=== PATIENT | female | born 1940 | race Caucasian/White ===

== ENCOUNTER 2020-02-04 09:57 | Observation (INO) | payer OTHER, SELFPAY ==
[2020-02-04] VITALS (14 sets, daily range): BP systolic 100–171; BP diastolic 61–88; PULSE 57–72; RESP 16–28; TEMP 36.2–36.4; O2SAT 95–100; BMI 21.5
--- NOTE | ~2020-02-04 | CT_ITS ---
EXAMINATION: CT brain wo con EXAM DATE: 02/04/2020 11:15 INDICATION: Fall. Head injury. TECHNIQUE: Spiral CT of the head was performed without contrast. Axial, coronal and sagittal images were reviewed. The dose-length product (DLP) for this examination was 605.33 mGy-cm. The exposure w as tailored according to patient size, and iterative reconstruction (ASIR) was used as additional dos e reduction technique. Comparison is made to prior examination from 08/17/2019. FINDINGS: There is no acute intraparenchymal hemorrhage. No evidence of intraparenchymal brain mass lesion. No evidence of acute infarction. Please note that initial head CT has limited sensitivity f or small or acute infarctions. There is mild periventricular and subcortical hypodensity, nonspecific but probably related to small vessel ischemic disease. There is moderate prominence of the sulci a nd ventricles related to cerebral atrophy. There is intracranial carotid arteriosclerosis. There a re no extra-axial collections. There is no mass effect or midline shift. Patient has had bilateral ocular lens surgery. Soft tissue is unremarkable. The visualized sinuses and mastoid air cells are well aerated. IMPRESSION: 1. No acute intracranial findings. 2. Chronic age related findings. Reviewed, dictated and finalized at location A.
--- NOTE | ~2020-02-04 | CT_ITS ---
EXAMINATION: CT lumbar spine wo [facility] EXAM DATE: 02/04/2020 11:16 INDICATION: Fall, back pain. TECHNIQUE: Spiral CT lumbar spine was performed without contrast. Axial, coronal and sagittal images were reviewed. The dose-length product (DLP) for this examination was 402.91 mGy-cm. The exposure w as tailored according to patient size (auto mA exposure control), and iterative reconstruction (ASIR) was used as additional dose reduction technique. There is no prior study for comparison. FINDINGS: There is mild to moderate lumbar levoscoliosis with moderate to severe disc disease at L3- 4 and L5-S1, moderate at L2-3 and L4-5. There is 3 mm retrolisthesis L5 on S1. There are no acute fra ctures identified. There is no spondylolysis. Moderate abdominal aortic arterial sclerosis and scatte red sigmoid diverticulosis. Sacrum, sacroiliac joints, sacral arcuate lines are intact. A detailed level by level evaluation of spondylosis can be added as addendum if requested. IMPRESSION: 1. No acute lumbar fracture. 2. Overall moderate lumbar spondylosis. Reviewed, dictated and finalized at location A.
--- NOTE | ~2020-02-04 | CT_ITS ---
EXAMINATION: CTA chest PE protocol DATE: 02/04/2020 12:25 INDICATION: Chest pain. Shortness of breath. Positive d-dimer. TECHNIQUE: Computed tomography (CT) pulmonary angiogram of the chest was performed with 100 mL Omnipa que-350 intravenous contrast. Additional 3D reconstructions utilizing coronal maximum intensity proje ction (MIP) were performed. Automated exposure control and iterative reconstruction technique were em ployed. The dose-length product was 182.70 mGy-cm. COMPARISON: None FINDINGS: Excellent contrast opacification of the pulmonary arteries. There is mild streak artifact from dense contrast in the superior vena cava and right atrium. Mild scattered respiratory motion artifact, at t he apices which does not significantly limit evaluation. No pulmonary embolism. Elevation of the righ t hemidiaphragm with mild right basilar compressive atelectasis. Additional mild discoid atelectasis at the lingula and right middle lobe. No pneumonia, pulmonary edema or pleural effusion. Heart size i s normal. Trace pericardial effusion. Three lead pacemaker/AICD seen with tips at the right atrial ap pendage, apex of the right ventricle and overlying the left ventricle having traversed the coronary s inus. Thoracic aorta is normal in caliber with no dissection. No pathologically enlarged thoracic lym phadenopathy. Small sliding-type hiatal hernia. Mild thoracic spondylosis. IMPRESSION: 1. No pulmonary embolism. 2. Chronic elevation of the right hemidiaphragm with mild atelectasis in the lingula and right middle and lower lobes. No other acute cardiopulmonary disease. Reviewed, dictated and finalized at location A. IMPRESSION: 1. No pulmonary embolism. 2. Chronic elevation of the right hemidiaphragm with mild atelectasis in the li ngula and right middle and lower lobes. No other acute cardiopulmonary disease.
--- NOTE | ~2020-02-04 | XR_ITS ---
XR hip RT 2V w AP pelvis DATE: 02/04/2020 10:51 INDICATION: Fall. Right hip pain. TECHNIQUE: AP pelvis. AP and lateral views of right hip COMPARISON: None FINDINGS: There is levoscoliosis and multilevel degenerative disc disease of the lumbar spine. The pubic symphysis and sacroiliac joints are intact. No pelvic fracture or bone destruction is detec baudilio. Hip joint spaces are symmetric and relatively preserved. No fracture, dislocation, avascular necrosis or bone destruction of the right hip is detected. IMPRESSION: No significant abnormality of the pelvis or right hip Levoscoliosis and multilevel degenerative disc disease of the lumbar spine Reviewed, dictated and finalized at location D.
--- NOTE | ~2020-02-04 | CT_ITS ---
EXAMINATION: CT cervical spine wo [facility] EXAM DATE: 02/04/2020 11:16 INDICATION: Fall, head injury. TECHNIQUE: Spiral CT of the cervical spine was performed without contrast. Axial images were reviewe d. Coronal and sagittal reformatted images were also reviewed. The dose-length product (DLP) for thi s examination was 260.20 mGy-cm. The exposure was tailored according to patient size (auto mA exposu re control), and iterative reconstruction (ASIR) was used as additional dose reduction technique. ere is no prior study for comparison. FINDINGS: There is no evidence of acute cervical fracture. The odontoid process is intact. Pre-dens space is normal. Prevertebral soft tissue is normal. There are no soft tissue abnormalities identi fied. There is no disc space widening or traumatic vertebral body subluxation suspected. Moderate l ower cervical disc disease and arthropathy. A detailed level by level evaluation of spondylosis can be added as addendum if requested. Pacemaker. IMPRESSION: 1. No acute cervical fracture. 2. Moderate cervical spondylosis. Reviewed, dictated and finalized at location A.
--- NOTE | ~2020-02-04 | XR_ITS ---
EXAMINATION: XR chest 1V portable EXAM DATE: 02/04/2020 10:23 INDICATION: Shortness of breath. TECHNIQUE: Portable AP frontal chest x-ray was obtained. Comparison is made to prior examination from 06/16/2018. FINDINGS: There is triple lead pacemaker/AICD device. The lungs are clear. There are no pleural effu sions. The cardiomediastinal silhouette is within normal limits. There is no pneumothorax suspected . The bones and soft tissues are unremarkable. There is no significant interval change. IMPRESSION: No acute cardiopulmonary findings. Reviewed, dictated and finalized at location A.
--- NOTE | 2020-02-04 10:05 | ECG_ITS ---
Measurements Intervals [place] Rate: 63 P: -22 RI: 152 QRS: 15 QRSD: 119 T: 140 QT: 467 QTc: 481 Interpretive Statements SINUS RHYTHM LEFT BUNDLE BRANCH BLOCK BASELINE ARTIFACT- I, II, III, AVR, AVL, AVF, V6 ABNORMAL ECG Electronically Signed On 02-04-2020 10:18:16 CDT by Glenn Parker D.O.
[2020-02-04 10:23] LABS: Basophils Absolute Auto 0.1 K/mm3 (0.0-0.1); Basophils Percent Auto 0.6 % (0.2-1.2); Eosinophils Absolute Auto 0.1 K/mm3 (0-0.3); Eosinophils Percent Auto 0.8 % (0-4.4); Hematocrit 40.7 % (37.0-47.0); Immature Granulocyte Absolute 0.03 K/mm3 (0.00-0.031); Immature Granulocyte Percent A 0.4 % (0-0.5); Lymphocytes Absolute Auto 3.32 K/mm3 (0.9-3.2); Lymphocytes Percent Auto 42.1 % (18.3-44.2); Mean Corpuscular HGB Conc 34.4 g/dl (32-36); Mean Corpuscular Volume 81.4 fl (80-100); Mean Platelet Volume 11.1 fl (7.4-10.4); Monocytes Absolute Auto 0.7 K/mm3 (0.1-0.6); Monocytes Percent Auto 8.7 % (2.6-8.5); Neutrophils Absolute Auto 3.7 K/mm3 (1.3-6.7); Neutrophils Percent Auto 47.4 % (45.5-73.1); Platelet Count Result 263 k/mm3 (150-375); Red Cell Distribution Width 13.7 % (11.5-14.5); White Blood Count 7.9 K/mm3 (4.5-10.0)
[2020-02-04 10:34] LABS: Alanine Aminotransferase 34 U/L (4-35); Albumin Level 4.6 g/dL (3.5-5.1); Alkaline Phosphatase 124 U/L (38-126); Aspartate Amino Transferase 49 U/L (14-36); Bilirubin,Total 0.5 mg/dL (0.2-1.3); Blood Urea Nitrogen 25 mg/dL (7-17); Calcium 9.7 mg/dL (8.4-10.2); Carbon Dioxide 20 mmol/L (22-30); Chloride 98 mmol/L (98-107); Estimated CRCL calculation 29 ml/min; Estimated Glomerular Filt Rate 39; Glucose 212 mg/dL (65-105); INR 0.9; Lipase 231 U/L (23-300); Potassium 4.1 mmol/L (3.4-5.0); Prothrombin Time 11.9 Seconds (11.1-14.7); Sodium 132 mmol/L (137-145)
[2020-02-04 10:35] LABS: Partial Thromboplastin Time 27.5 SECONDS (22.3-36.8)
[2020-02-04 10:46] LABS: NT Pro B Type Natriuretic Pept 193 PG/ML (5-100); Troponin I < 0.012 ng/mL (0.000-0.034)
[2020-02-04 11:01] LABS: D Dimer 1.76 ug/mL (<0.48)
--- NOTE | 2020-02-04 11:01 | ED.GENADULT ---
HPI - General Adult General Chief complaint: Unspecified Stated complaint: chest pain, weakness Time Seen by Provider: 02/04/20 10:01 History of Present Illness HPI narrative: Patient is an 79-year-old female who presents from primary care office for evaluation of exertional dyspnea with pleuritic chest pain for the last 3 days noting that she gets short of breath with ambulation noting history of heart failure. Patient had a fall 3 days prior in the bathroom when her legs gave out patient notes since she has felt lightheaded dizzy with neck pain and right hip pain. Patient has been able to ambulate with her walker. Patient denies any vomiting diarrhea or URI symptoms. On arrival patient in the room in no distress resting comfortably. Patient presents per private vehicle Related Data Home Medications Medication Instructions Recorded Confirmed losartan 25 mg tablet 25 mg PO DAILY 10/18/19 02/04/20 multivitamin 1 tablet PO DAILY 10/18/19 02/04/20 insulin aspart U-100 [Novolog unit SUBCUT 02/04/20 Flexpen U-100 Insulin] insulin glargine U-300 conc SUBCUT 02/04/20 [Toujeo SoloStar U-300 Insulin] Allergies Allergy/AdvReac Type Severity Reaction Status Date / Time codeine Allergy Unknown Unknown Verified 02/04/20 10:22 NSAIDS (Non-Steroidal Allergy Unknown Unknown Verified 02/04/20 10:22 Anti-Inflamma Review of Systems Review of Systems: All systems reviewed & are unremarkable except as noted in HPI and below PMFSH Past Medical History Medical History Chest pressure Dizziness Generalized weakness Neck pain Status post fall Family History Family History (Updated 06/16/18 @ 10:42 by DOCTOR UNKNOWN) Mother Family history of tuberculosis Father Patient's father is Social History Social History Smoking status: Never smoker Alcohol intake: never Exam Narrative: Exam Narrative: GENERAL: Well-appearing, well-nourished, and in no acute distress. HEAD: Normocephalic, atraumatic. EYES: PERRLA and EOMI. ENT: Nares clear, no rhinorrhea or epistaxis. Mucous membranes moist. Oropharynx without tonsillar hypertrophy exudate or other lesions. Bilateral TMs pearly shah nonbulging NECK: Supple. No adenopathy or masses. CHEST: Clear to auscultation. No respiratory distress. No wheezes rales or rhonchi HEART: Regular rate and rhythm. No murmur heard. Normal peripheral pulses. ABDOMEN: Soft, nontender, nondistended EXTREMITIES: Normal range of motion. No edema. Midline cervical no thoracic or lumbar tenderness. Tenderness of the right hip SKIN: Warm, dry, no rash. NEURO: No focal deficits. Alert and oriented x3. Cranial nerves II through XII grossly intact. Neurovascularly intact PSYCH: Normal mood and affect. Course Course Emergency Course: Patient in the room in no distress aware of case findings treatment plan and diagnosis agreeing to follow with primary care as instructed also aware of the discussion with primary care Case work was involved to see if home health could be established for the patient Consultations Consultation #1: Discussed case with primary care who agrees he can follow the patient in clinic Date: 02/04/20 Time: 15:43 Vital Signs Vital signs: Vital Signs Temperature 97.1 F L 02/04/20 10:02 Pulse Rate 71 02/04/20 10:02 Respiratory Rate 28 H 02/04/20 10:02 Blood Pressure 132/61 02/04/20 10:02 Pulse Oximetry 95 02/04/20 10:02 Temperature 97.1 F L 02/04/20 10:02 Pulse Rate 64 02/04/20 14:00 Respiratory Rate 20 02/04/20 14:00 Blood Pressure 167/67 H 02/04/20 14:00 Pulse Oximetry 100 02/04/20 14:00 Medical Decision Making [facility] Narrative Medical decision making narrative: Patient in the room in no distress aware of case findings treatment plan and diagnosis agreeing to follow-up as directed or to return if symptom
[2020-02-04] MEDS: SODIUM CHLORIDE 0.9% IV 500 ML 999 ML IV CONT ×2 (11:30→15:04)
[2020-02-04 11:37] LABS: Add Urine Microscopic? NO; Appearance Urine Clear (Clear); Bilirubin Urine Negative (Negative); Blood Urine Negative (Negative); Color Urine Straw (Yellow); Glucose Urine UA Negative (Negative); Ketones Urine Negative (Negative); Leukocyte Esterase Ur Negative LEU/UL (Negative); Nitrate Urine Negative (Negative); Protein Urine Negative (Negative); Specific Grav Ur 1.008 (1.001-1.035); Urobilinogen Urine Negative mg/dL (<2.0)
--- NOTE | 2020-02-04 12:11 | PC.NURSE ---
Patient to CT.
[2020-02-04 13:33] LABS: Troponin I < 0.012 ng/mL (0.000-0.034)
[2020-02-04] MEDS: ONDANSETRON INJ 4 MG/2 ML VIAL IV PUSH (15:05)
--- NOTE | 2020-02-04 16:54 | PCCCNOTE ---
Spoke with family friend, Dayana Way [phone]. She will be assisting this patient and her , Jian. Contacted [facility] and faxed referral for HH. They will not be able to see patient and spouse until next week. Dayana Way stated that would be fine.
[2020-02-04] MEDS: MECLIZINE HCL 25 MG TABLET PO (17:49)
[2020-02-04 18:30] LABS: Lactic Acid Reflex 1.2 mmol/L (0.7-2.1)
[2020-02-04 18:42] LABS: Troponin I < 0.012 ng/mL (0.000-0.034)
--- NOTE | 2020-02-04 19:53 | ADMGEN ---
This patient, Nathalia Jaimes, was admitted to [facility] Surg Room 333-01 at 1905. Patient/family oriented to hospital policies and general routines including ID bracelet, bed and alarms, visiting hours, pain management, procedures, bathroom and other care routines, personal items, smoking policy, room service/diet, and visiting hours. Valuables list has been completed. Information on how to activate the Rapid Response Team has been discussed. Patient/Family are encouraged to report perceived risks to care and to ask questions if they do not understand what they are told or what they should do.
[2020-02-04] MEDS: LACTATED RINGERS 1,000 ML 75 ML IV CONT (20:59)
[2020-02-04 22:36] LABS: Glucose Point of Care 258 (65-105)
[2020-02-04] MEDS: FAMOTIDINE 20 MG/2 ML VIAL IV PUSH (22:52)
[2020-02-05] VITALS: PULSE 66
[2020-02-05] LABS: Influenza Control Positive
[2020-02-05 00:37] VITALS: BP 165/64; PULSE 73; RESP 20; TEMP 36.8; O2SAT 100
[2020-02-05 04:00] VITALS: BP 145/56; PULSE 73; PULSE 74; RESP 20; TEMP 36.6; O2SAT 100
[2020-02-05 06:38] LABS: Basophils Percent Auto 0.5 % (0.2-1.2); Eosinophils Absolute Auto 0.1 K/mm3 (0-0.3); Eosinophils Percent Auto 1.1 % (0-4.4); Hematocrit 33.9 % (37.0-47.0); Hemoglobin 11.6 g/dL (12.0-15.0); Immature Granulocyte Absolute 0.02 K/mm3 (0.00-0.031); Immature Granulocyte Percent A 0.3 % (0-0.5); Lymphocytes Absolute Auto 2.71 K/mm3 (0.9-3.2); Lymphocytes Percent Auto 40.9 % (18.3-44.2); Mean Corpuscular HGB Conc 34.2 g/dl (32-36); Mean Corpuscular Hemoglobin 28.4 pg (26-34); Mean Corpuscular Volume 83.1 fl (80-100); Mean Platelet Volume 10.8 fl (7.4-10.4); Monocytes Absolute Auto 0.6 K/mm3 (0.1-0.6); Monocytes Percent Auto 9.4 % (2.6-8.5); Neutrophils Absolute Auto 3.2 K/mm3 (1.3-6.7); Neutrophils Percent Auto 47.8 % (45.5-73.1); Platelet Count Result 204 k/mm3 (150-375); Red Blood Count 4.08 M/mm3 (4.2-5.4); Red Cell Distribution Width 13.7 % (11.5-14.5); White Blood Count 6.6 K/mm3 (4.5-10.0)
[2020-02-05 06:42] LABS: Blood Urea Nitrogen 17 mg/dL (7-17); Calcium 8.8 mg/dL (8.4-10.2); Carbon Dioxide 25 mmol/L (22-30); Chloride 106 mmol/L (98-107); Estimated CRCL calculation 35 ml/min; Estimated Glomerular Filt Rate 48; Glucose 146 mg/dL (65-105); Potassium 3.7 mmol/L (3.4-5.0); Sodium 136 mmol/L (137-145)
[2020-02-05 08:00] VITALS: PULSE 73; PULSE 74; RESP 20; O2SAT 100
[2020-02-05] MEDS: LACTATED RINGERS 1,000 ML 75 ML IV CONT (08:03)
[2020-02-05] MEDS: SERTRALINE HCL 50 MG TABLET PO (08:03)
[2020-02-05] MEDS: busPIRone HCL 5 MG TABLET PO (08:04)
[2020-02-05] MEDS: LOSARTAN POTASSIUM 25 MG TABLET PO (08:04)
[2020-02-05] MEDS: METOPROLOL TARTRATE 25 MG TABLET PO (08:04)
[2020-02-05] MEDS: MULTIVITAMINS THERAPEUTIC TAB (*BKC) 1 TABLET PO (08:04)
[2020-02-05] MEDS: GABAPENTIN 300 MG CAPSULE PO (08:04)
[2020-02-05] MEDS: INSULIN ASPART (*BKC) 100 UNITS/ML 19 UNITS SUB-Q (08:15)
--- NOTE | 2020-02-05 09:15 | PM.SD ---
Same Day Admit/Disch: HPI History of Present Illness Chief complaint: Dizziness, gait instability, generalized weakness Narrative: Nathalia Jaimes is a 79 year old female who was in the emergency department on February 07 chest pressure. Three weeks prior to admission she tripped in her bathroom and fell forward hit her head on the wall as she caught herself with her hands slid to the floor and landed on her knees. Since then she has felt off balance and her right knee has been hurting. She noted no swelling. No popping clicking or giving out. She normally walks with a walker except while she is working in the kitchen. While she was visiting her doctor on February 03 she complained of some mild pressure across her precordium. This was not related to exertion. It did seem to be worse with breathing although she is not certain now. It resolved after a few minutes. Since her fall she has had some aching in both of her legs. She did not have any aching other than her usual mild arthritis in the hands and knees prior to her fall. She denied any focal weakness or numbness, vision changes, dysphagia, or speech difficulty. She denied any incoordination while performing her kitchen tasks or activities of daily living. She denied any headaches, fevers, chills, sweats, congestion, bowel or bladder changes, abnormal bleeding, change in appetite, palpitations, chest pain, increased shortness of breath, or increased ankle swelling. She normally has a little ankle swelling at the end of the day. 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 Pituitary adenoma Status post fall SVT (supraventricular tachycardia) Temporal arteritis Type 2 diabetes mellitus with diabetic nephropathy Type 2 diabetes mellitus with hyperglycemia V-tach Surgical History Surgical History (Updated 02/05/20 @ 09:44 by Sy Lea MD) H/O breast biopsy History of appendectomy History of cholecystectomy S/P implantation of automatic cardioverter/defibrillator (AICD) Status cardiac pacemaker Family History Family History Mother Family history of tuberculosis Father Patient's father is Social History Social History (Updated 02/05/20 @ 09:22 by Sy Lea MD) Social History: . Resides with her . Son and daughter live out of state, one in [place] and one in [place]. Smoking status: Former smoker Tobacco type: cigarettes Additional smoking assessment comments: quit 1960s- smoked socially Alcohol intake: never Substance use: never Living arrangements: with family Occupation/Education: retired Gender identity (if verbalized by the patient): Female Spiritual care concerns: No Agree to blood products: Yes Same Day Admit/Disch: Med Pre-admit Medications Home Medications Medication Instructions Recorded Confirmed Type losartan 25 mg tablet 25 mg PO DAILY 10/18/19 02/04/20 History multivitamin 1 tablet PO DAILY 10/18/19 02/04/20 History gabapentin 300 mg capsule 300 mg PO TID #270 cap 12/27/19 02/04/20 Rx lovastatin 40 mg tablet 40 mg PO QPM #90 tablet 01/05/20 02/04/20 Rx buspirone 5 mg tablet 5 mg PO BID #60 tablet 01/24/20 02/04/20 Rx sertraline 50 mg tablet 50 mg PO DAILY #30 tablet 01/24/20 02/04/20 Rx Toujeo SoloStar U-300 Insulin 60 unit SUBCUT HS 02/04/20 02/04/20 History insulin aspart U-100 [Novolog 19 unit SUBCUT TIDWM 02/04/20 02/04/20 History Flexpen U-100 Insulin] metoprolol tartrate 25 mg tablet 25 mg PO BID #60 tablet 02/04/20 02/04/20 Rx acetaminophen 650 mg PO Q4H PRN #60 tablet 02/05/20 Rx Exam Narrative: Exam Narrative:
[2020-02-05 11:02] LABS: CRP 1.2 mg/dL (<1.0); Creatine Kinase 156 U/L (30-135)
[2020-02-05 11:30] LABS: Cortisol Random 9.93 ug/dL
[2020-02-05 11:33] LABS: Iron 66 ug/dL (37-170)
[2020-02-05 11:43] LABS: Percent Iron Saturation 27 % (20-50)
[2020-02-05 12:06] LABS: Folic Acid > 20.0 ng/mL (2.76->20)
[2020-02-05 14:21] VITALS: BP 159/65; PULSE 67; RESP 16; TEMP 36.3; O2SAT 100
[2020-02-05 15:32] LABS: Glucose Point of Care 225 (65-105)
[2020-02-05 15:32] LABS: Glucose Point of Care 59 (65-105)
== END 2020-02-05 14:35 | disposition home or self-care (01) ==
LOC: ANHED 17:55 → ANH3MEDSUR 02-05 03:45
PROVIDERS: Emergency Medicine Emergency Medical Services; Admitting Provider Internal Medicine; Emergency Provider Emergency Medicine; PCP Family Medicine; Visit Provider Internal Medicine
DX: R07.89 Other chest pain (principal); S06.0X0A Concussion without loss of consciousness, initial encounter; W01.198A Fall on same level from slipping, tripping and stumbling with subsequent striking against other object, initial encounter; M54.2 Cervicalgia; M25.561 Pain in right knee; F41.9 Anxiety disorder, unspecified; F32.9 Major depressive disorder, single episode, unspecified; I13.0 Hypertensive heart and chronic kidney disease with heart failure and stage 1 through stage 4 chronic kidney disease, or unspecified chronic kidney disease; I50.22 Chronic systolic (congestive) heart failure; E11.22 Type 2 diabetes mellitus with diabetic chronic kidney disease; N18.3 Chronic kidney disease, stage 3 (moderate); D63.1 Anemia in chronic kidney disease; E11.42 Type 2 diabetes mellitus with diabetic polyneuropathy; E11.65 Type 2 diabetes mellitus with hyperglycemia; E78.2 Mixed hyperlipidemia; M19.90 Unspecified osteoarthritis, unspecified site; I42.0 Dilated cardiomyopathy; D35.2 Benign neoplasm of pituitary gland; I44.7 Left bundle-branch block, unspecified; Z95.810 Presence of automatic (implantable) cardiac defibrillator; Z87.891 Personal history of nicotine dependence; Z79.4 Long term (current) use of insulin; Z79.899 Other long term (current) drug therapy
CPT/HCPCS: 36415; 51701; 70450; 71045; 71275; 72125; 72131; 73502; 73521; 80048; 80053; 81003; 82533; 82550; 82607; 82746; 83540; 83550; 83605; 83690; 83880; 84443; 84484; 85025; 85380; 85610; 85730; 86140; 87040; 87804; 93005; 96361; 96374; 96375; 97161; 97165; 97535; 99285; A9270; G0378; J0131; J1815; J2405; J7040; J7120; Q9967

== ENCOUNTER 2020-02-11 11:48 | Inpatient (IN) | payer OTHER, SELFPAY ==
[2020-02-11] VITALS (17 sets, daily range): BP systolic 127–169; BP diastolic 56–96; PULSE 90–123; RESP 15–33; TEMP 36.7–37.1; O2SAT 95–100
--- NOTE | ~2020-02-11 | XR_ITS ---
EXAMINATION: XR chest 1V portable INDICATION: Shortness of breath and cough TECHNIQUE: Portable AP chest at 1233 hours COMPARISON: 02/04/2020 FINDINGS: There is chronic elevation of the right hemidiaphragm. The lungs are free of acute opacitie s. There is no pleural effusion or pneumothorax. The heart size is normal. A triple lead cardiac pace maker of the left chest wall ends with leads in expected locations. IMPRESSION: 1. No acute cardiopulmonary abnormality. Reviewed, dictated and finalized at location B.
--- NOTE | ~2020-02-11 | CT_ITS ---
EXAMINATION: CTA chest PE protocol DATE: 02/12/2020 00:31 INDICATION: Dyspnea. Congestive heart failure. TECHNIQUE: Computed tomography (CT) pulmonary angiogram of the chest was performed with 100 mL Omnipa que-350 intravenous contrast. Additional 3D reconstructions utilizing coronal maximum intensity proje ction (MIP) were performed. Automated exposure control and iterative reconstruction technique were em ployed. The dose-length product was 327.74 mGy-cm. COMPARISON: 02/04/2020 FINDINGS: Excellent contrast opacification of the pulmonary arteries. There is mild streak artifact from dense contrast in the superior vena cava and right atrium. No significant respiratory motion artifact. No p ulmonary embolism. Elevation of the right hemidiaphragm with scattered mild discoid atelectasis in th e left lower lobe, right middle lobe and lingula. No pneumonia, pulmonary edema, pleural effusion or pneumothorax. Heart size is normal. Three lead pacemaker/AICD seen with lead tips at the right atrial appendage, apex of the right ventricle and overlying the left ventricle likely having traversed the coronary sinus. No pericardial effusion. Thoracic aorta is normal in caliber with no dissection. No p athologically enlarged thoracic lymphadenopathy. Gallbladder is not visualized and likely surgically absent. Mild upper thoracic levocurvature with mild spondylosis. IMPRESSION: 1. No pulmonary embolism or other acute cardiopulmonary disease. 2. Chronic elevation right hemidiaphragm with unchanged mild scattered atelectasis in the lower lungs . Reviewed, dictated and finalized at location A. IMPRESSION: 1. No pulmonary embolism or other acute cardiopulmonary disease. 2. Chronic elevation right hemidiaphragm with unchanged mild scattered atelecta sis in the lower lungs.
--- NOTE | 2020-02-11 11:44 | ECG_ITS ---
Measurements Intervals [place] Rate: 91 P: 39 MN: 120 QRS: -46 QRSD: 131 T: 96 QT: 417 QTc: 514 Interpretive Statements ATRIAL SENSE- ELECTRONIC VENTRICULAR PACEMAKER NO FURTHER INTERPRETATION IS POSSIBLE ATYPICAL ECG Electronically Signed On 02-11-2020 14:45:44 CDT by Glenn Parker D.O.
--- NOTE | 2020-02-11 12:16 | ED.SOB ---
HPI - SOB/Dyspnea General Chief Complaint: Shortness of Breath/Dyspnea Stated Complaint: SOB Time Seen by Provider: 02/11/20 12:13 Source: patient, family () and RN notes reviewed Mode of arrival: ambulatory Limitations: no limitations History of Present Illness HPI Narrative: A 79 y/o female w/ a h/o CHF has arrived to the ED from Dr. Maria's office with c/o progressively worsening SOB that began 3 days ago. Pt reports associated sinus drainage, a sore throat, and a cough. Pt denies swelling in legs, fever, or an increase in SOB while lying flat. Pt also denies recent travel or sick contacts. She notes that she is not currently using any breathing treatments at home, and states she is not currently taking Lasix. Pt notes that she normally does not receive oxygen, but is currently receiving oxygen in the ED bed. MD elicited complaint: shortness of breath Pertinent past history: congestive heart failure Onset (ago): day(s) (3) Timing: progressively worsening Known history of: congestive heart failure Associated symptoms: cough and other (sore throat; sinus drainage) Related Data Home Medications Medication Instructions Recorded Confirmed losartan 25 mg tablet 25 mg PO DAILY 10/18/19 02/04/20 multivitamin 1 tablet PO DAILY 10/18/19 02/04/20 Toujeo SoloStar U-300 Insulin 60 unit SUBCUT HS 02/04/20 02/04/20 insulin aspart U-100 [Novolog 19 unit SUBCUT TIDWM 02/04/20 02/04/20 Flexpen U-100 Insulin] Allergies Allergy/AdvReac Type Severity Reaction Status Date / Time codeine Allergy Unknown Unknown Verified 02/11/20 12:56 NSAIDS (Non-Steroidal Allergy Unknown Unknown Verified 02/11/20 12:56 Anti-Inflamma Review of Systems Review of Systems: All systems reviewed & are unremarkable except as noted in HPI and below Constitutional: Constitutional: Denies fever(s) ENT: Reports sore throat and Reports other (posterior sinus drainage) Cardiovascular: Cardiovascular: Denies edema (in legs), Reports dyspnea and Denies orthopnea Respiratory: Respiratory: Reports cough PMFSH Past Medical History Medical History Anemia due to stage 3 chronic kidney disease Bilateral cataracts CHF (congestive heart failure) Chronic kidney disease, stage III (moderate) H/O diverticulitis of colon Kidney stone LBBB (left bundle branch block) Mixed hyperlipidemia 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 Resides with her . Son and daughter live out of [facility], one in [place]. Smoking status: Former smoker Tobacco type: cigarettes Additional smoking assessment comments: quit 1960s- smoked socially Alcohol intake: never Substance use: never Gender identity (if verbalized by the patient): Female Spiritual care concerns: No Agree to blood products: Yes Exam Narrative: Exam Narrative: GENERAL: Uncomfortable-appearing, well-nourished, and in mild distress. HEAD: Normocephalic, atraumatic. EYES: PERRL and EOMI. ENT: Mucous membranes moist. Palatal petechiae without tonsillar hypertrophy or exudate. CHEST: Coarse rales and rhonchi throu
[2020-02-11 12:32] LABS: Basophils Percent Auto 0.3 % (0.2-1.2); Eosinophils Absolute Auto 0.1 K/mm3 (0-0.3); Eosinophils Percent Auto 1.2 % (0-4.4); Hematocrit 36.2 % (37.0-47.0); Hemoglobin 12.2 g/dL (12.0-15.0); Immature Granulocyte Absolute 0.01 K/mm3 (0.00-0.031); Immature Granulocyte Percent A 0.2 % (0-0.5); Lymphocytes Percent Auto 35.4 % (18.3-44.2); Mean Corpuscular HGB Conc 33.7 g/dl (32-36); Mean Corpuscular Hemoglobin 27.9 pg (26-34); Mean Corpuscular Volume 82.8 fl (80-100); Monocytes Absolute Auto 0.7 K/mm3 (0.1-0.6); Monocytes Percent Auto 11.1 % (2.6-8.5); Neutrophils Absolute Auto 3.1 K/mm3 (1.3-6.7); Neutrophils Percent Auto 51.8 % (45.5-73.1); Platelet Count Result 226 k/mm3 (150-375); Red Blood Count 4.37 M/mm3 (4.2-5.4); Red Cell Distribution Width 13.6 % (11.5-14.5); White Blood Count 5.9 K/mm3 (4.5-10.0)
[2020-02-11 12:40] LABS: Prothrombin Time 12.5 Seconds (11.1-14.7)
[2020-02-11 12:41] LABS: Partial Thromboplastin Time 27.6 SECONDS (22.3-36.8)
[2020-02-11 12:43] LABS: Alanine Aminotransferase 29 U/L (4-35); Albumin Level 4.2 g/dL (3.5-5.1); Alkaline Phosphatase 125 U/L (38-126); Aspartate Amino Transferase 38 U/L (14-36); Bilirubin,Total 0.5 mg/dL (0.2-1.3); Blood Urea Nitrogen 10 mg/dL (7-17); Calcium 8.8 mg/dL (8.4-10.2); Carbon Dioxide 22 mmol/L (22-30); Chloride 102 mmol/L (98-107); Estimated CRCL calculation 35 ml/min; Estimated Glomerular Filt Rate 48; Glucose 324 mg/dL (65-105); Magnesium 1.5 mg/dL (1.6-2.3); Potassium 4.4 mmol/L (3.4-5.0); Sodium 133 mmol/L (137-145)
[2020-02-11 12:51] LABS: NT Pro B Type Natriuretic Pept 425 PG/ML (5-100)
[2020-02-11] MEDS: IPRATROPIUM BR 0.02% INH SOLN 0.5 MG/2.5 ML VIAL 1 MG INHALATION (13:48)
[2020-02-11] MEDS: ALBUTEROL SULFATE NEB 2.5 MG/0.5 ML INH 15 MG INHALATION (13:49)
[2020-02-11] MEDS: ALBUTEROL SULFATE (*SP) AEROSOL 1 PUFF 4 PUFF INHALATION (13:58)
[2020-02-11] MEDS: FUROSEMIDE INJ 40 MG/4 ML VIAL IV PUSH ×2 (15:09→21:39)
[2020-02-11] MEDS: ACETAMINOPHEN 500 MG TABLET 1000 MG PO (15:14)
[2020-02-11] MEDS: LORAZEPAM INJ 2 MG/ML VIAL 0.5 MG IV PUSH (17:04)
[2020-02-11] MEDS: ALBUTEROL SULFATE NEB 2.5 MG/0.5 ML INH 5 MG INHALATION ×2 (17:20→19:26)
[2020-02-11] MEDS: IPRATROPIUM BR 0.02% INH SOLN 0.5 MG/2.5 ML VIAL INHALATION ×2 (17:20→19:27)
--- NOTE | 2020-02-11 18:01 | PC.NURSE ---
This patient, Nathalia Jaimes, was admitted to IMU Room 203-01. Patient/family oriented to hospital policies and general routines including ID bracelet, bed and alarms, visiting hours, pain management, procedures, bathroom and other care routines, personal items, smoking policy, room service/diet, and visiting hours. Valuables list has been completed. Information on how to activate the Rapid Response Team has been discussed. Patient/Family are encouraged to report perceived risks to care and to ask questions if they do not understand what they are told or what they should do.
[2020-02-11] MEDS: MAGNESIUM SULF 1 GM/D5W 100 ML 1 GM/100 ML BAG IVPB (21:53)
[2020-02-11 22:09] LABS: Glucose Point of Care 376 (65-105)
--- NOTE | 2020-02-11 22:10 | PM.IMHP ---
H&P: HPI History of Present Illness Chief complaint: chf/bronchitis Narrative: Nathalia Jaimes is a 79 year old female who was admitted here approximately 1 week ago. The patient had some dizziness and some gait instability and some generalized weakness at that time. The patient stated that she has fallen twice in this past week that she has been discharged. The patient had a CTA pulmonary performed at that time and was negative for PE. Patient was having some chest pain at that time her troponins were also negative. Patient was discharged on the same day that she was admitted. Today the patient complained of shortness of breath and some dyspnea. She does have a history of congestive heart failure. Her last echo was June of 2018 with the EF of 65% and impaired diastolic dysfunction. The patient has been wheezing and coughing. She has a dry cough. No fever no chills. She has a son that just returned from [place] however he has been on self quarantine and has not seen his mother. She has not been around any other sick people. Nor has she traveled. The patient's chest x-ray was read as no acute cardiopulmonary abnormality. Gases were not able to be drawn. The patient was placed on a BiPAP from the emergency room due to her shortness of breath. Was given a nebulizer treatment. She was given Lasix IV push. She still has not had any urinary output since then. The patient stated that she cannot tolerate the BiPAP machine. And she is a full code. Date of service 02/11/2020 Review of Systems Review of Systems: All systems reviewed & are unremarkable except as noted in HPI and below Constitutional: Constitutional: Reports as per HPI and Reports no additional constitutional complaints Eyes: Eyes: Reports as per HPI and Reports no additional eye complaints ENT: Reports system reviewed and no additional complaints, except as documented and Reports Normal hearing present Cardiovascular: Cardiovascular: Reports no additional cardiovascular complaints Respiratory: Respiratory: Reports no additional respiratory complaints and Reports no additional respiratory complaints Gastrointestinal: Gastrointestinal: Reports as per HPI and Reports no additional gastrointestinal complaints Musculoskeletal: Musculoskeletal: Reports no additional musculoskeletal complaints Integumentary/Breasts: Skin/Breast: Reports system reviewed and no additional complaints, except as docu and Reports as per HPI Neurologic: Reports system reviewed and no additional complaints, except as documented, Reports as per HPI and Reports Normal hearing present Psychiatric: Psychiatric: Reports no additional psychiatric complaints and Reports as per HPI Endocrine: Endocrine: Reports no additional endocrine complaints Hematologic/Lymphatic: Hematologic/Lymphatic: Reports no additional hematologic/lymphatic complaints Allergic/Immunologic: Allergic/Immunologic: Reports no additional allergic/immunologic complaints [facility] Past Medical History Medical History (Updated 02/11/20 @ 22:25 by Gisele Kimball NP) Anemia due to stage 3 chronic kidney disease Bilateral cataracts CHF (congestive heart failure) Chronic kidney disease, stage III (moderate) H/O diverticulitis of colon Kidney stone LBBB (left bundle branch block) Mixed hyperlipidemia 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
[2020-02-11 22:14] LABS: Base Excess ABG -3.1 mEq/l (+/-2.0); Fractional Inspired Oxygen 21 %; Oxygen Content ABG 16.8 %vol (16.0-22.0); Oxygen Saturation ABG 96.4 % (95.0-100.0); Oxyhemoglobin 94.6 % THb (90.0-100.0); PO2 ABG 73.8 mmHg (80.0-100.0); PO2 FiO2 Ratio Arterial Blood 3.51 %; Total Hemoglobin 12.6 g/dL (12.0-18.0)
[2020-02-11 22:18] LABS: Device ROOM AIR; Modified Allen's Test Pass; PCO2 ABG 22.5 mmHg (35.0-45.0); Site Drawn LEFT RADIAL
[2020-02-11] MEDS: INSULIN GLARGINE (*BKC) 100 UNITS/ML 60 UNITS SUB-Q (22:57)
[2020-02-11] MEDS: INSULIN ASPART (*BKC) 100 UNITS/ML SUB-Q (22:58)
[2020-02-12] VITALS (30 sets, daily range): BP systolic 107–151; BP diastolic 52–88; PULSE 70–117; RESP 16–180; TEMP 36.6–37.1; O2SAT 95–100
--- NOTE | 2020-02-12 | ECHO_ITS ---
Patient Info Name: Nathalia Jaimes Age: 79 years : 1940 Gender: Female Ht: 65 in Wt: 134 lbs BSA: 1.67 m2 HR: 101 bpm BP: 134 / 65 mmHg Heart Rhythm: Tachycardia, Paced Technical Quality: Good Exam Date: 02/12/2020 9:16 AM Exam Location: [facility] Room: [facility] Patient Status: Inpatient Admit Date: 02/12/2020 Staff Ordering Physician: Gisele Kimball NP Automation Design Engineer: Rosa Isela Orozco RDCS Attending Provider: Justin Del Valle MD Referring Physician: Rehana ARREOLA; Exam Type: CA echo doppler color flow Study Info Indications - CHF - PMM Complete two-dimensional, color flow and Doppler transthoracic echocardiogram is performed. Summary 1. Left ventricular systolic function is hyperdynamic, estimated at >70%. 2. Left ventricular septal wall motion is abnormal with septal motion related to pacing. 3. Abnormal LVOT contour with intracavitary gradient of 49mmHg and peak velocity of 3.5m/sec. 4. The left ventricular diastolic function is grade I diastolic dysfunction. 5. Linear artifact in right ventricle suggestive of catheter(s), pacemaker lead(s), or ICD lead(s). 6. Left atrial chamber dimension is normal. 7. Linear artifact in the right atrium suggestive of catheter(s), pacemaker lead(s), or ICD lead(s). 8. There is no aortic valve stenosis. 9. There is mild mitral valve regurgitation. 10. There is mild tricuspid valve regurgitation. 11. No pulmonary hypertension, estimated pulmonary arterial systolic pressure is 34 mmHg. Left Ventricle Left ventricular chamber dimension is normal. Left ventricular systolic function is hyperdynamic, estimated at >70%. There is no increased left ventricular wall thickness. Left ventricular septal wall motion is abnormal with septal motion related to pacing. The left ventricular diastolic function is grade I diastolic dysfunction. Abnormal LVOT contour with intracavitary gradient of 49mmHg and peak velocity of 3.5m/sec. Right Ventricle Right ventricular chamber dimension is normal. Right ventricular systolic function is normal. Linear artifact in right ventricle suggestive of catheter(s), pacemaker lead(s), or ICD lead(s). Left Atria Left atrial chamber dimension is normal. Right Atria Right atrial chamber dimension is normal. Linear artifact in the right atrium suggestive of catheter(s), pacemaker lead(s), or ICD lead(s). Aortic Valve The aortic valve is not well visualized. There is no aortic valve stenosis. There is no aortic valve regurgitation. Pulmonic Valve The pulmonic valve is not well visualized. Mitral Valve The mitral valve has thickened leaflets. There is mild mitral valve regurgitation. The mitral valve annulus is moderately calcified. Tricuspid Valve The tricuspid valve leaflets are normal. There is mild tricuspid valve regurgitation. No pulmonary hypertension, estimated pulmonary arterial systolic pressure is 34 mmHg. Pericardium/Pleural The pericardium appears normal. There is trivial pericardial effusion. Inferior Vena Cava Normal inferior vena cava with >50% collapse upon inspiration consistent with normal right atrial pressure, 5 mmHg. Aorta The aortic root size at the sinus of Valsalva is normal. There is mild aortic atherosclerosis. Left Ventricular Outflow Tract Name Value Normal
[2020-02-12] MEDS: METOPROLOL TARTRATE 25 MG TABLET PO ×3 (01:32→17:14)
[2020-02-12] MEDS: LOVASTATIN 20 MG TABLET 40 MG PO ×2 (01:32→17:13)
[2020-02-12] MEDS: busPIRone HCL 5 MG TABLET PO ×3 (01:32→17:14)
[2020-02-12] MEDS: GABAPENTIN 300 MG CAPSULE PO ×4 (01:32→17:14)
[2020-02-12] MEDS: ALBUTEROL SULFATE NEB 2.5 MG/0.5 ML INH 5 MG INHALATION ×4 (01:43→19:24)
[2020-02-12] MEDS: IPRATROPIUM BR 0.02% INH SOLN 0.5 MG/2.5 ML VIAL INHALATION ×4 (01:43→19:24)
[2020-02-12 07:59] LABS: Glucose Point of Care 216 (65-105)
[2020-02-12] MEDS: MULTIVITAMINS THERAPEUTIC TAB (*BKC) 1 TABLET PO (08:34)
[2020-02-12] MEDS: INSULIN ASPART (*BKC) 100 UNITS/ML SUB-Q ×2 (08:34→17:14)
[2020-02-12] MEDS: LOSARTAN POTASSIUM 25 MG TABLET PO (08:35)
[2020-02-12] MEDS: FUROSEMIDE INJ 40 MG/4 ML VIAL IV PUSH (08:35)
[2020-02-12] MEDS: SERTRALINE HCL 50 MG TABLET PO (08:35)
[2020-02-12] MEDS: MAGNESIUM SULF 1 GM/D5W 100 ML 1 GM/100 ML BAG IVPB (10:22)
[2020-02-12] MEDS: methylPREDNISolone SOD SUCC 40 MG VIAL IV PUSH ×2 (10:22→20:16)
[2020-02-12] MEDS: ENOXAPARIN 40 MG/0.4 ML SYRINGE SUB-Q (10:23)
[2020-02-12 11:34] LABS: Glucose Point of Care 459 (65-105)
--- NOTE | 2020-02-12 11:38 | PM.IMPN ---
Progress Note: A&P Assessment and Plan (1) Dyspnea: Code(s): R06.00 - Dyspnea, unspecified Status: Acute Assessment and Plan: Suspect all due to bronchospasm with bronchitis.. BNP only 425. Echo has been ordered and receiving IV Lasix as the present time. Continue her ARB and beta-pat but add parental steroids also. (2) CHF (congestive heart failure): Code(s): I50.9 - Heart failure, unspecified Status: Acute Assessment and Plan: Probable does chronic systolic and/or diastolic. 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 Status: Acute Assessment and Plan: Continue Lantus and sliding scale and watch closely with addition of steroids (4) Chronic kidney disease, stage III (moderate): Code(s): N18.3 - Chronic kidney disease, stage 3 (moderate) Status: Acute Assessment and Plan: Creatinine about her baseline continue to monitor (5) Anemia due to stage 3 chronic kidney disease: Code(s): N18.3 - Chronic kidney disease, stage 3 (moderate); D63.1 - Anemia in chronic kidney disease Status: Acute Assessment and Plan: Hemoglobin 11.2 will monitor not active problem Subjective Date/time seen: 02/12/20 11:38 Interval history: Date of visit 02/11. 79-year-old white female presented to emergency room with complaints of increasing cough nonproductive with shortness of breath and wheezing. History of congestive heart failure but no edema and no chest pain. No recent travel or exposure. And as stated above no fever. Last echocardiogram of almost 2 years ago Exam Narrative: Exam Narrative: Blood pressure 1 10/60 pulse is 92 saturating 100% on 2 L nasal cannula afebrile Neck supple no adenopathy Lungs prolonged expiratory phase and expiratory wheezing no areas of consolidation or rales CV regular rate rhythm no murmurs or gallops Abdomen is soft nontender no masses Extremities without edema distal pulses are 1 to 2+ Neuro alert with no focal deficits Psych appropriate Objective Data Vital Signs Vital Signs: Vital Signs - 24 hr 02/11/20 11:49 02/11/20 12:13 02/11/20 12:14 Temperature 37.0 C Pulse Rate 93 90 Respiratory Rate 20 Blood Pressure 169/96 H Pulse Oximetry 100 100 02/11/20 13:44 02/11/20 13:52 02/11/20 17:01 Temperature Pulse Rate 103 H 100 Respiratory Rate 17 15 29 H Blood Pressure 147/61 H Pulse Oximetry 99 100 02/11/20 17:10 02/11/20 17:19 02/11/20 17:26 Temperature Pulse Rate 121 H 121 H 122 H Respiratory Rate 25 H 33 H Blood Pressure 157/71 H Pulse Oximetry 99 02/11/20 18:00 02/11/20 18:17 02/11/20 19:27 Temperature 36.8 C Pulse Rate 120 H 123 H 102 H Respiratory Rate 18 32 H 33 H Blood Pressure 127/56 L Pulse Oximetry 99 96 02/11/20 19:35 02/11/20 19:36 02/11/20 20:00 Temperature 36.7 C Pulse Rate 113 H 112 H 123 H Respiratory Rate 23 H 33 H 33 H Blood Pressure 142/61 H Pulse Oximetry 97 95 95 02/11/20 22:00 02/11/20 23:44 02/12/20 00:00 Temperature 37.1 C Pulse Rate 118 H 108 H 117 H Respiratory Rate 22 H 22 H Blood Pressure 138/65 Pulse Oximetry 100 100 02/12/20 01:32 02/12/20 01:43 02/12/20 01:55 Temperature Pulse Rate 105 H 92 93 Respiratory Rate 26 H 29 H Blood Pressure Pulse Oximetry 02/12/20 02:00 02/12/20 03:10 02/12/20 04:00 Temperature 37.1 C Pulse Rate 107 H 92 80 Respiratory Rate 28 H 16 Blood Pressure 134/65 Pulse Oximetry 95 98 02/12/20 06:00 02/12/20 08:00 02/12/20 08:18 Temperature 37.1 C Pulse Rate 94 90 95 Respiratory Rate 20 22 H Blood Pressure 107/59 L Pulse Oximetry 100 02/12/20 08:21 02/12/20 08:27 02/12/20 08:35 Tem[place]atur
[2020-02-12] MEDS: INSULIN ASPART (*BKC) 100 UNITS/ML 20 UNITS SUB-Q (12:26)
[2020-02-12 13:37] LABS: Albumin Level 3.8 g/dL (3.5-5.1); Blood Urea Nitrogen 15 mg/dL (7-17); Calcium 8.5 mg/dL (8.4-10.2); Carbon Dioxide 21 mmol/L (22-30); Chloride 92 mmol/L (98-107); Estimated CRCL calculation 30 ml/min; Estimated Glomerular Filt Rate 43; Glucose 428 mg/dL (65-105); Phosphorus 3.4 mg/dL (2.5-4.5); Potassium 3.8 mmol/L (3.4-5.0); Sodium 126 mmol/L (137-145)
[2020-02-12 13:47] LABS: Glucose Point of Care 359 (65-105)
[2020-02-12 16:45] LABS: Glucose Point of Care 319 (65-105)
[2020-02-12] MEDS: INSULIN GLARGINE (*BKC) 100 UNITS/ML 60 UNITS SUB-Q (20:16)
[2020-02-12 20:41] LABS: Glucose Point of Care 356 (65-105)
[2020-02-13] VITALS (22 sets, daily range): BP systolic 124–152; BP diastolic 46–67; PULSE 64–95; RESP 16–22; TEMP 36.1–36.7; O2SAT 92–97
[2020-02-13] MEDS: IPRATROPIUM BR 0.02% INH SOLN 0.5 MG/2.5 ML VIAL INHALATION ×4 (01:15→19:01)
[2020-02-13] MEDS: ALBUTEROL SULFATE NEB 2.5 MG/0.5 ML INH 5 MG INHALATION ×4 (01:15→19:00)
[2020-02-13 05:22] LABS: Blood Urea Nitrogen 31 mg/dL (7-17); Calcium 8.9 mg/dL (8.4-10.2); Carbon Dioxide 25 mmol/L (22-30); Chloride 92 mmol/L (98-107); Estimated CRCL calculation 26 ml/min; Estimated Glomerular Filt Rate 36; Glucose 417 mg/dL (65-105); Magnesium 2.2 mg/dL (1.6-2.3); Sodium 126 mmol/L (137-145)
[2020-02-13] MEDS: INSULIN GLARGINE (*BKC) 100 UNITS/ML 15 UNITS SUB-Q (09:08)
[2020-02-13] MEDS: INSULIN ASPART (*BKC) 100 UNITS/ML 19 UNITS SUB-Q ×3 (09:09→17:18)
[2020-02-13] MEDS: INSULIN ASPART (*BKC) 100 UNITS/ML SUB-Q ×3 (09:10→17:17)
[2020-02-13] MEDS: METOPROLOL TARTRATE 25 MG TABLET PO ×2 (09:11→17:20)
[2020-02-13] MEDS: MULTIVITAMINS THERAPEUTIC TAB (*BKC) 1 TABLET PO (09:11)
[2020-02-13] MEDS: GABAPENTIN 300 MG CAPSULE PO ×3 (09:11→17:19)
[2020-02-13] MEDS: LOSARTAN POTASSIUM 25 MG TABLET PO (09:11)
[2020-02-13] MEDS: SERTRALINE HCL 50 MG TABLET PO (09:11)
[2020-02-13] MEDS: busPIRone HCL 5 MG TABLET PO ×2 (09:11→17:20)
[2020-02-13] MEDS: ENOXAPARIN 40 MG/0.4 ML SYRINGE SUB-Q (09:12)
[2020-02-13] MEDS: methylPREDNISolone SOD SUCC 40 MG VIAL IV PUSH ×2 (09:12→20:38)
[2020-02-13 09:57] LABS: Glucose Point of Care 416 (65-105)
[2020-02-13 11:42] LABS: Glucose Point of Care 452 (65-105)
[2020-02-13 16:20] LABS: Glucose Point of Care 270 (65-105)
--- NOTE | 2020-02-13 16:22 | PM.IMPN ---
Progress Note: A&P Assessment and Plan (1) Dyspnea: Code(s): R06.00 - Dyspnea, unspecified Status: Acute Assessment and Plan: Suspect all due to bronchospasm with bronchitis.. BNP only 425. Echo EF of 70% with grade 1 diastolic. Bun and creatinine increassed so d/c lasix Continue her ARB and beta-pat added parental steroids 02/11 also. (2) CHF (congestive heart failure): Code(s): I50.9 - Heart failure, unspecified Status: Acute Assessment and Plan: chronic systolic and/or diastolic. She has been diuresis some without IV Lasix but I hear no rales and will stop IV lasix with rising Bun anc creatinine, feel is all pulmonary (3) IDDM (insulin dependent diabetes mellitus): Code(s): E11.9 - Type 2 diabetes mellitus without complications; Z79.4 - [facility] (current) use of insulin Status: Acute Assessment and Plan: Continue Lantus and sliding scale and increasing insulin requirements with addition of steroids (4) Chronic kidney disease, stage III (moderate): Code(s): N18.3 - Chronic kidney disease, stage 3 (moderate) Status: Acute Assessment and Plan: Creatinine about her baseline continue to monitor (5) Anemia due to stage 3 chronic kidney disease: Code(s): N18.3 - Chronic kidney disease, stage 3 (moderate); D63.1 - Anemia in chronic kidney disease Status: Acute Assessment and Plan: Hemoglobin 12.2 will monitor not active problem Subjective Date/time seen: 02/13/20 16:22 Interval history: Date of visit 02/12. 79-year-old white female presented to emergency room with complaints of increasing cough nonproductive with shortness of breath and wheezing. History of congestive heart failure but no edema and no chest pain. No recent travel or exposure. And as stated above no fever. Last echocardiogram of almost 2 years ago and repeat 02/11 normal EF Exam Narrative: Exam Narrative: Blood pressure 124/46 pulse is 80 saturating 100% on 2 L nasal cannula afebrile Neck supple no adenopathy Lungs prolonged expiratory phase and expiratory wheezing(decreased) no areas of consolidation or rales CV regular rate rhythm no murmurs or gallops Abdomen is soft nontender no masses Extremities without edema distal pulses are 1 to 2+ Neuro alert with no focal deficits Psych appropriate Objective Data Vital Signs Vital Signs: Vital Signs - 24 hr 02/12/20 17:14 02/12/20 18:20 02/12/20 19:23 Temperature 36.8 C Pulse Rate 92 85 85 Respiratory Rate 18 Blood Pressure 117/52 L Pulse Oximetry 96 02/12/20 19:25 02/12/20 19:37 02/12/20 20:00 Temperature Pulse Rate 80 80 85 Respiratory Rate 20 20 Blood Pressure Pulse Oximetry 02/12/20 22:00 02/12/20 23:44 02/12/20 23:47 Temperature 36.6 C 36.6 C Pulse Rate 76 83 83 Respiratory Rate 180 H 18 Blood Pressure 151/62 H 151/62 H Pulse Oximetry 96 96 02/13/20 00:00 02/13/20 01:15 02/13/20 01:28 Temperature Pulse Rate 73 82 82 Respiratory Rate 20 20 Blood Pressure Pulse Oximetry 02/13/20 01:58 02/13/20 03:44 02/13/20 04:00 Temperature 36.1 C L Pulse Rate 87 83 76 Respiratory Rate 20 Blood Pressure 135/67 Pulse Oximetry 94 02/13/20 05:57 02/13/20 08:00 02/13/20 08:16 Temperature 36.5 C Pulse Rate 79 73 66 Respiratory Rate 20 20 Blood Pressure 132/59 L Pulse Oximetry 96 92 02/13/20 08:25 02/13/20 09:11 02/13/20 10:12 Temperature Pulse Rate 66 66 83 Respiratory Rate 20 Blood Pressure Pulse Oximetry 02/13/20 12:00 02/13/20 13:51 02/13/20 14:00 Temperature Pulse Rate 64 74 86 Respiratory Rate 20 20 Blood Pressure Pulse Oximetry 02/13/20 14:15 02/13/20 16:00 Temperature 36.6 C Pulse Rate 95 81 Respiratory Rate 16 Blood Pressure 124/46 L Pulse Oximetry 97 Intake/Output Intake/Output: Intake & Output 02/10/20 02/11/20 02/12/20 02/13/20 23:59 23:59 23:59 23:59 Intake Total
[2020-02-13] MEDS: LOVASTATIN 20 MG TABLET 40 MG PO (17:20)
--- NOTE | 2020-02-13 17:57 | PC.NURSE ---
This patient, Nathalia Jaimes, was transferred to [facility] on 02/13/20 at 1757. Personal belongings sent with patient. Belongings list checked and signed with receiving RN. Report given to FIDEL Tyson. Appropriate documentation sent with patient.
--- NOTE | 2020-02-13 18:00 | PC.NURSE ---
This patient, Nathalia Jaimes, was received from [facility]/ on 02/13/20 at 1800. Personal belongings list checked and signed. Patient/family oriented to unit policies and routines
[2020-02-13] MEDS: INSULIN GLARGINE (*BKC) 100 UNITS/ML 60 UNITS SUB-Q (20:41)
[2020-02-13 22:57] LABS: Glucose Point of Care 301 (65-105)
[2020-02-14] VITALS (15 sets, daily range): BP systolic 124–134; BP diastolic 54–58; PULSE 70–85; RESP 16–20; TEMP 36.6–36.7; O2SAT 92–97
[2020-02-14] MEDS: IPRATROPIUM BR 0.02% INH SOLN 0.5 MG/2.5 ML VIAL INHALATION ×4 (01:37→20:28)
[2020-02-14] MEDS: ALBUTEROL SULFATE NEB 2.5 MG/0.5 ML INH 5 MG INHALATION ×4 (01:37→20:28)
[2020-02-14 06:05] LABS: Blood Urea Nitrogen 41 mg/dL (7-17); Calcium 8.9 mg/dL (8.4-10.2); Carbon Dioxide 22 mmol/L (22-30); Chloride 94 mmol/L (98-107); Estimated CRCL calculation 28 ml/min; Estimated Glomerular Filt Rate 39; Glucose 338 mg/dL (65-105); Potassium 4.3 mmol/L (3.4-5.0); Sodium 130 mmol/L (137-145)
[2020-02-14] MEDS: INSULIN ASPART (*BKC) 100 UNITS/ML SUB-Q ×3 (07:48→17:01)
[2020-02-14] MEDS: INSULIN ASPART (*BKC) 100 UNITS/ML 19 UNITS SUB-Q ×3 (07:48→17:02)
[2020-02-14] MEDS: INSULIN GLARGINE (*BKC) 100 UNITS/ML 20 UNITS SUB-Q (07:48)
[2020-02-14 08:44] LABS: Glucose Point of Care 309 (65-105)
[2020-02-14] MEDS: GABAPENTIN 300 MG CAPSULE PO ×3 (09:27→17:00)
[2020-02-14] MEDS: MULTIVITAMINS THERAPEUTIC TAB (*BKC) 1 TABLET PO (09:27)
[2020-02-14] MEDS: LOSARTAN POTASSIUM 25 MG TABLET PO (09:27)
[2020-02-14] MEDS: SERTRALINE HCL 50 MG TABLET PO (09:27)
[2020-02-14] MEDS: METOPROLOL TARTRATE 25 MG TABLET PO ×2 (09:27→17:01)
[2020-02-14] MEDS: ENOXAPARIN 40 MG/0.4 ML SYRINGE SUB-Q (09:27)
[2020-02-14] MEDS: busPIRone HCL 5 MG TABLET PO ×2 (09:27→17:00)
[2020-02-14] MEDS: methylPREDNISolone SOD SUCC 40 MG VIAL IV PUSH (09:28)
--- NOTE | 2020-02-14 10:29 | PM.IMPN ---
Progress Note: A&P Assessment and Plan (1) Dyspnea: Code(s): R06.00 - Dyspnea, unspecified Status: Acute Assessment and Plan: Suspect all due to bronchospasm with bronchitis.. BNP only 425. Echo EF of 70% with grade 1 diastolic. Bun and creatinine increassed so d/c lasix Continue her ARB and beta-pat added parental steroids 02/11 and now improved. CTA neg too (2) CHF (congestive heart failure): Code(s): I50.9 - Heart failure, unspecified Status: Acute Assessment and Plan: chronic systolic and/or diastolic. 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 Status: Acute Assessment and Plan: Continue Lantus and sliding scale and increasing insulin requirements with addition of steroids extra am lantus last 2 days (4) Chronic kidney disease, stage III (moderate): Code(s): N18.3 - Chronic kidney disease, stage 3 (moderate) Status: Acute Assessment and Plan: Creatinine about her baseline continue to monitor, 1.3 today and Na up to 130 off lasix with lower BS (5) Anemia due to stage 3 chronic kidney disease: Code(s): N18.3 - Chronic kidney disease, stage 3 (moderate); D63.1 - Anemia in chronic kidney disease Status: Acute Assessment and Plan: Hemoglobin 12.2 will monitor not active problem (6) DVT prophylaxis: Code(s): Z29.9 - Encounter for prophylactic measures, unspecified Status: Acute Assessment and Plan: lovenox Subjective Date/time seen: 02/14/20 10:29 Interval history: Date of visit 02/13. 79-year-old white female presented to emergency room with complaints of increasing cough nonproductive with shortness of breath and wheezing. History of congestive heart failure but no edema and no chest pain. No recent travel or exposure. And as stated above no fever. Last echocardiogram of almost 2 years ago and repeat 02/11 normal EF CTA neg and finally starting to feel better with less cough and sob Exam Narrative: Exam Narrative: Blood pressure 132/60 pulse is 74 saturating 95% on room air, afebrile Neck supple no adenopathy Lungs prolonged expiratory phase and expiratory wheezing but improved, no areas of consolidation or rales CV regular rate rhythm no murmurs or gallops Abdomen is soft nontender no masses Extremities without edema distal pulses are 1 to 2+ Neuro alert with no focal deficits Psych appropriate Objective Data Vital Signs Vital Signs: Vital Signs - 24 hr 02/13/20 12:00 02/13/20 13:51 02/13/20 14:00 Temperature Pulse Rate 64 74 86 Respiratory Rate 20 20 Blood Pressure Pulse Oximetry 02/13/20 14:15 02/13/20 16:00 02/13/20 17:20 Temperature 36.6 C Pulse Rate 95 79 79 Respiratory Rate 16 Blood Pressure 124/46 L Pulse Oximetry 97 02/13/20 19:01 02/13/20 19:04 02/13/20 19:07 Temperature Pulse Rate 71 73 Respiratory Rate 18 18 Blood Pressure Pulse Oximetry 95 02/13/20 22:00 02/14/20 01:37 02/14/20 01:39 Temperature 36.7 C Pulse Rate 81 75 Respiratory Rate 22 H 18 Blood Pressure 142/60 H Pulse Oximetry 96 93 02/14/20 01:45 02/14/20 05:51 02/14/20 08:29 Temperature 36.6 C Pulse Rate 70 85 74 Respiratory Rate 18 20 18 Blood Pressure 132/58 L Pulse Oximetry 97 95 02/14/20 08:39 02/14/20 09:27 Temperature Pulse Rate 77 77 Respiratory Rate 18 Blood Pressure Pulse Oximetry Intake/Output Intake/Output: Intake & Output 02/11/20 02/12/20 02/13/20 02/14/20 23:59 23:59 23:59 23:59 Intake Total 971 544 0341 440 Output Total 600 2400 1000 1250 Balance 50 -1520 20 -810 Meds/Results Medications: Active Medications Generic Name Dose Route Start Last Admi
[2020-02-14 11:37] LABS: Glucose Point of Care 400 (65-105)
--- NOTE | 2020-02-14 11:50 | PC.NURSE ---
Repeat call to Dr Navarro' office to have him talk to the patient about CT contrast dye. The patient will not proceed with the CT until she speaks with the doctor. Office staff said that Dr Navarro has received the message. Awaiting phone call or visit from .
[2020-02-14 16:35] LABS: Glucose Point of Care 243 (65-105)
[2020-02-14] MEDS: LOVASTATIN 20 MG TABLET 40 MG PO (17:03)
[2020-02-14] MEDS: predniSONE 20 MG TABLET PO (20:02)
[2020-02-14] MEDS: LORAZEPAM 0.5 MG TABLET PO (20:02)
[2020-02-14] MEDS: INSULIN GLARGINE (*BKC) 100 UNITS/ML 60 UNITS SUB-Q (20:13)
[2020-02-14 21:54] LABS: Glucose Point of Care 295 (65-105)
[2020-02-15] VITALS (8 sets, daily range): BP systolic 153–161; BP diastolic 72–74; PULSE 70–99; RESP 16–20; TEMP 36.4–36.6; O2SAT 94–96
[2020-02-15] MEDS: IPRATROPIUM BR 0.02% INH SOLN 0.5 MG/2.5 ML VIAL INHALATION ×2 (02:57→08:59)
[2020-02-15] MEDS: ALBUTEROL SULFATE NEB 2.5 MG/0.5 ML INH 5 MG INHALATION ×2 (02:57→08:58)
[2020-02-15 05:39] LABS: Blood Urea Nitrogen 42 mg/dL (7-17); Calcium 9.3 mg/dL (8.4-10.2); Carbon Dioxide 27 mmol/L (22-30); Chloride 100 mmol/L (98-107); Estimated CRCL calculation 33 ml/min; Estimated Glomerular Filt Rate 48; Glucose 193 mg/dL (65-105); Potassium 4.1 mmol/L (3.4-5.0); Sodium 133 mmol/L (137-145)
[2020-02-15 07:43] LABS: Glucose Point of Care 155 (65-105)
[2020-02-15] MEDS: GABAPENTIN 300 MG CAPSULE PO (08:40)
[2020-02-15] MEDS: LOSARTAN POTASSIUM 25 MG TABLET PO (08:40)
[2020-02-15] MEDS: busPIRone HCL 5 MG TABLET PO (08:40)
[2020-02-15] MEDS: predniSONE 40 MG, predniSONE 10 MG 50 MG PO (08:40)
[2020-02-15] MEDS: METOPROLOL TARTRATE 25 MG TABLET PO (08:40)
[2020-02-15] MEDS: SERTRALINE HCL 50 MG TABLET PO (08:41)
[2020-02-15] MEDS: ENOXAPARIN 40 MG/0.4 ML SYRINGE SUB-Q (08:41)
[2020-02-15] MEDS: MULTIVITAMINS THERAPEUTIC TAB (*BKC) 1 TABLET PO (08:41)
[2020-02-15 11:30] LABS: Glucose Point of Care 225 (65-105)
[2020-02-15] MEDS: INSULIN ASPART (*BKC) 100 UNITS/ML SUB-Q (11:53)
--- NOTE | 2020-02-15 11:59 | PM.DS ---
DS: Diagnosis Admitting Diagnosis Admitting Diagnosis: Dyspnea, unspecified DS: Summary Hospital Course Reason for hospitalization: sob Hospital Course: Admitted for shortness of breath. She does have a history of congestive heart failure. Her last echo was June of 2018 with the EF of 65% and impaired diastolic dysfunction. The patient has been wheezing and coughing. She has a dry cough. No fever no chills. She has a son that just returned from [place] however he has been on self quarantine and has not seen his mother. She has not been around any other sick people. Nor has she traveled. The patient's chest x-ray was read as no acute cardiopulmonary abnormality. Gases were not able to be drawn. The patient was placed on a BiPAP from the emergency room due to her shortness of breath. Was given a nebulizer treatment. She was given Lasix IV push. Dry cough. Treated symptomatically for bronchitis with bronchospasm with steroids, bronchodilators. By day of discharge was feeling weak and tired, but able to ambulate with walker. Still with intermittent dry cough. Much less [place]. Tolerated diet. Status at Discharge Functional status at discharge: uses cane/walker Overall status at discharge: patient is progressing back to baseline Time Spent with Patient Time attestation: Total time spent providing and/or coordinating discharge services: Exam Narrative: Exam Narrative: HEENT: EOMI, PERRL, pharyngeal mucosa pink and intact NECK: No JVD CHEST: Clear to auscultation. Normal effort. HEART: NL S1/S2, regular, no murmur ABDOMEN: BS+, soft, nontender, no mass, no bruits EXTREMITIES: No cyanosis, edema, or clubbing NEUROLOGIC: CN intact and symmetric to inspection. MUSCULOSKELETAL: Tone and strength symmetric. PSYCH: Alert. Oriented to person, place, and time. DS: Data Data Completed and Pending Labs on day of discharge: Labs from last 24 hours 02/15/20 02/15/20 02/15/20 11:25 07:29 04:48 Sodium 133 L Potassium 4.1 Chloride 100 Carbon Dioxide 27 BUN 42 H Creatinine 1.10 H Estim Creat Clear Calc 33 Estimated GFR 48 L Glucose 193 H POC Capillary Glucose 225 H 155 H Calcium 9.3 02/14/20 02/14/20 20:09 16:21 Sodium Potassium Chloride Carbon Dioxide BUN Creatinine Estim Creat Clear Calc Estimated GFR Glucose POC Capillary Glucose 295 H 243 H Calcium Preliminary micro results at discharge 02/11/20 12:22 Blood Culture - Preliminary Blood 02/11/20 12:22 Blood Culture - Preliminary Blood Discharge Plan Discharge Discharging Clinician: Sy Lea Patient Disposition: Home Health Service Activity: as tolerated Diet: diabetic and low sodium Discharge Instructions: Per Care Coordination: Patient to have [facility] for RN for CHF teaching and PT/OT eval and treat [phone]. They will call patient to schedule first visit. Check blood sugar prior to each meal and record results. Call MD if sugar is below 80 or above 300. Patient Instructions: Antibiotic Form, Heart Failure (GEN), Pain Management (GEN) Follow-up/Referrals: Eliot Maria MD [Primary Care Provider] - Call for Appointment Discharge Medications: Continued multivitamin Tablet 1 tablet PO DAILY RF: 0 losartan 25 mg tablet 25 mg PO DAILY RF: 0 buspirone 5 mg tablet 5 mg PO BID Qty: 60 RF: 2 sertraline 50 mg tablet 50 mg PO DAILY Qty: 30 RF: 2 metoprolol tartrate 25 mg tablet 25 mg PO BID Qty: 60 RF: 0 Toujeo SoloStar U-300 Insulin 300 unit/mL (1.5 mL) insulin pen 60 unit SUBCUT HS RF: 0 acetaminophen 325 mg tablet 650 mg PO Q4H PRN (Reason: Pain (Scale Score 1-3)) RF: 0 gabapentin 300 mg capsule 300 mg PO TID Qty: 270 RF: 2 lovastatin 40 mg tablet 40 mg PO QPM Qty: 90 RF: 2 Held insulin aspart U-100 [Novolog Flexpen U-100 Insulin] 100 unit/mL (3 mL) insulin pen 19 unit SUBCUT TIDWM RF:
--- NOTE | 2020-02-15 12:22 | PC.NURSE ---
February 14Jan edits made to correct administering nurse from Brittany Reddy RN to Renzo Weeks RN.
== END 2020-02-15 15:40 | disposition home health service (06) | DRG 202 ==
LOC: ANHED 15:40 → ANH3MEDSUR 16:11 → ANHIMU 17:09 → ANH2MED 02-14 08:12 → ANHIMU 02-16 12:00
PROVIDERS: Internal Medicine; Nurse Practitioner; Admitting Provider Family Medicine; Emergency Provider Emergency Medicine; PCP Family Medicine; Visit Provider Internal Medicine
DX: J20.9 Acute bronchitis, unspecified (principal); I42.0 Dilated cardiomyopathy; I50.32 Chronic diastolic (congestive) heart failure; N18.3 Chronic kidney disease, stage 3 (moderate); D63.1 Anemia in chronic kidney disease; F41.8 Other specified anxiety disorders; E11.22 Type 2 diabetes mellitus with diabetic chronic kidney disease; E11.42 Type 2 diabetes mellitus with diabetic polyneuropathy; E83.42 Hypomagnesemia; E78.2 Mixed hyperlipidemia; E11.36 Type 2 diabetes mellitus with diabetic cataract; Z87.442 Personal history of urinary calculi; I44.7 Left bundle-branch block, unspecified; M15.0 Primary generalized (osteo)arthritis; G20 Parkinson's disease; Z90.49 Acquired absence of other specified parts of digestive tract; Z95.810 Presence of automatic (implantable) cardiac defibrillator; Z79.4 Long term (current) use of insulin; E11.65 Type 2 diabetes mellitus with hyperglycemia
CPT/HCPCS: 36415; 36600; 71045; 71275; 80048; 80053; 80069; 82805; 83735; 83880; 85025; 85610; 85730; 87040; 87804; 93005; 93306; 94002; 94640; 96365; 96375; 96376; 97110; 97116; 97161; 97165; 97530; 97535; 99285; A9270; G0378; J1650; J1815; J1940; J2060; J2920; J3475; J7512; Q9967

== ENCOUNTER 2020-02-26 10:37 | Observation (INO) | payer OTHER, SELFPAY ==
[2020-02-26] VITALS (14 sets, daily range): BP systolic 117–160; BP diastolic 52–75; PULSE 64–142; RESP 14–28; TEMP 36.2–36.3; O2SAT 97–100; BMI 20.7
--- NOTE | ~2020-02-26 | CT_ITS ---
EXAMINATION: CTA chest PE protocol DATE: 02/26/2020 11:57 INDICATION: Chest pain. Shortness of breath. TECHNIQUE: Computed tomography angiography (CTA) of the chest was performed with 100 mL Omnipaque-350 intravenous contrast timed to evaluate the pulmonary arteries. Coronal maximum intensity projection 3D-reconstructions were created by the technologist. Automated exposure control and iterative reconst ruction technique were employed. The dose-length product was 225.73 mGy-cm. COMPARISON: Chest CT 02/12/2020 FINDINGS: There is chronic elevation of right hemidiaphragm. There is mild scarring at the lung apice s. There is mild atelectasis bilaterally. No pleural effusion. There is left ventricular hypertrophy of the heart. No pericardial effusion. There is a left chest pacer/defibrillator with leads in right atrium, right ventricle, and coronary sinus. There is no pulmonary embolus. There is severe cervical spondylosis and mild thoracic spondylosis. IMPRESSION: 1. No pulmonary embolus. 2. Chronic elevation of right hemidiaphragm. Reviewed, dictated and finalized at location A.
--- NOTE | 2020-02-26 10:40 | ECG_ITS ---
Measurements Intervals [place] Rate: 68 P: 50 OK: 194 QRS: -55 QRSD: 94 T: 64 QT: 426 QTc: 455 Interpretive Statements ATRIAL SENSE- ELECTRONIC VENTRICULAR PACEMAKER BASELINE ARTIFACT- I, II, AVR, V3-V6 NO FURTHER INTERPRETATION IS POSSIBLE ATYPICAL ECG Electronically Signed On 02-26-2020 12:42:01 CDT by Glenn Parker D.O.
[2020-02-26] MEDS: LORAZEPAM INJ 2 MG/ML VIAL 1 MG IV PUSH (10:55)
[2020-02-26 11:04] LABS: Basophils Percent Auto 0.3 % (0.2-1.2); Eosinophils Absolute Auto 0.1 K/mm3 (0-0.3); Eosinophils Percent Auto 0.6 % (0-4.4); Hematocrit 36.2 % (37.0-47.0); Hemoglobin 12.2 g/dL (12.0-15.0); Immature Granulocyte Absolute 0.08 K/mm3 (0.00-0.031); Immature Granulocyte Percent A 0.8 % (0-0.5); Lymphocytes Absolute Auto 2.51 K/mm3 (0.9-3.2); Lymphocytes Percent Auto 25.3 % (18.3-44.2); Mean Corpuscular HGB Conc 33.7 g/dl (32-36); Mean Corpuscular Volume 83.2 fl (80-100); Mean Platelet Volume 10.5 fl (7.4-10.4); Monocytes Absolute Auto 0.6 K/mm3 (0.1-0.6); Monocytes Percent Auto 6.5 % (2.6-8.5); Neutrophils Absolute Auto 6.6 K/mm3 (1.3-6.7); Neutrophils Percent Auto 66.5 % (45.5-73.1); Platelet Count Result 295 k/mm3 (150-375); Red Blood Count 4.35 M/mm3 (4.2-5.4); Red Cell Distribution Width 14.2 % (11.5-14.5); White Blood Count 9.9 K/mm3 (4.5-10.0)
[2020-02-26 11:14] LABS: Prothrombin Time 13.2 Seconds (11.1-14.7)
[2020-02-26 11:15] LABS: Partial Thromboplastin Time 28.9 SECONDS (22.3-36.8)
[2020-02-26 11:23] LABS: Alanine Aminotransferase 42 U/L (4-35); Albumin Level 4.1 g/dL (3.5-5.1); Alkaline Phosphatase 170 U/L (38-126); Aspartate Amino Transferase 47 U/L (14-36); Bilirubin,Total 0.6 mg/dL (0.2-1.3); Blood Urea Nitrogen 14 mg/dL (7-17); Carbon Dioxide 18 mmol/L (22-30); Chloride 99 mmol/L (98-107); Estimated Glomerular Filt Rate 48; Glucose 515 mg/dL (65-105); Potassium 5.1 mmol/L (3.4-5.0); Sodium 129 mmol/L (137-145)
[2020-02-26 11:33] LABS: Troponin I < 0.012 ng/mL (0.000-0.034)
[2020-02-26] MEDS: SODIUM CHLORIDE 0.9% IV 500 ML 999 ML IV CONT (11:39)
[2020-02-26] MEDS: INSULIN HUMAN REGULAR (*BKC) 100 UNITS/ML 10 UNITS IV PUSH (11:39)
--- NOTE | 2020-02-26 12:05 | ED.CHESTPAIN ---
HPI - Chest Pain General Chief Complaint: Chest Pain Stated Complaint: cardiac Time Seen by Provider: 02/26/20 10:40 History of Present Illness HPI narrative: Pain in chest, neck, and head since this morning. She first noticed her heart racing. She then developed sharp pain in her chest and SOB. The pain radiates into the posterior neck. She has a AICD in place and reports that she was concerned that it may be shocking her, although she reports feeling no large jolts. Related Data Home Medications Medication Instructions Recorded Confirmed losartan 25 mg tablet 25 mg PO DAILY 10/18/19 02/11/20 multivitamin 1 tablet PO DAILY 10/18/19 02/11/20 insulin aspart U-100 [Novolog 19 unit SUBCUT TIDWM 02/04/20 02/11/20 Flexpen U-100 Insulin] acetaminophen 650 mg PO Q4H PRN 02/11/20 02/11/20 Allergies Allergy/AdvReac Type Severity Reaction Status Date / Time codeine Allergy Unknown Unknown Verified 02/26/20 10:51 NSAIDS (Non-Steroidal Allergy Unknown Unknown Verified 02/26/20 10:51 Anti-Inflamma Review of Systems Review of Systems: All systems reviewed & are unremarkable except as noted in HPI and below Constitutional: Constitutional: Denies fever(s) Cardiovascular: Cardiovascular: Reports chest pain and Reports radiating jaw, neck or arm pain Respiratory: Respiratory: Denies cough and Reports dyspnea Gastrointestinal: Gastrointestinal: Denies abdominal pain Neurologic: Reports headache(s) Psychiatric: Psychiatric: Reports anxiety PMFSH Past Medical History Medical History Anemia due to stage 3 chronic kidney disease Bilateral cataracts CHF (congestive heart failure) Chronic kidney disease, stage III (moderate) H/O diverticulitis of colon Kidney stone LBBB (left bundle branch block) Mixed hyperlipidemia 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r is Daughter Cancer Social History Social History Social History: . Resides with her . Son and daughter live out of state, one in [place] and one in [place]. Patient desires to be a full code. The son is the power of family law attorney. 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 She smoked briefly in the 60s socially. Smoking status: Former smoker Tobacco type: cigarettes Additional smoking assessment comments: quit 1960s- smoked socially Alcohol intake: never Substance use: never Gender identity (if verbalized by the patient): Female Spiritual care concerns: No Agree to blood products: Yes Exam Const: General: alert and ill appearing chronically Orientation/consciousness: patient oriented x3 Other: Mild distress HENMT: Head: normal to inspection Eyes: Pupils: Equal, round and reactive pupils present Chest: Chest palpation & inspection: tenderness sternum Resp: Effort & Inspection: normal respiratory effort Auscultation: clear to auscultation bilaterally Cardio: Rate: regular rate Rhythm: regular rhythm Back/Spine/Pelvis: Other: cervical paraspinal tenderness Skin: General skin exam: normal color Neuro: General: patient oriented x3, moves all extremities and no focal motor deficits Speech: normal spee
[2020-02-26 12:14] LABS: Glucose Point of Care 474 (65-105)
[2020-02-26 12:51] LABS: Add Urine Microscopic? YES; Appearance Urine Clear (Clear); Bacteria Urine Trace /hpf; Bilirubin Urine Negative (Negative); Blood Urine Negative (Negative); Color Urine Colorless (Yellow); Glucose Urine UA 3+ mg/dL (Negative); Ketones Urine Negative (Negative); Leukocyte Esterase Ur Negative LEU/UL (Negative); Nitrate Urine Negative (Negative); Protein Urine Negative (Negative); RBC Urine 0-2 /hpf (0-2); Specific Grav Ur 1.018 (1.001-1.035); Squamous Epithelial Cell Urine Rare /hpf (Few); Urobilinogen Urine Negative mg/dL (<2.0); WBC Urine 0-3 /hpf
--- NOTE | 2020-02-26 12:57 | PC.NURSE ---
resting comfortably without chest pain or sob. paced rhythm per tele.
[2020-02-26] MEDS: NITROGLYCERIN SL 0.4 MG TABLET SUBLINGUAL (13:13)
--- NOTE | 2020-02-26 13:21 | PC.NURSE ---
pt states first nitro did not relieve lt chest, lt arm and anterior neck pain. will repeat nitro at this time.
[2020-02-26 14:24] LABS: Troponin I < 0.012 ng/mL (0.000-0.034)
[2020-02-26] MEDS: TRAMADOL HCL 50 MG TABLET PO (14:39)
--- NOTE | 2020-02-26 15:12 | PC.NURSE ---
pt reports no relief from tramadol. pt continues to have lt upper chest, anterior and posterior neck pain. pt also reports seeing people in room that are not there. vitals stable. md will be notified
[2020-02-26 16:53] LABS: Glucose Point of Care 167 (65-105)
--- NOTE | 2020-02-26 17:14 | PM.IMHP ---
H&P: HPI History of Present Illness Chief complaint: chest pain Narrative: Nathalia Jaimes is a 79 year old female who I admitted 1 month ago when she was treated for congestive heart failure bronchitis. She was admitted on 02/11/2020 and discharged on 02/15/2020. Prior to that she was admitted here the week prior to that last admission on 02/05/2020. The patient mom to the kitchen floor today and sat down in the chair to relax. Patient was just sitting in her chair relaxing when she developed chest pain. She said that it went up her neck and her throat and left arm. The patient is diabetic and stated her blood sugars have been high the typically run in the 300s. She also has congestive heart failure and states that she is always short of breath when she goes up and down stairs. The patient has no fever or chills or cough. The patient stated that she is pain-free now. Her 1st blood sugar was by 15 and is now 167. Potassium was 5.1 sodium is down to 129. Troponin is negative x2. Patient was given IV Ativan in the emergency room as well as IV insulin and IV fluids. She was also given tramadol for pain. She was also given a GI cocktail. Date of service 02/26/2020 patient does have a AICD in she thought that maybe it was going off. The patient is paced on the monitor at this time. She has never had her AICD golf before. She has a history of having SVT in the past Review of Systems Review of Systems: All systems reviewed & are unremarkable except as noted in HPI and below Constitutional: Constitutional: Reports as per HPI and Reports no additional constitutional complaints Eyes: Eyes: Reports as per HPI and Reports no additional eye complaints ENT: Reports system reviewed and no additional complaints, except as documented and Reports Normal hearing present Cardiovascular: Cardiovascular: Reports no additional cardiovascular complaints Respiratory: Respiratory: Reports no additional respiratory complaints and Reports no additional respiratory complaints Gastrointestinal: Gastrointestinal: Reports as per HPI and Reports no additional gastrointestinal complaints Musculoskeletal: Musculoskeletal: Reports no additional musculoskeletal complaints Integumentary/Breasts: Skin/Breast: Reports system reviewed and no additional complaints, except as docu and Reports as per HPI Neurologic: Reports system reviewed and no additional complaints, except as documented, Reports as per HPI and Reports Normal hearing present Psychiatric: Psychiatric: Reports no additional psychiatric complaints and Reports as per HPI Endocrine: Endocrine: Reports no additional endocrine complaints Hematologic/Lymphatic: Hematologic/Lymphatic: Reports no additional hematologic/lymphatic complaints Allergic/Immunologic: Allergic/Immunologic: Reports no additional allergic/immunologic complaints [facility] Past Medical History Medical History Anemia due to stage 3 chronic kidney disease Bilateral cataracts CHF (congestive heart failure) Chronic kidney disease, stage III (moderate) H/O diverticulitis of colon Kidney stone LBBB (left bundle branch block) Mixed hyperlipidemia 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
--- NOTE | 2020-02-26 18:53 | ADMGEN ---
This patient, Nathalia Jaimes, was admitted to IMU Room 204-01 at 1636 . Patient/family oriented to hospital policies and general routines including ID bracelet, bed and alarms, visiting hours, pain management, procedures, bathroom and other care routines, personal items, smoking policy, room service/diet, and visiting hours. Valuables list has been completed. Information on how to activate the Rapid Response Team has been discussed. Patient/Family are encouraged to report perceived risks to care and to ask questions if they do not understand what they are told or what they should do.
[2020-02-26 19:29] LABS: Hemoglobin A1C 11.8 % (<5.7)
[2020-02-26] MEDS: LOVASTATIN 20 MG TABLET 40 MG PO (20:20)
[2020-02-26] MEDS: METOPROLOL TARTRATE 25 MG TABLET PO (20:20)
[2020-02-26 20:37] LABS: Glucose Point of Care 271 (65-105)
[2020-02-26 20:38] LABS: Blood Urea Nitrogen 12 mg/dL (7-17); Calcium 8.4 mg/dL (8.4-10.2); Carbon Dioxide 25 mmol/L (22-30); Chloride 102 mmol/L (98-107); Estimated CRCL calculation 41 ml/min; Estimated Glomerular Filt Rate 60; Glucose 255 mg/dL (65-105); Potassium 4.1 mmol/L (3.4-5.0); Sodium 131 mmol/L (137-145)
[2020-02-26] MEDS: INSULIN GLARGINE (*BKC) 100 UNITS/ML 60 UNITS SUB-Q (21:00)
[2020-02-26] MEDS: ACETAMINOPHEN 325 MG TABLET 650 MG PO (23:46)
[2020-02-27] VITALS (14 sets, daily range): BP systolic 111–141; BP diastolic 50–67; PULSE 63–75; RESP 14–20; TEMP 36–36.4; O2SAT 97–100
[2020-02-27 04:35] LABS: Basophils Percent Auto 0.4 % (0.2-1.2); Eosinophils Absolute Auto 0.1 K/mm3 (0-0.3); Eosinophils Percent Auto 1.1 % (0-4.4); Hemoglobin 10.6 g/dL (12.0-15.0); Immature Granulocyte Absolute 0.08 K/mm3 (0.00-0.031); Immature Granulocyte Percent A 0.8 % (0-0.5); Lymphocytes Absolute Auto 3.49 K/mm3 (0.9-3.2); Lymphocytes Percent Auto 35.3 % (18.3-44.2); Mean Corpuscular HGB Conc 33.1 g/dl (32-36); Mean Corpuscular Hemoglobin 27.8 pg (26-34); Mean Platelet Volume 9.8 fl (7.4-10.4); Monocytes Absolute Auto 0.7 K/mm3 (0.1-0.6); Neutrophils Absolute Auto 5.5 K/mm3 (1.3-6.7); Neutrophils Percent Auto 55.4 % (45.5-73.1); Platelet Count Result 244 k/mm3 (150-375); Red Blood Count 3.81 M/mm3 (4.2-5.4); White Blood Count 9.9 K/mm3 (4.5-10.0)
[2020-02-27 04:50] LABS: Hemoglobin A1C 11.4 % (<5.7)
[2020-02-27 04:52] LABS: Alanine Aminotransferase 33 U/L (4-35); Albumin Level 3.5 g/dL (3.5-5.1); Alkaline Phosphatase 103 U/L (38-126); Aspartate Amino Transferase 35 U/L (14-36); Bilirubin,Total 0.3 mg/dL (0.2-1.3); Blood Urea Nitrogen 12 mg/dL (7-17); Calcium 9.1 mg/dL (8.4-10.2); Carbon Dioxide 26 mmol/L (22-30); Chloride 102 mmol/L (98-107); Estimated CRCL calculation 40 ml/min; Estimated Glomerular Filt Rate 60; Glucose 166 mg/dL (65-105); Magnesium 1.6 mg/dL (1.6-2.3); Potassium 3.9 mmol/L (3.4-5.0); Sodium 134 mmol/L (137-145)
[2020-02-27] MEDS: busPIRone HCL 5 MG TABLET PO ×2 (08:47→17:41)
[2020-02-27] MEDS: GABAPENTIN 300 MG CAPSULE PO ×3 (08:47→17:40)
[2020-02-27] MEDS: LOSARTAN POTASSIUM 25 MG TABLET PO (08:47)
[2020-02-27] MEDS: MULTIVITAMINS THERAPEUTIC TAB (*BKC) 1 TABLET PO (08:48)
[2020-02-27] MEDS: SERTRALINE HCL 50 MG TABLET PO (08:48)
[2020-02-27] MEDS: INSULIN ASPART (*BKC) 100 UNITS/ML 10 UNITS SUB-Q ×2 (08:48→12:45)
[2020-02-27] MEDS: METOPROLOL TARTRATE 25 MG TABLET PO ×2 (08:48→20:20)
[2020-02-27 09:40] LABS: Glucose Point of Care 114 (65-105)
[2020-02-27 11:55] LABS: Glucose Point of Care 159 (65-105)
--- NOTE | 2020-02-27 15:00 | PM.IMPN ---
Progress Note: A&P Assessment and Plan (1) Chest pain: Qualifiers: Chest pain type: unspecified Qualified Code(s): R07.9 - Chest pain, unspecified Code(s): R07.9 - Chest pain, unspecified Status: Acute Assessment and Plan: Probable GI related or muscle skeletal. Troponins are negative. She had an ischemic workup in the past which has been negative. Have her pacer interrogated to make sure she had had another episode of SVT or ventricular arrhythmia. (2) Type 2 diabetes mellitus with hyperglycemia: Qualifiers: Diabetes mellitus snf insulin use: with snf use Qualified Code(s): E11.65 - Type 2 diabetes mellitus with hyperglycemia; Z79.4 - care home (current) use of insulin Code(s): E11.65 - Type 2 diabetes mellitus with hyperglycemia Status: Acute Assessment and Plan: Blood sugar was almost 500 on arrival and her A1c is 11.4.. Continue her Lantus with AC novel log and monitor closely (3) Anemia due to stage 3 chronic kidney disease: Code(s): N18.3 - Chronic kidney disease, stage 3 (moderate); D63.1 - Anemia in chronic kidney disease Status: Acute Assessment and Plan: Hemoglobin since unchanged from previous values (4) Chronic systolic CHF (congestive heart failure): Code(s): I50.22 - Chronic systolic (congestive) heart failure Status: Acute Assessment and Plan: Appears compensated with no evidence of failure. Continue her ARB and beta-pat (5) Chronic kidney disease, stage III (moderate): Code(s): N18.3 - Chronic kidney disease, stage 3 (moderate) Status: Acute Assessment and Plan: Creatinine 0.9 which is actually better than has been in the past. Estimated GFR 60 in the grade 2 range now continue to monitor (6) DVT prophylaxis: Code(s): Z29.9 - Encounter for prophylactic measures, unspecified Status: Acute Assessment and Plan: Mechanical and increase activities as should be a short hospital stay Subjective Date/time seen: 02/27/20 15:00 Interval history: Date of visit 02/26. 79-year-old type 2 diabetic with nonischemic cardiomyopathy admitted with chest discomfort while sitting in the kitchen. [place] her heart race then had pain in her chest renew after neck. Arrival here she is in a paced rhythm. Hospitalized here in 2018 for an episode SVT but no documented and V-tach. She had a negative cardiac catheterization 2014 and has had stress tests since and have been negative.. She was given a GI cocktail in the ER and has had no more discomfort. Exam Narrative: Exam Narrative: Blood pressure 110/60 pulse is 66 respirations 14 per minute afebrile saturating 95% on room air Lungs clear CV regular no murmurs Abdomen is soft nontender Extremities without edema good distal pulses Neuro alert pleasant cooperative no focal deficits Objective Data Vital Signs Vital Signs: Vital Signs - 24 hr 02/26/20 16:00 02/26/20 16:26 02/26/20 18:26 Temperature 36.3 C L Pulse Rate 64 67 70 Respiratory Rate 14 18 Blood Pressure 126/60 127/60 Pulse Oximetry 100 97 02/26/20 19:54 02/26/20 20:00 02/26/20 20:20 Temperature 36.2 C L Pulse Rate 69 69 67 Respiratory Rate 18 18 Blood Pressure 125/52 L Pulse Oximetry 99 99 02/26/20 22:00 02/26/20 23:46 02/27/20 00:00 Temperature 36.2 C L Pulse Rate 70 67 65 Respiratory Rate 20 20 Blood Pressure 145/56 H Pulse Oximetry 99 99 02/27/20 02:00 02/27/20 04:00 02/27/20 05:42 Temperature 36.1 C L Pulse Rate 67 66 73 Respiratory Rate 20 Blood Pressure 141/67 H Pulse Oximetry 98 02/27/20 08:00 02/27/20 08:48 02/27/20 10:20 Temperature 36.2 C L Pulse Rate 70 75 69 Respiratory Rate 14 Blood Pressure 123/60 Pulse Oximetry 100 02/27/20 12:00 Temperature 36.2 C L Pulse Rate 66 Respiratory Rate 14 Blood Pressure 111/58 L Pulse Oximetry 98 Intake/Output Intake/Output: Intake & Outpu
[2020-02-27 16:08] LABS: Glucose Point of Care 107 (65-105)
[2020-02-27] MEDS: ACETAMINOPHEN 325 MG TABLET 650 MG PO (16:15)
[2020-02-27] MEDS: LOVASTATIN 10 MG TABLET 40 MG PO (17:40)
[2020-02-27] MEDS: INSULIN ASPART (*BKC) 100 UNITS/ML SUB-Q (17:41)
[2020-02-27 19:58] LABS: Glucose Point of Care 214 (65-105)
[2020-02-27] MEDS: INSULIN GLARGINE (*BKC) 100 UNITS/ML 60 UNITS SUB-Q (20:20)
[2020-02-28] VITALS (16 sets, daily range): BP systolic 126–154; BP diastolic 53–70; PULSE 64–81; RESP 12–18; TEMP 35.8–36.5; O2SAT 94–100; BMI 21.4
[2020-02-28] MEDS: GLUCOSE ORAL GEL 15 GM OF GLUCSE IN 37.5 GM TUBE PO (07:58)
[2020-02-28 08:38] LABS: Glucose Point of Care 145 (65-105)
[2020-02-28 08:38] LABS: Glucose Point of Care 48 (65-105)
[2020-02-28 08:38] LABS: Glucose Point of Care 43 (65-105)
[2020-02-28] MEDS: GABAPENTIN 300 MG CAPSULE PO ×3 (08:46→17:44)
[2020-02-28] MEDS: METOPROLOL TARTRATE 25 MG TABLET PO ×2 (08:46→20:02)
[2020-02-28] MEDS: SERTRALINE HCL 50 MG TABLET PO (08:47)
[2020-02-28] MEDS: LOSARTAN POTASSIUM 25 MG TABLET PO (08:47)
[2020-02-28] MEDS: MULTIVITAMINS THERAPEUTIC TAB (*BKC) 1 TABLET PO (08:47)
[2020-02-28] MEDS: busPIRone HCL 5 MG TABLET PO ×2 (08:47→17:44)
[2020-02-28 11:49] LABS: Glucose Point of Care 156 (65-105)
--- NOTE | 2020-02-28 16:22 | PM.IMPN ---
Progress Note: A&P Assessment and Plan (1) Chest pain: Qualifiers: Chest pain type: unspecified Qualified Code(s): R07.9 - Chest pain, unspecified Code(s): R07.9 - Chest pain, unspecified Status: Acute Assessment and Plan: Probable GI related or muscle skeletal. Troponins are negative. She had an ischemic workup in the past which has been negative. her pacer interrogation revealed no arrythmia , SVT or ventricular arrhythmia. (2) Type 2 diabetes mellitus with hyperglycemia: Qualifiers: Diabetes mellitus usp insulin use: with usp use Qualified Code(s): E11.65 - Type 2 diabetes mellitus with hyperglycemia; Z79.4 - USP (current) use of insulin Code(s): E11.65 - Type 2 diabetes mellitus with hyperglycemia Status: Acute Assessment and Plan: Blood sugar was almost 500 on arrival and her A1c is 11.4.. This am bs in 40s on less insulin that takes at home. will decrease novolog more 7 tid ac and decrease lantus. hopefully d/c am 02/28 (3) Anemia due to stage 3 chronic kidney disease: Code(s): N18.3 - Chronic kidney disease, stage 3 (moderate); D63.1 - Anemia in chronic kidney disease Status: Acute Assessment and Plan: Hemoglobin since unchanged from previous values (4) Chronic systolic CHF (congestive heart failure): Code(s): I50.22 - Chronic systolic (congestive) heart failure Status: Acute Assessment and Plan: Appears compensated with no evidence of failure. Continue her ARB and beta-pat (5) Chronic kidney disease, stage III (moderate): Code(s): N18.3 - Chronic kidney disease, stage 3 (moderate) Status: Acute Assessment and Plan: Creatinine 0.9 which is actually better than has been in the past. Estimated GFR 60 in the grade 2 range now continue to monitor (6) DVT prophylaxis: Code(s): Z29.9 - Encounter for prophylactic measures, unspecified Status: Acute Assessment and Plan: Mechanical and increase activities with pt Subjective Date/time seen: 02/28/20 16:22 Interval history: Date of visit 02/27. 79-year-old type 2 diabetic with nonischemic cardiomyopathy admitted with chest discomfort while sitting in the kitchen. [place] her heart race then had pain in her chest radiated to neck. Arrival here she is in a paced rhythm. Hospitalized here in 2018 for an episode SVT but no documented and V-tach. She had a negative cardiac catheterization 2014 and has had stress tests since and have been negative.. She was given a GI cocktail in the ER and has had no more discomfort other than L sided axillary chest wall tenderness. Feels weak this am and bs low Exam Narrative: Exam Narrative: Blood pressure 126/64 pulse is 66 respirations 14 per minute afebrile saturating 96% on room air Lungs clear CV regular no murmurs Abdomen is soft nontender Extremities without edema good distal pulses Neuro alert pleasant cooperative no focal deficits Objective Data Vital Signs Vital Signs: Vital Signs - 24 hr 02/27/20 18:02 02/27/20 20:00 02/27/20 20:20 Temperature 36.4 C Pulse Rate 70 72 72 Respiratory Rate 18 Blood Pressure 123/57 L Pulse Oximetry 97 02/27/20 22:00 02/28/20 00:00 02/28/20 00:29 Temperature 35.8 C L Pulse Rate 64 69 69 Respiratory Rate 18 Blood Pressure 143/70 H Pulse Oximetry 99 02/28/20 03:57 02/28/20 04:00 02/28/20 05:36 Temperature 36.5 C Pulse Rate 68 72 64 Respiratory Rate 18 18 Blood Pressure 141/67 H Pulse Oximetry 99 97 02/28/20 08:00 02/28/20 08:46 02/28/20 09:02 Temperature 36.4 C L Pulse Rate 68 73 65 Respiratory Rate 18 12 Blood Pressure 140/60 Pulse Oximetry 99 100 02/28/20 10:00 02/28/20 12:00 02/28/20 12:51 Temperature 36.3 C L Pulse Rate 81 67 66 Respiratory Rate 18 12 Blood Pressure 126/64 Pulse Oximetry 99 96 02/28/20 14:00 Temperature Pulse Rate 71 Respiratory Rate Blood Pr
[2020-02-28] MEDS: INSULIN ASPART (*BKC) 100 UNITS/ML SUB-Q (17:44)
[2020-02-28] MEDS: LOVASTATIN 20 MG TABLET 40 MG PO (17:44)
[2020-02-28] MEDS: INSULIN ASPART (*BKC) 100 UNITS/ML 7 UNITS SUB-Q (17:44)
--- NOTE | 2020-02-28 19:15 | PC.NURSE ---
pt transfer from imu to med-surg room 321 at 1900
[2020-02-28] MEDS: INSULIN GLARGINE (*BKC) 100 UNITS/ML 40 UNITS SUB-Q (20:02)
[2020-02-28 20:15] LABS: Glucose Point of Care 207 (65-105)
[2020-02-28 20:37] LABS: Glucose Point of Care 231 (65-105)
[2020-02-29 05:24] VITALS: BP 136/65; PULSE 77; RESP 18; TEMP 36.7; O2SAT 97
[2020-02-29] MEDS: GABAPENTIN 300 MG CAPSULE PO (08:21)
[2020-02-29] MEDS: SERTRALINE HCL 50 MG TABLET PO (08:21)
[2020-02-29] MEDS: LOSARTAN POTASSIUM 25 MG TABLET PO (08:21)
[2020-02-29] MEDS: MULTIVITAMINS THERAPEUTIC TAB (*BKC) 1 TABLET PO (08:21)
[2020-02-29] MEDS: busPIRone HCL 5 MG TABLET PO (08:21)
[2020-02-29 08:22] VITALS: PULSE 88
[2020-02-29] MEDS: METOPROLOL TARTRATE 25 MG TABLET PO (08:22)
[2020-02-29] MEDS: INSULIN ASPART (*BKC) 100 UNITS/ML 7 UNITS SUB-Q (08:25)
[2020-02-29 08:40] LABS: Glucose Point of Care 107 (65-105)
--- NOTE | 2020-02-29 10:32 | PM.DS ---
DS: Diagnosis Admitting Diagnosis Admitting Diagnosis: Chest pain, unspecified Discharge Diagnosis (1) Chest pain: Qualifiers: Chest pain type: unspecified Qualified Code(s): R07.9 - Chest pain, unspecified Code(s): R07.9 - Chest pain, unspecified Status: Acute Assessment and Plan: Probable GI related or muscle skeletal. EKG w/o acute changes. Troponins were negative. She had an ischemic workup in the past which was negative. Her pacer interrogation revealed no arrythmia , SVT, or ventricular arrhythmia. (2) Type 2 diabetes mellitus with hyperglycemia: Qualifiers: Diabetes mellitus [facility] insulin use: with [facility] use Qualified Code(s): E11.65 - Type 2 diabetes mellitus with hyperglycemia; Z79.4 - [facility] (current) use of insulin Code(s): E11.65 - Type 2 diabetes mellitus with hyperglycemia Status: Acute Assessment and Plan: Blood sugar was almost 500 on arrival and her A1c is 11.4. 02/27 am bs in 40s on less insulin that takes at home so decreased novolog more 7 tid ac and decrease lantus. 02/28 FBS 107 (3) Anemia due to stage 3 chronic kidney disease: Code(s): N18.3 - Chronic kidney disease, stage 3 (moderate); D63.1 - Anemia in chronic kidney disease Status: Acute Assessment and Plan: Hemoglobin stable (4) Chronic systolic CHF (congestive heart failure): Code(s): I50.22 - Chronic systolic (congestive) heart failure Status: Acute Assessment and Plan: Appears compensated with no evidence of failure. Continue her ARB and beta-pat (5) Chronic kidney disease, stage III (moderate): Code(s): N18.3 - Chronic kidney disease, stage 3 (moderate) Status: Acute Assessment and Plan: Creatinine 0.9 which is actually better than has been in the past. Estimated GFR 60 in the grade 2 range now continue to monitor (6) DVT prophylaxis: Code(s): Z29.9 - Encounter for prophylactic measures, unspecified Status: Acute Assessment and Plan: Mechanical and increase activities with pt DS: Summary Hospital Course Reason for hospitalization: Chest pain Hospital Course: Admitted with chest pain. Occurred while seated. Troponins were negative. EKG without acute ischemic changes. Did have low blood sugar of 40 in spite of reduced insulin on the day prior to discharge. Fasting blood sugar on the day of discharge 11/23. Insulin dose was reduced significantly. A1c indicated poor long-term control. Will need close retention Time Spent with Patient Time attestation: Total time spent providing and/or coordinating discharge services: 39 min Exam Narrative: Exam Narrative: PERRL, sclerae nonicteric, mucosa pink no jvd Lungs clear CV regular no murmurs Abdomen is soft nontender Extremities without edema good distal pulses MS mild titubation and tremor Neuro alert pleasant cooperative no focal deficits Psych Alert. A/o x 3. DS: Data Data Completed and Pending Labs on day of discharge: Labs from last 24 hours 02/29/20 02/28/20 02/28/20 08:19 20:07 17:02 POC Capillary Glucose 107 207 H 231 H 02/28/20 11:43 POC Capillary Glucose 156 H Discharge Plan Discharge Discharging Clinician: Sy Lea Patient Disposition: Home Health Service Activity: no driving, as tolerated and other - see discharge instructions Diet: diabetic Discharge Instructions: Activity: use walker for ambulation Per Care Coordination: [facility] will resume services at discharge. [facility] will follow for RN and PT/OT eval and treat. [facility] can be contacted at [phone]. Patient Instructions: Heart Failure (DC), Chest Pain (GEN), Dizziness (GEN) Stand Alone Forms: General Discharge Information Follow-up/Referrals: Eliot Maria MD [Primary Care Provider] - Call for Appointment Discharge Medications: Continued multivitamin Tablet
== END 2020-02-29 12:05 | disposition home health service (06) ==
LOC: ANHED 11:30 → ANHIMU 15:57 → ANH3MEDSUR 02-29 10:34 → ANHIMU 03-01 10:58
PROVIDERS: Nurse Practitioner; Admitting Provider Hospitalist; Emergency Provider Emergency Medicine; PCP Family Medicine; Visit Provider Internal Medicine
DX: R07.9 Chest pain, unspecified (principal); E11.65 Type 2 diabetes mellitus with hyperglycemia; E11.42 Type 2 diabetes mellitus with diabetic polyneuropathy; E11.22 Type 2 diabetes mellitus with diabetic chronic kidney disease; N18.3 Chronic kidney disease, stage 3 (moderate); D63.1 Anemia in chronic kidney disease; I50.22 Chronic systolic (congestive) heart failure; I42.8 Other cardiomyopathies; E78.2 Mixed hyperlipidemia; G20 Parkinson's disease; F41.9 Anxiety disorder, unspecified; F32.9 Major depressive disorder, single episode, unspecified; Z79.4 Long term (current) use of insulin; Z79.899 Other long term (current) drug therapy; Z87.891 Personal history of nicotine dependence; Z95.810 Presence of automatic (implantable) cardiac defibrillator
CPT/HCPCS: 36415; 71275; 80048; 80053; 81001; 83036; 83735; 84443; 84484; 85025; 85610; 85730; 93005; 96361; 96374; 96375; 97110; 97116; 97161; 97165; 97530; 97535; 99285; A9270; G0378; J1815; J2060; J7040; Q9967

== ENCOUNTER 2020-04-07 14:09 | Inpatient (IN) | payer OTHER, SELFPAY ==
[2020-04-07] VITALS (9 sets, daily range): BP systolic 117–146; BP diastolic 55–99; PULSE 60–74; RESP 12–20; TEMP 36.1–36.9; O2SAT 94–100; BMI 21.4
--- NOTE | ~2020-04-07 | CT_ITS ---
EXAMINATION: CT cervical spine wo con DATE: 04/07/2020 15:17 INDICATION: Patient fell and struck head on dresser. Head and neck pain. TECHNIQUE: Computed tomography (CT) of the cervical spine was performed without intravenous contrast. Automated exposure control and iterative reconstruction technique were employed. Exam dose: 223.49 mGy-cm total exam DLP. COMPARISON: 02/04/2020 CT cervical spine FINDINGS: There is reversal of cervical curvature. No fracture or dislocation or locked facet. No pre vertebral soft tissue swelling. There is minimal anterolisthesis at C3-4 and C4-5. There is moderately severe degenerative disc disease and mild retrolisthesis at C5-6 and C6-7. There is minimal anterolisthesis at C7-T1 There is fusion of the apophyseal joints on the right at C2-3 and degenerative change at the apophyse al joints throughout the cervical spine otherwise. Bilateral uncovertebral joint spurring is noted C5-6, C6-7. IMPRESSION: Reversal cervical curvature No fracture or dislocation or locked facet Extensive degenerative changes Reviewed, dictated and finalized at [facility]. Reviewed, dictated and finalized at location [facility].
--- NOTE | ~2020-04-07 | US_ITS ---
US venous doppler [facility] DATE: 04/09/2020 13:12 INDICATION: Left calf tenderness TECHNIQUE: Real-time and color flow imaging and Doppler analysis of the veins of the lower extremitie s COMPARISON: 12/22/2018 venous duplex examination of the lower extremities FINDINGS: The greater saphenous veins are patent. There is spontaneous and phasic flow and normal aug mentation and color flow signal and normal compression of the deep veins of both lower extremities. IMPRESSION: No evidence of deep venous thrombosis of the lower extremities Reviewed, dictated and finalized at [facility]. Reviewed, dictated and finalized at location [facility].
--- NOTE | ~2020-04-07 | CT_ITS ---
EXAMINATION: CTA chest PE protocol DATE: 04/07/2020 16:27 INDICATION: Shortness of breath TECHNIQUE: Computed tomography angiography (CTA) of the chest was performed with 100 mL Omnipaque-350 intravenous contrast timed to evaluate the pulmonary arteries. Coronal maximum intensity projection 3D-reconstructions were created by the technologist. The dose-length product (DLP) was 218.62 mGy-cm. Automated exposure control and iterative reconstruction technique were employed. COMPARISON: 02/26/2020 FINDINGS: The pulmonary arteries are well-opacified. No pulmonary embolism is identified. There is ch ronic elevation of the right hemidiaphragm. Dependent atelectasis is noted. No focal airspace opaciti es are identified. There is no pleural effusion or pneumothorax. There are no pathologically enlarged thoracic lymph nodes. Again noted is left ventricular hypertrophy of the heart. There is mild thorac ic spondylosis. A triple lead pacemaker/AICD of the left chest wall ends with its leads in expected p osition. IMPRESSION: 1. No pulmonary embolism or acute cardiopulmonary abnormality. Reviewed, dictated and finalized at location [facility].
--- NOTE | ~2020-04-07 | US_ITS ---
EXAMINATION: US carotid duplex BI DATE: 04/08/2020 09:43 INDICATION: Dizziness TECHNIQUE: Grayscale, color Doppler, and pulsed Doppler images of the cervical carotid arteries were obtained. The degree of vessel stenosis is placed in one of the following categories: normal, <50%, 5 0-69%, >=70% but less than near-occlusion, near-occlusion, or total occlusion. Note that percent sten osis relative to normal distal artery lumen diameter is indirectly measured from velocity measurement s as described by Jeramie, et al. Radiology 2003; 229:340-346. COMPARISON: None. FINDINGS: RIGHT: The right common carotid artery (CCA) peak systolic velocity (PSV) is 62.5 cm/s. The right internal c arotid artery (ICA) PSV is 60.7 cm/s. The right ICA end-diastolic velocity (EDV) is 14.5 cm/s. The ri t ICA/CCA PSV ratio is 1.0. Grayscale and color Doppler images yield an estimate of less than 50% d iameter reduction from plaque in the ICA. The external carotid artery (ECA) PSV is 102.7 cm/s. There is antegrade flow in the right vertebral artery. LEFT: The left CCA PSV is 50.2 cm/s. The left ICA PSV is 53.7 cm/s. The left ICA EDV is 11.9 cm/s. The left ICA/CCA PSV ratio is 1.1. Grayscale and color Doppler images yield an estimate of less than 50% diam eter reduction from plaque in the ICA. The ECA PSV is 97.8 cm/s. There is antegrade flow in the left vertebral artery. IMPRESSION: 1. Less than 50% stenosis in the right internal carotid artery. 2. Less than 50% stenosis in the left internal carotid artery. Reviewed, dictated and finalized at [facility]. Reviewed, dictated and finalized at location [facility].
--- NOTE | ~2020-04-07 | XR_ITS ---
EXAMINATION: XR chest 1V portable DATE: 04/07/2020 14:33 INDICATION: Syncope TECHNIQUE: frontal view of the chest was obtained. COMPARISON: Chest radiograph dated 02/11/[address] dated 02/26/2020 FINDINGS: Chronic elevation of the right hemidiaphragm. No airspace opacities, pulmonary edema, pleural effusio n or pneumothorax. The cardiomediastinal silhouette is normal. Three lead pacemaker/AICD seen with le ads projecting over the expected locations of the right atrial appendage, apex of the right ventricle and overlying the left ventricle likely having traversed the coronary sinus. IMPRESSION: 1. Chronic elevation of the right hemidiaphragm. No acute cardiopulmonary disease. Reviewed, dictated and finalized at location [facility]. IMPRESSION: 1. Chronic elevation of the right hemidiaphragm. No acute cardiopulmonary disea se.
--- NOTE | ~2020-04-07 | CT_ITS ---
EXAMINATION: CT brain wo con DATE: 04/07/2020 15:17 INDICATION: Fall. Head on dresser. TECHNIQUE: Computed tomography (CT) of the head was performed without intravenous contrast. The mA wa s adjusted according to patient size. Iterative reconstruction technique was employed. Exam dose: 60 5.33 mGy-cm total exam DLP. COMPARISON: 02/04/2020 CT brain FINDINGS: Bilateral carotid siphon internal carotid artery calcifications. There is nonspecific diminished attenuation of the cerebral white matter, likely due to chronic small vessel ischemic changes. No intracranial mass lesion or hemorrhage. No midline shift or mass effect. There is central and marina ical cerebral and cerebellar atrophy. No subdural or epidural hematoma is detected. Included paranasal sinuses and mastoid air cells are normally developed and aerated. No fracture or bone destruction of the cranial vault. IMPRESSION: Cerebral and cerebellar atrophy Cerebral atherosclerosis and chronic small vessel ischemic changes of the cerebral white matter No acute intracranial finding Reviewed, dictated and finalized at [facility]. Reviewed, dictated and finalized at location A. IMPRESSION: Cerebral and cerebellar atrophy Cerebral atherosclerosis and chronic small vessel ischemic changes of the cereb ral white matter No acute intracranial finding
--- NOTE | 2020-04-07 14:11 | ECG_ITS ---
Measurements Intervals [place] Rate: 62 P: -26 AR: 138 QRS: -57 QRSD: 136 T: 128 QT: 508 QTc: 519 Interpretive Statements ATRIAL SENSE- ELECTRONIC VENTRICULAR PACEMAKER BASELINE ARTIFACT- V1 NO FURTHER INTERPRETATION IS POSSIBLE ATYPICAL ECG Electronically Signed On 04-07-2020 14:36:32 CDT by Glenn Parker D.O.
[2020-04-07 14:27] LABS: Glucose Point of Care 195 (65-105)
[2020-04-07 14:36] LABS: Basophils Absolute Auto 0.1 K/mm3 (0.0-0.1); Basophils Percent Auto 0.6 % (0.2-1.2); Eosinophils Absolute Auto 0.1 K/mm3 (0-0.3); Eosinophils Percent Auto 1.4 % (0-4.4); Hematocrit 33.5 % (37.0-47.0); Hemoglobin 11.6 g/dL (12.0-15.0); Immature Granulocyte Absolute 0.05 K/mm3 (0.00-0.031); Immature Granulocyte Percent A 0.6 % (0-0.5); Lymphocytes Absolute Auto 3.02 K/mm3 (0.9-3.2); Lymphocytes Percent Auto 37.8 % (18.3-44.2); Mean Corpuscular HGB Conc 34.6 g/dl (32-36); Mean Corpuscular Volume 80.7 fl (80-100); Mean Platelet Volume 10.7 fl (7.4-10.4); Monocytes Absolute Auto 0.7 K/mm3 (0.1-0.6); Neutrophils Percent Auto 50.6 % (45.5-73.1); Platelet Count Result 238 k/mm3 (150-375); Red Blood Count 4.15 M/mm3 (4.2-5.4); Red Cell Distribution Width 13.5 % (11.5-14.5)
--- NOTE | 2020-04-07 14:43 | ED.FALL ---
HPI - Fall General Chief Complaint: Fall Stated Complaint: fall Source: RN notes reviewed History of Present Illness HPI Narrative: Patient presents emergency department from home for syncopal episode. Patient states she was standing in her bedroom which began to feel dizzy and then does not recall what happened. She states she believes she hit her head on her dresser and is complaining of head and neck pain. Patient denies any current dizziness denies any recent illness denies any fevers or chills chest pain vision changes shortness of breath abdominal pain nausea vomiting or any other symptoms Related Data Home Medications Medication Instructions Recorded Confirmed losartan 25 mg tablet 25 mg PO DAILY 10/18/19 02/26/20 multivitamin 1 tablet PO DAILY 10/18/19 02/26/20 acetaminophen 650 mg PO Q4H PRN 02/11/20 02/26/20 Allergies Allergy/AdvReac Type Severity Reaction Status Date / Time codeine Allergy Unknown Unknown Verified 04/07/20 14:13 NSAIDS (Non-Steroidal Allergy Unknown Unknown Verified 04/07/20 14:13 Anti-Inflamma Review of Systems Review of Systems: Narrative: Gen.: Denies fevers or chills Eyes: Denies eye pain or visual change ENT: Denies congestion Respiratory: Denies shortness of breath or cough CV: Reports syncope GI: Denies abdominal pain nausea, emesis or diarrhea denies burning, urgency, frequency or hematuria Musculoskeletal: Reports neck pain Neuro: Denies numbness, tingling, weakness or focal weakness Skin: Denies rash Except as documented, all other systems reviewed and negative PMFSH Past Medical History Medical History Anemia due to stage 3 chronic kidney disease Bilateral cataracts CHF (congestive heart failure) Chronic kidney disease, stage III (moderate) H/O diverticulitis of colon Kidney stone LBBB (left bundle branch block) Mixed hyperlipidemia 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athy legs and feet Pituitary adenoma Status post fall SVT (supraventricular tachycardia) Temporal arteritis Type 2 diabetes mellitus with diabetic nephropathy Type 2 diabetes mellitus with hyperglycemia V-tach Social History Social History Social History: . Resides with her . Son and daughter live out of state, one in [place] and one in [place]. Patient desires to be a full code. The son is the power of district attorney. 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 She smoked briefly in the 60s socially. Smoking status: Former smoker Tobacco type: cigarettes Additional smoking assessment comments: quit 1960s- smoked socially Alcohol intake: never Substance use: never Gender identity (if verbalized by the patient): Female Spiritual care concerns: Yes (Denominational) Agree to blood products: Yes Exam Narrative: Exam Narrative: APPEARANCE: No acute distress, nontoxic, resting in bed EYES: EOMI, Harpreet HEENT: Normocephalic, atraumatic, TMs clear bilaterally nares patent oromucosa moist Neck: C-collar in place, supple no midline tenderness palpation RESPIRATORY: No respiratory distress Clear to auscultation bilaterally with no rhonchi wheezing or rales. CARDIOVASCULAR: Regular rate and rhythm without murmurs rubs or gallops. ABDOMINAL: Soft, nontender, nondistended, no rebound or guarding MUSCULOSKELETAl: Moves all extremities. No clubbing, cyanosis or edema. NEURO: Awake and alert. Following commands, speech normal, no focal deficits SKIN:: Warm, dry. No rashes lesions or abrasions PSYCHIATRIC: Normal affect/mood, Course Course Emergency Course: During stay in ED patient with several episodes of oxygen desaturation to the 80s with good Plath placed on oxygen at this time Discussed with VERONICA Jaquez for Dr Donald presentation work-up. Agrees with admission Discussed with patient and family results of work
[2020-04-07 14:51] LABS: Alanine Aminotransferase 23 U/L (4-35); Alkaline Phosphatase 114 U/L (38-126); Aspartate Amino Transferase 38 U/L (14-36); Bilirubin,Total 0.5 mg/dL (0.2-1.3); Blood Urea Nitrogen 25 mg/dL (7-17); Carbon Dioxide 22 mmol/L (22-30); Chloride 96 mmol/L (98-107); Estimated CRCL calculation 26 ml/min; Estimated Glomerular Filt Rate 43; Glucose 203 mg/dL (65-105); Potassium 3.7 mmol/L (3.4-5.0); Sodium 127 mmol/L (137-145)
[2020-04-07 14:54] LABS: Partial Thromboplastin Time 26.8 SECONDS (22.3-36.8); Prothrombin Time 12.7 Seconds (11.1-14.7)
--- NOTE | 2020-04-07 14:59 | PC.NURSE ---
Placed on 2 Li NC after oygen noted to be in low 80%. Dr. Egan notified.
[2020-04-07 15:02] LABS: Troponin I < 0.012 ng/mL (0.000-0.034)
[2020-04-07 15:44] LABS: Alveolar/Arterial O2 Gradient 58.5 mmHg; Base Excess ABG -0.8 mEq/l (+/-2.0); Fractional Inspired Oxygen 28 %; HCO3 ABG 20.3 mEq/l (22.0-26.0); Oxygen Content ABG 17.1 %vol (16.0-22.0); Oxygen Saturation ABG 98.6 % (95.0-100.0); PCO2 ABG 24.4 mmHg (35.0-45.0); PO2 ABG 112.4 mmHg (80.0-100.0); PO2 FiO2 Ratio Arterial Blood 4.01 %; Total Hemoglobin 12.4 g/dL (12.0-18.0)
[2020-04-07 15:45] LABS: Device NASAL CANNULA; Site Drawn RIGHT BRACHIAL; pH ABG 7.539 (7.350-7.450)
--- NOTE | 2020-04-07 18:47 | ADMGEN ---
This patient, Nathalia Jaimes, was admitted to 2 Medical Room 257-. Patient/family oriented to hospital policies and general routines including ID bracelet, bed and alarms, visiting hours, pain management, procedures, bathroom and other care routines, personal items, smoking policy, room service/diet, and visiting hours. Valuables list has been completed. Information on how to activate the Rapid Response Team has been discussed. Patient/Family are encouraged to report perceived risks to care and to ask questions if they do not understand what they are told or what they should do.
[2020-04-07 19:45] LABS: Glucose Point of Care 201 (65-105)
[2020-04-07] MEDS: ACETAMINOPHEN 325 MG TABLET 650 MG PO (19:47)
[2020-04-07 20:23] LABS: Troponin I < 0.012 ng/mL (0.000-0.034)
--- NOTE | 2020-04-07 21:52 | PM.IMHP ---
H&P: HPI History of Present Illness Chief complaint: Syncope/hyponatremia/renal insufficiency/hypoxia Narrative: Nathalia Jaimes is a 79 year old female she has a past medical history of having peripheral neuropathy secondary to her diabetes. The patient has uncontrolled diabetes and her blood sugars are typically in the 300s. The patient has a pacemaker and said that she had it checked about 2 weeks ago and the physician there stated that she would not need to be checked again until next year. The patient has a history of SVT. The patient stated that she is very unsteady on her feet. The patient stated that she felt very dizzy today she was going into the the bedroom. She started to feel dizzy and said that she just blacked out. She said she went down on her knees and that she fell backwards and hit her head. Her daughter came over and the patient stated she would be fine and did want to go the hospital and that she stated she blacked out again prior to the ambulance getting there. She denied any fever chills or cough. She gets short of breath with exertion. She had no nausea vomiting or diarrhea. The patient has been here multiple times. Her last admission was in February and she was also here in January as well. She stated she is also here around [place] time as well. Her last A1c was noted to be 11.4 in February this year. She does have congestive heart failure. No pulmonary embolism or acute cardiopulmonary abnormality. Cervical spine CT reversal cervical curvature. No fracture dislocation of blocked faucet. Extensive degenerative changes. Head CT was read as no acute intracranial findings. Was read as chronic elevation of the right hemo diaphragm. No acute cardiopulmonary disease. Patient was hypoxic according to the ED provider and she was placed on 2 L of oxygen per nasal cannula. This occurred when she was resting. Possibly due to sleep apnea. The patient was given Tylenol in the emergency room. She has complaint of lower back pain. Her urine is negative. Date of service 04/07/2020 Review of Systems Review of Systems: All systems reviewed & are unremarkable except as noted in HPI and below Constitutional: Constitutional: Reports as per HPI and Reports no additional constitutional complaints Eyes: Eyes: Reports as per HPI and Reports no additional eye complaints ENT: Reports system reviewed and no additional complaints, except as documented and Reports Normal hearing present Cardiovascular: Cardiovascular: Reports no additional cardiovascular complaints Respiratory: Respiratory: Reports no additional respiratory complaints and Reports no additional respiratory complaints Gastrointestinal: Gastrointestinal: Reports as per HPI and Reports no additional gastrointestinal complaints Musculoskeletal: Musculoskeletal: Reports no additional musculoskeletal complaints Integumentary/Breasts: Skin/Breast: Reports system reviewed and no additional complaints, except as docu and Reports as per HPI Neurologic: Reports system reviewed and no additional complaints, except as documented, Reports as per HPI and Reports Normal hearing present Psychiatric: Psychiatric: Reports no additional psychiatric complaints and Reports as per HPI Endocrine: Endocrine: Reports no additional endocrine complaints Hematologic/Lymphatic: Hematologic/Lymphatic: Reports no additional hematologic/lymphatic complaints Allergic/Immunologic: Allergic/Immunologic: Reports no additional allergic/immunologic complaints [facility] Past Medical History Medical History (Updated 04/07/20 @ 22:13 by Gisele Kimball NP) Anemia due to stage 3 chronic kidney disease Bilateral cataracts CHF (congestive heart failure) Chronic kidney disease, stage III (moderate) H/O diverticulitis of colon Hypertension Kidney stone LBBB (left bundle branch block) Mixed hyperlipidemia 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
[2020-04-07] MEDS: GABAPENTIN 300 MG CAPSULE PO (22:07)
[2020-04-07] MEDS: LOVASTATIN 20 MG TABLET 40 MG PO (22:07)
[2020-04-07] MEDS: METOPROLOL TARTRATE 25 MG TABLET PO (22:08)
[2020-04-07] MEDS: INSULIN GLARGINE (*BKC) 100 UNITS/ML 60 UNITS SUB-Q (22:08)
[2020-04-07] MEDS: busPIRone HCL 5 MG TABLET PO (22:08)
[2020-04-07 22:20] LABS: Glucose Point of Care 438 (65-105)
[2020-04-07 23:30] LABS: Troponin I < 0.012 ng/mL (0.000-0.034)
[2020-04-08] VITALS (18 sets, daily range): BP systolic 73–151; BP diastolic 38–73; PULSE 59–82; RESP 18–20; TEMP 36.4–36.5; O2SAT 95–99
[2020-04-08 00:24] LABS: Glucose Point of Care 394 (65-105)
[2020-04-08 05:54] LABS: Basophils Percent Auto 0.5 % (0.2-1.2); Eosinophils Absolute Auto 0.2 K/mm3 (0-0.3); Eosinophils Percent Auto 1.9 % (0-4.4); Hematocrit 35.8 % (37.0-47.0); Hemoglobin 12.2 g/dL (12.0-15.0); Immature Granulocyte Absolute 0.02 K/mm3 (0.00-0.031); Immature Granulocyte Percent A 0.2 % (0-0.5); Lymphocytes Absolute Auto 3.03 K/mm3 (0.9-3.2); Lymphocytes Percent Auto 35.9 % (18.3-44.2); Mean Corpuscular HGB Conc 34.1 g/dl (32-36); Mean Corpuscular Hemoglobin 28.2 pg (26-34); Mean Corpuscular Volume 82.7 fl (80-100); Mean Platelet Volume 10.8 fl (7.4-10.4); Monocytes Absolute Auto 0.8 K/mm3 (0.1-0.6); Monocytes Percent Auto 8.9 % (2.6-8.5); Neutrophils Absolute Auto 4.4 K/mm3 (1.3-6.7); Neutrophils Percent Auto 52.6 % (45.5-73.1); Platelet Count Result 236 k/mm3 (150-375); Red Blood Count 4.33 M/mm3 (4.2-5.4); Red Cell Distribution Width 13.6 % (11.5-14.5); White Blood Count 8.4 K/mm3 (4.5-10.0)
[2020-04-08 05:56] LABS: Glucose Point of Care 217 (65-105)
[2020-04-08 06:07] LABS: Blood Urea Nitrogen 23 mg/dL (7-17); Calcium 8.8 mg/dL (8.4-10.2); Carbon Dioxide 24 mmol/L (22-30); Chloride 101 mmol/L (98-107); Estimated CRCL calculation 32 ml/min; Estimated Glomerular Filt Rate 43; Glucose 243 mg/dL (65-105); Potassium 3.8 mmol/L (3.4-5.0); Sodium 134 mmol/L (137-145)
[2020-04-08 08:29] LABS: Glucose Point of Care 221 (65-105)
[2020-04-08] MEDS: GABAPENTIN 300 MG CAPSULE PO ×3 (08:33→17:27)
[2020-04-08] MEDS: LOSARTAN POTASSIUM 25 MG TABLET PO (08:34)
[2020-04-08] MEDS: INSULIN ASPART (*BKC) 100 UNITS/ML SUB-Q ×3 (08:34→17:23)
[2020-04-08] MEDS: SERTRALINE HCL 50 MG TABLET PO (08:34)
[2020-04-08] MEDS: MULTIVITAMINS THERAPEUTIC TAB (*BKC) 1 TABLET PO (08:34)
[2020-04-08] MEDS: busPIRone HCL 5 MG TABLET PO ×2 (08:34→17:27)
[2020-04-08] MEDS: METOPROLOL TARTRATE 25 MG TABLET PO ×2 (08:34→17:35)
[2020-04-08] MEDS: ACETAMINOPHEN 325 MG TABLET 650 MG PO (08:38)
[2020-04-08 11:34] LABS: Glucose Point of Care 357 (65-105)
--- NOTE | 2020-04-08 13:25 | PCRCNOTE ---
home o2 eval, pt does not require home oxygen
--- NOTE | 2020-04-08 16:06 | PM.IMPN ---
Progress Note: A&P Assessment and Plan (1) Syncope: Code(s): R55 - Syncope and collapse Status: Acute Assessment and Plan: Will continue to monitor the patient on telemetry. She stated she just saw the interventionalist at [facility] about 2 weeks ago and stated that he did need to follow-up with her pacemaker for another year. She does have a history of SVT. pacemaker to be interrogated again. PT and OT for evaluation. The patient is complaining of dizziness and has peripheral neuropathy. The patient has difficulty ambulating. The patient tells me that she cannot feel anything on the bottom of her feet. And also she feels dizzy. According to the ER physician the patient was hypoxic but saturating well on room air and did not desaturate with ambulation with respiratory therapy. (2) Acute hyponatremia: Code(s): E87.1 - Hypo-osmolality and hyponatremia Status: Acute Assessment and Plan: Patient's sodium appears to be constantly low. Could be pseudo hyponatremia to her constantly high blood sugars. She is also on SSRI. The repeat sodium today 134 (3) IDDM (insulin dependent diabetes mellitus): Code(s): E11.9 - Type 2 diabetes mellitus without complications; Z79.4 - long term acute care registered nurse (current) use of insulin Status: Acute Assessment and Plan: Will do sliding scale insulin and Lantus. Her last A1c was over 11 about a month ago. (4) Depression: Qualifiers: Depression Type: unspecified Qualified Code(s): F32.9 - Major depressive disorder, single episode, unspecified Code(s): F32.9 - Major depressive disorder, single episode, unspecified Status: Acute Assessment and Plan: Continue with Zoloft. Now unless sodium drops further (5) Anxiety: Code(s): F41.9 - Anxiety disorder, unspecified Status: Acute Assessment and Plan: Patient is on Zoloft and BuSpar (6) Chest pressure: Code(s): R07.89 - Other chest pain Status: Acute Assessment and Plan: History nonischemic cardiomyopathy in the past IV normal coronaries (7) CHF (congestive heart failure): Code(s): I50.9 - Heart failure, unspecified Status: Acute Assessment and Plan: Last echo in January of this year revealed ejection fraction greater than 70% with no valvular abnormalities and no pulmonary hypertension and only grade 1 diastolic dysfunction Continue low-dose ARB and beta-pat (8) Mixed hyperlipidemia: Code(s): E78.2 - Mixed hyperlipidemia Status: Chronic Assessment and Plan: Continue with lovastatin. (9) Anemia due to stage 3 chronic kidney disease: Code(s): N18.3 - Chronic kidney disease, stage 3 (moderate); D63.1 - Anemia in chronic kidney disease Status: Acute Assessment and Plan: She is at baseline please continue to monitor. (10) Hypertension: Code(s): I10 - Essential (primary) hypertension Status: Chronic Assessment and Plan: Continue with metoprolol and losartan. (11) DVT prophylaxis: Code(s): Z29.9 - Encounter for prophylactic measures, unspecified Status: Acute Assessment and Plan: Lovenox Subjective Date/time seen: 04/08/20 16:06 Interval history: Date of visit 04/08. 79-year-old white female type 2 diabetic chronic renal failure stage 3 and pacemaker to present with hyponatremia and syncopal episode. No chest pain or palpitation. Had been well until the present illness. At present times is feels much better than she did with minimal if any dizziness Exam Narrative: Exam Narrative: Blood pressure 114/60 pulse is 74 she did have orthostatic changes earlier Pupils equal reactive to light sclera anicteric Lungs clear CV regular no murmurs Abdomen is soft nontender Extremities without edema distal pulses are 1 to 2+ Neuro alert cooperative no focal deficits Objective Data Vital Signs Vital Signs: Vital Signs - 24 hr 04/07
[2020-04-08 16:52] LABS: Glucose Point of Care 335 (65-105)
[2020-04-08] MEDS: LOVASTATIN 20 MG TABLET 40 MG PO (17:27)
[2020-04-08] MEDS: FLUCONAZOLE 100 MG TABLET PO (17:27)
[2020-04-08] MEDS: INSULIN GLARGINE (*BKC) 100 UNITS/ML 60 UNITS SUB-Q (20:56)
[2020-04-08] MEDS: ENOXAPARIN 40 MG/0.4 ML SYRINGE SUB-Q (20:57)
[2020-04-08 21:09] LABS: Glucose Point of Care 353 (65-105)
[2020-04-08] MEDS: MICONAZOLE NITRATE 2% VAGINAL CREAM 45 GM TUBE 1 APPFUL VAGINAL (22:08)
[2020-04-09] VITALS (12 sets, daily range): BP systolic 102–146; BP diastolic 42–66; PULSE 61–78; RESP 16–20; TEMP 36.5–36.8; O2SAT 98–99
[2020-04-09 08:16] LABS: Glucose Point of Care 133 (65-105)
[2020-04-09] MEDS: METOPROLOL TARTRATE 25 MG TABLET PO ×2 (10:38→16:55)
[2020-04-09] MEDS: MULTIVITAMINS THERAPEUTIC TAB (*BKC) 1 TABLET PO (10:38)
[2020-04-09] MEDS: busPIRone HCL 5 MG TABLET PO ×2 (10:38→16:55)
[2020-04-09] MEDS: GABAPENTIN 300 MG CAPSULE PO ×3 (10:38→16:55)
[2020-04-09 11:38] LABS: Glucose Point of Care 230 (65-105)
[2020-04-09] MEDS: INSULIN ASPART (*BKC) 100 UNITS/ML SUB-Q ×2 (11:58→16:53)
[2020-04-09] MEDS: SODIUM CHLORIDE 0.9% IV 1,000 ML 100 ML IV CONT ×2 (12:00→20:46)
[2020-04-09] MEDS: POTASSIUM CHLORIDE 20 MEQ TABLET PO (12:00)
--- NOTE | 2020-04-09 14:06 | PCOTNOTE ---
Patient out of room for testing this pm.
--- NOTE | 2020-04-09 14:59 | PM.IMPN ---
Progress Note: A&P Assessment and Plan (1) Syncope: Code(s): R55 - Syncope and collapse Status: Acute Assessment and Plan: Will continue to monitor the patient on telemetry. She stated she just saw the interventionalist at [facility] about 2 weeks ago and stated that he did need to follow-up with her pacemaker for another year. She does have a history of SVT. pacemaker interrogated and no evidence of arrythmia PT and OT for evaluation. The patient is complaining of dizziness and has peripheral neuropathy. And also she feels dizzy. According to the ER physician the patient was hypoxic but saturating well on room air and did not desaturate with ambulation with respiratory therapy 04/08. Appears to be all orthostatic.. Held ARB today, hydrate, and check serum cortisol in a.m. (2) Acute hyponatremia: Code(s): E87.1 - Hypo-osmolality and hyponatremia Status: Acute Assessment and Plan: Patient's sodium appears to be constantly low. Could be pseudo hyponatremia to her constantly high blood sugars. She is also on SSRI. The repeat sodium 134 again today (3) IDDM (insulin dependent diabetes mellitus): Code(s): E11.9 - Type 2 diabetes mellitus without complications; Z79.4 - snf (current) use of insulin Status: Acute Assessment and Plan: Will do sliding scale insulin and Lantus. Her last A1c was over 11 about a month ago. (4) Depression: Qualifiers: Depression Type: unspecified Qualified Code(s): F32.9 - Major depressive disorder, single episode, unspecified Code(s): F32.9 - Major depressive disorder, single episode, unspecified Status: Acute Assessment and Plan: Continue with Zoloft. Now unless sodium drops further (5) Anxiety: Code(s): F41.9 - Anxiety disorder, unspecified Status: Acute Assessment and Plan: Patient is on Zoloft and BuSpar (6) Chest pressure: Code(s): R07.89 - Other chest pain Status: Acute Assessment and Plan: History nonischemic cardiomyopathy in the past IV normal coronaries (7) CHF (congestive heart failure): Code(s): I50.9 - Heart failure, unspecified Status: Acute Assessment and Plan: Last echo in January of this year revealed ejection fraction greater than 70% with no valvular abnormalities and no pulmonary hypertension and only grade 1 diastolic dysfunction Continue low-dose ARB and beta-pat (8) Mixed hyperlipidemia: Code(s): E78.2 - Mixed hyperlipidemia Status: Chronic Assessment and Plan: Continue with lovastatin. (9) Anemia due to stage 3 chronic kidney disease: Code(s): N18.3 - Chronic kidney disease, stage 3 (moderate); D63.1 - Anemia in chronic kidney disease Status: Acute Assessment and Plan: She is at baseline please continue to monitor. (10) Hypertension: Code(s): I10 - Essential (primary) hypertension Status: Chronic Assessment and Plan: Continue with metoprolol but hold losartan with the orthostasis and normal ejection fraction last hospitalization in January (11) DVT prophylaxis: Code(s): Z29.9 - Encounter for prophylactic measures, unspecified Status: Acute Assessment and Plan: Lovenox Subjective Date/time seen: 04/09/20 14:59 Interval history: Date of visit 04/09. 79-year-old white female type 2 diabetic chronic renal failure stage 3 and pacemaker to present with hyponatremia and syncopal episode. No chest pain or palpitation. Had been well until the present illness. At present times is feels much better than she did but still dizzy when up this am and left calf tender Exam Narrative: Exam Narrative: Blood pressure 134/62 pulse is 64 she did have orthostatic changes again this am Pupils equal reactive to light sclera anicteric Lungs clear CV regular no murmurs Abdomen is soft nontender Extremities without edema distal pulses are 1 to 2+,
[2020-04-09 16:33] LABS: Glucose Point of Care 246 (65-105)
[2020-04-09] MEDS: LOVASTATIN 20 MG TABLET 40 MG PO (16:55)
[2020-04-09] MEDS: ACETAMINOPHEN 325 MG TABLET 650 MG PO (17:04)
[2020-04-09] MEDS: SERTRALINE HCL 50 MG TABLET PO (20:44)
[2020-04-09] MEDS: ENOXAPARIN 40 MG/0.4 ML SYRINGE SUB-Q (20:44)
[2020-04-09] MEDS: MICONAZOLE NITRATE 2% VAGINAL CREAM 45 GM TUBE 1 APPFUL VAGINAL (20:47)
[2020-04-09] MEDS: INSULIN GLARGINE (*BKC) 100 UNITS/ML 60 UNITS SUB-Q (20:48)
[2020-04-10] VITALS (14 sets, daily range): BP systolic 100–157; BP diastolic 50–69; PULSE 61–79; RESP 16–20; TEMP 36.2–36.8; O2SAT 96–99
[2020-04-10 00:25] LABS: Glucose Point of Care 394 (65-105)
[2020-04-10] MEDS: SODIUM CHLORIDE 0.9% IV 1,000 ML 100 ML IV CONT ×2 (05:29→15:36)
[2020-04-10 06:17] LABS: Hemoglobin A1C 11.3 % (<5.7)
[2020-04-10 06:22] LABS: Blood Urea Nitrogen 22 mg/dL (7-17); Carbon Dioxide 23 mmol/L (22-30); Chloride 104 mmol/L (98-107); Estimated CRCL calculation 43 ml/min; Estimated Glomerular Filt Rate 60; Glucose 236 mg/dL (65-105); Potassium 3.8 mmol/L (3.4-5.0); Sodium 133 mmol/L (137-145)
[2020-04-10 08:03] LABS: Glucose Point of Care 189 (65-105)
[2020-04-10] MEDS: GABAPENTIN 300 MG CAPSULE PO ×3 (08:45→18:01)
[2020-04-10] MEDS: MULTIVITAMINS THERAPEUTIC TAB (*BKC) 1 TABLET PO (08:45)
[2020-04-10] MEDS: busPIRone HCL 5 MG TABLET PO ×2 (08:45→18:01)
[2020-04-10] MEDS: LOSARTAN POTASSIUM 25 MG TABLET PO (08:45)
[2020-04-10] MEDS: METOPROLOL TARTRATE 25 MG TABLET PO ×2 (08:46→18:01)
[2020-04-10 11:54] LABS: Glucose Point of Care 279 (65-105)
[2020-04-10] MEDS: INSULIN ASPART (*BKC) 100 UNITS/ML SUB-Q ×2 (12:09→17:20)
--- NOTE | 2020-04-10 12:52 | PM.IMPN ---
Progress Note: A&P Assessment and Plan (1) Syncope: Code(s): R55 - Syncope and collapse Status: Acute Assessment and Plan: Will continue to monitor the patient on telemetry. She stated she just saw her EP spcecialist at [facility] about 2 weeks ago and stated that he did not need to follow-up with her pacemaker for another year. She does have a history of SVT. pacemaker interrogated and no evidence of arrythmia PT and OT for evaluation. The patient is complaining of dizziness and has peripheral neuropathy. And also she feels dizzy. According to the ER physician the patient was hypoxic but saturating well on room air and did not desaturate with ambulation with respiratory therapy 04/08. continues to be orthostatic.. Held ARB 04/09, hydrating, and fasting cortisol today 15. will try support stockings too. Orthostasis probably secondary to autonomic dysfunction from her diabetes and Parkinson's (2) Acute hyponatremia: Code(s): E87.1 - Hypo-osmolality and hyponatremia Status: Acute Assessment and Plan: Patient's sodium appears to be constantly low. Could be pseudo hyponatremia to her constantly high blood sugars. She is also on SSRI. 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 Her last A1c was over 11 about a month ago. No change at 11.3 today (4) Depression: Qualifiers: Depression Type: unspecified Qualified Code(s): F32.9 - Major depressive disorder, single episode, unspecified Code(s): F32.9 - Major depressive disorder, single episode, unspecified Status: Acute Assessment and Plan: Continue with Zoloft. Now unless sodium drops further (5) Anxiety: Code(s): F41.9 - Anxiety disorder, unspecified Status: Acute Assessment and Plan: Patient is on Zoloft and BuSpar, multiple systemic complaints (6) Chest pressure: Code(s): R07.89 - Other chest pain Status: Acute Assessment and Plan: History nonischemic cardiomyopathy in the past , normal coronaries (7) CHF (congestive heart failure): Code(s): I50.9 - Heart failure, unspecified Status: Acute Assessment and Plan: Last echo in January of this year revealed ejection fraction greater than 70% with no valvular abnormalities and no pulmonary hypertension and only grade 1 diastolic dysfunction Continue beta-pat, ARB on hold (8) Mixed hyperlipidemia: Code(s): E78.2 - Mixed hyperlipidemia Status: Chronic Assessment and Plan: Continue with lovastatin. (9) Anemia due to stage 3 chronic kidney disease: Code(s): N18.3 - Chronic kidney disease, stage 3 (moderate); D63.1 - Anemia in chronic kidney disease Status: Acute Assessment and Plan: She is at baseline please continue to monitor. (10) Hypertension: Code(s): I10 - Essential (primary) hypertension Status: Chronic Assessment and Plan: Continue with metoprolol but hold losartan with the orthostasis and normal ejection fraction last hospitalization in January (11) DVT prophylaxis: Code(s): Z29.9 - Encounter for prophylactic measures, unspecified Status: Acute Assessment and Plan: Lovenox Subjective Date/time seen: 04/10/20 12:52 Interval history: Date of visit 04/10. 79-year-old white female type 2 diabetic, chronic renal failure stage 3, and pacemaker who presented with hyponatremia and syncopal episode. No chest pain or palpitation. Had been well until the present illness. At present times is feels better than she did but still dizzy when up and now neck pain with continued left calf painr Exam Narrative: Exam Narrative: Blood pressure 145/68-120/50 sitting to standing, pulse is
[2020-04-10 17:27] LABS: Glucose Point of Care 319 (65-105)
[2020-04-10] MEDS: LOVASTATIN 20 MG TABLET 40 MG PO (18:00)
[2020-04-10] MEDS: SERTRALINE HCL 50 MG TABLET PO (21:34)
[2020-04-10] MEDS: ENOXAPARIN 40 MG/0.4 ML SYRINGE SUB-Q (21:35)
[2020-04-10] MEDS: MICONAZOLE NITRATE 2% VAGINAL CREAM 45 GM TUBE 1 APPFUL VAGINAL (22:08)
[2020-04-10] MEDS: INSULIN GLARGINE (*BKC) 100 UNITS/ML 60 UNITS SUB-Q (22:09)
[2020-04-10] MEDS: ACETAMINOPHEN 325 MG TABLET 650 MG PO (22:59)
[2020-04-10 23:46] LABS: Glucose Point of Care 260 (65-105)
[2020-04-11] VITALS (10 sets, daily range): BP systolic 115–159; BP diastolic 56–71; PULSE 61–74; RESP 17–24; TEMP 36.4–36.6; O2SAT 97–98
[2020-04-11] MEDS: SODIUM CHLORIDE 0.9% IV 1,000 ML 75 ML IV CONT ×2 (02:16→14:11)
[2020-04-11 05:23] LABS: Basophils Percent Auto 0.3 % (0.2-1.2); Eosinophils Absolute Auto 0.2 K/mm3 (0-0.3); Hematocrit 34.5 % (37.0-47.0); Hemoglobin 11.7 g/dL (12.0-15.0); Immature Granulocyte Absolute 0.03 K/mm3 (0.00-0.031); Immature Granulocyte Percent A 0.3 % (0-0.5); Lymphocytes Absolute Auto 3.18 K/mm3 (0.9-3.2); Lymphocytes Percent Auto 36.8 % (18.3-44.2); Mean Corpuscular HGB Conc 33.9 g/dl (32-36); Mean Corpuscular Hemoglobin 28.3 pg (26-34); Mean Corpuscular Volume 83.3 fl (80-100); Mean Platelet Volume 10.5 fl (7.4-10.4); Monocytes Absolute Auto 0.7 K/mm3 (0.1-0.6); Monocytes Percent Auto 8.4 % (2.6-8.5); Neutrophils Absolute Auto 4.5 K/mm3 (1.3-6.7); Neutrophils Percent Auto 52.2 % (45.5-73.1); Platelet Count Result 210 k/mm3 (150-375); Red Blood Count 4.14 M/mm3 (4.2-5.4); Red Cell Distribution Width 13.6 % (11.5-14.5); White Blood Count 8.6 K/mm3 (4.5-10.0)
[2020-04-11 05:35] LABS: Blood Urea Nitrogen 20 mg/dL (7-17); Calcium 8.7 mg/dL (8.4-10.2); Carbon Dioxide 24 mmol/L (22-30); Chloride 107 mmol/L (98-107); Estimated CRCL calculation 39 ml/min; Estimated Glomerular Filt Rate 53; Glucose 124 mg/dL (65-105); Potassium 3.6 mmol/L (3.4-5.0); Sodium 136 mmol/L (137-145)
[2020-04-11 07:47] LABS: Glucose Point of Care 96 (65-105)
[2020-04-11] MEDS: LOSARTAN POTASSIUM 25 MG TABLET PO (08:36)
[2020-04-11] MEDS: GABAPENTIN 300 MG CAPSULE PO ×3 (08:36→17:33)
[2020-04-11] MEDS: busPIRone HCL 5 MG TABLET PO ×2 (08:36→17:33)
[2020-04-11] MEDS: METOPROLOL TARTRATE 25 MG TABLET PO ×2 (08:36→17:33)
[2020-04-11] MEDS: MULTIVITAMINS THERAPEUTIC TAB (*BKC) 1 TABLET PO (08:36)
[2020-04-11] MEDS: ACETAMINOPHEN 325 MG TABLET 650 MG PO (10:32)
[2020-04-11 11:31] LABS: Glucose Point of Care 245 (65-105)
[2020-04-11] MEDS: INSULIN ASPART (*BKC) 100 UNITS/ML SUB-Q ×2 (11:32→17:01)
[2020-04-11 16:19] LABS: Glucose Point of Care 274 (65-105)
--- NOTE | 2020-04-11 16:35 | PM.DS ---
DS: Admitting Diagnosis Admitting Diagnosis Admitting Diagnosis: Syncope and collapse DS: Discharge Diagnosis Discharge Diagnosis (1) Syncope: Qualifiers: Syncope type: unspecified Qualified Code(s): R55 - Syncope and collapse Code(s): R55 - Syncope and collapse Status: Acute Assessment and Plan: On admission, CT brain showing no acute findings but did show atrophy. Cervical spine CT showing extensive degenerative change but nothing acute. CTA chest showed no PE or other acute cardiopulmonary abnormalities. Carotid doppler showng <50% stenosis of the bilateral ICA. Doppler negative for DVT. Patient was monitored on telemetry. She saw her EP spcecialist at [facility] about 2 weeks ago and stated that he did not need to follow-up with her pacemaker for another year. She does have a history of SVT. Pacemaker interrogated and no evidence of arrythmia According to the ER physician the patient was hypoxic but saturating well on room air and did not desaturate with ambulation with respiratory therapy. PT and OT evaluated patient. The patient complains of dizziness and has peripheral neuropathy. She was noted to be orthostatic.. Held ARB 04/09 and started on IVF. Cortisol was normal and recent TSH also normal. Support stockings added. Orthostasis probably secondary to autonomic dysfunction from her diabetes and Parkinson's. This improved overall and was able to be up with therapy. Continue home health at home for continued therapy. (2) Acute hyponatremia: Code(s): E87.1 - Hypo-osmolality and hyponatremia Status: Acute Assessment and Plan: Sodium 127 on admssion. Suspect pseudo-hyponatremia related to elevated glucose. Her sodium appears to be constantly but mildly low mostly in the low 130 range. She is also on SSRI that could be contributing. Sodium improved to 136 with conservative management. (3) IDDM (insulin dependent diabetes mellitus): Code(s): E11.9 - Type 2 diabetes mellitus without complications; Z79.4 - long term (current) use of insulin Status: Acute Assessment and Plan: A1c 11.3. We continued her on her Lantus and sliding scale insulin regiment. Glucose was labile and was 96 this morning but 245 before lunch. Patient and family given instructions to monitor glucose closely at home. (4) Anxiety: Code(s): F41.9 - Anxiety disorder, unspecified Status: Acute Assessment and Plan: Mood remained stable. Patient is alert, cooperative but mildly confused. Discussed with family who state this is her baseline. We continued her on Zoloft and BuSpar. (5) Depression: Qualifiers: Depression Type: unspecified Qualified Code(s): F32.9 - Major depressive disorder, single episode, unspecified Code(s): F32.9 - Major depressive disorder, single episode, unspecified Status: Acute Assessment and Plan: As above. (6) Chest pressure: Code(s): R07.89 - Other chest pain Status: Acute Assessment and Plan: Patient with a history of nonischemic cardiomyopathy in the past with evaluation showing normal coronaries. Troponin negative x3. EKG showing paced rhythm. Telemetry showing no alarms overnight. (7) CHF (congestive heart failure): Qualifiers: Heart failure type: diastolic Heart failure chronicity: chronic Qualified Code(s): I50.32 - Chronic diastolic (congestive) heart failure Code(s): I50.9 - Heart failure, unspecified Status: Acute Assessment and Plan: Last echo in January 2020 revealed ejection fraction greater than 70% with no valvular abnormalities and no pulmonary hypertension and only grade 1 diastolic dysfunction We continued beta-pat but ARB held at times. (8) Mixed hyperlipidemia: Code(s): E78.2 - Mixed hyperlipidemia Status: Chronic Assessment and Plan: AST slightly elevated (but has been
== END 2020-04-11 18:04 | disposition home health service (06) | DRG 312 ==
LOC: ANHED 17:13 → ANH2MED 17:54
PROVIDERS: Internal Medicine; Admitting Provider Family Medicine; Emergency Provider Emergency Medicine; PCP Family Medicine; Visit Provider Family Medicine
DX: R55 Syncope and collapse (principal); I13.0 Hypertensive heart and chronic kidney disease with heart failure and stage 1 through stage 4 chronic kidney disease, or unspecified chronic kidney disease; E87.1 Hypo-osmolality and hyponatremia; I50.32 Chronic diastolic (congestive) heart failure; D63.1 Anemia in chronic kidney disease; E11.42 Type 2 diabetes mellitus with diabetic polyneuropathy; E11.22 Type 2 diabetes mellitus with diabetic chronic kidney disease; N18.3 Chronic kidney disease, stage 3 (moderate); G20 Parkinson's disease; R07.89 Other chest pain; R09.02 Hypoxemia; E11.65 Type 2 diabetes mellitus with hyperglycemia; F32.9 Major depressive disorder, single episode, unspecified; F41.9 Anxiety disorder, unspecified; E78.2 Mixed hyperlipidemia; Z95.0 Presence of cardiac pacemaker
CPT/HCPCS: 36415; 36600; 70450; 71045; 71275; 72125; 80048; 80053; 81001; 82533; 82805; 82948; 83036; 84484; 85025; 85610; 85730; 93005; 93880; 93970; 94618; 96360; 96361; 96372; 97110; 97116; 97161; 97165; A9270; G0378; J1650; J1815; J7030; Q9967

== ENCOUNTER 2020-04-15 10:29 | Inpatient (IN) | payer OTHER, SELFPAY ==
[2020-04-15] VITALS (13 sets, daily range): BP systolic 103–181; BP diastolic 54–94; PULSE 60–73; RESP 18–20; TEMP 35.9–36.7; O2SAT 96–100; BMI 24.2; BMI 21.4
--- NOTE | ~2020-04-15 | US_ITS ---
EXAMINATION:US venous doppler LE BI INDICATION:Calf pain TECHNIQUE: Multiple grayscale, color flow and Doppler images of the lower extremity deep venous syste ms were obtained and reviewed. COMPARISON:Ultrasound dated 04/09/2020 FINDINGS: The common femoral, superficial femoral and popliteal veins demonstrate normal respiratory variation, augmentation and compressibility. Color flow is also seen within the posterior tibial, gr eater saphenous and profunda veins. There is the venous thrombosis of one of 2 left peroneal veins. IMPRESSION: 1: Deep venous thrombosis of the left peroneal vein. Dr. Hussein discussed with the patient's nurse, Mercedes, at 04/16/2020 09:53 CDT. Reviewed, dictated and finalized at location A.
--- NOTE | ~2020-04-15 | CT_ITS ---
EXAMINATION: CT abdomen pelvis w con DATE: 04/15/2020 11:01 INDICATION: Lower abdominal pain. TECHNIQUE: Computed tomography (CT) of the abdomen and pelvis was performed with 100 mL Omnipaque-350 intravenous contrast. Automated exposure control and iterative reconstruction technique were employe d. The dose-length product was 348.57 mGy-cm. COMPARISON: CT dated 05/05/2018 FINDINGS: Chronic 6 mm nodule in the right middle lobe cyst with old granulomatous disease. Mild atelectasis at the bilateral lung bases. Heart size is normal. No pericardial or pleural effusion. Three lead pacem dilan/AICD seen with leads terminating at the right atrial appendage, apex of the right ventricle and in a coronary vein overlying the left ventricle having traversed the coronary sinus. Small sliding-ty pe hiatal hernia with diffuse wall thickening throughout the mid to distal esophagus which could be r elated to reflux. Gallbladder is not visualized and likely surgically absent. Liver, spleen, pancreas and bilateral adr enal glands are normal. A couple subcentimeter bilateral low-attenuation renal cysts. Scattered mild cortical scarring at both kidneys. Small bowel is normal. The appendix is not visualized. No periceca l inflammatory change to suggest acute appendicitis. Moderate diverticulosis along the sigmoid colon. There is edematous wall thickening at the proximal sigmoid colon with mild associated surrounding in flammatory stranding. 6 cm diameter ball of stool at the rectum. Bladder is normal. The uterus is not identified and has likely been surgically resected. Tiny fat-containing umbilical hernia. No free in traperitoneal gas or fluid. No pathologically enlarged abdominal or pelvic lymphadenopathy. Severe denisha mbar spondylosis. IMPRESSION: 1. Wall thickening and inflammation presenting at the proximal sigmoid colon most likely related to e ither diverticulitis or focal colitis. Differential would include malignancy and would recommend furt her evaluation with colonoscopy when clinically improved. 2. Small sliding-type hiatal hernia with wall thickening throughout the distal esophagus which could be related to reflux. Reviewed, dictated and finalized at location A. IMPRESSION: 1. Wall thickening and inflammation presenting at the proximal sigmoid colon mo st likely related to either diverticulitis or focal colitis. Differential would include malignancy and would recommend further evaluation with colonoscopy whe n clinically improved. 2. Small sliding-type hiatal hernia with wall thickening throughout the distal esophagus which could be related to reflux.
--- NOTE | 2020-04-15 10:36 | ED.ABDPAIN ---
HPI - Abdominal Pain General Chief Complaint: Abdominal Pain Stated Complaint: abd pain History of Present Illness HPI narrative: BIBEMS from home for lower abdominal pain and syncope. She reports lopwer abdominal pain throughout the day. Tried laxatives without improvement. She reports that she gets lightheaded upon stnding and has had 2 falls in the past 24 hours due to this. She was in the hosppital 1 week ago for similar complaints. Related Data Home Medications Medication Instructions Recorded Confirmed multivitamin 1 tablet PO DAILY 10/18/19 04/15/20 acetaminophen 650 mg PO Q4H PRN 02/11/20 04/15/20 insulin aspart U-100 [Novolog 0 unit SUBCUT TIDWM 04/07/20 04/15/20 Flexpen U-100 Insulin] Allergies Allergy/AdvReac Type Severity Reaction Status Date / Time codeine Allergy Unknown Unknown Verified 04/07/20 14:13 NSAIDS (Non-Steroidal Allergy Unknown Unknown Verified 04/07/20 14:13 Anti-Inflamma Review of Systems Review of Systems: All systems reviewed & are unremarkable except as noted in HPI and below Constitutional: Constitutional: Reports fatigue and Reports weakness Cardiovascular: Cardiovascular: Denies chest pain Gastrointestinal: Gastrointestinal: Reports abdominal pain, Reports constipation and Reports nausea Genitourinary: Genitourinary: Denies dysuria Neurologic: Reports dizziness and Reports weakness PMFSH Past Medical History Medical History Anemia of chronic disease Benign essential tremor Mainly affecting the head. Chronic kidney disease, stage III (moderate) Baseline creatinine between 0.9 and 1.20. Depression Diabetic peripheral neuropathy In legs and feet. Diverticulitis Hypertension Insulin dependent type 2 diabetes mellitus With diabetic peripheral neuropathy. Hemoglobin A1c was 11.3% in March 2020. Kidney stone Left bundle branch block Mixed hyperlipidemia Nonischemic dilated cardiomyopathy Ejection fraction was as low as 20% in February 2015. EF improved to 65% on echocardiogram in June 2018. Osteoarthritis of multiple joints Pituitary adenoma Supraventricular tachycardia Surgical History Surgical History History of appendectomy History of bilateral cataract extraction History of breast biopsy With benign pathology. History of cholecystectomy History of hysterectomy History of temporal artery biopsy (~12/2014) No evidence of temporal arteritis. S/P implantation of automatic cardioverter/defibrillator (AICD) M-[employer]ort[employer] Status cardiac pacemaker Family History Family History Mother Family history of tuberculosis Father Patient's father is Daughter Cancer Social History Social History Social History: The patient is and lives with her in [place]. She has a son and daughter, both who live out of state. 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 She is originally from [facility]. She has a 15 pack year smoking history and quit in 1963. No alcohol or drug abuse. She designates her son as her surrogate decision maker and she wishes to be a full code. Additional smoking assessment comments: Spiritual care concerns: No Agree to blood products: Yes Exam Const: General: no acute distress and alert Nutritional Appearance: well nourished Orientation/consciousness: patient oriented x3 HENMT: Mouth: Yes dry mucous membranes Eyes: Pupils: Equal, round and reactive pupils present Resp: Effort & Inspection: normal respiratory effort Auscultation: clear to auscultation bilaterally Cardio: Rate: regular rate Rhythm: regular rhythm GI: Inspection: non-distended GI Palp: Yes Soft to palpation, Yes Tenderness to palpation present (GI) (suprapubic), No Guarding due to palpation present (GI)
--- NOTE | 2020-04-15 10:40 | ECG_ITS ---
Measurements Intervals [place] Rate: 59 P: 53 LA: 179 QRS: 22 QRSD: 114 T: 110 QT: 476 QTc: 473 Interpretive Statements ELECTRONIC ATRIAL PACEMAKER WITH INHIBITION ELECTRONIC VENTRICULAR PACEMAKER BASELINE ARTIFACT- I, II, III, AVR, AVF, NO FURTHER INTERPRETATION IS POSSIBLE ATYPICAL ECG Electronically Signed On 04-15-2020 15:18:58 CDT by Glenn Parker D.O.
[2020-04-15 11:27] LABS: Basophils Percent Auto 0.4 % (0.2-1.2); Eosinophils Absolute Auto 0.1 K/mm3 (0-0.3); Hematocrit 34.1 % (37.0-47.0); Hemoglobin 11.8 g/dL (12.0-15.0); Immature Granulocyte Absolute 0.03 K/mm3 (0.00-0.031); Immature Granulocyte Percent A 0.4 % (0-0.5); Lymphocytes Percent Auto 25.6 % (18.3-44.2); Mean Corpuscular HGB Conc 34.6 g/dl (32-36); Mean Corpuscular Hemoglobin 28.9 pg (26-34); Mean Corpuscular Volume 83.6 fl (80-100); Mean Platelet Volume 11.2 fl (7.4-10.4); Monocytes Absolute Auto 0.8 K/mm3 (0.1-0.6); Monocytes Percent Auto 10.2 % (2.6-8.5); Neutrophils Absolute Auto 4.9 K/mm3 (1.3-6.7); Neutrophils Percent Auto 62.4 % (45.5-73.1); Platelet Count Result 263 k/mm3 (150-375); Red Blood Count 4.08 M/mm3 (4.2-5.4); Red Cell Distribution Width 13.4 % (11.5-14.5); White Blood Count 7.8 K/mm3 (4.5-10.0)
[2020-04-15 11:35] LABS: Add Urine Microscopic? YES; Appearance Urine Cloudy (Clear); Bacteria Urine Trace /hpf; Bilirubin Urine Negative (Negative); Blood Urine 1+ (Negative); Budding Yeast Urine Present /hpf; Color Urine Yellow (Yellow); Glucose Urine UA 3+ mg/dL (Negative); Ketones Urine Negative (Negative); Leukocyte Esterase Ur 3+ LEU/UL (Negative); Mucus Urine Rare /lpf; Nitrate Urine Negative (Negative); Protein Urine 1+ mg/dL (Negative); Specific Grav Ur 1.029 (1.001-1.035); Urobilinogen Urine Negative mg/dL (<2.0); WBC Clumps Urine Present /HPF; WBC Urine >75 /hpf
[2020-04-15 12:28] LABS: Alanine Aminotransferase 22 U/L (4-35); Albumin Level 3.6 g/dL (3.5-5.1); Alkaline Phosphatase 128 U/L (38-126); Aspartate Amino Transferase 28 U/L (14-36); Bilirubin,Total 0.3 mg/dL (0.2-1.3); Blood Urea Nitrogen 25 mg/dL (7-17); Calcium 9.3 mg/dL (8.4-10.2); Carbon Dioxide 22 mmol/L (22-30); Chloride 97 mmol/L (98-107); Estimated CRCL calculation 29 ml/min; Estimated Glomerular Filt Rate 43; Glucose 280 mg/dL (65-105); Lipase 214 U/L (23-300); Potassium 3.6 mmol/L (3.4-5.0); Sodium 129 mmol/L (137-145)
[2020-04-15] MEDS: SODIUM CHLORIDE 0.9% IV 1,000 ML 999 ML IV CONT ×2 (12:43→16:12)
--- NOTE | 2020-04-15 17:00 | PM.IMHP ---
H&P: HPI History of Present Illness Chief complaint: Multiple complaints. Narrative: Nathalia Jaimes is an 79-year-old female with poorly controlled type 2 diabetes mellitus, chronic kidney disease, hypertension, nonischemic cardiomyopathy status post ICD Bi V pacer, and several other comorbidities who presented to the emergency department earlier today with multiple complaints. She is known to the hospitalist service and was admitted to just last week, on April 07, after a syncope episode attributed to orthostatic hypotention. She was discharged home with home health and tells me that she frequently has dizziness/lightheadedness with position changes. Yesterday she reports a near syncopal episode while in the bathroom, causing her to fall backwards on to the floor however she denies injury in that fall. This morning, she has felt progressively more weak and really was not even able to get herself out of bed today due to profound weakness and dizziness/lightheadedness. Additionally, she complains of mild nausea and lower abdominal discomfort which she attributes to constipation. She did have a drop in systolic blood pressures in the emergency department (154 to 121 from supine to standing) and she was unable to ambulate without feeling as though she was going to fall, while done the emergency department. At the time my evaluation, she complains that her legs are weak, crampy, and painful and she believes that is why she is not able to walk very well. Additionally, she has had urinary urgency, hesitancy, and dysuria. This morning she felt constipated and took a laxative this morning without a whole lot of benefit. No melena or hematochezia. She has not noticed any mucus in her stool. She reports chills but has not had a fever or sweats. She has slight rhinorrhea but denies sinus congestion, otalgia, and odynophagia. She occasionally has dyspnea with exertion but that is unchanged. No cough. She denies recent travel and sick contacts. She is not having chest pain, pleuritic pain, or palpitations. Review of Systems Review of Systems: Narrative: Twelve systems were reviewed with pertinent positives and negatives as per HPI. She admits that her diabetes is not well controlled with a recent hemoglobin A1c of 11.3%. She denies blurry vision, polydipsia, and polyuria. Except as documented, all other systems were reviewed and are negative. [facility] Past Medical History Medical History (Updated 04/16/20 @ 00:45 by Lucy Barnes PA-C) Anemia of chronic disease Benign essential tremor Mainly affecting the head. Chronic kidney disease, stage III (moderate) Baseline creatinine between 0.9 and 1.20. Diabetic peripheral neuropathy In legs and feet. Diverticulitis Hypertension Insulin dependent type 2 diabetes mellitus With diabetic peripheral neuropathy. Hemoglobin A1c was 11.3% in March 2020. Kidney stone Left bundle branch block Mixed hyperlipidemia Nonischemic dilated cardiomyopathy Ejection fraction was as low as 20% in February 2015. EF improved to 65% on echocardiogram in June 2018. Osteoarthritis of multiple joints Pituitary adenoma Supraventricular tachycardia Surgical History Surgical History (Updated 04/16/20 @ 00:35 by Lucy Barnes PA-C) History of appendectomy History of bilateral cataract extraction History of breast biopsy With benign pathology. History of cholecystectomy History of hysterectomy History of temporal artery biopsy (~12/2014) No evidence of temporal arteritis. S/P implantation of automatic cardioverter/defibrillator (AICD) [employer] Status cardiac pacemaker Family History Family History Mother Family history of tuberculosis Father Patient's father is Daughter Cancer Social History Social History (Updated 04/16/20 @ 00:37 by Lucy Barnes PA-C) Social History: The patient is and lives with her i
[2020-04-15] MEDS: LACTATED RINGERS 1,000 ML 125 ML IV CONT (17:44)
[2020-04-15 17:45] LABS: Glucose Point of Care 158 (65-105)
[2020-04-15 23:30] LABS: Blood Urea Nitrogen 20 mg/dL (7-17); Calcium 9.1 mg/dL (8.4-10.2); Carbon Dioxide 20 mmol/L (22-30); Chloride 102 mmol/L (98-107); Creatine Kinase 59 U/L (30-135); Estimated CRCL calculation 43 ml/min; Estimated Glomerular Filt Rate 60; Glucose 300 mg/dL (65-105); Potassium 3.6 mmol/L (3.4-5.0); Sodium 131 mmol/L (137-145)
[2020-04-16] VITALS (17 sets, daily range): BP systolic 104–158; BP diastolic 52–93; PULSE 67–80; RESP 18–20; TEMP 36–36.8; O2SAT 96–100
[2020-04-16] MEDS: ACETAMINOPHEN 325 MG TABLET 650 MG PO ×2 (00:49→22:13)
[2020-04-16 00:54] LABS: Free T4 Free Thyroxine Reflex 0.89 ng/dL (0.78-2.19)
[2020-04-16 01:39] LABS: Total Triiodothyronine (T3) 0.92 NG/ML (0.97-1.69)
[2020-04-16] MEDS: LACTATED RINGERS 1,000 ML 75 ML IV CONT (03:18)
[2020-04-16 05:19] LABS: Hematocrit 34.3 % (37.0-47.0); Hemoglobin 11.9 g/dL (12.0-15.0); Mean Corpuscular HGB Conc 34.7 g/dl (32-36); Mean Corpuscular Hemoglobin 28.4 pg (26-34); Mean Corpuscular Volume 81.9 fl (80-100); Platelet Count Result 228 k/mm3 (150-375); Red Blood Count 4.19 M/mm3 (4.2-5.4); Red Cell Distribution Width 13.3 % (11.5-14.5)
[2020-04-16 05:36] LABS: Blood Urea Nitrogen 17 mg/dL (7-17); Carbon Dioxide 22 mmol/L (22-30); Chloride 101 mmol/L (98-107); Estimated CRCL calculation 43 ml/min; Estimated Glomerular Filt Rate 60; Glucose 281 mg/dL (65-105); Magnesium 1.3 mg/dL (1.6-2.3); Potassium 3.7 mmol/L (3.4-5.0); Sodium 132 mmol/L (137-145)
[2020-04-16 07:53] LABS: Glucose Point of Care 271 (65-105)
[2020-04-16] MEDS: METOPROLOL TARTRATE 25 MG TABLET PO ×2 (08:21→20:56)
[2020-04-16] MEDS: MULTIVITAMINS THERAPEUTIC TAB (*BKC) 1 TABLET PO (08:22)
[2020-04-16] MEDS: SERTRALINE HCL 50 MG TABLET PO (08:22)
[2020-04-16] MEDS: GABAPENTIN 300 MG CAPSULE PO ×3 (08:23→16:22)
[2020-04-16] MEDS: busPIRone HCL 5 MG TABLET PO ×2 (08:23→16:22)
[2020-04-16] MEDS: INSULIN ASPART (*BKC) 100 UNITS/ML SUB-Q ×3 (08:23→16:25)
[2020-04-16 11:47] LABS: Glucose Point of Care 354 (65-105)
[2020-04-16] MEDS: ENOXAPARIN 60 MG/0.6 ML SYRINGE SUB-Q ×2 (13:55→20:56)
--- NOTE | 2020-04-16 14:50 | PM.IMPN ---
Progress Note: A&P Assessment and Plan (1) DVT (deep venous thrombosis): Code(s): I82.409 - Acute embolism and thrombosis of unspecified deep veins of unspecified lower extremity Status: Acute Assessment and Plan: Doppler fro 04/09/20 negative for DVT but today positive for left peroneal (1of2) DVT. Will start Lovenox and switch to DOAC in the morning. (2) Urinary tract infection: Code(s): N39.0 - Urinary tract infection, site not specified Status: Acute Assessment and Plan: UA noted. UCx pending. Continue Rocephin. (3) Dizziness: Code(s): R42 - Dizziness and giddiness Status: Acute Assessment and Plan: Patient has frequent lightheadedness/dizziness upon standing and has had orthostatic hypotension in the past. Blood pressures did drop from the 150s to 120 systolic going from supine to standing. Losartan held last admission. Hold off on starting Midodrine at this time. (4) Generalized weakness: Code(s): R53.1 - Weakness Status: Acute Assessment and Plan: She has become progressively more weak and deconditioning. Contineu PT/OT. 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 Clucose reviewed on 04/16/20. Glucose up into the 300's here. Will advance her Lantus. Continue Accu-Cheks covering with sliding scale. Hypoglycemic protocol available as needed. (6) Chronic kidney disease, stage III (moderate): Code(s): N18.3 - Chronic kidney disease, stage 3 (moderate) Status: Acute Assessment and Plan: Cr normal today and CrCl in the 40's. Continue to monitor. She is off IV fluids. (7) Depression: Qualifiers: Depression Type: unspecified Qualified Code(s): F32.9 - Major depressive disorder, single episode, unspecified Code(s): F32.9 - Major depressive disorder, single episode, unspecified Status: Acute Assessment and Plan: Patient states she is feeling depressed but her affect does not fit this. Will continue her Zoloft and Buspar. (8) Anemia of chronic disease: Code(s): D63.8 - Anemia in other chronic diseases classified elsewhere Status: Acute Assessment and Plan: Hgb 12 and stable. (9) Nonischemic dilated cardiomyopathy: Code(s): I42.0 - Dilated cardiomyopathy Status: Acute Assessment and Plan: Hx of NICMP with EF as low as 20% in 2015. EF was 65% in 2018. She is off IV fluids now. (10) Abnormal computed tomography of abdomen and pelvis: Code(s): R93.5 - Abnormal findings on diagnostic imaging of other abdominal regions, including retroperitoneum Status: Acute Assessment and Plan: She had lower abd pain on admission. CT of the abdomen and pelvis shows wall thickening and inflammation at the proximal sigmoid colon related to either diverticulitis or focal colitis. There is also a stool ball at the rectum so could be stecoral ulcer. Currently on Rocephin. She does not have any fever or leukocytosis. Add Miralax. Subjective Date/time seen: 04/16/20 14:50 Interval history: 79yo female here for weakness and dizziness. Still complains of dizziness mostly when up to the chair. No n/v. No CP. +DAVIDSON. She is 'worried about everything' and feels depressed. Exam Narrative: Exam Narrative: AF 104/63 Gen - NARD lying almost flat in bed CHest - CTA bilaterally, nml RR CV - RRR S1/S2; Tele showing no significnat dysrhythmias Abd - soft, NT/ND, +BS Ext - no pedal edema Neuro - AOx4, nml speech. Psych - nml mood and affect, good eye contact. Laughs easily. Objective Data Vital Signs Vital Signs: Vital Signs - 24 hr 04/15/20 14:53 04/15/20 15:55 04/15/20 16:00 Temperature Pulse Rate 70 67 60 Respirat
[2020-04-16 16:20] LABS: Glucose Point of Care 343 (65-105)
[2020-04-16] MEDS: MAGNESIUM SULF 2 GM/WATER 50ML 2 GM/50 ML BAG IVPB (16:22)
[2020-04-16] MEDS: polyethylene glycoL 3350 17 GM POWD.PACK PO (20:57)
[2020-04-16] MEDS: INSULIN GLARGINE (*BKC) 100 UNITS/ML 64 UNITS SUB-Q (21:02)
[2020-04-16 21:05] LABS: Glucose Point of Care 372 (65-105)
[2020-04-17] VITALS (13 sets, daily range): BP systolic 102–137; BP diastolic 51–65; PULSE 60–85; RESP 16–20; TEMP 36.2–36.9; O2SAT 97–99
[2020-04-17 06:22] LABS: Blood Urea Nitrogen 16 mg/dL (7-17); Calcium 9.4 mg/dL (8.4-10.2); Carbon Dioxide 26 mmol/L (22-30); Chloride 102 mmol/L (98-107); Estimated CRCL calculation 35 ml/min; Estimated Glomerular Filt Rate 48; Glucose 174 mg/dL (65-105); Magnesium 1.9 mg/dL (1.6-2.3); Potassium 3.5 mmol/L (3.4-5.0); Sodium 134 mmol/L (137-145)
--- NOTE | 2020-04-17 08:29 | PM.IMPN ---
Progress Note: A&P Assessment and Plan (1) DVT (deep venous thrombosis): Code(s): I82.409 - Acute embolism and thrombosis of unspecified deep veins of unspecified lower extremity Status: Acute Assessment and Plan: Doppler fro 04/09/20 negative for DVT but now positive for left peroneal (1of2) DVT. Started on Lovenox and switch to Eliquis this morning. Would repeat US in 1-2 weeks to see if this resolves. (2) Urinary tract infection: Code(s): N39.0 - Urinary tract infection, site not specified Status: Acute Assessment and Plan: UA noted. UCx growing Enterococcus with sensitivities pending. Will change to Ampicillin. Stop Rocephin. (3) Dizziness: Code(s): R42 - Dizziness and giddiness Status: Acute Assessment and Plan: Patient has frequent lightheadedness/dizziness upon standing and has had orthostatic hypotension in the past. Blood pressures did drop from the 150s to 120 systolic going from supine to standing. Losartan held last admission. BP 135 to 1158 supine to sitting last night. Consider cutting back Metoprolol. Will continue to monitor for now. (4) Generalized weakness: Code(s): R53.1 - Weakness Status: Acute Assessment and Plan: She has become progressively more weak and deconditioning. Contineu PT/OT. 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 Clucose reviewed on 04/17/20. We advanced her Lantus lst night and glucose 174 this mornign then 210. Continue current meds at this time. Continue Accu-Cheks covering with sliding scale. Hypoglycemic protocol available as needed. (6) Chronic kidney disease, stage III (moderate): Code(s): N18.3 - Chronic kidney disease, stage 3 (moderate) Status: Acute Assessment and Plan: Cr 1.1 today and CrCl in the 30-40's. Continue to monitor. She is off IV fluids. (7) Depression: Qualifiers: Depression Type: unspecified Qualified Code(s): F32.9 - Major depressive disorder, single episode, unspecified Code(s): F32.9 - Major depressive disorder, single episode, unspecified Status: Acute Assessment and Plan: Patient states she is feeling depressed but her affect does not fit this. Will continue her Zoloft and Buspar. (8) Anemia of chronic disease: Code(s): D63.8 - Anemia in other chronic diseases classified elsewhere Status: Acute Assessment and Plan: Hgb 12 and stable. (9) Nonischemic dilated cardiomyopathy: Code(s): I42.0 - Dilated cardiomyopathy Status: Acute Assessment and Plan: Hx of NICMP with EF as low as 20% in 2015. EF was 65% in 2018. She is off IV fluids now. (10) Abnormal computed tomography of abdomen and pelvis: Code(s): R93.5 - Abnormal findings on diagnostic imaging of other abdominal regions, including retroperitoneum Status: Acute Assessment and Plan: She still has lower abd pain on admission. CT of the abdomen and pelvis shows wall thickening and inflammation at the proximal sigmoid colon related to either diverticulitis or focal colitis. There is also a stool ball at the rectum so could be stecoral ulcer. Continue Miralax. Will add Flagyl since changing to Ampicillin. Subjective Date/time seen: 04/17/20 08:29 Interval history: 79yo female here for weakness and dizziness. Feels hungry today. No BM since admission per patinet but one documented on 04/15. No CP or SOB. Slept well last night. Exam Narrative: Exam Narrative: AF 118/60 Gen - NARD sitting up about to eat breakfast CHest - CTA bilaterally, nml RR CV - RRR S1/S2; Tele showing mostly paced rhythm, occas PVC Abd - soft, NT/ND, +BS Ext - no pedal edema Neuro - AOx4, nml speech. Psych -
[2020-04-17] MEDS: INSULIN ASPART (*BKC) 100 UNITS/ML SUB-Q ×3 (08:43→16:53)
[2020-04-17] MEDS: GABAPENTIN 300 MG CAPSULE PO ×3 (08:46→16:54)
[2020-04-17] MEDS: SERTRALINE HCL 50 MG TABLET PO (08:47)
[2020-04-17] MEDS: busPIRone HCL 5 MG TABLET PO ×2 (08:47→16:54)
[2020-04-17] MEDS: MULTIVITAMINS THERAPEUTIC TAB (*BKC) 1 TABLET PO (08:47)
[2020-04-17] MEDS: METOPROLOL TARTRATE 25 MG TABLET PO ×2 (08:47→20:54)
[2020-04-17] MEDS: polyethylene glycoL 3350 17 GM POWD.PACK PO (08:47)
[2020-04-17] MEDS: APIXABAN 5 MG TABLET 10 MG PO ×2 (08:47→20:54)
[2020-04-17 09:37] LABS: Glucose Point of Care 283 (65-105)
[2020-04-17] MEDS: metroNIDAZOLE 250 MG TABLET PO ×4 (09:41→20:54)
[2020-04-17 11:47] LABS: Glucose Point of Care 210 (65-105)
[2020-04-17] MEDS: AMPICILLIN TRIHYDRATE 500 MG CAPSULE PO ×3 (11:56→23:59)
--- NOTE | 2020-04-17 14:30 | PC.NURSE ---
1430-With orthostatic BPs patient was unable to tolerating standing. She was dizzy and weak.
[2020-04-17 16:47] LABS: Glucose Point of Care 316 (65-105)
[2020-04-17] MEDS: INSULIN GLARGINE (*BKC) 100 UNITS/ML 70 UNITS SUB-Q (21:17)
[2020-04-17] MEDS: INSULIN ASPART (*BKC) 100 UNITS/ML 10 UNITS SUB-Q (21:18)
[2020-04-17 21:20] LABS: Glucose Point of Care 493 (65-105)
[2020-04-18] VITALS (16 sets, daily range): BP systolic 105–140; BP diastolic 46–78; PULSE 62–87; RESP 16–20; TEMP 36.3–36.8; O2SAT 95–98
[2020-04-18] MEDS: INSULIN ASPART (*BKC) 100 UNITS/ML 16 UNITS SUB-Q (00:37)
[2020-04-18 00:40] LABS: Glucose Point of Care 464 (65-105)
[2020-04-18 00:48] LABS: Blood Urea Nitrogen 26 mg/dL (7-17); Calcium 8.9 mg/dL (8.4-10.2); Carbon Dioxide 23 mmol/L (22-30); Chloride 96 mmol/L (98-107); Estimated CRCL calculation 39 ml/min; Estimated Glomerular Filt Rate 53; Glucose 437 mg/dL (65-105); Potassium 3.8 mmol/L (3.4-5.0); Sodium 129 mmol/L (137-145)
[2020-04-18 02:03] LABS: Glucose Point of Care 374 (65-105)
[2020-04-18 05:45] LABS: Blood Urea Nitrogen 22 mg/dL (7-17); Carbon Dioxide 24 mmol/L (22-30); Chloride 101 mmol/L (98-107); Estimated CRCL calculation 35 ml/min; Estimated Glomerular Filt Rate 48; Glucose 178 mg/dL (65-105); Potassium 3.5 mmol/L (3.4-5.0); Sodium 133 mmol/L (137-145)
[2020-04-18] MEDS: AMPICILLIN TRIHYDRATE 500 MG CAPSULE PO ×3 (05:47→18:11)
[2020-04-18] MEDS: METOPROLOL TARTRATE 25 MG TABLET PO ×2 (09:25→21:03)
[2020-04-18] MEDS: APIXABAN 5 MG TABLET 10 MG PO ×2 (09:25→21:05)
[2020-04-18] MEDS: busPIRone HCL 5 MG TABLET PO ×2 (09:25→17:17)
[2020-04-18] MEDS: GABAPENTIN 300 MG CAPSULE PO ×3 (09:25→17:17)
[2020-04-18 09:26] LABS: Glucose Point of Care 76 (65-105)
[2020-04-18] MEDS: metroNIDAZOLE 250 MG TABLET PO ×4 (09:26→21:08)
[2020-04-18] MEDS: polyethylene glycoL 3350 17 GM POWD.PACK PO (09:26)
[2020-04-18] MEDS: SERTRALINE HCL 50 MG TABLET PO (09:26)
--- NOTE | 2020-04-18 09:29 | PC.NURSE ---
Call to pharmacy to request 0900 multivitamin be sent to floor for administration.
[2020-04-18 11:28] LABS: Glucose Point of Care 213 (65-105)
[2020-04-18] MEDS: MULTIVITAMINS THERAPEUTIC TAB (*BKC) 1 TABLET PO (12:06)
[2020-04-18] MEDS: INSULIN ASPART (*BKC) 100 UNITS/ML SUB-Q (12:06)
--- NOTE | 2020-04-18 15:51 | PM.IMPN ---
Progress Note: A&P Assessment and Plan (1) Dizziness: Code(s): R42 - Dizziness and giddiness Status: Acute Assessment and Plan: Probably multifactorial. Dizziness is improving. She has been able to work with physical therapy. Blood pressure reviewed on 04/18/2020 and presently stable. Telemetry reviewed on 04/18/2020 with paced rhythm. Will discontinue telemetry. Continue PT / OT. Plans to discharge home when ready. Possible discharge tomorrow if stable. (2) Urinary tract infection: Qualifiers: Urinary tract infection type: site unspecified Hematuria presence: without hematuria Qualified Code(s): N39.0 - Urinary tract infection, site not specified Code(s): N39.0 - Urinary tract infection, site not specified Status: Acute Assessment and Plan: Urine culture growing Enterococcus with final sensitivities pending. Now on oral ampicillin while awaiting results. Will adjust treatment if needed based on final sensitivities. (3) DVT (deep venous thrombosis): Qualifiers: DVT location: lower extremity Affected thrombotic vein of extremity: peroneal Chronicity: acute Laterality: left Qualified Code(s): I82.452 - Acute embolism and thrombosis of left peroneal vein Code(s): I82.409 - Acute embolism and thrombosis of unspecified deep veins of unspecified lower extremity Status: Acute Assessment and Plan: Venous Doppler of the lower extremities with left peroneal DVT. Currently on Eliquis. Given her issues with falling, will hopefully not need to remain on for a long period of time. Plan to repeat venous Doppler as an outpatient in a few weeks to reassess. (4) Generalized weakness: Code(s): R53.1 - Weakness Status: Acute Assessment and Plan: Improving with physical and occupational therapy. Continue PT / OT as noted above. (5) Insulin dependent type 2 diabetes mellitus: Code(s): E11.9 - Type 2 diabetes mellitus without complications; Z79.4 - shelter (current) use of insulin Status: Acute Assessment and Plan: Hemoglobin A1c 11.3. Glucose reviewed on 04/18/2020 with glucose up to 400s this evening. Glucose was normal in a.m.. Will add a.m. dose of Lantus at this point. Continue sliding scale insulin. Will continue to monitor and adjust as needed. (6) Chronic kidney disease, stage III (moderate): Code(s): N18.3 - Chronic kidney disease, stage 3 (moderate) Status: Acute Assessment and Plan: Creatinine within her normal range at 1.10 today. Will continue to follow. (7) Depression: Qualifiers: Depression Type: unspecified Qualified Code(s): F32.9 - Major depressive disorder, single episode, unspecified Code(s): F32.9 - Major depressive disorder, single episode, unspecified Status: Acute Assessment and Plan: Mood normal today. Will continue home sertraline and buspirone. Will follow. (8) Anemia of chronic disease: Code(s): D63.8 - Anemia in other chronic diseases classified elsewhere Status: Acute Assessment and Plan: Hemoglobin stable at 11.9 on 04/16/2020. Will follow periodically. (9) Nonischemic dilated cardiomyopathy: Code(s): I42.0 - Dilated cardiomyopathy Status: Acute Assessment and Plan: Known nonischemic dilated cardiomyopathy with EF as low as 20% in 2015. EF up to 65% in 2018. Presently stable. Remains on metoprolol. Will follow. (10) Abnormal computed tomography of abdomen and pelvis: Code(s): R93.5 - Abnormal findings on diagnostic imaging of other abdominal regions, including retroperitoneum Status: Acute Assessment and Plan: CT abdomen/ pelvis on admission with wall thickening and inflammation at the proximal sigmoid colon related to either diverticulitis or focal colitis. Stool ball also noted at rectum. Remains on oral metronidazole. Still without significant papito
[2020-04-18] MEDS: INSULIN ASPART (*BKC) 100 UNITS/ML 10 UNITS SUB-Q (17:22)
[2020-04-18 17:26] LABS: Glucose Point of Care 405 (65-105)
[2020-04-18] MEDS: ACETAMINOPHEN 325 MG TABLET 650 MG PO (18:14)
[2020-04-18] MEDS: DOCUSATE SODIUM 100 MG CAPSULE PO (21:05)
[2020-04-18] MEDS: INSULIN ASPART (*BKC) 100 UNITS/ML 12 UNITS SUB-Q (21:34)
[2020-04-18] MEDS: INSULIN GLARGINE (*BKC) 100 UNITS/ML 70 UNITS SUB-Q (21:34)
[2020-04-19] MEDS: AMPICILLIN TRIHYDRATE 500 MG CAPSULE PO ×3 (00:29→12:09)
[2020-04-19 00:53] LABS: Glucose Point of Care 161 (65-105)
[2020-04-19 00:53] LABS: Glucose Point of Care 400 (65-105)
[2020-04-19 04:26] VITALS: BP 138/61; PULSE 67; RESP 18; TEMP 36.1; O2SAT 99
[2020-04-19 05:01] LABS: Hematocrit 37.3 % (37.0-47.0); Hemoglobin 12.4 g/dL (12.0-15.0); Mean Corpuscular HGB Conc 33.2 g/dl (32-36); Mean Corpuscular Hemoglobin 27.5 pg (26-34); Mean Corpuscular Volume 82.7 fl (80-100); Mean Platelet Volume 10.6 fl (7.4-10.4); Platelet Count Result 238 k/mm3 (150-375); Red Blood Count 4.51 M/mm3 (4.2-5.4); Red Cell Distribution Width 13.3 % (11.5-14.5); White Blood Count 7.8 K/mm3 (4.5-10.0)
[2020-04-19 05:15] LABS: Blood Urea Nitrogen 22 mg/dL (7-17); Calcium 9.4 mg/dL (8.4-10.2); Carbon Dioxide 25 mmol/L (22-30); Chloride 103 mmol/L (98-107); Estimated CRCL calculation 38 ml/min; Estimated Glomerular Filt Rate 53; Glucose 80 mg/dL (65-105); Potassium 3.7 mmol/L (3.4-5.0); Sodium 135 mmol/L (137-145)
[2020-04-19 08:55] VITALS: BP 122/51; PULSE 73
[2020-04-19 08:57] VITALS: BP 106/44; PULSE 79
[2020-04-19 09:00] VITALS: BP 94/43; PULSE 84
[2020-04-19] MEDS: GABAPENTIN 300 MG CAPSULE PO ×2 (09:18→12:10)
[2020-04-19] MEDS: DOCUSATE SODIUM 100 MG CAPSULE PO (09:18)
[2020-04-19] MEDS: APIXABAN 5 MG TABLET 10 MG PO (09:20)
[2020-04-19] MEDS: SERTRALINE HCL 50 MG TABLET PO (09:20)
[2020-04-19] MEDS: metroNIDAZOLE 250 MG TABLET PO ×2 (09:20→12:10)
[2020-04-19] MEDS: MULTIVITAMINS THERAPEUTIC TAB (*BKC) 1 TABLET PO (09:20)
[2020-04-19] MEDS: busPIRone HCL 5 MG TABLET PO (09:20)
[2020-04-19 09:22] VITALS: PULSE 68
[2020-04-19] MEDS: METOPROLOL TARTRATE 25 MG TABLET PO (09:22)
[2020-04-19] MEDS: INSULIN GLARGINE (*BKC) 100 UNITS/ML 20 UNITS SUB-Q (09:34)
[2020-04-19] MEDS: ACETAMINOPHEN 325 MG TABLET 650 MG PO (09:45)
[2020-04-19 12:15] LABS: Glucose Point of Care 68 (65-105)
[2020-04-19 12:15] LABS: Glucose Point of Care 215 (65-105)
[2020-04-19] MEDS: INSULIN ASPART (*BKC) 100 UNITS/ML SUB-Q (12:15)
[2020-04-19] MEDS: INSULIN ASPART (*BKC) 100 UNITS/ML 10 UNITS SUB-Q (12:15)
[2020-04-19 14:00] VITALS: BP 110/60; PULSE 74; RESP 18; TEMP 36.2; O2SAT 98
--- NOTE | 2020-04-19 14:14 | PCOTNOTE ---
Attempted to see patient this pm, however patient declined secondary to discharge. Pt reported just walking all around the unit with physical therapy. Pt reports discharge this evening and looking forward to showering and relaxing at home.
--- NOTE | 2020-04-19 16:01 | PM.IMPN ---
Progress Note: A&P Assessment and Plan (1) Dizziness: Code(s): R42 - Dizziness and giddiness Status: Acute Assessment and Plan: Probably multifactorial. Improved. Blood pressure reviewed on 04/19/2020 with some variation but acceptable. Continue PT/OT. Will discharge home with home health today. (2) Urinary tract infection: Qualifiers: Urinary tract infection type: site unspecified Hematuria presence: without hematuria Qualified Code(s): N39.0 - Urinary tract infection, site not specified Code(s): N39.0 - Urinary tract infection, site not specified Status: Acute Assessment and Plan: Urine culture growing Enterococcus. Final sensitivity still pending but I spoke with microbiology at [facility] today and was advised results may be available later today or tomorrow. Patient symptomatically has already improved on oral ampicillin and will continue at discharge but can adjust if needed based on final test results. (3) DVT (deep venous thrombosis): Qualifiers: DVT location: lower extremity Affected thrombotic vein of extremity: peroneal Chronicity: acute Laterality: left Qualified Code(s): I82.452 - Acute embolism and thrombosis of left peroneal vein Code(s): I82.409 - Acute embolism and thrombosis of unspecified deep veins of unspecified lower extremity Status: Acute Assessment and Plan: Venous Doppler of the lower extremities with left peroneal DVT. Currently on Eliquis. Given her issues with falling, will hopefully not need to remain on for a long period of time. Plan to repeat venous Doppler as an outpatient in a few weeks to reassess. (4) Generalized weakness: Code(s): R53.1 - Weakness Status: Acute Assessment and Plan: Continues to improve with physical and occupational therapy. Continue PT / OT as noted above. (5) Insulin dependent type 2 diabetes mellitus: Code(s): E11.9 - Type 2 diabetes mellitus without complications; Z79.4 - [facility] (current) use of insulin Status: Acute Assessment and Plan: Hemoglobin A1c 11.3. Glucose reviewed on 04/19/2020 with better control with addition of Lantus in a.m.. Will continue split dose of Lantus along with sliding scale insulin. Was unable to be seen by dietitian or health educator as an inpatient but arrangements have been made for this to occur as an outpatient. Will need to follow diabetic diet. Monitor glucose as an outpatient. (6) Chronic kidney disease, stage III (moderate): Code(s): N18.3 - Chronic kidney disease, stage 3 (moderate) Status: Acute Assessment and Plan: Creatinine within her normal range at 1.00 today. (7) Depression: Qualifiers: Depression Type: unspecified Qualified Code(s): F32.9 - Major depressive disorder, single episode, unspecified Code(s): F32.9 - Major depressive disorder, single episode, unspecified Status: Acute Assessment and Plan: Mood stable. Will continue home sertraline and buspirone. (8) Anemia of chronic disease: Code(s): D63.8 - Anemia in other chronic diseases classified elsewhere Status: Acute Assessment and Plan: Hemoglobin stable at 12.4 today. Can follow as outpatient. (9) Nonischemic dilated cardiomyopathy: Code(s): I42.0 - Dilated cardiomyopathy Status: Acute Assessment and Plan: Known nonischemic dilated cardiomyopathy with EF as low as 20% in 2015. EF up to 65% in 2018. Remains stable. Continue metoprolol. (10) Abnormal computed tomography of abdomen and pelvis: Code(s): R93.5 - Abnormal findings on diagnostic imaging of other abdominal regions, including retroperitoneum Status: Acute Assessment and Plan: CT abdomen/ pelvis on admission with wall thickening and inflammation at the proximal sigmoid colon related to either diverticulitis or focal colitis. Stool ball also noted at rectum. R
--- NOTE | 2020-04-19 16:25 | PC.NURSE ---
spoke with Cris/clinical unit educator and Audelia/tailer out about seeing patient. Cris has left for day to see outpatients, Audelia has made contact with Johanny to set up outpatient education through patients PCP.
--- NOTE | 2020-04-19 20:15 | PM.DS ---
DS: Admitting Diagnosis Admitting Diagnosis Admitting Diagnosis: Urinary tract infection, site not specified DS: Discharge Diagnosis Discharge Diagnosis (1) Dizziness: Code(s): R42 - Dizziness and giddiness Status: Acute (2) Urinary tract infection: Qualifiers: Hematuria presence: without hematuria Urinary tract infection type: site unspecified Qualified Code(s): N39.0 - Urinary tract infection, site not specified Code(s): N39.0 - Urinary tract infection, site not specified Status: Acute (3) DVT (deep venous thrombosis): Qualifiers: Affected thrombotic vein of extremity: peroneal Chronicity: acute DVT location: lower extremity Laterality: left Qualified Code(s): I82.452 - Acute embolism and thrombosis of left peroneal vein Code(s): I82.409 - Acute embolism and thrombosis of unspecified deep veins of unspecified lower extremity Status: Acute (4) Generalized weakness: Code(s): R53.1 - Weakness Status: Acute (5) Insulin dependent type 2 diabetes mellitus: Code(s): E11.9 - Type 2 diabetes mellitus without complications; 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 Status: Acute (6) Chronic kidney disease, stage III (moderate): Code(s): N18.3 - Chronic kidney disease, stage 3 (moderate) Status: Acute (7) Depression: Qualifiers: Depression Type: unspecified Qualified Code(s): F32.9 - Major depressive disorder, single episode, unspecified Code(s): F32.9 - Major depressive disorder, single episode, unspecified Status: Acute (8) Anemia of chronic disease: Code(s): D63.8 - Anemia in other chronic diseases classified elsewhere Status: Acute (9) Nonischemic dilated cardiomyopathy: Code(s): I42.0 - Dilated cardiomyopathy Status: Acute (10) Abnormal computed tomography of abdomen and pelvis: Code(s): R93.5 - Abnormal findings on diagnostic imaging of other abdominal regions, including retroperitoneum Status: Acute DS: Summary Hospital Course Reason for hospitalization: Multiple complaints. Hospital Course: Date of Service of Discharge: April 19, 2020. History of Present Illness: Patient is a pleasant 79-year-old with poorly controlled type 2 diabetes mellitus, chronic kidney disease, hypertension, nonischemic cardiomyopathy status post ICD biventricular pacemaker and several other comorbidities present emergency room with multiple complaints. She is known to the hospitalist service who was most recently admitted on April 07, 2020 after syncopal episode attributed to orthostatic hypotension. She was discharged home with home health. Unfortunately, she frequently has dizziness with positional changes. She also reported a near syncopal episode while in the bathroom causing her to fall backwards on the floor but denied injury in that fall. Over the morning of presentation, she has felt more weak progressively. Additionally, she reports mild nausea and lower abdominal discomfort which she attributes to constipation. On evaluation in the emergency room she did have a drop in systolic blood pressure and was unable to ambulate without feeling unsteady. There was also concern for possible UTI. As a result, she was admitted for further evaluation and treatment. Course in Hospital: Patient was admitted to the medical floor with telemetry. She was monitored with no orthostatic hypotension. Heart rate remained paced on telemetry which was able to be discontinued prior to her discharge. She was seen by physical and occupational therapy with progressive improvement in weakness. Additionally, urinalysis was concerning with urine culture eventually growing Enterococcus. She was started on oral ampicillin with this finding. Sensitivities of urine culture were still pending at time of discharge but patient was symptomatically improved. While in hospital, patient was noted to have some swell
--- NOTE | 2020-04-20 07:39 | PC.NURSE ---
Outpatient referral started for initial DSMT and MNT. Faxed to [facility] and Dr. Maria.
== END 2020-04-19 17:20 | disposition home health service (06) | DRG 690 ==
LOC: ANHED 11:00 → ANH2MED 16:22
PROVIDERS: Internal Medicine; Physician Assistant; Admitting Provider Family Medicine; Emergency Provider Emergency Medicine; PCP Family Medicine; Visit Provider Hospitalist
DX: N39.0 Urinary tract infection, site not specified (principal); I42.0 Dilated cardiomyopathy; I13.0 Hypertensive heart and chronic kidney disease with heart failure and stage 1 through stage 4 chronic kidney disease, or unspecified chronic kidney disease; I82.452 Acute embolism and thrombosis of left peroneal vein; B95.2 Enterococcus as the cause of diseases classified elsewhere; N18.3 Chronic kidney disease, stage 3 (moderate); I50.9 Heart failure, unspecified; R42 Dizziness and giddiness; R93.5 Abnormal findings on diagnostic imaging of other abdominal regions, including retroperitoneum; F32.9 Major depressive disorder, single episode, unspecified; E11.22 Type 2 diabetes mellitus with diabetic chronic kidney disease; E11.42 Type 2 diabetes mellitus with diabetic polyneuropathy; E11.65 Type 2 diabetes mellitus with hyperglycemia; D63.1 Anemia in chronic kidney disease; M19.90 Unspecified osteoarthritis, unspecified site; G20 Parkinson's disease; E78.2 Mixed hyperlipidemia; Z90.49 Acquired absence of other specified parts of digestive tract; Z95.810 Presence of automatic (implantable) cardiac defibrillator; Z87.891 Personal history of nicotine dependence; Z79.4 Long term (current) use of insulin
CPT/HCPCS: 36415; 51701; 74177; 80048; 80053; 81001; 82550; 82607; 83690; 83735; 84439; 84443; 84480; 85025; 85027; 87077; 87086; 87088; 87186; 93005; 93970; 96361; 96365; 96367; 96372; 97110; 97116; 97161; 97165; 97530; 97535; 99285; A9270; G0378; J0696; J1650; J1815; J3475; J7030; J7120; Q9967

== ENCOUNTER 2020-05-11 11:40 | Inpatient (IN) | payer OTHER, SELFPAY ==
[2020-05-11] VITALS (7 sets, daily range): BP systolic 97–167; BP diastolic 70–117; PULSE 66–98; RESP 16–24; TEMP 36.2–37.1; O2SAT 97–100; BMI 21.2
--- NOTE | ~2020-05-11 | XR_ITS ---
EXAMINATION: XR chest 1V portable EXAM DATE: 05/11/2020 13:59 INDICATION: Cough. TECHNIQUE: Frontal and lateral projections of the chest obtained and reviewed. Comparison is made to prior examination from 04/07/2020. FINDINGS: Triple lead pacemaker/AICD device. The lungs are clear. There are no pleural effusions. The cardiomediastinal silhouette is within normal limits. There is no pneumothorax suspected. The b ones and soft tissues are unremarkable. IMPRESSION: No acute cardiopulmonary findings. Reviewed, dictated and finalized at location B.
--- NOTE | ~2020-05-11 | CT_ITS ---
EXAMINATION: CT brain wo con EXAM DATE: 05/11/2020 13:54 INDICATION: Fall, subsequent headache. TECHNIQUE: Spiral CT of the head was performed without contrast. Axial, coronal and sagittal images were reviewed. The dose-length product (DLP) for this examination was 605.33 mGy-cm. The exposure w as tailored according to patient size, and iterative reconstruction (ASIR) was used as additional dos e reduction technique. Comparison is made to prior examination from 04/07/2020. FINDINGS: There is no acute intraparenchymal hemorrhage. No evidence of intraparenchymal brain mass lesion. No evidence of acute infarction. Please note that initial head CT has limited sensitivity f or small or acute infarctions. There is mild periventricular and subcortical hypodensity, nonspecific but probably related to small vessel ischemic disease. There is moderate prominence of the sulci a nd ventricles related to cerebral atrophy. There is intracranial carotid arteriosclerosis. There a re no extra-axial collections. There is no mass effect or midline shift. Patient has had bilateral ocular lens surgery. Soft tissue is unremarkable. The visualized sinuses and mastoid air cells are well aerated. IMPRESSION: 1. No acute intracranial findings. 2. Chronic age related findings. Reviewed, dictated and finalized at location B.
--- NOTE | ~2020-05-11 | CT_ITS ---
EXAMINATION: CT brain wo [facility] EXAM DATE: 05/16/2020 16:10 INDICATION: Altered mental status. TECHNIQUE: Spiral CT of the head was performed without contrast. Axial, coronal and sagittal images were reviewed. The dose-length product (DLP) for this examination was 605.33 mGy-cm. The exposure w as tailored according to patient size, and iterative reconstruction (ASIR) was used as additional dos e reduction technique. Comparison is made to prior examination from 05/11/2020. FINDINGS: There is no acute intraparenchymal hemorrhage. No evidence of intraparenchymal brain mass lesion. No evidence of acute infarction. Please note that initial head CT has limited sensitivity f or small or acute infarctions. There is mild periventricular and subcortical hypodensity, nonspecific but probably related to small vessel ischemic disease. There is moderate prominence of the sulci a nd ventricles related to cerebral atrophy. There is intracranial carotid arteriosclerosis. There a re no extra-axial collections. There is no mass effect or midline shift. Patient has had bilateral ocular lens surgery. Soft tissue is unremarkable. The visualized sinuses and mastoid air cells are well aerated. IMPRESSION: 1. No acute intracranial findings. 2. Chronic age related findings. Reviewed, dictated and finalized at location B.
--- NOTE | ~2020-05-11 | XR_ITS ---
EXAMINATION: XR abdomen/kub 1V INDICATION: Abdominal pain TECHNIQUE: Supine views of the abdomen were obtained on 2 radiographs. COMPARISON: 05/05/2018; CT from today FINDINGS: The bowel gas pattern is normal. There are no dilated loops of bowel. Mild hip osteoarthrit is is noted. There is moderate lumbar spondylosis. IMPRESSION: 1. No radiographic correlate for the patient's symptoms. Reviewed, dictated and finalized at location A.
--- NOTE | ~2020-05-11 | CT_ITS ---
EXAMINATION: CT abdomen pelvis wo con EXAM DATE: 05/11/2020 13:54 INDICATION: Left lower quadrant pain. TECHNIQUE: Spiral CT of the abdomen and pelvis was performed without contrast. Axial, coronal and s agittal images were reviewed. The dose-length product (DLP) for this examination was 264.46 mGy-cm. The exposure was tailored according to patient size (auto mA exposure control), and iterative recons truction (ASIR) was used as additional dose reduction technique. Comparison is made to prior examinat ion from 04/15/2020. FINDINGS: The liver, spleen, adrenal glands and pancreas are unremarkable. Gallbladder is unremarkab le. No biliary obstruction. There are a few punctate left calyceal stones. No obstructing ureteral stones or hydronephrosis. Lobular renal contours bilaterally. The uterus is not identified and has l ikely been surgically resected. The bladder is unremarkable. There is no retroperitoneal or pelvic lymphadenopathy. There is moderate scattered arteriosclerotic disease. The appendix is not positively visualized. There is no pericecal inflammatory change to suggest appe ndicitis. The stomach and small bowel are unremarkable. There is mild to moderate sigmoid predomina nt colonic diverticulosis. There is no adjacent inflammatory change to suggest diverticulitis. Reso lution of previously seen sigmoid wall edema. No free intraperitoneal gas. The heart is normal in size. There are no pericardial or pleural effusions. There is 4 mm noncalcified granuloma in the r ight middle lobe on image #1, unchanged compared to pulmonary CT from 2015. There are no osteoblasti c or osteolytic lesions identified. IMPRESSION: 1. Mild to moderate colonic diverticulosis. 2. Punctate left nephrolithiasis. 3. No acute intra-abdominal findings. Reviewed, dictated and finalized at location B.
--- NOTE | 2020-05-11 12:09 | ECG_ITS ---
Measurements Intervals [place] Rate: 79 P: 42 IA: 136 QRS: -71 QRSD: 143 T: 76 QT: 473 QTc: 544 Interpretive Statements ATRIAL SENSE- ELECTRONIC VENTRICULAR PACEMAKER BASELINE ARTIFACT- V5 NO FURTHER INTERPRETATION IS POSSIBLE ATYPICAL ECG Electronically Signed On 05-11-2020 12:46:17 CDT by Glenn Parker D.O.
[2020-05-11 12:23] LABS: Basophils Absolute Auto 0.1 K/mm3 (0.0-0.1); Basophils Percent Auto 0.6 % (0.2-1.2); Eosinophils Absolute Auto 0.1 K/mm3 (0-0.3); Eosinophils Percent Auto 0.7 % (0-4.4); Hemoglobin 13.1 g/dL (12.0-15.0); Immature Granulocyte Absolute 0.03 K/mm3 (0.00-0.031); Immature Granulocyte Percent A 0.3 % (0-0.5); Lymphocytes Absolute Auto 2.35 K/mm3 (0.9-3.2); Lymphocytes Percent Auto 26.5 % (18.3-44.2); Mean Corpuscular HGB Conc 35.4 g/dl (32-36); Mean Corpuscular Hemoglobin 27.7 pg (26-34); Mean Corpuscular Volume 78.2 fl (80-100); Mean Platelet Volume 11.5 fl (7.4-10.4); Monocytes Absolute Auto 0.7 K/mm3 (0.1-0.6); Monocytes Percent Auto 7.3 % (2.6-8.5); Neutrophils Absolute Auto 5.7 K/mm3 (1.3-6.7); Neutrophils Percent Auto 64.6 % (45.5-73.1); Platelet Count Result 260 k/mm3 (150-375); Red Blood Count 4.73 M/mm3 (4.2-5.4); Red Cell Distribution Width 13.2 % (11.5-14.5); White Blood Count 8.9 K/mm3 (4.5-10.0)
[2020-05-11 12:38] LABS: Add Urine Microscopic? YES; Appearance Urine Clear (Clear); Bilirubin Urine Negative (Negative); Blood Urine Negative (Negative); Color Urine Straw (Yellow); Glucose Urine UA 3+ mg/dL (Negative); Ketones Urine 1+ mg/dL (Negative); Leukocyte Esterase Ur Negative LEU/UL (Negative); Nitrate Urine Negative (Negative); Protein Urine Negative (Negative); RBC Urine 0-2 /hpf (0-2); Specific Grav Ur 1.025 (1.001-1.035); Squamous Epithelial Cell Urine Rare /hpf (Few); Urobilinogen Urine Negative mg/dL (<2.0); WBC Urine 0-3 /hpf
[2020-05-11 12:42] LABS: Alanine Aminotransferase 27 U/L (4-35); Albumin Level 4.6 g/dL (3.5-5.1); Alkaline Phosphatase 181 U/L (38-126); Aspartate Amino Transferase 31 U/L (14-36); Blood Urea Nitrogen 30 mg/dL (7-17); Calcium 9.7 mg/dL (8.4-10.2); Carbon Dioxide 20 mmol/L (22-30); Chloride 90 mmol/L (98-107); Estimated Glomerular Filt Rate 48; Potassium 4.4 mmol/L (3.4-5.0); Sodium 127 mmol/L (137-145)
[2020-05-11 12:53] LABS: Glucose 639 mg/dL (65-105)
[2020-05-11] MEDS: SODIUM CHLORIDE 0.9% IV 1,000 ML 999 ML IV CONT ×2 (12:59→14:56)
--- NOTE | 2020-05-11 13:05 | PC.NURSE ---
Called lab to add on beta hydroxybut, rahels MG.
[2020-05-11 13:10] LABS: Alveolar/Arterial O2 Gradient 69.2 mmHg; Base Excess ABG -0.9 mEq/l (+/-2.0); Carboxyhemoglobin 0.7 % THb (0-2.0); Fractional Inspired Oxygen 21 %; HCO3 ABG 20.5 mEq/l (22.0-26.0); Methemoglobin ABG 0.3 %THb (0-1.5); Oxygen Content ABG 15.6 %vol (16.0-22.0); Oxygen Saturation ABG 89.8 % (95.0-100.0); Oxyhemoglobin 85.2 % THb (90.0-100.0); PCO2 ABG 25.6 mmHg (35.0-45.0); PO2 FiO2 Ratio Arterial Blood 2.38 %; Reduced Hemoglobin 13.8 %THb (0-5.0)
[2020-05-11 13:13] LABS: pH ABG 7.521 (7.350-7.450)
[2020-05-11 13:14] LABS: Device ROOM AIR; Modified Allen's Test Pass; PO2 ABG 49.9 mmHg (80.0-100.0); Site Drawn RIGHT RADIAL
[2020-05-11 13:16] LABS: Magnesium 1.6 mg/dL (1.6-2.3)
[2020-05-11 13:24] LABS: Beta-Hydroxybutyrate/Acetoacetate 2.23 mmol/L (0.02-0.27)
--- NOTE | 2020-05-11 14:47 | ED.GENADULT ---
HPI - General Adult General Chief complaint: Headache Stated complaint: GARVIN/COUGH/WEAKNESS Time Seen by Provider: 05/11/20 12:11 Source: patient, family and old records reviewed Mode of arrival: EMS Limitations: no limitations History of Present Illness HPI narrative: Patient in the room is an 79-year-old female who presents from home where she lives with family for evaluation of having left-sided headache cough possibly having fallen even though it is not clear as to whether or not this is the case. On arrival patient notes that her headache is resolved after taking Tylenol. Patient notes mild discomfort in the left abdomen for the last 3 days. Patient denies urinary symptoms. Patient notes cough that is nonproductive but denies chest pain or dyspnea. Patient denies sick contacts./Patient notes she has been can compliant with her medications Related Data Home Medications Medication Instructions Recorded Confirmed multivitamin 1 tablet PO DAILY 10/18/19 05/05/20 acetaminophen 650 mg PO Q4H PRN 02/11/20 05/05/20 insulin aspart U-100 100 unit/mL 57 unit SUBCUT TID ml 05/05/20 05/05/20 (3 mL) subcutaneous pen insulin glargine U-300 conc 300 90 unit SUB-Q DAILY ml 05/05/20 05/05/20 unit/mL (1.5 mL) subcutaneous pen Allergies Allergy/AdvReac Type Severity Reaction Status Date / Time codeine Allergy Unknown Unknown Verified 05/11/20 12:59 NSAIDS (Non-Steroidal Allergy Unknown Unknown Verified 05/11/20 12:59 Anti-Inflamma Review of Systems Review of Systems: All systems reviewed & are unremarkable except as noted in HPI and below PMFSH Past Medical History Medical History Anemia of chronic disease Benign essential tremor Mainly affecting the head. Chronic kidney disease, stage III (moderate) Baseline creatinine between 0.9 and 1.20. Depression Diabetic peripheral neuropathy In legs and feet. Diverticulitis Hypertension Insulin dependent type 2 diabetes mellitus With diabetic peripheral neuropathy. Hemoglobin A1c was 11.3% in March 2020. Kidney stone Left bundle branch block Mixed hyperlipidemia Nonischemic dilated cardiomyopathy Ejection fraction was as low as 20% in February 2015. EF improved to 65% on echocardiogram in June 2018. Osteoarthritis of multiple joints Pituitary adenoma Supraventricular tachycardia Surgical History Surgical History History of appendectomy History of bilateral cataract extraction History of breast biopsy With benign pathology. History of cholecystectomy History of hysterectomy History of temporal artery biopsy (~12/2014) No evidence of temporal arteritis. S/P implantation of automatic cardioverter/defibrillator (AICD) [employer] Status cardiac pacemaker Social History Social History Social History: The patient is and lives with her in [place]. She has a son and daughter, both who live out of state. 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 She is originally from [place] [facility] [place]. She has a 15 pack year smoking history and quit in 1963. No alcohol or drug abuse. She designates her son as her surrogate decision maker and she wishes to be a full code. Smoking status: Never smoker Additional smoking assessment comments: Alcohol intake: never Substance use: never Substance use type: does not use Gender identity (if verbalized by the patient): Female Spiritual care concerns: No Agree to blood products: Yes Exam Narrative: Exam Narrative: GENERAL: Well-appearing, well-nourished, and in no acute distress. HEAD: Normocephalic, atraumatic. EYES: PERRLA and EOMI. ENT: Nares clear, no rhinorrhea or epistaxis. Mucous membranes moist. Oropharynx without tonsillar hypertrophy exudate or other lesions. Bilateral TMs pearly shah nonbulging NECK: Supple. No adenopathy or ma
[2020-05-11] MEDS: INSULIN HUMAN REGULAR (*BKC) 100 UNITS/ML 6 UNITS IV PUSH (14:56)
--- NOTE | 2020-05-11 15:09 | PC.NURSE ---
Attempted to obtain BMP and HGB A1C but was unsuccessful. Called phlebotomy to attempt draw.
[2020-05-11 15:10] LABS: Glucose Point of Care 445 (65-105)
[2020-05-11 15:24] LABS: Hemoglobin A1C 11.6 % (<5.7)
[2020-05-11 15:59] LABS: Blood Urea Nitrogen 28 mg/dL (7-17); Calcium 8.8 mg/dL (8.4-10.2); Carbon Dioxide 20 mmol/L (22-30); Chloride 96 mmol/L (98-107); Estimated CRCL calculation 42 ml/min; Estimated Glomerular Filt Rate 60; Glucose 465 mg/dL (65-105); Potassium 4.1 mmol/L (3.4-5.0); Sodium 127 mmol/L (137-145)
[2020-05-11 17:06] LABS: Glucose Point of Care 400 (65-105)
--- NOTE | 2020-05-11 17:35 | PM.IMHP ---
H&P: HPI History of Present Illness Chief complaint: Generalized malaise, headache. Narrative: Nathalia Jaimes is an 79-year-old female with history of poorly controlled type 2 diabetes mellitus, chronic kidney disease, hypertension, nonischemic cardiomyopathy status post ICD Bi V pacer, and several other comorbidities who presented to the emergency department earlier today via EMS from home with complaints of headache and generalized malaise. She is known to myself and the hospitalist service with a recent admission from 04/17 - 04/19/2020. At that time, she had come to the emergency room with multiple complaints and was admitted and treated for generalized weakness and urinary tract infection. She was seen by physical therapy and is my understanding that she has home health following. Additionally, she was found to have a left peroneal DVT but she was not started on anticoagulation due to fall history but it sounds like she had a repeat venous Doppler ultrasound with persistent DVT and she was started on Eliquis. In any event, she has multiple complaints again today including generalized headache which is now resolved after taking Tylenol, nausea, indigestion, frequent loose stools however later on in the interview she tells me she has not had a bowel movement for 2 days in believe she may be constipated, and dysuria. Towards the end of the interview, she mentions a near syncopal episode this morning when she got up to go to the bathroom, felt lightheaded/dizzy and fell back onto the bed. In the emergency department, she was found to be hyperglycemic and is being admitted for DKA. Currently her only complaint is of thirst and some mild lower abdominal discomfort. She denies blurry vision. No fever, chills, or sweats. She denies chest pain, cough, shortness of breath. She denies nausea and vomiting. Review of Systems Review of Systems: Narrative: All systems were reviewed and were unremarkable except as noted in HPI. [facility] Past Medical History Medical History (Updated 05/11/20 @ 21:33 by Lucy Barnes PA-C) Anemia of chronic disease Benign essential tremor Mainly affecting the head. Chronic kidney disease, stage III (moderate) Baseline creatinine between 0.9 and 1.20. Deep venous thrombosis Depression Diabetic peripheral neuropathy In legs and feet. Diverticulitis Hypertension Insulin dependent type 2 diabetes mellitus With diabetic peripheral neuropathy. Hemoglobin A1c was 11.6% on 05/11/2020. Kidney stone Left bundle branch block Mixed hyperlipidemia Nonischemic dilated cardiomyopathy Ejection fraction was as low as 20% in February 2015. EF improved to 65% on echocardiogram in June 2018. Osteoarthritis of multiple joints Pituitary adenoma Supraventricular tachycardia Surgical History Surgical History History of appendectomy History of bilateral cataract extraction History of breast biopsy With benign pathology. History of cholecystectomy History of hysterectomy History of temporal artery biopsy (~12/2014) No evidence of temporal arteritis. S/P implantation of automatic cardioverter/defibrillator (AICD) [employer] Status cardiac pacemaker Family History Family History Mother Family history of tuberculosis Father Patient's father is Daughter Cancer Social History Social History Social History: The patient is and lives with her in [place]. She has a son and daughter, both who live out of state. 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 She is originally from [facility]. She has a 15 pack year smoking history and quit in 1963. No alcohol or drug abuse. She designates her son as her surrogate decision maker and she wishes to be a full code. Smoking status: Never smoker Additional smoking assessm
--- NOTE | 2020-05-11 18:04 | ADMGEN ---
This patient, Nathalia Jaimes, was admitted to Intensive Care Unit-8 @ 1650 on 05/11/20. Patient oriented to hospital policies and general routines including ID bracelet, bed and alarms, visiting hours, pain management, procedures, bathroom and other care routines, personal items, smoking policy, room service/diet, and visiting hours. Valuables list has been completed. Information on how to activate the Rapid Response Team has been discussed. Patient is encouraged to report perceived risks to care and to ask questions if they do not understand what they are told or what they should do.
[2020-05-11 18:22] LABS: Blood Urea Nitrogen 27 mg/dL (7-17); Calcium 9.1 mg/dL (8.4-10.2); Carbon Dioxide 19 mmol/L (22-30); Chloride 97 mmol/L (98-107); Estimated CRCL calculation 42 ml/min; Estimated Glomerular Filt Rate 60; Glucose 419 mg/dL (65-105); Magnesium 1.7 mg/dL (1.6-2.3); Phosphorus 3.5 mg/dL (2.5-4.5); Potassium 4.1 mmol/L (3.4-5.0); Sodium 129 mmol/L (137-145)
[2020-05-11 19:05] LABS: Glucose Point of Care 391 (65-105)
[2020-05-11] MEDS: SODIUM CHLORIDE 0.9% IV 1,000 ML 150 ML IV CONT (20:05)
[2020-05-11] MEDS: INSULIN HUMAN REGULAR (*BKC) 100 UNITS in SODIUM CHLORIDE 0.9% IV 99 ML 7.4 UNITS IV CONT (20:08)
[2020-05-11] MEDS: FAMOTIDINE 20 MG/2 ML VIAL IV PUSH (20:13)
[2020-05-11 20:18] LABS: Glucose Point of Care 432 (65-105)
[2020-05-11 21:00] LABS: Glucose Point of Care 338 (65-105)
[2020-05-11] MEDS: KCL 20 MEQ/D5/0.45% SOD CHL 1,000 ML 150 ML IV CONT (22:05)
[2020-05-11 22:13] LABS: Glucose Point of Care 229 (65-105)
[2020-05-11] MEDS: GABAPENTIN 300 MG CAPSULE PO (22:24)
[2020-05-11] MEDS: LOVASTATIN 20 MG TABLET 40 MG PO (22:25)
[2020-05-11] MEDS: APIXABAN 5 MG TABLET PO (22:25)
[2020-05-11] MEDS: METOPROLOL TARTRATE 25 MG TABLET PO (22:25)
[2020-05-11] MEDS: busPIRone HCL 5 MG TABLET PO (22:25)
[2020-05-11] MEDS: DOCUSATE SODIUM 100 MG CAPSULE PO (22:25)
[2020-05-11 22:51] LABS: Blood Urea Nitrogen 26 mg/dL (7-17); Calcium 9.3 mg/dL (8.4-10.2); Carbon Dioxide 19 mmol/L (22-30); Chloride 102 mmol/L (98-107); Estimated CRCL calculation 42 ml/min; Estimated Glomerular Filt Rate 60; Glucose 193 mg/dL (65-105); Sodium 132 mmol/L (137-145)
[2020-05-11 23:01] LABS: Glucose Point of Care 176 (65-105)
[2020-05-12] VITALS (10 sets, daily range): BP systolic 117–152; BP diastolic 57–93; PULSE 61–73; RESP 13–20; TEMP 36.1–37; O2SAT 94–100; BMI 21.2
[2020-05-12 00:05] LABS: Glucose Point of Care 138 (65-105)
[2020-05-12 00:56] LABS: Glucose Point of Care 135 (65-105)
[2020-05-12 02:09] LABS: Glucose Point of Care 107 (65-105)
[2020-05-12 02:59] LABS: Hematocrit 36.2 % (37.0-47.0); Hemoglobin 12.6 g/dL (12.0-15.0); Mean Corpuscular HGB Conc 34.8 g/dl (32-36); Mean Corpuscular Hemoglobin 27.8 pg (26-34); Mean Corpuscular Volume 79.7 fl (80-100); Platelet Count Result 248 k/mm3 (150-375); Red Blood Count 4.54 M/mm3 (4.2-5.4); Red Cell Distribution Width 13.3 % (11.5-14.5); White Blood Count 10.3 K/mm3 (4.5-10.0)
[2020-05-12 03:11] LABS: Blood Urea Nitrogen 24 mg/dL (7-17); Carbon Dioxide 25 mmol/L (22-30); Chloride 102 mmol/L (98-107); Estimated CRCL calculation 42 ml/min; Estimated Glomerular Filt Rate 60; Glucose 105 mg/dL (65-105); Magnesium 1.7 mg/dL (1.6-2.3); Phosphorus 3.1 mg/dL (2.5-4.5); Potassium 3.1 mmol/L (3.4-5.0); Sodium 135 mmol/L (137-145)
[2020-05-12 03:16] LABS: Glucose Point of Care 99 (65-105)
[2020-05-12] MEDS: INSULIN GLARGINE (*BKC) 100 UNITS/ML 20 UNITS SUB-Q ×2 (03:31→10:01)
[2020-05-12] MEDS: GABAPENTIN 300 MG CAPSULE PO ×3 (05:51→20:56)
[2020-05-12 05:56] LABS: Glucose Point of Care 321 (65-105)
[2020-05-12] MEDS: MAGNESIUM SULF 2 GM/WATER 50ML 2 GM/50 ML BAG IVPB (08:22)
[2020-05-12] MEDS: busPIRone HCL 5 MG TABLET PO ×2 (08:25→20:56)
[2020-05-12] MEDS: APIXABAN 5 MG TABLET PO ×2 (08:25→17:05)
[2020-05-12] MEDS: MULTIVITAMINS THERAPEUTIC TAB (*BKC) 1 TABLET PO (08:25)
[2020-05-12] MEDS: SERTRALINE HCL 50 MG TABLET PO (08:25)
[2020-05-12] MEDS: METOPROLOL TARTRATE 25 MG TABLET PO ×2 (08:25→20:56)
[2020-05-12] MEDS: POTASSIUM CHLORIDE 20 MEQ TABLET 40 MEQ PO (08:25)
[2020-05-12] MEDS: ACETAMINOPHEN 325 MG TABLET 650 MG PO (08:26)
[2020-05-12 08:34] LABS: Glucose Point of Care 307 (65-105)
[2020-05-12] MEDS: INSULIN ASPART (*BKC) 100 UNITS/ML SUB-Q ×3 (08:37→17:03)
[2020-05-12] MEDS: FAMOTIDINE 20 MG/2 ML VIAL IV PUSH ×2 (09:52→20:56)
[2020-05-12 10:38] LABS: Potassium 3.7 mmol/L (3.4-5.0)
[2020-05-12 10:41] LABS: Blood Urea Nitrogen 20 mg/dL (7-17); Calcium 8.7 mg/dL (8.4-10.2); Carbon Dioxide 23 mmol/L (22-30); Chloride 100 mmol/L (98-107); Estimated CRCL calculation 47 ml/min; Estimated Glomerular Filt Rate > 60; Glucose 330 mg/dL (65-105); Sodium 130 mmol/L (137-145)
[2020-05-12 11:52] LABS: Glucose Point of Care 288 (65-105)
--- NOTE | 2020-05-12 11:54 | PC.NURSE ---
Gave report to Irma on 2nd medical.
--- NOTE | 2020-05-12 12:30 | PC.NURSE ---
Received patient from ICU via wheelchair with ICU staff. No distress noted. No c/o pain. Settled into room. Oriented to unit.
--- NOTE | 2020-05-12 12:40 | PC.NURSE ---
Transferred patient to [facility] via w/c. Patient's personal belongings and medications sent with patient. Report called to Irma previously. Notified Jian patient's spouse of new room.
--- NOTE | 2020-05-12 12:48 | WPDCNINT ---
Assessment and Plan Assessment and plan (1) DKA (diabetic ketoacidoses): Qualifiers: Diabetes mellitus type: type 2 Diabetes mellitus complication detail: without coma Qualified Code(s): E11.10 - Type 2 diabetes mellitus with ketoacidosis without coma Code(s): E11.10 - Type 2 diabetes mellitus with ketoacidosis without coma Status: Acute Assessment and Plan: Patient presented with diabetic ketoacidosis, given IV fluids and was started on insulin infusion in the ED. -patient was transition to long-acting insulin overnight -this morning a place patient on her home dose Lantus and sliding scale insulin -diabetic diet (2) Acute dehydration: Code(s): E86.0 - Dehydration Status: Acute Assessment and Plan: Patient was given adequate amount of IV fluids, urine output has been adequate -creatinine moved (3) DVT (deep venous thrombosis): Qualifiers: DVT location: lower extremity Affected thrombotic vein of extremity: peroneal Chronicity: acute Laterality: left Qualified Code(s): I82.452 - Acute embolism and thrombosis of left peroneal vein Code(s): I82.409 - Acute embolism and thrombosis of unspecified deep veins of unspecified lower extremity Status: Acute Assessment and Plan: Continue Eliquis (4) Nonischemic dilated cardiomyopathy: Code(s): I42.0 - Dilated cardiomyopathy Status: Acute Assessment and Plan: Echocardiogram on 02/12/2020 showed LV systolic function to be hyperdynamic with an estimated EF of greater than 70%. Grade 1 diastolic dysfunction is present. Patient has a pacemaker, mild mitral valve regurg, no pulmonary hypertension with RVSP of 34 mmHg (5) Hypertension: Qualifiers: Hypertension type: essential hypertension Qualified Code(s): I10 - Essential (primary) hypertension Code(s): I10 - Essential (primary) hypertension Status: Chronic Assessment and Plan: Essential hypertension, restarted on metoprolol (6) Generalized weakness: Code(s): R53.1 - Weakness Status: Acute Assessment and Plan: Generalized weakness likely related to diabetes/peripheral neuropathy -PT OT to follow the patient Additional Plan Discussed with patient at length and updated with her condition and plan of care. I answered all questions Code status: Full code Critical care time spent: 43 minutes Due to a high probability of clinically significant, life threatening deterioration, the patient required my highest level of preparedness to intervene emergently and I personally spent this critical care time directly and personally managing the patient. This critical care time included obtaining a history; examining the patient; pulse oximetry; ordering and review of studies; arranging urgent treatment with development of a management plan; evaluation of patient's response to treatment; frequent reassessment; and discussions with other providers. It was exclusive of separately billable procedures and treating other patients and teaching time. Please see Assessment and Plan section and the rest of the note for further information on patient assessment and treatment Pararescue Manager Consult Note Consult date: 05/12/20 Time Seen: 07:11 Reason for consult: Diabetic ketoacidosis, malaise, headaches, dehydration HPI: Nathalia Jaimes is a 79 year old female with past medical history of diabetes, diabetic neuropathy, DVT, chronic kidney disease stage 3, history of essential hypertension, kidney stones, left bundle branch block, nonischemic dilated cardiomyopathy, pacemaker, supraventricular tachycardia, anemia of chronic disease, benign essential tremors, depression presented the ED from home where she lives with her with complains of left-sided headache, cough, possible fall and generalized weakness. Pt was found to be hyperglycemic and in DKA. Given IV fluids and started on Insulin infusion. Pt seen and exa
[2020-05-12] MEDS: LOVASTATIN 20 MG TABLET 40 MG PO (17:05)
[2020-05-12 17:11] LABS: Glucose Point of Care 296 (65-105)
--- NOTE | 2020-05-12 17:21 | PM.IMPN ---
Progress Note: A&P Assessment and Plan (1) DKA (diabetic ketoacidoses): Qualifiers: Diabetes mellitus complication detail: without coma Diabetes mellitus type: type 2 Qualified Code(s): E11.10 - Type 2 diabetes mellitus with ketoacidosis without coma Code(s): E11.10 - Type 2 diabetes mellitus with ketoacidosis without coma Status: Acute Assessment and Plan: Resolved after insulin drip restart lantus at 50units sub Q daily Pt little confused today hold off on PT/ OT today (2) Acute dehydration: Code(s): E86.0 - Dehydration Status: Resolved Assessment and Plan: Resolved after fluid hydration (3) Insulin dependent type 2 diabetes mellitus: Code(s): E11.9 - Type 2 diabetes mellitus without complications; Z79.4 - MCC (current) use of insulin Status: Acute Assessment and Plan: Historically poorly controlled with hemoglobin A1c of 11.6% today. She would benefit from a dietitian and extension educator consult Discharge soon with home health nurses (4) Nonischemic dilated cardiomyopathy: Code(s): I42.0 - Dilated cardiomyopathy Status: Acute Assessment and Plan: Ejection fraction as low as 20% 2014 with improvement of EF to 65% 2017. (5) Anemia of chronic disease: Code(s): D63.8 - Anemia in other chronic diseases classified elsewhere Status: Acute Assessment and Plan: Continue to monitor . (6) Hypertension: Qualifiers: Hypertension type: essential hypertension Qualified Code(s): I10 - Essential (primary) hypertension Code(s): I10 - Essential (primary) hypertension Status: Chronic Assessment and Plan: Blood pressures are stable and well controlled. Continue antihypertensives (7) DVT (deep venous thrombosis): Qualifiers: DVT location: lower extremity Affected thrombotic vein of extremity: peroneal Chronicity: acute Laterality: left Qualified Code(s): I82.452 - Acute embolism and thrombosis of left peroneal vein Code(s): I82.409 - Acute embolism and thrombosis of unspecified deep veins of unspecified lower extremity Status: Acute Assessment and Plan: Continue Eliquis. (8) Generalized weakness: Code(s): R53.1 - Weakness Status: Acute Assessment and Plan: Secondary to deconditioning in addition to DKA. PT/OT while in the hospital. Subjective Date/time seen: 05/12/20 17:21 Interval history: 79-year-old female with history of poorly controlled type 2 diabetes mellitus, chronic kidney disease, hypertension, nonischemic cardiomyopathy status post ICD Bi V pacer, and several other comorbidities who presented to the emergency department earlier today via EMS from home with complaints of headache and generalized malaise. Admitted with DKA, stabilised in icu and transffered to the medical floor. Pt is having some confusion episodes in her room. Taking off her clothes, pulling at lines. Review of Systems Review of Systems: ROS unobtainable: Yes unobtainable due to medical condition Exam Const: General: cooperative and healthy appearing; No in distress Nutritional Appearance: overweight Orientation/consciousness: oriented to person HENMT: Head: normal to inspection Resp: Effort & Inspection: no respiratory distress Auscultation: no rhonchi and no wheezes Cardio: Rate: regular rate Rhythm: regular rhythm GI: Inspection: normal to inspection GI Palp: No abdominal tenderness, No Guarding d
[2020-05-12] MEDS: DOCUSATE SODIUM 100 MG CAPSULE PO (20:56)
[2020-05-12] MEDS: INSULIN GLARGINE (*BKC) 100 UNITS/ML 50 UNITS SUB-Q (20:57)
[2020-05-12 21:18] LABS: Glucose Point of Care 287 (65-105)
[2020-05-13 06:00] VITALS: BP 143/68; PULSE 61; RESP 16; TEMP 35.9; O2SAT 100
[2020-05-13] MEDS: GABAPENTIN 300 MG CAPSULE PO ×3 (06:01→21:04)
[2020-05-13 06:34] LABS: Glucose Point of Care 192 (65-105)
[2020-05-13] MEDS: APIXABAN 5 MG TABLET PO ×2 (08:09→16:57)
[2020-05-13 08:10] VITALS: PULSE 68
[2020-05-13] MEDS: SERTRALINE HCL 50 MG TABLET PO (08:10)
[2020-05-13] MEDS: busPIRone HCL 5 MG TABLET PO ×2 (08:10→21:03)
[2020-05-13] MEDS: METOPROLOL TARTRATE 25 MG TABLET PO ×2 (08:10→21:24)
[2020-05-13] MEDS: FAMOTIDINE 20 MG/2 ML VIAL IV PUSH ×2 (08:10→21:04)
[2020-05-13] MEDS: MULTIVITAMINS THERAPEUTIC TAB (*BKC) 1 TABLET PO (08:10)
[2020-05-13] MEDS: polyethylene glycoL 3350 17 GM POWD.PACK PO (08:10)
[2020-05-13] MEDS: DOCUSATE SODIUM 100 MG CAPSULE PO ×2 (08:10→21:04)
[2020-05-13] MEDS: INSULIN GLARGINE (*BKC) 100 UNITS/ML 20 UNITS SUB-Q (08:11)
--- NOTE | 2020-05-13 10:59 | PM.IMPN ---
Progress Note: A&P Assessment and Plan (1) DKA (diabetic ketoacidoses): Qualifiers: Diabetes mellitus complication detail: without coma Diabetes mellitus type: type 2 Qualified Code(s): E11.10 - Type 2 diabetes mellitus with ketoacidosis without coma Code(s): E11.10 - Type 2 diabetes mellitus with ketoacidosis without coma Status: Acute Assessment and Plan: Resolved after insulin drip restarted lantus at 50units sub Q daily yesterday pt is on DM diet, accuchecks are good today. (2) Acute dehydration: Code(s): E86.0 - Dehydration Status: Resolved Assessment and Plan: Resolved after fluid hydration (3) Insulin dependent type 2 diabetes mellitus: Code(s): E11.9 - Type 2 diabetes mellitus without complications; Z79.4 - halfway (current) use of insulin Status: Acute Assessment and Plan: Historically poorly controlled with hemoglobin A1c of 11.6% today. She would benefit from a dietitian and family living educator consult Discharge soon with home health nurses friday or friday (4) Nonischemic dilated cardiomyopathy: Code(s): I42.0 - Dilated cardiomyopathy Status: Acute Assessment and Plan: Ejection fraction as low as 20% 2014 with improvement of EF to 65% 2017. (5) Anemia of chronic disease: Code(s): D63.8 - Anemia in other chronic diseases classified elsewhere Status: Acute Assessment and Plan: Continue to monitor CBC and BMP (6) Hypertension: Qualifiers: Hypertension type: essential hypertension Qualified Code(s): I10 - Essential (primary) hypertension Code(s): I10 - Essential (primary) hypertension Status: Chronic Assessment and Plan: Blood pressures are stable and well controlled. Continue antihypertensives (7) DVT (deep venous thrombosis): Qualifiers: DVT location: lower extremity Affected thrombotic vein of extremity: peroneal Chronicity: acute Laterality: left Qualified Code(s): I82.452 - Acute embolism and thrombosis of left peroneal vein Code(s): I82.409 - Acute embolism and thrombosis of unspecified deep veins of unspecified lower extremity Status: Acute Assessment and Plan: Continue Eliquis. (8) Generalized weakness: Code(s): R53.1 - Weakness Status: Acute Assessment and Plan: Secondary to deconditioning in addition to DKA. PT/OT while in the hospital. Home health on discharge Subjective Date/time seen: 05/13/20 10:59 Interval history: 79-year-old female with history of poorly controlled type 2 diabetes mellitus, chronic kidney disease, hypertension, nonischemic cardiomyopathy status post ICD Bi V pacer, and several other comorbidities who presented to the emergency department earlier today via EMS from home with complaints of headache and generalized malaise. Admitted with DKA, stabilised in icu and transffered to the medical floor. Pt more alert today, continue DM diet and accuchecks today. Pt to start PT/ OT Review of Systems Review of Systems: All systems reviewed & are unremarkable except as noted in HPI and below ROS unobtainable: Yes other (no compliants anxioustates she does not do well with her diabetes at home. ) Exam Const: General: cooperative and healthy appearing; No in distress Nutritional Appearance: overweight Orientation/consciousness: oriented to person HENMT: Head: normal to inspection Resp: Effort & Inspection: no respiratory distress Auscultation: no
[2020-05-13 11:35] LABS: Glucose Point of Care 391 (65-105)
[2020-05-13] MEDS: INSULIN ASPART (*BKC) 100 UNITS/ML SUB-Q ×2 (11:37→16:57)
[2020-05-13 14:00] VITALS: BP 127/56; PULSE 73; RESP 15; TEMP 36.1; O2SAT 98
[2020-05-13 16:37] LABS: Glucose Point of Care 369 (65-105)
[2020-05-13] MEDS: LOVASTATIN 20 MG TABLET 40 MG PO (17:00)
[2020-05-13] MEDS: INSULIN GLARGINE (*BKC) 100 UNITS/ML 50 UNITS SUB-Q (21:11)
[2020-05-13 21:24] VITALS: PULSE 78
[2020-05-13 21:35] LABS: Glucose Point of Care 364 (65-105)
[2020-05-13 21:46] VITALS: BP 135/67; PULSE 71; RESP 16; TEMP 36.3; O2SAT 97
[2020-05-14 04:53] LABS: Hematocrit 36.8 % (37.0-47.0); Hemoglobin 12.4 g/dL (12.0-15.0); Mean Corpuscular HGB Conc 33.7 g/dl (32-36); Mean Corpuscular Hemoglobin 27.7 pg (26-34); Mean Corpuscular Volume 82.3 fl (80-100); Mean Platelet Volume 10.8 fl (7.4-10.4); Platelet Count Result 207 k/mm3 (150-375); Red Blood Count 4.47 M/mm3 (4.2-5.4); Red Cell Distribution Width 13.4 % (11.5-14.5); White Blood Count 8.3 K/mm3 (4.5-10.0)
[2020-05-14 05:06] LABS: Blood Urea Nitrogen 25 mg/dL (7-17); Calcium 9.2 mg/dL (8.4-10.2); Carbon Dioxide 22 mmol/L (22-30); Chloride 103 mmol/L (98-107); Estimated CRCL calculation 41 ml/min; Estimated Glomerular Filt Rate 60; Glucose 230 mg/dL (65-105); Sodium 131 mmol/L (137-145)
[2020-05-14 05:51] VITALS: BP 146/71; PULSE 66; RESP 16; TEMP 36.6; O2SAT 98
[2020-05-14] MEDS: GABAPENTIN 300 MG CAPSULE PO ×3 (06:28→20:36)
[2020-05-14 07:58] LABS: Glucose Point of Care 175 (65-105)
[2020-05-14 08:13] VITALS: PULSE 70
[2020-05-14] MEDS: polyethylene glycoL 3350 17 GM POWD.PACK PO (08:13)
[2020-05-14] MEDS: busPIRone HCL 5 MG TABLET PO ×2 (08:13→20:36)
[2020-05-14] MEDS: MULTIVITAMINS THERAPEUTIC TAB (*BKC) 1 TABLET PO (08:13)
[2020-05-14] MEDS: SERTRALINE HCL 50 MG TABLET PO (08:13)
[2020-05-14] MEDS: FAMOTIDINE 20 MG/2 ML VIAL IV PUSH (08:13)
[2020-05-14] MEDS: DOCUSATE SODIUM 100 MG CAPSULE PO ×2 (08:13→20:35)
[2020-05-14] MEDS: METOPROLOL TARTRATE 25 MG TABLET PO ×2 (08:13→20:36)
[2020-05-14] MEDS: INSULIN GLARGINE (*BKC) 100 UNITS/ML 20 UNITS SUB-Q (08:33)
--- NOTE | 2020-05-14 09:47 | PM.IMPN ---
Progress Note: A&P Assessment and Plan (1) DKA (diabetic ketoacidoses): Qualifiers: Diabetes mellitus complication detail: without coma Diabetes mellitus type: type 2 Qualified Code(s): E11.10 - Type 2 diabetes mellitus with ketoacidosis without coma Code(s): E11.10 - Type 2 diabetes mellitus with ketoacidosis without coma Status: Acute Assessment and Plan: Resolved after insulin drip. Add 5 units of aspart with meals, resume long acting insulin home dose. 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 Still not well controlled, add 5 units of aspart with meals and resume home dose of long acting. Discharge with home health once he glucose is under better control. (4) Nonischemic dilated cardiomyopathy: Code(s): I42.0 - Dilated cardiomyopathy Status: Acute Assessment and Plan: Ejection fraction as low as 20% 2014 with improvement of EF to 65% 2017. Currently compensated. (5) Anemia of chronic disease: Code(s): D63.8 - Anemia in other chronic diseases classified elsewhere Status: Acute Assessment and Plan: (6) Hypertension: Qualifiers: Hypertension type: essential hypertension Qualified Code(s): I10 - Essential (primary) hypertension Code(s): I10 - Essential (primary) hypertension Status: Chronic Assessment and Plan: Blood pressures are stable and well controlled. Continue antihypertensives (7) DVT (deep venous thrombosis): Qualifiers: DVT location: lower extremity Affected thrombotic vein of extremity: peroneal Chronicity: acute Laterality: left Qualified Code(s): I82.452 - Acute embolism and thrombosis of left peroneal vein Code(s): I82.409 - Acute embolism and thrombosis of unspecified deep veins of unspecified lower extremity Status: Acute Assessment and Plan: Continue Eliquis. (8) Generalized weakness: Code(s): R53.1 - Weakness Status: Acute Assessment and Plan: Secondary to deconditioning in addition to DKA. PT/OT while in the hospital. Home health on discharge Subjective Date/time seen: Feeling tired today, she states she still dizzy and not ready to go home yet. Her glucose is better controlled but not optimal yet. 05/14/20 09:47 Review of Systems Review of Systems: All systems reviewed & are unremarkable except as noted in HPI and below Exam Narrative: Exam Narrative: General: Well-developed elderly female supine in bed in no distress. HEENT: PERRL, EOMI. Sclerae anicteric. Oral mucosa tacky. Upper denture in place. Neck: Supple. Respiratory: Lungs are clear to auscultation bilaterally. Cardiovascular: Regular rate and rhythm with S1-S2. Gastrointestinal: Abdomen is soft and nondistended with positive bowel sounds. She is slightly tender to palpation the left lower quadrant. No voluntary guarding or rebound tenderness. Skin: Warm and dry. No rash or lesions on limited exam. Extremities: No cyanosis, clubbing, or edema. Radial and pedal pulses intact. Neurological: Alert. Cranial nerves 2-12 are grossly intact. Speech is clear
[2020-05-14] MEDS: APIXABAN 5 MG TABLET PO ×2 (10:34→16:26)
[2020-05-14 12:04] LABS: Glucose Point of Care 225 (65-105)
[2020-05-14] MEDS: INSULIN ASPART (*BKC) 100 UNITS/ML SUB-Q ×4 (12:16→16:26)
[2020-05-14 14:00] VITALS: BP 135/52; PULSE 70; RESP 16; TEMP 36.7; O2SAT 99
[2020-05-14 16:18] LABS: Glucose Point of Care 298 (65-105)
[2020-05-14] MEDS: LOVASTATIN 20 MG TABLET 40 MG PO (17:08)
[2020-05-14] MEDS: INSULIN ASPART (*BKC) 100 UNITS/ML 10 UNITS SUB-Q (20:32)
[2020-05-14] MEDS: INSULIN GLARGINE (*BKC) 100 UNITS/ML 70 UNITS SUB-Q (20:34)
[2020-05-14 20:36] VITALS: PULSE 76
[2020-05-14 22:00] VITALS: BP 138/50; PULSE 76; RESP 18; TEMP 36.2; O2SAT 97
[2020-05-15 00:24] LABS: Glucose Point of Care 497 (65-105)
[2020-05-15 00:24] LABS: Glucose Point of Care 248 (65-105)
[2020-05-15 05:34] LABS: Blood Urea Nitrogen 31 mg/dL (7-17); Calcium 9.3 mg/dL (8.4-10.2); Carbon Dioxide 25 mmol/L (22-30); Chloride 102 mmol/L (98-107); Estimated CRCL calculation 41 ml/min; Estimated Glomerular Filt Rate 60; Glucose 172 mg/dL (65-105); Potassium 3.8 mmol/L (3.4-5.0); Sodium 133 mmol/L (137-145)
[2020-05-15] MEDS: GABAPENTIN 300 MG CAPSULE PO ×3 (05:40→21:08)
[2020-05-15] MEDS: ACETAMINOPHEN 325 MG TABLET 650 MG PO ×2 (05:45→23:01)
[2020-05-15 06:00] VITALS: BP 134/64; PULSE 62; RESP 20; TEMP 35.8; O2SAT 99
[2020-05-15 06:10] LABS: Glucose Point of Care 165 (65-105)
[2020-05-15 07:58] LABS: Glucose Point of Care 140 (65-105)
[2020-05-15] MEDS: INSULIN GLARGINE (*BKC) 100 UNITS/ML 20 UNITS SUB-Q (08:04)
[2020-05-15] MEDS: MULTIVITAMINS THERAPEUTIC TAB (*BKC) 1 TABLET PO (08:06)
[2020-05-15] MEDS: DOCUSATE SODIUM 100 MG CAPSULE PO ×2 (08:06→21:08)
[2020-05-15] MEDS: SERTRALINE HCL 50 MG TABLET PO (08:06)
[2020-05-15] MEDS: polyethylene glycoL 3350 17 GM POWD.PACK PO (08:06)
[2020-05-15] MEDS: APIXABAN 5 MG TABLET PO ×2 (08:07→16:43)
[2020-05-15] MEDS: INSULIN ASPART (*BKC) 100 UNITS/ML SUB-Q ×2 (08:07→16:42)
[2020-05-15 08:08] VITALS: PULSE 78
[2020-05-15] MEDS: METOPROLOL TARTRATE 25 MG TABLET PO ×2 (08:08→21:13)
[2020-05-15] MEDS: busPIRone HCL 5 MG TABLET PO ×2 (08:08→21:08)
[2020-05-15 11:43] LABS: Glucose Point of Care 87 (65-105)
--- NOTE | 2020-05-15 11:48 | P.PNIM_ITS ---
Progress Note: A&P Assessment and Plan (1) DKA (diabetic ketoacidoses): Qualifiers: Diabetes mellitus complication detail: without coma Diabetes mellitus type: type 2 Qualified Code(s): E11.10 - Type 2 diabetes mellitus with ketoacidosis without coma Code(s): E11.10 - Type 2 diabetes mellitus with ketoacidosis without coma Status: Acute Assessment and Plan: * Resolved after insulin drip. * She became hypoglycemic this morning, her mental status is back to normal now. * We will stop her mealtime insulin and decrease the dose to her bedtime long acting insulin from 70 to 60. (2) Acute dehydration: Code(s): E86.0 - Dehydration Status: Resolved Assessment and Plan: * Resolved after fluid hydration (3) Insulin dependent type 2 diabetes mellitus: Code(s): E11.9 - Type 2 diabetes mellitus without complications; Z79.4 - half-way (current) use of insulin Status: Acute Assessment and Plan: * Historically poorly controlled with hemoglobin A1c of 11.6%. * Still not well controlled with episodes of hypoglycemia now. * Discharge with home health once he glucose is under better control. (4) Nonischemic dilated cardiomyopathy: Code(s): I42.0 - Dilated cardiomyopathy Status: Acute Assessment and Plan: * Ejection fraction as low as 20% 2014 with improvement of EF to 65% 2017. * Currently compensated. (5) Anemia of chronic disease: Code(s): D63.8 - Anemia in other chronic diseases classified elsewhere Status: Acute Assessment and Plan: * Stable (6) Hypertension: Qualifiers: Hypertension type: essential hypertension Qualified Code(s): I10 - Essential (primary) hypertension Code(s): I10 - Essential (primary) hypertension Status: Chronic Assessment and Plan: * Blood pressures are stable and well controlled. * Continue antihypertensives (7) DVT (deep venous thrombosis): Qualifiers: DVT location: lower extremity Affected thrombotic vein of extremity: peroneal Chronicity: acute Laterality: left Qualified Code(s): I82.452 - Acute embolism and thrombosis of left peroneal vein Code(s): I82.409 - Acute embolism and thrombosis of unspecified deep veins of unspecified lower extremity Status: Acute Assessment and Plan: * Continue Eliquis. (8) Generalized weakness: Code(s): R53.1 - Weakness Status: Acute Assessment and Plan: * Secondary to deconditioning in addition to DKA. * PT/OT while in the hospital. * Home health on discharge Subjective Date/time seen: Confused this morning, she still feels dizzy when she moves around, her glucose was around 85. 05/15/20 11:48 Interval history: 79-year-old female with history of poorly controlled type 2 diabetes mellitus, chronic kidney disease, hypertension, nonischemic cardiomyopathy status post ICD Bi V pacer, and several other comorbidities who presented to the emergency department earlier today via EMS from home with complaints of headache and generalized malaise. Admitted wit
--- NOTE | 2020-05-15 11:48 | PM.IMPN ---
Progress Note: A&P Assessment and Plan (1) DKA (diabetic ketoacidoses): Qualifiers: Diabetes mellitus complication detail: without coma Diabetes mellitus type: type 2 Qualified Code(s): E11.10 - Type 2 diabetes mellitus with ketoacidosis without coma Code(s): E11.10 - Type 2 diabetes mellitus with ketoacidosis without coma Status: Acute Assessment and Plan: Resolved after insulin drip. She became hypoglycemic this morning, her mental status is back to normal now. We will stop her mealtime insulin and decrease the dose to her bedtime long acting insulin from 70 to 60. 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 Still not well controlled with episodes of hypoglycemia now. Discharge with home health once he glucose is under better control. (4) Nonischemic dilated cardiomyopathy: Code(s): I42.0 - Dilated cardiomyopathy Status: Acute Assessment and Plan: Ejection fraction as low as 20% 2014 with improvement of EF to 65% 2017. Currently compensated. (5) Anemia of chronic disease: Code(s): D63.8 - Anemia in other chronic diseases classified elsewhere Status: Acute Assessment and Plan: Stable (6) Hypertension: Qualifiers: Hypertension type: essential hypertension Qualified Code(s): I10 - Essential (primary) hypertension Code(s): I10 - Essential (primary) hypertension Status: Chronic Assessment and Plan: Blood pressures are stable and well controlled. Continue antihypertensives (7) DVT (deep venous thrombosis): Qualifiers: DVT location: lower extremity Affected thrombotic vein of extremity: peroneal Chronicity: acute Laterality: left Qualified Code(s): I82.452 - Acute embolism and thrombosis of left peroneal vein Code(s): I82.409 - Acute embolism and thrombosis of unspecified deep veins of unspecified lower extremity Status: Acute Assessment and Plan: Continue Eliquis. (8) Generalized weakness: Code(s): R53.1 - Weakness Status: Acute Assessment and Plan: Secondary to deconditioning in addition to DKA. PT/OT while in the hospital. Home health on discharge Subjective Date/time seen: Confused this morning, she still feels dizzy when she moves around, her glucose was around 85. 05/15/20 11:48 Interval history: 79-year-old female with history of poorly controlled type 2 diabetes mellitus, chronic kidney disease, hypertension, nonischemic cardiomyopathy status post ICD Bi V pacer, and several other comorbidities who presented to the emergency department earlier today via EMS from home with complaints of headache and generalized malaise. Admitted with DKA, stabilised in icu and transffered to the medical floor. Pt more alert today, continue DM diet and accuchecks today. Pt to start PT/ OT Exam Const: General: cooperative, healthy appearing, comfortable and no acute distress; No in distress Nutritional Appearance: overweight Orientation/consciousness: patient oriented x3 HENMT: Head: normal to inspection Neck: Neck: supple and no JVD Resp: Effort & Inspection: natividad
[2020-05-15 14:00] VITALS: BP 116/56; PULSE 71; RESP 16; TEMP 36.4; O2SAT 99
[2020-05-15 16:36] LABS: Glucose Point of Care 220 (65-105)
[2020-05-15] MEDS: LOVASTATIN 20 MG TABLET 40 MG PO (17:10)
[2020-05-15 20:28] LABS: Glucose Point of Care 211 (65-105)
[2020-05-15] MEDS: INSULIN GLARGINE (*BKC) 100 UNITS/ML 60 UNITS SUB-Q (21:09)
[2020-05-15 21:13] VITALS: PULSE 70
[2020-05-15 22:00] VITALS: BP 139/73; PULSE 77; RESP 20; TEMP 36.4; O2SAT 98
[2020-05-16 05:48] LABS: Blood Urea Nitrogen 28 mg/dL (7-17); Calcium 9.4 mg/dL (8.4-10.2); Carbon Dioxide 27 mmol/L (22-30); Chloride 104 mmol/L (98-107); Estimated CRCL calculation 39 ml/min; Estimated Glomerular Filt Rate 53; Glucose 68 mg/dL (65-105); Potassium 3.6 mmol/L (3.4-5.0); Sodium 136 mmol/L (137-145)
[2020-05-16 06:00] VITALS: BP 143/64; PULSE 72; RESP 20; TEMP 37.1; O2SAT 99
[2020-05-16] MEDS: GABAPENTIN 300 MG CAPSULE PO ×3 (06:10→21:34)
[2020-05-16] MEDS: busPIRone HCL 5 MG TABLET PO ×2 (07:46→21:34)
[2020-05-16] MEDS: APIXABAN 5 MG TABLET PO ×2 (07:46→17:21)
[2020-05-16 07:47] VITALS: PULSE 86
[2020-05-16 07:47] LABS: Glucose Point of Care 92 (65-105)
[2020-05-16] MEDS: INSULIN GLARGINE (*BKC) 100 UNITS/ML 20 UNITS SUB-Q ×2 (07:47→22:41)
[2020-05-16] MEDS: METOPROLOL TARTRATE 25 MG TABLET PO ×2 (07:47→21:34)
[2020-05-16] MEDS: DOCUSATE SODIUM 100 MG CAPSULE PO ×2 (07:47→21:35)
[2020-05-16] MEDS: MULTIVITAMINS THERAPEUTIC TAB (*BKC) 1 TABLET PO (07:48)
[2020-05-16] MEDS: polyethylene glycoL 3350 17 GM POWD.PACK PO (07:48)
[2020-05-16] MEDS: SERTRALINE HCL 50 MG TABLET PO (07:48)
[2020-05-16] MEDS: ACETAMINOPHEN 325 MG TABLET 650 MG PO (07:51)
[2020-05-16] MEDS: GLUCOSE ORAL GEL 15 GM OF GLUCSE IN 37.5 GM TUBE PO (11:36)
[2020-05-16 11:58] LABS: Glucose Point of Care 35 (65-105)
[2020-05-16 11:58] LABS: Glucose Point of Care 115 (65-105)
[2020-05-16 14:00] VITALS: BP 130/59; PULSE 78; RESP 20; TEMP 36.2; O2SAT 99
--- NOTE | 2020-05-16 14:47 | PCCCNOTE ---
On 05/16/20, the student, Jessica Finney, provided care and completed [facility] documentation on this patient. I have reviewed the student's documentation and agree with the findings.
--- NOTE | 2020-05-16 15:17 | PM.IMPN ---
Progress Note: A&P Assessment and Plan (1) DKA (diabetic ketoacidoses): Qualifiers: Diabetes mellitus complication detail: without coma Diabetes mellitus type: type 2 Qualified Code(s): E11.10 - Type 2 diabetes mellitus with ketoacidosis without coma Code(s): E11.10 - Type 2 diabetes mellitus with ketoacidosis without coma Status: Acute Assessment and Plan: Uncontrolled sugars, morning hypoglycemia (2) Acute dehydration: Code(s): E86.0 - Dehydration Status: Resolved Assessment and Plan: Resolved after fluid hydration (3) Insulin dependent type 2 diabetes mellitus: Code(s): E11.9 - Type 2 diabetes mellitus without complications; 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 Still not well controlled with episodes of hypoglycemia now. Discharge with home health once he glucose is under better control. (4) Nonischemic dilated cardiomyopathy: Code(s): I42.0 - Dilated cardiomyopathy Status: Acute Assessment and Plan: Ejection fraction as low as 20% 2014 with improvement of EF to 65% 2017. Currently compensated. (5) Anemia of chronic disease: Code(s): D63.8 - Anemia in other chronic diseases classified elsewhere Status: Acute Assessment and Plan: Stable (6) Hypertension: Qualifiers: Hypertension type: essential hypertension Qualified Code(s): I10 - Essential (primary) hypertension Code(s): I10 - Essential (primary) hypertension Status: Chronic Assessment and Plan: Blood pressures are stable and well controlled. Continue antihypertensives (7) DVT (deep venous thrombosis): Qualifiers: DVT location: lower extremity Affected thrombotic vein of extremity: peroneal Chronicity: acute Laterality: left Qualified Code(s): I82.452 - Acute embolism and thrombosis of left peroneal vein Code(s): I82.409 - Acute embolism and thrombosis of unspecified deep veins of unspecified lower extremity Status: Acute Assessment and Plan: Continue Eliquis. (8) Generalized weakness: Code(s): R53.1 - Weakness Status: Acute Assessment and Plan: Secondary to deconditioning in addition to DKA. PT/OT while in the hospital. Home health on discharge Subjective Date/time seen: 05/16/20 15:17 Interval history: 79-year-old female with history of poorly controlled type 2 diabetes mellitus, chronic kidney disease, hypertension, nonischemic cardiomyopathy status post ICD Bi V pacer, and several other comorbidities who presented to the emergency department earlier today via EMS from home with complaints of headache and generalized malaise. Admitted with DKA, stabilised in icu and transfered to the medical floor. Pt is still having high sugars and appears confused today, talked to her family on the phone. Pt is usually not confused. Review of Systems Review of Systems: ROS unobtainable: Yes unobtainable due to medical condition Exam Const: Nutritional Appearance: overweight Orientation/consciousness: confusion Resp: Effort & Inspection: normal respiratory effort and no respiratory distress Auscultation: clear to auscultation bilaterally, no rhonchi and no wheezes Cardio: Rate: regular rate Rhythm: regular rhythm Neuro: General: patient oriented x3 Speech: normal speech Motor exam (neuro): Normal motor muscle tone present thro
[2020-05-16] MEDS: INSULIN ASPART (*BKC) 100 UNITS/ML 12 UNITS SUB-Q (15:26)
[2020-05-16 15:35] LABS: Glucose Point of Care 421 (65-105)
[2020-05-16 17:12] LABS: Glucose Point of Care 276 (65-105)
[2020-05-16] MEDS: LOVASTATIN 20 MG TABLET 40 MG PO (17:21)
[2020-05-16] MEDS: INSULIN ASPART (*BKC) 100 UNITS/ML SUB-Q (18:16)
[2020-05-16 20:00] VITALS: BP 141/58; PULSE 80; RESP 18; TEMP 36.2; O2SAT 97
[2020-05-16 20:34] LABS: Glucose Point of Care 340 (65-105)
[2020-05-16 21:34] VITALS: PULSE 80
[2020-05-16 22:33] LABS: Glucose Point of Care 337 (65-105)
[2020-05-17 02:04] LABS: Glucose Point of Care 202 (65-105)
[2020-05-17 04:00] VITALS: BP 152/63; PULSE 80; RESP 20; TEMP 36.6; O2SAT 98
[2020-05-17 05:44] LABS: Blood Urea Nitrogen 30 mg/dL (7-17); Calcium 9.2 mg/dL (8.4-10.2); Carbon Dioxide 24 mmol/L (22-30); Chloride 101 mmol/L (98-107); Estimated CRCL calculation 39 ml/min; Estimated Glomerular Filt Rate 53; Glucose 182 mg/dL (65-105); Potassium 4.1 mmol/L (3.4-5.0); Sodium 133 mmol/L (137-145)
[2020-05-17] MEDS: GABAPENTIN 300 MG CAPSULE PO ×2 (06:02→14:24)
[2020-05-17 07:56] LABS: Glucose Point of Care 132 (65-105)
[2020-05-17 07:58] VITALS: PULSE 76
[2020-05-17] MEDS: INSULIN GLARGINE (*BKC) 100 UNITS/ML 30 UNITS SUB-Q (07:58)
[2020-05-17] MEDS: SERTRALINE HCL 50 MG TABLET PO (07:58)
[2020-05-17] MEDS: DOCUSATE SODIUM 100 MG CAPSULE PO (07:58)
[2020-05-17] MEDS: busPIRone HCL 5 MG TABLET PO (07:58)
[2020-05-17] MEDS: APIXABAN 5 MG TABLET PO (07:58)
[2020-05-17] MEDS: METOPROLOL TARTRATE 25 MG TABLET PO (07:58)
[2020-05-17] MEDS: MULTIVITAMINS THERAPEUTIC TAB (*BKC) 1 TABLET PO (07:58)
--- NOTE | 2020-05-17 11:00 | PC.NURSE ---
Dilma the daughter/POA called back after leaving a message on her phone. Informed the daughter that the patient is improved mentally today knows her name, date of and where she is at but still a little fuzzy on the year but knew who the president was. I also informed the daughter that the patient had been complaining of burning when she urinates, per Dr. Donald we were sending out her urine for a urinalysis with hopeful results this evening. The daughter stated that she had not heard anything about the CT results. I informed her that the results had come back negative, no stroke or abnormalities seen at this time but that Dr. Donald had ordered a neurology consult to be performed to make sure her confusion wasn't related to something else. The daughter had asked if their was any specific testing that could be done to diagnose her with dementia or alzhiemers. I told the daughter that I believe this is why Dr. Donald ordered the neurologist consult to rule out any dementia and that she would be informed about the consultation and what the plan would be. The daughter also mentioned that the patient told her she was being discharged today, I informed the daughter that we currently do not have any orders for discharge and that Dr. Donald would want to see the results from the urinalysis prior to any form of discharge. The daughter understood and requested that we call her if she does get to be discharged today.
--- NOTE | 2020-05-17 11:17 | PCNFU ---
Nutrition Follow-Up Complete: Involuntary weight loss related to decreased appetite +/- poor glucose control as evidenced by reported recent 6 pound weight loss. Goal: Patient to consume 50% of meals + supplements Patient is progressing towards goal. We will continue current goal. Pt current nutrition is [facility]. Nutrition recommendation:Agree Last recorded weight is 62.2 kg. Bowel Motility:+Bm 05/16 Labs Reviewed:Glu 182,BUN 30, Na 133 Meds Noted:Lantus,Lopressor, Zoloft Additional Notes: Spoke with patient today. She states to no diet questions or concerns. Oral Intake has been good 75-100% of meals. Patient is also receiving Glucerna shakes BID providing an additional 220 kcals and 9 gms protein. Possible UTI-urinalysis ordered. Monitoring: Follow up in 5 days.
[2020-05-17 11:24] LABS: Add Urine Microscopic? YES; Appearance Urine Turbid (Clear); Bacteria Urine 2+ /hpf; Bilirubin Urine Negative (Negative); Blood Urine 1+ (Negative); Budding Yeast Urine Present /hpf; Color Urine Yellow (Yellow); Glucose Urine UA 3+ mg/dL (Negative); Ketones Urine Negative (Negative); Leukocyte Esterase Ur 3+ LEU/UL (NEGATIVE); Nitrate Urine Negative (Negative); Protein Urine 1+ mg/dL (Negative); Specific Grav Ur 1.007 (1.001-1.035); Squamous Epithelial Cell Urine Occasional /hpf (Few); Urobilinogen Urine Negative mg/dL (<2.0); WBC Urine >75 /hpf (0-3)
[2020-05-17 11:44] LABS: Glucose Point of Care 239 (65-105)
[2020-05-17] MEDS: INSULIN ASPART (*BKC) 100 UNITS/ML SUB-Q (11:48)
[2020-05-17 12:00] VITALS: BP 125/45; PULSE 70; RESP 14; TEMP 36.5; O2SAT 99
--- NOTE | 2020-05-17 12:53 | CONS_ITS ---
DATE OF CONSULTATION: 05/11/2020 HISTORY OF PRESENT ILLNESS: An 79-year-old has been admitted to [facility] for the complaints of generalized malaise with the headache in addition to the ongoing history of: 1. Type 2 diabetes mellitus. 2. Chronic kidney disease. 3. Hypertension. 4. Nonischemic cardiomyopathy with history of ICD Bi-V pacer, presented to the emergency room department with complaints of headache and generalized weakness. During her previous hospitalization, she was found to have left peroneal DVT, though she was not started on anticoagulation secondary to the fall history and repeat Doppler study with persistent DVT and she was started on Eliquis. At this time, she has been admitted for generalized headache, indigestion, diarrhea, near syncopal episode, lightheadedness with dizziness. PAST MEDICAL HISTORY: She has history of multiple medical problem as mentioned, particularly the tremor; chronic kidney disease, diabetes mellitus with peripheral neuropathy, hypertension, insulin-dependent diabetes mellitus, cardiac abnormalities, bundle-branch block, dilated cardiomyopathy, and osteoarthritis of multiple joints in addition to the history of pituitary adenoma. SOCIAL HISTORY: She is a never smoker. Not drinker. MEDICATIONS: Has been taking multiple medications as outlined PHYSICAL EXAMINATION: VITAL SIGNS: On evaluation, she was found to be afebrile with blood pressure 137/117. GENERAL: Normal. HEAD: Normocephalic with no cranial bruit. EAR, NOSE, AND THROAT: Normal. NECK: Supple with no cervical bruit. No thyromegaly. No lymphadenopathy. HEART: Regular. LUNGS: Clear with no rhonchi or crepitation. ABDOMEN: Soft. NEUROLOGIC: She has normal mental status. Normal speech. The cranial nerve examination was normal. Motor examination revealed her to have decreased strength. Sensory examination was abnormal distally. Reflexes were sluggish. Plantars were downgoing. She had difficulties in ambulation. Romberg's was positive. Evaluation up until now revealed a negative CT scan of the head, negative chest x-ray, left nephrolithiasis punctate in nature with [id number] colonic diverticulosis on CT of the abdomen. Negative abdominal x-ray. Since admission here, she has been seen by the Critical Care physicians and most recently being followed by the hospitalists. Neuro consultation has been obtained to evaluate her neurological status and no specific recent investigations have been done except that she had a repeat CT scan of the head on 05/16 for the complaint of change in mental status, which revealed no evidence of bleed, except the chronic changes and compared initial CT on 05/11, there are no major changes. Her most recent lab shows elevated BUN with elevated blood sugar. B12 of 831. UA with 3+ glycosuria, 1+ proteinuria, leukocyte esterase 3+. At this stage, no neuro intervention is necessary. I will obtain the Doppler study of the carotids. JOSE GUADALUPE KESSLER M.D. VELVET CUTTER VELVET CUTTER D I MT: Jorge
--- NOTE | 2020-05-17 12:53 | P.DS_ITS ---
DS: Admitting Diagnosis Admitting Diagnosis Admitting Diagnosis: Type 2 diabetes mellitus with ketoacidosis without coma DS: Discharge Diagnosis Discharge Diagnosis (1) DKA (diabetic ketoacidoses): Qualifiers: Diabetes mellitus complication detail: without coma Diabetes mellitus type: type 2 Qualified Code(s): E11.10 - Type 2 diabetes mellitus with ketoacidosis without coma Code(s): E11.10 - Type 2 diabetes mellitus with ketoacidosis without coma Status: Acute Assessment and Plan: Pttreated for DKA in icu transfered to the medical floor. * Uncontrolled sugars, morning hypoglycemia (2) Acute dehydration: Code(s): E86.0 - Dehydration Status: Resolved Assessment and Plan: * Resolved after fluid hydration (3) Insulin dependent type 2 diabetes mellitus: Code(s): E11.9 - Type 2 diabetes mellitus without complications; Z79.4 - shelter (current) use of insulin Status: Acute Assessment and Plan: * Historically poorly controlled with hemoglobin A1c of 11.6%. * Still not well controlled with episodes of hypoglycemia now. * Discharge with home health, now glucose is under better control. * Pt was seen by DM educator while in the hospital (4) Nonischemic dilated cardiomyopathy: Code(s): I42.0 - Dilated cardiomyopathy Status: Acute Assessment and Plan: * Ejection fraction as low as 20% 2014 with improvement of EF to 65% 2017. * Currently compensated. (5) Anemia of chronic disease: Code(s): D63.8 - Anemia in other chronic diseases classified elsewhere Status: Acute Assessment and Plan: * Stable (6) Hypertension: Qualifiers: Hypertension type: essential hypertension Qualified Code(s): I10 - Essential (primary) hypertension Code(s): I10 - Essential (primary) hypertension Status: Chronic Assessment and Plan: * Blood pressures are stable and well controlled. * Continue antihypertensives (7) DVT (deep venous thrombosis): Qualifiers: DVT location: lower extremity Affected thrombotic vein of extremity: peroneal Chronicity: acute Laterality: left Qualified Code(s): I82.452 - Acute embolism and thrombosis of left peroneal vein Code(s): I82.409 - Acute embolism and thrombosis of unspecified deep veins of unspecified lower extremity Status: Acute Assessment and Plan: * Continue Eliquis. (8) Generalized weakness: Code(s): R53.1 - Weakness Status: Acute Assessment and Plan: * Secondary to deconditioning in addition to DKA. * PT/OT while in the hospital. * Home health on discharge (9) Confusion: Code(s): R41.0 - Disorientation, unspecified Status: Resolved Assessment and Plan: Mild confusion resolved likley secondary to uncontroled sugars. Pt had CT head which was negative, B12 which was negative, TSH was not drwan unsure of reason. If confusion continues consider early dementia. Pt has apt with neurology to discuss at outpatient. DS: Summary Time Spent with Patient
--- NOTE | 2020-05-17 12:53 | PM.DS ---
DS: Admitting Diagnosis Admitting Diagnosis Admitting Diagnosis: Type 2 diabetes mellitus with ketoacidosis without coma DS: Discharge Diagnosis Discharge Diagnosis (1) DKA (diabetic ketoacidoses): Qualifiers: Diabetes mellitus complication detail: without coma Diabetes mellitus type: type 2 Qualified Code(s): E11.10 - Type 2 diabetes mellitus with ketoacidosis without coma Code(s): E11.10 - Type 2 diabetes mellitus with ketoacidosis without coma Status: Acute Assessment and Plan: Pttreated for DKA in icu transfered to the medical floor. 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 Still not well controlled with episodes of hypoglycemia now. Discharge with home health, now glucose is under better control. Pt was seen by DM educator while in the hospital (4) Nonischemic dilated cardiomyopathy: Code(s): I42.0 - Dilated cardiomyopathy Status: Acute Assessment and Plan: Ejection fraction as low as 20% 2014 with improvement of EF to 65% 2017. Currently compensated. (5) Anemia of chronic disease: Code(s): D63.8 - Anemia in other chronic diseases classified elsewhere Status: Acute Assessment and Plan: Stable (6) Hypertension: Qualifiers: Hypertension type: essential hypertension Qualified Code(s): I10 - Essential (primary) hypertension Code(s): I10 - Essential (primary) hypertension Status: Chronic Assessment and Plan: Blood pressures are stable and well controlled. Continue antihypertensives (7) DVT (deep venous thrombosis): Qualifiers: DVT location: lower extremity Affected thrombotic vein of extremity: peroneal Chronicity: acute Laterality: left Qualified Code(s): I82.452 - Acute embolism and thrombosis of left peroneal vein Code(s): I82.409 - Acute embolism and thrombosis of unspecified deep veins of unspecified lower extremity Status: Acute Assessment and Plan: Continue Eliquis. (8) Generalized weakness: Code(s): R53.1 - Weakness Status: Acute Assessment and Plan: Secondary to deconditioning in addition to DKA. PT/OT while in the hospital. Home health on discharge (9) Confusion: Code(s): R41.0 - Disorientation, unspecified Status: Resolved Assessment and Plan: Mild confusion resolved likley secondary to uncontroled sugars. Pt had CT head which was negative, B12 which was negative, TSH was not drwan unsure of reason. If confusion continues consider early dementia. Pt has apt with neurology to discuss at outpatient. DS: Summary Time Spent with Patient Time attestation: Total time spent providing and/or coordinating discharge services:40 minutes on day of discharge Exam Const: General: cooperative, healthy appearing, comfortable and no acute distress Nutritional Appearance: overweight Orientation/consciousness: patient oriented x3 Resp: Effort & Inspection: normal respiratory effort and no respiratory distress Auscultation: clear to auscultation bilaterally, no rhonchi and no wheezes Cardi
== END 2020-05-17 14:58 | disposition home health service (06) | DRG 638 ==
LOC: ANHED 15:08 → ANHICU 21:19 → ANH2MED 05-12 13:30 → ANHICU 05-22 14:07
PROVIDERS: Emergency Medicine Emergency Medical Services; Hospitalist; Physician Assistant; Admitting Provider Internal Medicine; Emergency Provider Emergency Medicine; PCP Family Medicine; Visit Provider Family Medicine
DX: E11.10 Type 2 diabetes mellitus with ketoacidosis without coma (principal); I42.0 Dilated cardiomyopathy; N39.0 Urinary tract infection, site not specified; I82.452 Acute embolism and thrombosis of left peroneal vein; E86.0 Dehydration; D63.8 Anemia in other chronic diseases classified elsewhere; R41.0 Disorientation, unspecified; I12.9 Hypertensive chronic kidney disease with stage 1 through stage 4 chronic kidney disease, or unspecified chronic kidney disease; E11.22 Type 2 diabetes mellitus with diabetic chronic kidney disease; N18.3 Chronic kidney disease, stage 3 (moderate); E11.42 Type 2 diabetes mellitus with diabetic polyneuropathy; E11.65 Type 2 diabetes mellitus with hyperglycemia; I44.7 Left bundle-branch block, unspecified; E78.5 Hyperlipidemia, unspecified; M15.9 Polyosteoarthritis, unspecified; Z79.4 Long term (current) use of insulin; Z98.42 Cataract extraction status, left eye; Z98.41 Cataract extraction status, right eye; Z90.49 Acquired absence of other specified parts of digestive tract; Z90.710 Acquired absence of both cervix and uterus; Z95.810 Presence of automatic (implantable) cardiac defibrillator; Z87.891 Personal history of nicotine dependence
CPT/HCPCS: 36415; 36600; 70450; 71045; 74018; 74176; 80048; 80053; 81001; 82010; 82375; 82607; 82805; 83036; 83050; 83735; 84100; 84443; 85025; 85027; 93005; 96361; 96374; 97161; 97165; 97535; 99291; A9270; J1815; J3475; J3480; J7030

== ENCOUNTER 2020-06-28 11:38 | Inpatient (IN) | payer OTHER, SELFPAY ==
[2020-06-28] VITALS (9 sets, daily range): BP systolic 129–174; BP diastolic 47–100; PULSE 63–77; RESP 15–20; TEMP 35.8–36.7; O2SAT 98–100; BMI 21.1
[2020-06-28 11:43] LABS: Glucose Point of Care > 500 (65-105)
[2020-06-28] MEDS: SODIUM CHLORIDE 0.9% IV 1,000 ML 999 ML IV CONT ×2 (12:03→13:52)
[2020-06-28 12:25] LABS: Basophils Percent Auto 0.4 % (0.2-1.2); Eosinophils Absolute Auto 0.1 K/mm3 (0-0.3); Eosinophils Percent Auto 0.7 % (0-4.4); Hematocrit 34.3 % (37.0-47.0); Hemoglobin 11.9 g/dL (12.0-15.0); Immature Granulocyte Absolute 0.02 K/mm3 (0.00-0.031); Immature Granulocyte Percent A 0.3 % (0-0.5); Lymphocytes Percent Auto 23.6 % (18.3-44.2); Mean Corpuscular HGB Conc 34.7 g/dl (32-36); Mean Corpuscular Hemoglobin 27.7 pg (26-34); Mean Corpuscular Volume 79.8 fl (80-100); Mean Platelet Volume 11.7 fl (7.4-10.4); Monocytes Absolute Auto 0.6 K/mm3 (0.1-0.6); Monocytes Percent Auto 7.5 % (2.6-8.5); Neutrophils Absolute Auto 5.2 K/mm3 (1.3-6.7); Neutrophils Percent Auto 67.5 % (45.5-73.1); Platelet Count Result 209 k/mm3 (150-375); Red Cell Distribution Width 13.6 % (11.5-14.5); White Blood Count 7.6 K/mm3 (4.5-10.0)
[2020-06-28 12:34] LABS: Add Urine Microscopic? YES; Appearance Urine Clear (Clear); Bilirubin Urine Negative (Negative); Blood Urine Negative (Negative); Color Urine Colorless (Yellow); Glucose Urine UA 3+ mg/dL (Negative); Ketones Urine Negative (Negative); Leukocyte Esterase Ur Negative LEU/UL (Negative); Nitrate Urine Negative (Negative); Protein Urine Negative (Negative); RBC Urine 0-2 /hpf (0-2); Specific Grav Ur 1.012 (1.001-1.035); Squamous Epithelial Cell Urine Rare /hpf (Few); Urobilinogen Urine Negative mg/dL (<2.0); WBC Urine 0-3 /hpf
[2020-06-28 12:45] LABS: Prothrombin Time > 120.0 Seconds (11.1-14.7)
[2020-06-28 12:47] LABS: Alanine Aminotransferase 21 U/L (4-35); Albumin Level 3.8 g/dL (3.5-5.1); Alkaline Phosphatase 169 U/L (38-126); Anion Gap 12 mmol/L (8-16); Aspartate Amino Transferase 30 U/L (14-36); Beta-Hydroxybutyrate/Acetoacetate 0.41 mmol/L (0.02-0.27); Bilirubin,Total 0.9 mg/dL (0.2-1.3); Blood Urea Nitrogen 29 mg/dL (7-17); Calcium 8.5 mg/dL (8.4-10.2); Carbon Dioxide 21 mmol/L (22-30); Chloride 91 mmol/L (98-107); Estimated CRCL calculation 35 ml/min; Estimated Glomerular Filt Rate 48; Potassium 4.1 mmol/L (3.4-5.0); Sodium 124 mmol/L (137-145)
[2020-06-28 12:48] LABS: INR > 19.0
[2020-06-28 12:50] LABS: Partial Thromboplastin Time > 200.0 SECONDS (22.3-36.8)
[2020-06-28 12:53] LABS: Glucose 688 mg/dL (65-105)
[2020-06-28 13:21] LABS: INR 1.4; Prothrombin Time 16.7 Seconds (11.1-14.7)
[2020-06-28 13:22] LABS: Partial Thromboplastin Time 30.8 SECONDS (22.3-36.8)
[2020-06-28] MEDS: INSULIN HUMAN REGULAR (*BKC) 100 UNITS/ML 8 UNITS IV PUSH (13:54)
--- NOTE | 2020-06-28 13:54 | ED.GENADULT ---
HPI - General Adult General Chief complaint: Recheck/Abnormal Lab/Rx Stated complaint: HIGH BLOOD SUGAR Source: RN notes reviewed History of Present Illness HPI narrative: Patient presents to emergency department from home via EMS for hyperglycemia. Patient states she last took her insulin last night but not take this morning. Was noted her blood sugar was high this morning and EMS was called. She denies any recent illness. Denies any fevers or chills chest pain shortness of breath abdominal pain nausea vomiting or any other symptoms. Patient states she is on Eliquis Related Data Home Medications Medication Instructions Recorded Confirmed multivitamin 1 tablet PO DAILY 10/18/19 05/11/20 acetaminophen 650 mg PO Q4H PRN 02/11/20 05/11/20 Eliquis 5 mg PO BID 05/11/20 05/11/20 buspirone 5 mg PO BID 05/11/20 05/11/20 sertraline 50 mg PO DAILY 05/11/20 05/11/20 Allergies Allergy/AdvReac Type Severity Reaction Status Date / Time codeine Allergy Unknown Unknown Verified 06/02/20 12:55 NSAIDS (Non-Steroidal Allergy Unknown Unknown Verified 06/02/20 12:55 Anti-Inflamma Review of Systems Review of Systems: Narrative: Gen.: Denies fevers or chills ENT: Denies congestion Respiratory: Denies shortness of breath or cough CV: Denies chest pain or palpitations GI: Denies abdominal pain nausea, emesis or diarrhea denies burning, urgency, frequency or hematuria Musculoskeletal: Denies back pain or muscle pain Neuro: Denies numbness, tingling, weakness or focal weakness Skin: Denies rash Endocrine: See HPI Except as documented, all other systems reviewed and negative [facility] Past Medical History Medical History Acute dehydration Anemia of chronic disease Benign essential tremor Mainly affecting the head. Chronic kidney disease, stage III (moderate) Baseline creatinine between 0.9 and 1.20. Deep venous thrombosis Depression Diabetic peripheral neuropathy In legs and feet. Diverticulitis Hypertension Insulin dependent type 2 diabetes mellitus With diabetic peripheral neuropathy. Hemoglobin A1c was 11.6% on 05/11/2020. Kidney stone Left bundle branch block Mixed hyperlipidemia Nonischemic dilated cardiomyopathy Ejection fraction was as low as 20% in February 2015. EF improved to 65% on echocardiogram in June 2018. Osteoarthritis of multiple joints Pituitary adenoma Supraventricular tachycardia Surgical History Surgical History History of appendectomy History of bilateral cataract extraction History of breast biopsy With benign pathology. History of cholecystectomy History of hysterectomy History of temporal artery biopsy (~12/2014) No evidence of temporal arteritis. S/P implantation of automatic cardioverter/defibrillator (AICD) Medtronic Status cardiac pacemaker Social History Social History Social History: The patient is and lives with her in [place]. She has a son and daughter, both who live out of state. 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 She is originally from [facility]. She has a 15 pack year smoking history and quit in 1963. No alcohol or drug abuse. She designates her son as her surrogate decision maker and she wishes to be a full code. Smoking status: Never smoker Additional smoking assessment comments: Alcohol intake: unknown Substance use: unknown Substance use type: does not use Other substance usage details: poor historian Gender identity (if verbalized by the patient): Female Spiritual care concerns: No Agree to blood products: Yes Exam Narrative: Exam Narrative: APPEARANCE: No acute distress, nontoxic, resting in bed EYES: EOMI HEENT: Normocephalic, atraumatic, OMM RESPIRATORY: No respiratory distress Clear to auscultation bilaterally with no rhonchi wheezing or rales
[2020-06-28 13:56] LABS: Glucose Point of Care > 500 (65-105)
--- NOTE | 2020-06-28 14:46 | PC.NURSE ---
Spoke with pts daughter Trinity per pt request and updated her on pts admission status
[2020-06-28 15:22] LABS: Glucose Point of Care 368 (65-105)
--- NOTE | 2020-06-28 15:53 | ADMGEN ---
This patient, Nathalia Jaimes, was admitted to IMU Room 209-01 at 1540. Patient/family oriented to hospital policies and general routines including ID bracelet, bed and alarms, visiting hours, pain management, procedures, bathroom and other care routines, personal items, smoking policy, room service/diet, and visiting hours. Valuables list has been completed. Information on how to activate the Rapid Response Team has been discussed. Patient/Family are encouraged to report perceived risks to care and to ask questions if they do not understand what they are told or what they should do.
[2020-06-28] MEDS: SODIUM CHLORIDE 0.9% IV 1,000 ML 80 ML IV CONT (16:03)
[2020-06-28 17:44] LABS: Glucose Point of Care 271 (65-105)
[2020-06-28] MEDS: INSULIN ASPART (*BKC) 100 UNITS/ML SUB-Q (18:26)
--- NOTE | 2020-06-28 19:10 | PM.IMHP ---
H&P: HPI History of Present Illness Date/Time: 06/28/20 19:10 Chief complaint: hyperglycemia Narrative: Nathalia Jaimes is an 79-year-old female with history of poorly controlled type 2 diabetes mellitus, chronic kidney disease, hypertension, nonischemic cardiomyopathy status post ICD Bi V pacer, and several other comorbidities who presented to the emergency department earlier today via EMS from home for evaluation of hyperglycemia. It is not unusual for her glucose to be between 200 and 300, however for the past 24 hours or so it has gotten progressively higher, upwards of over 600 and thus she came in today for evaluation. She is perplexed as to why it is so high, but with further questioning it sounds like she has been eating a lot of peaches recently. She states compliance with her insulin as prescribed. She always tries to stay hydrated, and has not noticed a change in her thirst. Her vision has not been any more blurry than usual. She has not felt ill recently, except today she was feeling a bit lightheaded upon standing. No dysuria, urgency, or hesitancy however after receiving IV fluids in the emergency department she reports being incontinent of a large amount of urine ?because they took too long.? She frequently has loose stools several times a day, and that is not changed. No fever, chills, or sweats. She denies sinus congestion, rhinorrhea, otalgia, and odynophagia. No cough. Review of Systems Review of Systems: Narrative: Twelve systems were reviewed with pertinent positives and negatives as per HPI. She denies sick contacts. No recent travel. No exposure to those positive for COVID-19. She has chronic dyspnea on exertion, which is unchanged. Except as documented, all other systems were reviewed and are negative. [facility] Past Medical History Medical History Acute dehydration Anemia of chronic disease Benign essential tremor Mainly affecting the head. Chronic kidney disease, stage III (moderate) Baseline creatinine between 0.9 and 1.20. Deep venous thrombosis Depression Diabetic peripheral neuropathy In legs and feet. Diverticulitis Hypertension Insulin dependent type 2 diabetes mellitus With diabetic peripheral neuropathy. Hemoglobin A1c was 11.6% on 05/11/2020. Kidney stone Left bundle branch block Mixed hyperlipidemia Nonischemic dilated cardiomyopathy Ejection fraction was as low as 20% in February 2015. EF improved to 65% on echocardiogram in June 2018. Osteoarthritis of multiple joints Pituitary adenoma Supraventricular tachycardia Surgical History Surgical History History of appendectomy History of bilateral cataract extraction History of breast biopsy With benign pathology. History of cholecystectomy History of hysterectomy History of temporal artery biopsy (~12/2014) No evidence of temporal arteritis. S/P implantation of automatic cardioverter/defibrillator (AICD) Medtronic Status cardiac pacemaker Family History Family History Mother Family history of tuberculosis Father Patient's father is Daughter Cancer Social History Social History (Updated 06/28/20 @ 21:26 by Lucy Barnes PA-C) Social History: The patient is and lives with her in [place]. She has a son and daughter, both who live out of state. 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 She is originally from [place]. She has a 15 pack year smoking history and quit in 1963. No alcohol or drug abuse. She designates her son as her surrogate decision maker and she wishes to be a full code. Additional smoking assessment comments: Spiritual care concerns: No Agree to blood products: Yes Meds Home Medications and Allergies Home Medications Medication Instructions Recorded Confirmed Type multiv
[2020-06-28 19:37] LABS: Hemoglobin A1C 10.8 % (<5.7)
[2020-06-28 19:41] LABS: Anion Gap 6 mmol/L (8-16); Blood Urea Nitrogen 22 mg/dL (7-17); Calcium 7.7 mg/dL (8.4-10.2); Carbon Dioxide 24 mmol/L (22-30); Chloride 102 mmol/L (98-107); Estimated CRCL calculation 38 ml/min; Estimated Glomerular Filt Rate 53; Glucose 349 mg/dL (65-105); Magnesium 1.3 mg/dL (1.6-2.3); Potassium 3.1 mmol/L (3.4-5.0); Sodium 132 mmol/L (137-145)
[2020-06-28 20:43] LABS: Glucose Point of Care 376 (65-105)
[2020-06-28 22:37] LABS: Glucose Point of Care 367 (65-105)
[2020-06-28] MEDS: MAGNESIUM SULF 4 GM/WATER100ML 4 GM/100 ML BAG IVPB (23:33)
[2020-06-28] MEDS: GABAPENTIN 300 MG CAPSULE PO (23:34)
[2020-06-28] MEDS: LOVASTATIN 20 MG TABLET 40 MG PO (23:34)
[2020-06-28] MEDS: APIXABAN 5 MG TABLET PO (23:34)
[2020-06-28] MEDS: METOPROLOL TARTRATE 25 MG TABLET PO (23:34)
[2020-06-28] MEDS: busPIRone HCL 5 MG TABLET PO (23:34)
[2020-06-28] MEDS: POTASSIUM CHLORIDE 20 MEQ TABLET 40 MEQ PO (23:35)
[2020-06-29] VITALS (9 sets, daily range): BP systolic 117–125; BP diastolic 44–72; PULSE 60–72; RESP 12–18; TEMP 35.3–37.1; O2SAT 98–100
[2020-06-29 02:03] LABS: Glucose Point of Care 341 (65-105)
[2020-06-29 02:08] LABS: Glucose Point of Care 338 (65-105)
[2020-06-29 04:38] LABS: Glucose Point of Care 391 (65-105)
[2020-06-29 05:13] LABS: Basophils Percent Auto 0.3 % (0.2-1.2); Eosinophils Absolute Auto 0.1 K/mm3 (0-0.3); Eosinophils Percent Auto 1.2 % (0-4.4); Hematocrit 30.2 % (37.0-47.0); Hemoglobin 10.5 g/dL (12.0-15.0); Immature Granulocyte Absolute 0.02 K/mm3 (0.00-0.031); Immature Granulocyte Percent A 0.3 % (0-0.5); Lymphocytes Percent Auto 34.1 % (18.3-44.2); Mean Corpuscular HGB Conc 34.8 g/dl (32-36); Mean Corpuscular Hemoglobin 27.7 pg (26-34); Mean Corpuscular Volume 79.7 fl (80-100); Mean Platelet Volume 11.6 fl (7.4-10.4); Monocytes Absolute Auto 0.6 K/mm3 (0.1-0.6); Monocytes Percent Auto 8.3 % (2.6-8.5); Neutrophils Absolute Auto 4.3 K/mm3 (1.3-6.7); Neutrophils Percent Auto 55.8 % (45.5-73.1); Platelet Count Result 204 k/mm3 (150-375); Red Blood Count 3.79 M/mm3 (4.2-5.4); Red Cell Distribution Width 13.9 % (11.5-14.5); White Blood Count 7.6 K/mm3 (4.5-10.0)
[2020-06-29] MEDS: INSULIN ASPART (*BKC) 100 UNITS/ML 6 UNITS SUB-Q ×2 (05:19→21:43)
[2020-06-29 05:28] LABS: Anion Gap 6 mmol/L (8-16); Blood Urea Nitrogen 20 mg/dL (7-17); Carbon Dioxide 22 mmol/L (22-30); Chloride 103 mmol/L (98-107); Estimated CRCL calculation 41 ml/min; Estimated Glomerular Filt Rate 60; Glucose 354 mg/dL (65-105); Magnesium 2.6 mg/dL (1.6-2.3); Potassium 3.9 mmol/L (3.4-5.0); Sodium 131 mmol/L (137-145)
[2020-06-29 06:08] LABS: Glucose Point of Care 366 (65-105)
[2020-06-29 07:48] LABS: Glucose Point of Care 215 (65-105)
[2020-06-29] MEDS: MULTIVITAMINS THERAPEUTIC TAB (*BKC) 1 TABLET PO (08:19)
[2020-06-29] MEDS: GABAPENTIN 300 MG CAPSULE PO ×3 (08:19→17:05)
[2020-06-29] MEDS: METOPROLOL TARTRATE 25 MG TABLET PO ×2 (08:20→17:06)
[2020-06-29] MEDS: APIXABAN 5 MG TABLET PO ×2 (08:20→17:05)
[2020-06-29] MEDS: SERTRALINE HCL 50 MG TABLET PO (08:20)
[2020-06-29] MEDS: busPIRone HCL 5 MG TABLET PO ×2 (08:20→17:05)
[2020-06-29] MEDS: polyethylene glycoL 3350 17 GM POWD.PACK PO (08:21)
[2020-06-29] MEDS: INSULIN GLARGINE (*BKC) 100 UNITS/ML 30 UNITS SUB-Q (08:21)
[2020-06-29] MEDS: LOSARTAN POTASSIUM 25 MG TABLET PO (08:21)
[2020-06-29] MEDS: INSULIN ASPART (*BKC) 100 UNITS/ML SUB-Q ×3 (08:22→17:11)
[2020-06-29] MEDS: ACETAMINOPHEN 325 MG TABLET 650 MG PO ×2 (08:43→21:51)
[2020-06-29 09:27] LABS: Glucose Point of Care 257 (65-105)
[2020-06-29 11:58] LABS: Glucose Point of Care 295 (65-105)
--- NOTE | 2020-06-29 15:39 | PC.NURSE ---
This patient, Nathalia Jaimes, was received from on 06/29/20 at 1539. Personal belongings list checked and signed. Patient/family oriented to unit policies and routines
--- NOTE | 2020-06-29 15:41 | PC.NURSE ---
This patient, Nathalia Jaimes, was transferred to [[id number] ] on 06/29/20 at 1541. Personal belongings sent with patient. Belongings list checked and signed with receiving [ ]. Report given to [FIDEL porter ]. Appropriate documentation sent with patient.
[2020-06-29 16:37] LABS: Glucose Point of Care 269 (65-105)
--- NOTE | 2020-06-29 16:52 | P.PNIM_ITS ---
Progress Note: A&P Assessment and Plan (1) Severe hyperglycemia due to diabetes mellitus: Code(s): E11.65 - Type 2 diabetes mellitus with hyperglycemia Status: Acute Assessment and Plan: Frequent admissions wit hyperglycemia * Continue IV fluid rehydration and sliding scale. 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 * Continue basal and mealtime bolus insulin. (3) Dehydration: Code(s): E86.0 - Dehydration Status: Acute Assessment and Plan: * Cautious IV fluid rehydration given history of dilated cardiomyopathy. (4) Electrolyte abnormality: Code(s): E87.8 - Other disorders of electrolyte and fluid balance, not elsewhere classified Status: Acute Assessment and Plan: * Electrolytes will be replaced and monitored. (5) Chronic kidney disease, stage III (moderate): Code(s): N18.3 - Chronic kidney disease, stage 3 (moderate) Status: Acute Assessment and Plan: * BUN and creatinine are bit elevated, likely due to mild dehydration. * Creatinine is only mildly bumped from baseline and should improve with IV flui ds. (6) Nonischemic dilated cardiomyopathy: Code(s): I42.0 - Dilated cardiomyopathy Status: Acute Assessment and Plan: * She is euvolemic if not a bit dry. * Monitor volume status closely will cautiously hydrating. (7) Current use of fdc anticoagulation: Code(s): Z79.01 - detention (current) use of anticoagulants Status: Acute Assessment and Plan: * Continue apixaban b.i.d. Subjective Date/time seen: 06/29/20 16:52 Interval history: 79-year-old female with history of poorly controlled type 2 diabetes mellitus, chronic kidney disease, hypertension, nonischemic cardiomyopathy status post ICD Bi V pacer, and several other comorbidities who presented to the emergency department earlier today via EMS from home for evaluation of hyperglycemia. Sugars today have been @350s, hbaic is 10. Review of Systems Review of Systems: All systems reviewed & are unremarkable except as noted in HPI and below Exam Const: General: cooperative and healthy appearing; No in distress Nutritional Appearance: overweight Orientation/consciousness: oriented to person HENMT: Head: normal to inspection Resp: Effort & Inspection: no respiratory distress Auscultation: no rhonchi and no wheezes Cardio: Rate: regular rate Rhythm: regular rhythm GI: Inspection: normal to inspection GI Palp: No abdominal tenderness, No Guarding due to palpation present (GI) and No Hepatomegaly present Auscul tation: normal bowel sounds Neuro: General: oriented to person Objective Data Vital Signs Vital Signs: Vital Signs - 24 hr 06/28/20 17:37 06/28/20 20:00 06/28/20 22:00 Temperature 36.7 C Pulse Rate 69 75
--- NOTE | 2020-06-29 16:52 | PM.IMPN ---
Progress Note: A&P Assessment and Plan (1) Severe hyperglycemia due to diabetes mellitus: Code(s): E11.65 - Type 2 diabetes mellitus with hyperglycemia Status: Acute Assessment and Plan: Frequent admissions wit hyperglycemia Continue IV fluid rehydration and sliding scale. 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 Continue basal and mealtime bolus insulin. (3) Dehydration: Code(s): E86.0 - Dehydration Status: Acute Assessment and Plan: Cautious IV fluid rehydration given history of dilated cardiomyopathy. (4) Electrolyte abnormality: Code(s): E87.8 - Other disorders of electrolyte and fluid balance, not elsewhere classified Status: Acute Assessment and Plan: Electrolytes will be replaced and monitored. (5) Chronic kidney disease, stage III (moderate): Code(s): N18.3 - Chronic kidney disease, stage 3 (moderate) Status: Acute Assessment and Plan: BUN and creatinine are bit elevated, likely due to mild dehydration. Creatinine is only mildly bumped from baseline and should improve with IV fluids. (6) Nonischemic dilated cardiomyopathy: Code(s): I42.0 - Dilated cardiomyopathy Status: Acute Assessment and Plan: She is euvolemic if not a bit dry. Monitor volume status closely will cautiously hydrating. 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 Subjective Date/time seen: 06/29/20 16:52 Interval history: 79-year-old female with history of poorly controlled type 2 diabetes mellitus, chronic kidney disease, hypertension, nonischemic cardiomyopathy status post ICD Bi V pacer, and several other comorbidities who presented to the emergency department earlier today via EMS from home for evaluation of hyperglycemia. Sugars today have been @350s, hbaic is 10. Review of Systems Review of Systems: All systems reviewed & are unremarkable except as noted in HPI and below Exam Const: General: cooperative and healthy appearing; No in distress Nutritional Appearance: overweight Orientation/consciousness: oriented to person HENMT: Head: normal to inspection Resp: Effort & Inspection: no respiratory distress Auscultation: no rhonchi and no wheezes Cardio: Rate: regular rate Rhythm: regular rhythm GI: Inspection: normal to inspection GI Palp: No abdominal tenderness, No Guarding due to palpation present (GI) and No Hepatomegaly present Auscultation: normal bowel sounds Neuro: General: oriented to person Objective Data Vital Signs Vital Signs: Vital Signs - 24 hr 06/28/20 17:37 06/28/20 20:00 06/28/20 22:00 Temperature 36.7 C Pulse Rate 69 75 63 Respiratory Rate 18 Blood Pressure 129/47 L Pulse Oximetry 98 06/28/20 23:32 06/28/20 23:34 06/29/20 00:00 Temperature 35.8 C L Pulse Rate 64 66 72 Respiratory Rate 18 Blood Pressure 156/71 H Pulse Oximetry 99 06/29/20 02:00 06/29/20 04:00 06/29/20 07:52 Temperature 35.9 C L 35.3 C L Pulse Rate 65 69 66 Respiratory Rate 18 12 Blood Pressure 125/66 117/67 Pulse Oximetry 100 99 06/29/20 08:00 06/29/20 08:20 Temperature Pulse Rate 67 64 Respiratory Rate 12 Blood Pressure Pulse Oximetry 99 Intake/Output Intake/Outpu
[2020-06-29] MEDS: LOVASTATIN 20 MG TABLET 40 MG PO (17:06)
[2020-06-29 21:19] LABS: Glucose Point of Care 385 (65-105)
[2020-06-29 21:19] LABS: Glucose Point of Care 367 (65-105)
[2020-06-30 02:27] LABS: Glucose Point of Care 236 (65-105)
[2020-06-30 04:14] VITALS: BP 152/67; PULSE 60; RESP 14; TEMP 36.2; O2SAT 99
[2020-06-30 05:43] LABS: Hematocrit 35.3 % (37.0-47.0); Hemoglobin 11.9 g/dL (12.0-15.0); Mean Corpuscular HGB Conc 33.7 g/dl (32-36); Mean Corpuscular Hemoglobin 27.4 pg (26-34); Mean Corpuscular Volume 81.1 fl (80-100); Mean Platelet Volume 11.1 fl (7.4-10.4); Platelet Count Result 218 k/mm3 (150-375); Red Blood Count 4.35 M/mm3 (4.2-5.4); Red Cell Distribution Width 13.7 % (11.5-14.5); White Blood Count 7.8 K/mm3 (4.5-10.0)
[2020-06-30 06:07] LABS: Anion Gap 8 mmol/L (8-16); Blood Urea Nitrogen 17 mg/dL (7-17); Calcium 8.6 mg/dL (8.4-10.2); Carbon Dioxide 22 mmol/L (22-30); Chloride 101 mmol/L (98-107); Estimated CRCL calculation 46 ml/min; Estimated Glomerular Filt Rate > 60; Glucose 260 mg/dL (65-105); Potassium 3.7 mmol/L (3.4-5.0); Sodium 131 mmol/L (137-145)
[2020-06-30 07:42] LABS: Glucose Point of Care 267 (65-105)
[2020-06-30] MEDS: APIXABAN 5 MG TABLET PO ×2 (09:03→17:43)
[2020-06-30] MEDS: busPIRone HCL 5 MG TABLET PO ×2 (09:03→17:43)
[2020-06-30] MEDS: INSULIN ASPART (*BKC) 100 UNITS/ML SUB-Q ×2 (09:04→13:08)
[2020-06-30] MEDS: LOSARTAN POTASSIUM 25 MG TABLET PO (09:04)
[2020-06-30] MEDS: MULTIVITAMINS THERAPEUTIC TAB (*BKC) 1 TABLET PO (09:04)
[2020-06-30] MEDS: polyethylene glycoL 3350 17 GM POWD.PACK PO (09:04)
[2020-06-30] MEDS: SERTRALINE HCL 50 MG TABLET PO (09:04)
[2020-06-30] MEDS: GABAPENTIN 300 MG CAPSULE PO ×3 (09:04→17:43)
[2020-06-30] MEDS: INSULIN GLARGINE (*BKC) 100 UNITS/ML 30 UNITS SUB-Q (09:05)
[2020-06-30 09:09] VITALS: PULSE 75
[2020-06-30] MEDS: METOPROLOL TARTRATE 25 MG TABLET PO ×2 (09:09→17:43)
[2020-06-30 11:30] LABS: Glucose Point of Care 360 (65-105)
--- NOTE | 2020-06-30 12:27 | PM.IMPN ---
Progress Note: A&P Assessment and Plan (1) Severe hyperglycemia due to diabetes mellitus: Code(s): E11.65 - Type 2 diabetes mellitus with hyperglycemia Status: Acute Assessment and Plan: Frequent admissions wit hyperglycemia Continue IV fluid rehydration and sliding scale. 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 Continue basal and mealtime bolus insulin. (3) Dehydration: Code(s): E86.0 - Dehydration Status: Resolved Assessment and Plan: Cautious IV fluid rehydration given history of dilated cardiomyopathy yesterday (4) Electrolyte abnormality: Code(s): E87.8 - Other disorders of electrolyte and fluid balance, not elsewhere classified Status: Acute Assessment and Plan: Electrolytes will be replaced and monitored. (5) Chronic kidney disease, stage III (moderate): Code(s): N18.3 - Chronic kidney disease, stage 3 (moderate) Status: Acute Assessment and Plan: BUN and creatinine are bit elevated, likely due to mild dehydration. (6) Nonischemic dilated cardiomyopathy: Code(s): I42.0 - Dilated cardiomyopathy Status: Chronic Assessment and Plan: (7) Current use of skilled nursing anticoagulation: Code(s): Z79.01 - alf (current) use of anticoagulants Status: Acute Assessment and Plan: Continue apixaban b.i.d. Subjective Date/time seen: 06/30/20 12:27 Interval history: 79-year-old female with history of poorly controlled type 2 diabetes mellitus, chronic kidney disease, hypertension, nonischemic cardiomyopathy status post ICD Bi V pacer, and several other comorbidities who presented to the emergency department earlier today via EMS from home for evaluation of hyperglycemia. Sugars today have been @250s, hbaic is 10. Sugars better today pt appears weak and tired. hopeful discharge tomorrow. elderly chronically ill, main carer for her . Review of Systems Review of Systems: All systems reviewed & are unremarkable except as noted in HPI and below Exam Const: General: cooperative and healthy appearing; No in distress Nutritional Appearance: overweight Orientation/consciousness: oriented to person HENMT: Head: normal to inspection Resp: Effort & Inspection: no respiratory distress Auscultation: no rhonchi and no wheezes Cardio: Rate: regular rate Rhythm: regular rhythm GI: Inspection: normal to inspection Auscultation: normal bowel sounds Neuro: General: oriented to person Objective Data Vital Signs Vital Signs: Vital Signs - 24 hr 06/29/20 17:06 06/29/20 18:41 06/29/20 20:22 Temperature 37.1 C 36.3 C L Pulse Rate 60 68 62 Respiratory Rate 14 14 Blood Pressure 120/72 124/44 L Pulse Oximetry 98 99 06/30/20 04:14 06/30/20 09:09 Temperature 36.2 C L Pulse Rate 60 75 Respiratory Rate 14 Blood Pressure 152/67 H Pulse Oximetry 99 Intake/Output Intake/Output: Intake & Output 06/27/20 06/28/20 06/29/20 06/30/20 23:59 23:59 23:59 23:59 Intake Total 2300 1730 930 Output Total 2450 3575 800 Balance -150 -1845 130 Meds/Results Medications: Active Medications Generic Name Dose Route Start Last Admin Trade Name Freq PRN Reason Stop Dose Admin Acetaminophen 650 mg 06/28/20 21:50 06/29/20 21:51 Tylenol Tablet PO
--- NOTE | 2020-06-30 12:57 | PCOTNOTE ---
The patient treatment was not able to be completed on 06/30 due to being unable to arouse for therapy. RN reports that medication is most likely the cause. Will plan to continue treatment per plan of care.
[2020-06-30 16:45] LABS: Glucose Point of Care 200 (65-105)
[2020-06-30 17:43] VITALS: PULSE 70
[2020-06-30] MEDS: LOVASTATIN 20 MG TABLET 40 MG PO (17:43)
[2020-06-30 17:44] VITALS: BP 146/78; PULSE 70; RESP 14; O2SAT 97
[2020-06-30 19:59] VITALS: BP 121/84; PULSE 64; RESP 16; TEMP 36.1; O2SAT 98
[2020-06-30 20:14] LABS: Glucose Point of Care 111 (65-105)
[2020-07-01] VITALS (12 sets, daily range): BP systolic 95–142; BP diastolic 46–70; PULSE 60–80; RESP 16–18; TEMP 36.2–36.6; O2SAT 97–100
[2020-07-01 06:14] LABS: Anion Gap 8 mmol/L (8-16); Blood Urea Nitrogen 17 mg/dL (7-17); Calcium 9.1 mg/dL (8.4-10.2); Carbon Dioxide 24 mmol/L (22-30); Chloride 102 mmol/L (98-107); Estimated CRCL calculation 47 ml/min; Estimated Glomerular Filt Rate > 60; Glucose 120 mg/dL (65-105); Potassium 3.8 mmol/L (3.4-5.0); Sodium 134 mmol/L (137-145)
[2020-07-01 07:58] LABS: Glucose Point of Care 129 (65-105)
[2020-07-01] MEDS: INSULIN GLARGINE (*BKC) 100 UNITS/ML 30 UNITS SUB-Q (08:02)
[2020-07-01] MEDS: polyethylene glycoL 3350 17 GM POWD.PACK PO (08:30)
[2020-07-01] MEDS: APIXABAN 5 MG TABLET PO ×2 (08:31→17:32)
[2020-07-01] MEDS: GABAPENTIN 300 MG CAPSULE PO ×3 (08:31→17:32)
[2020-07-01] MEDS: MULTIVITAMINS THERAPEUTIC TAB (*BKC) 1 TABLET PO (08:31)
[2020-07-01] MEDS: SERTRALINE HCL 50 MG TABLET PO (08:31)
[2020-07-01] MEDS: busPIRone HCL 5 MG TABLET PO ×2 (08:32→17:32)
[2020-07-01] MEDS: METOPROLOL TARTRATE 25 MG TABLET PO ×2 (08:39→17:33)
[2020-07-01] MEDS: LOSARTAN POTASSIUM 25 MG TABLET PO (08:39)
[2020-07-01 11:53] LABS: Glucose Point of Care 189 (65-105)
--- NOTE | 2020-07-01 14:08 | PM.IMPN ---
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 Continue basal and mealtime bolus insulin. (3) Dehydration: Code(s): E86.0 - Dehydration Status: Resolved Assessment and Plan: Cautious IV fluid rehydration given history of dilated cardiomyopathy yesterday (4) Electrolyte abnormality: Code(s): E87.8 - Other disorders of electrolyte and fluid balance, not elsewhere classified Status: Acute Assessment and Plan: Electrolytes will be replaced and monitored. (5) Chronic kidney disease, stage III (moderate): Code(s): N18.3 - Chronic kidney disease, stage 3 (moderate) Status: Acute Assessment and Plan: BUN and creatinine are bit elevated, likely due to mild dehydration. 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 (8) Dizziness: Code(s): R42 - Dizziness and giddiness Status: Acute Assessment and Plan: Orthostatics Fluids maybe, UA and UC Subjective Date/time seen: 07/01/20 14:08 Interval history: 79-year-old female with history of poorly controlled type 2 diabetes mellitus, chronic kidney disease, hypertension, nonischemic cardiomyopathy status post ICD Bi V pacer, and several other comorbidities who presented to the emergency department earlier today via EMS from home for evaluation of hyperglycemia. Sugars today have been @120s, hbaic is 10. Sugars better today pt appears weak and tired. elderly chronically ill, main carer for her . Pt had episode of dizziness when standing complains of dysuria will check for UTI and check her orthostatic Bps Pt also appears depressed recent breavement of brother in [place]. Review of Systems Review of Systems: All systems reviewed & are unremarkable except as noted in HPI and below Exam Const: General: uncomfortable and other (dizziness, pleasantly confused, orientedx2, tearful and worried ) HENMT: Head: normal to inspection Resp: Effort & Inspection: no respiratory distress Auscultation: no rhonchi and no wheezes Cardio: Rate: regular rate Rhythm: regular rhythm GI: Inspection: normal to inspection Auscultation: normal bowel sounds Neuro: General: oriented to person Objective Data Vital Signs Vital Signs: Vital Signs - 24 hr 06/30/20 17:43 06/30/20 17:44 06/30/20 19:59 Temperature 36.1 C L Pulse Rate 70 70 64 Respiratory Rate 14 16 Blood Pressure 146/78 H 121/84 Pulse Oximetry 97 98 07/01/20 05:53 07/01/20 08:00 07/01/20 08:28 Temperature 36.2 C L Pulse Rate 69 80 80 Respiratory Rate 16 16 Blood Pressure 142/55 H 95/57 L Pulse Oximetry 97 97 07/01/20 08:38 07/01/20 08:39 Temperature Pulse Rate 80 Respiratory Rate Blood Pressure 118/64 Pulse Oximetry Intake/Output Intake/Output: Intake & Output 06/28/20 06/29/20
[2020-07-01] MEDS: SODIUM CHLORIDE 0.9% IV 1,000 ML 100 ML IV CONT (15:41)
[2020-07-01 16:37] LABS: Glucose Point of Care 187 (65-105)
[2020-07-01] MEDS: LOVASTATIN 20 MG TABLET 40 MG PO (18:36)
[2020-07-01 18:42] LABS: Add Urine Microscopic? YES; Appearance Urine Clear (Clear); Bacteria Urine Trace /hpf; Bilirubin Urine Negative (Negative); Blood Urine Negative (Negative); Color Urine Yellow (Yellow); Glucose Urine UA 3+ mg/dL (Negative); Ketones Urine Negative (Negative); Leukocyte Esterase Ur Trace LEU/UL (NEGATIVE); Nitrate Urine Negative (Negative); Protein Urine Negative (Negative); Specific Grav Ur 1.008 (1.001-1.035); Squamous Epithelial Cell Urine Rare /hpf (Few); Urobilinogen Urine Negative mg/dL (<2.0)
[2020-07-01 21:46] LABS: Glucose Point of Care 399 (65-105)
[2020-07-01] MEDS: INSULIN ASPART (*BKC) 100 UNITS/ML 8 UNITS SUB-Q (22:26)
[2020-07-02] VITALS (15 sets, daily range): BP systolic 108–177; BP diastolic 48–83; PULSE 60–71; RESP 16; TEMP 36.4; O2SAT 97–99
[2020-07-02 07:56] LABS: Glucose Point of Care 211 (65-105)
[2020-07-02] MEDS: INSULIN ASPART (*BKC) 100 UNITS/ML SUB-Q ×4 (07:57→21:29)
[2020-07-02] MEDS: INSULIN GLARGINE (*BKC) 100 UNITS/ML 30 UNITS SUB-Q (08:03)
[2020-07-02] MEDS: METOPROLOL TARTRATE 25 MG TABLET PO ×2 (08:07→17:03)
[2020-07-02] MEDS: APIXABAN 5 MG TABLET PO ×2 (08:08→17:03)
[2020-07-02] MEDS: GABAPENTIN 300 MG CAPSULE PO ×3 (08:08→17:02)
[2020-07-02] MEDS: LOSARTAN POTASSIUM 25 MG TABLET PO (08:08)
[2020-07-02] MEDS: SERTRALINE HCL 50 MG TABLET PO ×2 (08:08→17:02)
[2020-07-02] MEDS: MULTIVITAMINS THERAPEUTIC TAB (*BKC) 1 TABLET PO (08:08)
[2020-07-02] MEDS: busPIRone HCL 5 MG TABLET PO ×2 (08:09→17:02)
[2020-07-02] MEDS: polyethylene glycoL 3350 17 GM POWD.PACK PO (08:12)
[2020-07-02] MEDS: SODIUM CHLORIDE 0.9% IV 1,000 ML 60 ML IV CONT (10:10)
[2020-07-02 12:07] LABS: Glucose Point of Care 301 (65-105)
--- NOTE | 2020-07-02 12:57 | PM.DS ---
DS: Admitting Diagnosis Admitting Diagnosis Admitting Diagnosis: Hyperglycemia DS: Discharge Diagnosis Discharge Diagnosis (1) Severe hyperglycemia due to diabetes mellitus: Code(s): E11.65 - Type 2 diabetes mellitus with hyperglycemia Status: Acute Assessment and Plan: Frequent admissions with hyperglycemia, states she is the main carer for her . So finds it hard to look after her diabetes. (2) Insulin dependent type 2 diabetes mellitus: Code(s): E11.9 - Type 2 diabetes mellitus without complications; Z79.4 - [facility] (current) use of insulin Status: Acute Assessment and Plan: Hemoglobin A1c today is 10.8%. Continue basal and mealtime bolus insulin. Sugars are controlled. sugars were controlled yesterday but pt had a episode of dizziness and hypotension so was kept in the hospital. (3) Dehydration: Code(s): E86.0 - Dehydration Status: Resolved Assessment and Plan: Cautious IV fluid rehydration given history of dilated cardiomyopathy yesterday (4) Electrolyte abnormality: Code(s): E87.8 - Other disorders of electrolyte and fluid balance, not elsewhere classified Status: Resolved Assessment and Plan: Electrolytes monitored in hospital (5) Chronic kidney disease, stage III (moderate): Code(s): N18.3 - Chronic kidney disease, stage 3 (moderate) Status: Acute Assessment and Plan: BUN and creatinine is corrected after hydration (6) Nonischemic dilated cardiomyopathy: Code(s): I42.0 - Dilated cardiomyopathy Status: Chronic Assessment and Plan: (7) 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 (8) Dizziness: Code(s): R42 - Dizziness and giddiness Status: Acute Assessment and Plan: Orthostatics corrected with fluids, pt is stable for discharge. pt was seen ambulating prior to discharge. DS: Summary Time Spent with Patient Time attestation: Total time spent providing and/or coordinating discharge services:20 minutes on day of discharge Exam Const: General: comfortable, no acute distress, alert and awake Orientation/consciousness: oriented to person HENMT: Head: normal to inspection Resp: Effort & Inspection: no respiratory distress Auscultation: no rhonchi and no wheezes Cardio: Rate: regular rate Rhythm: regular rhythm GI: Inspection: normal to inspection Auscultation: normal bowel sounds Neuro: General: oriented to person Extrem: Other: no edema good strength Psych: Appearance: other (depressed and sad at times ) DS: Data Data Completed and Pending Labs on day of discharge: Labs from last 24 hours 07/02/20 07/02/20 07/01/20 11:54 07:46 19:58 POC Capillary Glucose 301 H 211 H 399 H Urine Color Urine Appearance Urine pH Ur Specific [place] Urine Protein Urine Glucose (UA) Urine Ketones Ur Blood (Man) Urine Nitrate Urine Bilirubin Urine Urobilinogen Ur Leukocyte Esterase Urine WBC Ur Squamous Epith Cells Urine Bacteria 07/01/20 07/01/20 18:24 16:33 POC Capillary Glucose 187 H Urine Color Yellow Urine Appearance Clear Urine pH 6.0 Ur Specific [place] 1.008 Urine Protein Negative Urine Glucose (UA) 3+ H Urine Ketones Negative Ur Blood (Man) Negative Urine Nitrate Negative Urine Bilirubin Negative Urine Urobilinogen Negative Ur Leukocyte Esterase Tr
[2020-07-02] MEDS: SODIUM CHLORIDE 0.9% IV 500 ML IV CONT ×2 (14:50→16:59)
[2020-07-02 16:18] LABS: Glucose Point of Care 205 (65-105)
[2020-07-02] MEDS: LOVASTATIN 20 MG TABLET 40 MG PO (18:20)
[2020-07-02 19:40] LABS: Glucose Point of Care 309 (65-105)
--- NOTE | 2020-07-02 20:30 | PC.NURSE ---
Spoke with Gisele Kimball NP about the patient and her blood sugar this evening. The patients blood sugar was 309 at this time. Gisele instructed to give 3 units one time Novolog and to check the patients blood sugar again at 2330. At that time her blood sugar was 224. No new orders given.
[2020-07-02 23:22] LABS: Glucose Point of Care 224 (65-105)
[2020-07-03] VITALS (11 sets, daily range): BP systolic 110–178; BP diastolic 51–76; PULSE 59–79; RESP 16–18; TEMP 36.4–36.7; O2SAT 97–100
[2020-07-03] MEDS: SODIUM CHLORIDE 0.9% IV 1,000 ML 60 ML IV CONT ×2 (03:35→22:09)
[2020-07-03 07:40] LABS: Glucose Point of Care 154 (65-105)
[2020-07-03] MEDS: busPIRone HCL 5 MG TABLET PO ×2 (08:06→17:30)
[2020-07-03] MEDS: GABAPENTIN 300 MG CAPSULE PO ×3 (08:06→17:30)
[2020-07-03] MEDS: INSULIN GLARGINE (*BKC) 100 UNITS/ML 30 UNITS SUB-Q (08:06)
[2020-07-03] MEDS: MULTIVITAMINS THERAPEUTIC TAB (*BKC) 1 TABLET PO (08:06)
[2020-07-03] MEDS: LOSARTAN POTASSIUM 25 MG TABLET PO (08:06)
[2020-07-03] MEDS: polyethylene glycoL 3350 17 GM POWD.PACK PO (08:06)
[2020-07-03] MEDS: APIXABAN 5 MG TABLET PO ×2 (08:06→17:30)
[2020-07-03] MEDS: METOPROLOL TARTRATE 25 MG TABLET PO ×2 (08:07→17:30)
[2020-07-03 11:53] LABS: Glucose Point of Care 200 (65-105)
--- NOTE | 2020-07-03 15:47 | PM.IMPN ---
Progress Note: A&P Assessment and Plan (1) Severe hyperglycemia due to diabetes mellitus: Code(s): E11.65 - Type 2 diabetes mellitus with hyperglycemia Status: Acute Assessment and Plan: Frequent admissions with hyperglycemia, states she is the main carer for her . So finds it hard to look after her diabetes. 79-year-old female with history of poorly controlled type 2 diabetes mellitus, chronic kidney disease, hypertension, nonischemic cardiomyopathy status post ICD Bi V pacer, and several other comorbidities who presented to the emergency department earlier on 06/28 via EMS from home for evaluation of hyperglycemia. fasting Sugars today is 154, hbaic is 10. Sugars better today pt appears weak and tired. elderly chronically ill, main carer for her . Pt had episode of dizziness when standin check her orthostatic Bps, and does show patient has orthostatic and complaints being weak in her legs difficulty with ambulating will continue PT OT patient will benefit with acute rehab Pt also appears depressed recent breavement of brother in [place]. (2) Insulin dependent type 2 diabetes mellitus: Code(s): E11.9 - Type 2 diabetes mellitus without complications; Z79.4 - [facility] ([facility] use of insulin Status: Acute Assessment and Plan: Hemoglobin A1c today is 10.8%. Continue basal and mealtime bolus insulin. Sugars are controlled. sugars were controlled yesterday but pt had a episode of dizziness and hypotension so was kept in the hospital. (3) Dehydration: Code(s): E86.0 - Dehydration Status: Resolved Assessment and Plan: Cautious IV fluid rehydration given history of dilated cardiomyopathy yesterday (4) Electrolyte abnormality: Code(s): E87.8 - Other disorders of electrolyte and fluid balance, not elsewhere classified Status: Resolved Assessment and Plan: Electrolytes monitored in hospital (5) Chronic kidney disease, stage III (moderate): Code(s): N18.3 - Chronic kidney disease, stage 3 (moderate) Status: Acute Assessment and Plan: BUN and creatinine is corrected after hydration (6) Nonischemic dilated cardiomyopathy: Code(s): I42.0 - Dilated cardiomyopathy Status: Chronic Assessment and Plan: (7) 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 (8) Dizziness: Code(s): R42 - Dizziness and giddiness Status: Acute Assessment and Plan: Orthostatics corrected with fluids, pt is stable for discharge. pt was seen ambulating prior to discharge. Subjective Date/time seen: 07/03/20 15:47 Interval history: 79-year-old female with history of poorly controlled type 2 diabetes mellitus, chronic kidney disease, hypertension, nonischemic cardiomyopathy status post ICD Bi V pacer, and several other comorbidities who presented to the emergency department earlier on 06/28 via EMS from home for evaluation of hyperglycemia. fasting Sugars today is 154, hbaic is 10. Sugars better today pt appears weak and tired. elderly chronically ill, main carer for her . Pt had episode of dizziness when standin check her orthostatic Bps, and does show patient has orthostatic and complaints being weak in her legs difficulty with ambulating will continue PT OT patient will benefit with acute rehab Pt also appears depressed recent breavement of brother in [place]. Review of Systems Review of Systems: Alex sy
[2020-07-03 16:40] LABS: Glucose Point of Care 256 (65-105)
[2020-07-03] MEDS: LOVASTATIN 20 MG TABLET 40 MG PO (17:30)
[2020-07-03] MEDS: INSULIN ASPART (*BKC) 100 UNITS/ML SUB-Q (17:30)
[2020-07-03 22:13] LABS: Glucose Point of Care 291 (65-105)
[2020-07-04 06:27] VITALS: BP 139/59; PULSE 60; RESP 18; TEMP 36.4; O2SAT 100
[2020-07-04 07:51] LABS: Glucose Point of Care 170 (65-105)
[2020-07-04] MEDS: LOSARTAN POTASSIUM 25 MG TABLET PO (08:32)
[2020-07-04] MEDS: INSULIN GLARGINE (*BKC) 100 UNITS/ML 30 UNITS SUB-Q (08:32)
[2020-07-04] MEDS: GABAPENTIN 300 MG CAPSULE PO (08:32)
[2020-07-04] MEDS: MULTIVITAMINS THERAPEUTIC TAB (*BKC) 1 TABLET PO (08:32)
[2020-07-04] MEDS: busPIRone HCL 5 MG TABLET PO (08:32)
[2020-07-04] MEDS: APIXABAN 5 MG TABLET PO (08:32)
[2020-07-04] MEDS: polyethylene glycoL 3350 17 GM POWD.PACK PO (08:32)
[2020-07-04] MEDS: SERTRALINE HCL 50 MG TABLET PO (08:32)
[2020-07-04 08:39] VITALS: PULSE 64
[2020-07-04] MEDS: METOPROLOL TARTRATE 25 MG TABLET PO (08:39)
--- NOTE | 2020-07-04 09:58 | PM.DS ---
DS: Admitting Diagnosis Admitting Diagnosis Admitting Diagnosis: hyperglycemia DS: Discharge Diagnosis Discharge Diagnosis (1) Severe hyperglycemia due to diabetes mellitus: Code(s): E11.65 - Type 2 diabetes mellitus with hyperglycemia Status: Acute Assessment and Plan: Frequent admissions with hyperglycemia, states she is the main carer for her . So finds it hard to look after her diabetes. 79-year-old female with history of poorly controlled type 2 diabetes mellitus, chronic kidney disease, hypertension, nonischemic cardiomyopathy status post ICD Bi V pacer, and several other comorbidities who presented to the emergency department earlier on 06/28 via EMS from home for evaluation of hyperglycemia. fasting Sugars today is 154, hbaic is 10. Sugars better today pt appears weak and tired. elderly chronically ill, main carer for her . Pt had episode of dizziness when standin check her orthostatic Bps, and does show patient has orthostatic and complaints being weak in her legs difficulty with ambulating will continue PT OT patient will benefit with acute rehab Pt also appears depressed recent breavement of brother in [place]. 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 Continue basal and mealtime bolus insulin. Sugars are controlled. sugars were controlled yesterday but pt had a episode of dizziness and hypotension so was kept in the hospital. (3) Dehydration: Code(s): E86.0 - Dehydration Status: Resolved Assessment and Plan: Cautious IV fluid rehydration given history of dilated cardiomyopathy yesterday (4) Electrolyte abnormality: Code(s): E87.8 - Other disorders of electrolyte and fluid balance, not elsewhere classified Status: Resolved Assessment and Plan: Electrolytes monitored in hospital (5) Chronic kidney disease, stage III (moderate): Code(s): N18.3 - Chronic kidney disease, stage 3 (moderate) Status: Acute Assessment and Plan: BUN and creatinine is corrected after hydration (6) Nonischemic dilated cardiomyopathy: Code(s): I42.0 - Dilated cardiomyopathy Status: Chronic Assessment and Plan: (7) 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 (8) Dizziness: Code(s): R42 - Dizziness and giddiness Status: Acute Assessment and Plan: Orthostatics corrected with fluids, pt is stable for discharge. pt was seen ambulating prior to discharge. DS: Summary Hospital Course Reason for hospitalization: Chief complaint: hyperglycemia Narrative: Nathalia Jaimes is an 79-year-old female with history of poorly controlled type 2 diabetes mellitus, chronic kidney disease, hypertension, nonischemic cardiomyopathy status post ICD Bi V pacer, and several other comorbidities who presented to the emergency department earlier today via EMS from home for evaluation of hyperglycemia. It is not unusual for her glucose to be between 200 and 300, however for the past 24 hours or so it has gotten progressively higher, upwards of over 600 and thus she came in today for evaluation. She is perplexed as to why it is so high, but with further questioning it sounds like she has been eating a lot of peaches recently. She states comp
== END 2020-07-04 12:47 | disposition home health service (06) | DRG 638 ==
LOC: ANHED 13:56 → ANHIMU 14:45 → ANH3MED 06-29 15:28
PROVIDERS: Physician Assistant; Admitting Provider Family Medicine; Emergency Provider Emergency Medicine; PCP Family Medicine; Visit Provider Family Medicine
DX: E11.65 Type 2 diabetes mellitus with hyperglycemia (principal); I42.0 Dilated cardiomyopathy; Z86.718 Personal history of other venous thrombosis and embolism; E86.0 Dehydration; N18.3 Chronic kidney disease, stage 3 (moderate); E11.22 Type 2 diabetes mellitus with diabetic chronic kidney disease; I12.9 Hypertensive chronic kidney disease with stage 1 through stage 4 chronic kidney disease, or unspecified chronic kidney disease; E11.42 Type 2 diabetes mellitus with diabetic polyneuropathy; E78.2 Mixed hyperlipidemia; M19.90 Unspecified osteoarthritis, unspecified site; I44.7 Left bundle-branch block, unspecified; R42 Dizziness and giddiness; E87.8 Other disorders of electrolyte and fluid balance, not elsewhere classified; Z79.4 Long term (current) use of insulin; Z79.01 Long term (current) use of anticoagulants; Z98.41 Cataract extraction status, right eye; Z98.42 Cataract extraction status, left eye; Z95.810 Presence of automatic (implantable) cardiac defibrillator; Z90.49 Acquired absence of other specified parts of digestive tract; Z90.710 Acquired absence of both cervix and uterus; Z87.891 Personal history of nicotine dependence
CPT/HCPCS: 36415; 80048; 80053; 81001; 82010; 82948; 83036; 83735; 85025; 85027; 85610; 85730; 96361; 96365; 96374; 96375; 97110; 97116; 97161; 97165; 97530; 97535; 99285; A9270; G0378; J1815; J2060; J3475; J7030; J7040

== ENCOUNTER 2020-07-18 14:12 | Outpatient (CLI) | payer OTHER, SELFPAY ==
--- NOTE | ~2020-07-18 | US_ITS ---
EXAMINATION: US arterial ankle brachial ind DATE: 07/18/2020 14:31 INDICATION: Peripheral vascular disease. Left lower limb pain. TECHNIQUE: Segmental pressures and plethysmographic and Doppler waveforms of the brachial and lower e xtremity arteries were obtained. COMPARISON: None. FINDINGS: Right and left brachial artery pressures of 158 mm Hg and 140 mm Hg, respectively, are concordant (no rmal difference <= 30 mmHg). The right ankle-brachial index (ERYN) is 1.12 (normal >= 0.9-1.0). The right great toe-brachial index (TBI) is 0.56 (normal >= 0.65). Arterial Doppler waveforms are biphasic with brisk systolic upstrokes at both the right posterior tibial and dorsalis pedis arteries. The left ERYN is 1.13. The left TBI is 0.66. Arterial Doppler waveforms are biphasic with brisk systol ic upstrokes at both the left posterior tibial and dorsalis pedis arteries. IMPRESSION: 1. 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 2. No significant arterial occlusive disease to the left lower limb with normal left ERYN and TBI. Reviewed, dictated and finalized at location B. IMPRESSION: 1. 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 2. No significant arterial occlusive disease to the left lower limb with normal left ERYN and TBI.
== END 2020-07-18 14:13 | disposition home or self-care (01) ==
PROVIDERS: PCP Family Medicine; Visit Provider Family Medicine
DX: I73.9 Peripheral vascular disease, unspecified (principal)
CPT/HCPCS: 93922

== ENCOUNTER 2020-08-03 17:29 | Emergency (ER) | payer OTHER, SELFPAY ==
--- NOTE | ~2020-08-03 | CT_ITS ---
EXAMINATION: CT brain wo con DATE: 08/03/2020 18:25 INDICATION: Head injury. Headache. TECHNIQUE: Computed tomography (CT) of the head was performed without intravenous contrast. The mA wa s adjusted according to patient size. Iterative reconstruction technique was employed. The dose-lengt h product was 605.33 mGy-cm. COMPARISON: Head CT 05/16/2020 FINDINGS: There is no intracranial hemorrhage, acute infarction, or abnormal intracranial mass lesion . The ventricles are normal in size. There are likely changes of ocular lens replacement surgeries. T here is mild mucosal thickening in the ethmoid sinuses. The mastoid air cells are normal. IMPRESSION: 1. Normal brain. Reviewed, dictated and finalized at location A. IMPRESSION: 1. Normal brain.
--- NOTE | ~2020-08-03 | CT_ITS ---
EXAMINATION: CT cervical spine wo con DATE: 08/03/2020 18:24 INDICATION: Head injury. TECHNIQUE: Computed tomography (CT) of the cervical spine was performed without intravenous contrast. Automated exposure control and iterative reconstruction technique were employed. The dose-length pro duct was 266.57 mGy-cm. COMPARISON: Cervical spine CT 04/07/2020 FINDINGS: There is mild scarring at the lung apices. There is 4 degrees dextrocurvature of cervical s pine. There is kyphosis of cervical spine. There is 2 mm anterolisthesis of C3 on C4, C4 on C5, and C 7 on T1. Vertebral body heights are normal. There is severely decreased disc height at C5-C6 and C6-C 7. The following disc levels are specifically discussed: C2-C3: There is mild bilateral uncovertebral joint osteoarthritis. There is severe left facet joint o steoarthritis. There is ankylosis of right facet joint with severe hypertrophy. There is mild bilater al neural foraminal stenosis. There is no central canal stenosis. C3-C4: There is mild right and moderate left uncovertebral joint osteoarthritis. There is severe bila teral facet joint osteoarthritis. There is mild bilateral neural foraminal stenosis. There is mild ce ntral canal stenosis. C4-C5: There is mild bilateral uncovertebral joint osteoarthritis. There is severe bilateral facet veronica int osteoarthritis. There is mild left neural foraminal stenosis. There is mild central canal stenosi s. C5-C6: There is severe bilateral uncovertebral joint osteoarthritis. There is severe right and mild l eft facet joint osteoarthritis. There is mild bilateral neural foraminal stenosis. There is mild cent ral canal stenosis. C6-C7: There is severe bilateral uncovertebral joint osteoarthritis. There is mild bilateral facet veronica int osteoarthritis. There is mild right and moderate left neural foraminal stenosis. There is mild ce ntral canal stenosis. C7-T1: There is no uncovertebral joint osteoarthritis. There is severe bilateral facet joint osteoart hritis. There is mild bilateral neural foraminal stenosis. There is no central canal stenosis. IMPRESSION: 1. No fracture. 2. Severe cervical spondylosis. Reviewed, dictated and finalized at location A.
--- NOTE | ~2020-08-03 | XR_ITS ---
EXAMINATION: XR knee LT 3V DATE: 08/03/2020 18:44 INDICATION: Left knee pain. TECHNIQUE: 3 views of left knee were obtained. COMPARISON: None. FINDINGS: Bone alignment is normal. No fracture. There is intramedullary sclerosis in distal femoral metadiaphysis spanning 8.6 cm proximal to distal. There is mild osteoarthritis of patellofemoral comp artment. No knee joint effusion. IMPRESSION: 1. Sclerotic lesion in distal femoral metadiaphysis, which may be an enchondroma or osteonecrosis. 2. Mild left knee osteoarthritis. Reviewed, dictated and finalized at location A. IMPRESSION: 1. Sclerotic lesion in distal femoral metadiaphysis, which may be an enchondrom a or osteonecrosis. 2. Mild left knee osteoarthritis.
--- NOTE | ~2020-08-03 | XR_ITS ---
EXAMINATION: XR knee RT 3V DATE: 08/03/2020 18:44 INDICATION: Right knee pain. TECHNIQUE: 3 views of right knee were obtained. COMPARISON: None. FINDINGS: Bone alignment is normal. No fracture. There is mild osteoarthritis of medial and patellofe moral compartments. No knee joint effusion. There are loose bodies in the joint. IMPRESSION: 1. Mild right knee osteoarthritis. 2. Right knee joint loose bodies. Reviewed, dictated and finalized at location A.
--- NOTE | ~2020-08-03 | XR_ITS ---
EXAMINATION: XR hand RT min 3V DATE: 08/03/2020 18:43 INDICATION: Right hand injury and pain. TECHNIQUE: 3 views of right hand were obtained. COMPARISON: None. FINDINGS: Bone alignment is normal. No fracture. There is mild osteoarthritis of triscaphe joint and first carpometacarpal joint. There is mild osteoarthritis of most of the interphalangeal joints. Ther e is severe osteoarthritis of fourth distal interphalangeal joint. IMPRESSION: 1. No fracture. 2. Polyarticular osteoarthritis. Reviewed, dictated and finalized at location A.
[2020-08-03 17:27] VITALS: BP 167/63; PULSE 71; RESP 13; TEMP 36.7; O2SAT 98
[2020-08-03 18:45] VITALS: PULSE 74; RESP 20; O2SAT 97
--- NOTE | 2020-08-03 19:00 | PC.NURSE ---
Per verbal orders by ERP c-collar removed.
[2020-08-03 19:02] VITALS: BP 110/86; PULSE 75; RESP 17; O2SAT 97
[2020-08-03 19:23] VITALS: BP 110/86; PULSE 69; RESP 20; TEMP 36.6; O2SAT 99
--- NOTE | 2020-08-03 19:55 | ED.FALL ---
HPI - Fall General Chief Complaint: Fall Stated Complaint: FALL/HIT HEAD Time Seen by Provider: 08/03/20 17:34 Source: patient Mode of arrival: EMS Limitations: no limitations History of Present Illness HPI Narrative: Patient presents with chief complaint of pain to the posterior aspect of her head and neck, pain and abrasion to her right hand, pain abrasions to bilateral knees after falling backwards while attempting to push her trashcan to the curb and losing her footing. Patient denies loss of consciousness, change in vision or hearing, nausea, vomiting, bleeding from any of her orifices. Patient does report tenderness to the posterior aspect of her head. Patient also reports pain and abrasions to her right hand and bilateral knees. Patient has a bruise to her forehead that she reports occurred when falling in the bathroom 2 to 3 days ago. Patient denies loss of consciousness during that event either. Patient is on Eliquis 5 mg twice a day. Patient denies any other areas of discomfort or concern. Related Data Home Medications Medication Instructions Recorded Confirmed multivitamin 1 tablet PO DAILY 10/18/19 06/28/20 acetaminophen 650 mg PO Q4H PRN 02/11/20 06/28/20 Eliquis 5 mg PO BID 05/11/20 06/28/20 buspirone 5 mg PO BID 05/11/20 06/28/20 sertraline 50 mg PO DAILY 05/11/20 06/28/20 insulin aspart U-100 [Novolog 4 - 8 sliding scale dose SUBCUT 06/28/20 06/28/20 U-100 Insulin aspart] TIDWMEAL losartan 25 mg PO DAILY 06/28/20 06/28/20 insulin glargine U-300 conc 45 unit SUB-Q DAILY 08/03/20 [Toujeo SoloStar U-300 Insulin] Allergies Allergy/AdvReac Type Severity Reaction Status Date / Time codeine Allergy Unknown Unknown Verified 08/03/20 19:25 NSAIDS (Non-Steroidal Allergy Unknown Unknown Verified 08/03/20 19:25 Anti-Inflamma Review of Systems Review of Systems: Narrative: CONSTITUTIONAL: Denies fever, chills, or sweats. EYES: Denies visual changes, redness, or discharge. ENT: Denies rhinorrhea, congestion, sore throat, or otalgia. CARDIOVASCULAR: Denies chest pain, palpitations, or edema. RESPIRATORY: Denies cough or dyspnea. GASTROINTESTINAL: Denies abdominal pain, nausea, vomiting, or diarrhea. GENITOURINARY: Denies dysuria or hematuria. SKIN: Reports abrasion denies rash or itching. MUSCULOSKELETAL: reports head and neck pain Denies back pain, myalgia, or joint pain NEUROLOGIC: Denies numbness, dizziness, or weakness. PSYCHIATRIC: Denies anxiety or depression. [facility] Past Medical History Medical History (Updated 08/03/20 @ 19:50 by Stew Alvarez PA-C) Acute dehydration Anemia of chronic disease Benign essential tremor Mainly affecting the head. Chronic kidney disease, stage III (moderate) Baseline creatinine between 0.9 and 1.20. Current use of jail anticoagulation Deep venous thrombosis Depression Diabetic peripheral neuropathy In legs and feet. Diverticulitis Hypertension Insulin dependent type 2 diabetes mellitus With diabetic peripheral neuropathy. Hemoglobin A1c was 11.6% on 05/11/2020. Kidney stone Left bundle branch block Mixed hyperlipidemia Nonischemic dilated cardiomyopathy Ejection fraction was as low as 20% in February 2015. EF improved to 65% on echocardiogram in June 2018. Osteoarthritis of multiple joints Pituitary adenoma Supraventricular tachycardia Surgical History Surgical History History of appendectomy History of bilateral cataract extraction History of breast biopsy With benign pathology. History of cholecystectomy History of hysterectomy History of temporal artery biopsy (~12/2014) No evidence of temporal arteritis. S/P implantation of automatic cardioverter/defibrillator (AICD) [employer] Status cardiac pacemaker Social History Social History Social History: The patient is and lives with her in [place]. She has a
== END 2020-08-03 21:45 | disposition home or self-care (01) ==
PROVIDERS: Emergency Provider Emergency Medicine; PCP Family Medicine
DX: S80.212A Abrasion, left knee, initial encounter (principal); S80.211A Abrasion, right knee, initial encounter; S60.511A Abrasion of right hand, initial encounter; W01.0XXA Fall on same level from slipping, tripping and stumbling without subsequent striking against object, initial encounter; M54.2 Cervicalgia; S09.90XA Unspecified injury of head, initial encounter; Z98.42 Cataract extraction status, left eye; Z98.41 Cataract extraction status, right eye; Z95.810 Presence of automatic (implantable) cardiac defibrillator; I12.9 Hypertensive chronic kidney disease with stage 1 through stage 4 chronic kidney disease, or unspecified chronic kidney disease; E11.22 Type 2 diabetes mellitus with diabetic chronic kidney disease; N18.3 Chronic kidney disease, stage 3 (moderate); Z79.4 Long term (current) use of insulin; Z86.718 Personal history of other venous thrombosis and embolism; Z79.01 Long term (current) use of anticoagulants; E11.42 Type 2 diabetes mellitus with diabetic polyneuropathy; E78.2 Mixed hyperlipidemia; M19.90 Unspecified osteoarthritis, unspecified site
CPT/HCPCS: 70450; 72125; 73130; 73562; 99284; L0140

== ENCOUNTER 2020-08-07 11:05 | Observation (INO) | payer OTHER, SELFPAY ==
--- NOTE | ~2020-08-07 | CT_ITS ---
EXAMINATION: CT brain wo con DATE: 08/07/2020 11:54 INDICATION: Head injury. Decreased level of consciousness. TECHNIQUE: Computed tomography (CT) of the head was performed without intravenous contrast. The mA wa s adjusted according to patient size. Iterative reconstruction technique was employed. The dose-lengt h product was 605.33 mGy-cm. COMPARISON: Head CT 08/03/2020 FINDINGS: There is no intracranial hemorrhage, acute infarction, or abnormal intracranial mass lesion . The ventricles are normal in size. There are likely changes of ocular lens replacement surgeries. T here is mild mucosal thickening in the ethmoid sinuses. The mastoid air cells are normal. IMPRESSION: 1. Normal brain. Reviewed, dictated and finalized at location A. IMPRESSION: 1. Normal brain.
--- NOTE | ~2020-08-07 | XR_ITS ---
EXAMINATION: XR chest 1V EXAM DATE: 08/07/2020 12:51 INDICATION: Dizziness, fall. On blood thinners. Decreased level of consciousness. TECHNIQUE: Portable AP frontal chest x-ray was obtained. Comparison is made to prior examination from 05/11/2020. FINDINGS: There is triple lead pacemaker/AICD device. The lungs are clear. There are no pleural effu sions. The cardiomediastinal silhouette is within normal limits. There is no pneumothorax suspected . There are bony degenerative changes. There is no significant interval change. IMPRESSION: No acute cardiopulmonary findings. Reviewed, dictated and finalized at location B.
--- NOTE | 2020-08-07 11:42 | ECG_ITS ---
Measurements Intervals [place] Rate: 83 P: 42 [place]: 118 QRS: -52 QRSD: 136 T: 115 QT: 433 QTc: 512 Interpretive Statements ATRIAL SENSE- ELECTRONIC VENTRICULAR PACEMAKER BASELINE ARTIFACT- I, II, III, AVR, AVL, V5 NO FURTHER INTERPRETATION IS POSSIBLE ATYPICAL ECG Electronically Signed On 08-07-2020 12:53:52 CDT by Glenn Parker D.O.
[2020-08-07 11:49] VITALS: BP 129/65; PULSE 84; RESP 17; TEMP 36.4; O2SAT 100
[2020-08-07 12:05] LABS: Basophils Absolute Auto 0.1 K/mm3 (0.0-0.1); Basophils Percent Auto 0.6 % (0.2-1.2); Eosinophils Absolute Auto 0.1 K/mm3 (0-0.3); Eosinophils Percent Auto 1.1 % (0-4.4); Hematocrit 41.8 % (37.0-47.0); Hemoglobin 14.4 g/dL (12.0-15.0); Immature Granulocyte Absolute 0.03 K/mm3 (0.00-0.031); Immature Granulocyte Percent A 0.3 % (0-0.5); Lymphocytes Absolute Auto 3.08 K/mm3 (0.9-3.2); Lymphocytes Percent Auto 34.6 % (18.3-44.2); Mean Corpuscular HGB Conc 34.4 g/dl (32-36); Mean Corpuscular Hemoglobin 27.5 pg (26-34); Mean Corpuscular Volume 79.9 fl (80-100); Mean Platelet Volume 11.3 fl (7.4-10.4); Monocytes Absolute Auto 0.6 K/mm3 (0.1-0.6); Monocytes Percent Auto 6.7 % (2.6-8.5); Neutrophils Percent Auto 56.7 % (45.5-73.1); Platelet Count Result 309 k/mm3 (150-375); Red Blood Count 5.23 M/mm3 (4.2-5.4); Red Cell Distribution Width 13.5 % (11.5-14.5); White Blood Count 8.9 K/mm3 (4.5-10.0)
[2020-08-07 12:14] LABS: Partial Thromboplastin Time 27.5 SECONDS (22.3-36.8); Prothrombin Time 12.9 Seconds (11.1-14.7)
[2020-08-07 12:17] LABS: Anion Gap 10 mmol/L (8-16); Blood Urea Nitrogen 25 mg/dL (7-17); Calcium 9.9 mg/dL (8.4-10.2); Carbon Dioxide 25 mmol/L (22-30); Chloride 98 mmol/L (98-107); Estimated CRCL calculation 25 ml/min; Estimated Glomerular Filt Rate 39; Glucose 194 mg/dL (65-105); Potassium 3.7 mmol/L (3.4-5.0); Sodium 133 mmol/L (137-145)
[2020-08-07 12:31] LABS: Troponin I < 0.012 ng/mL (0.000-0.034)
[2020-08-07 12:36] LABS: Glucose Point of Care 184 (65-105)
[2020-08-07 13:21] LABS: Glucose Point of Care 145 (65-105)
--- NOTE | 2020-08-07 13:22 | PC.NURSE ---
Daughter at pts bedside. Daughter is RN and expresses concern or pt falling all the time. She is worried about how he will be when he goes home. According to daughter pts had an injury back in May and is recovering. Daughter is unsure what to do with care for father. Will contact [employer].
[2020-08-07 13:27] VITALS: BP 124/83; PULSE 81; RESP 16; TEMP 36.5; O2SAT 100
[2020-08-07 16:17] VITALS: BP 134/62; PULSE 55; RESP 19; O2SAT 92
[2020-08-07 16:28] VITALS: BP 146/79; PULSE 92; RESP 20; O2SAT 98
[2020-08-07 18:10] VITALS: O2SAT 87
--- NOTE | 2020-08-07 18:46 | ED.FALL ---
HPI - Fall General Chief Complaint: Fall <Elmer Pimentel MD - Last Filed: 08/07/20 18:58> Stated Complaint: fall/dizzy <Elmer Pimentel MD - Last Filed: 08/07/20 18:58> Time Seen by Provider: 08/07/20 14:39 <Elmer Pimentel MD - Last Filed: 08/07/20 18:58> Source: patient <Elmer Pimentel MD - Last Filed: 08/07/20 18:58> Limitations: altered mental status, clinical condition and dementia <Elmer Pimentel MD - Last Filed: 08/07/20 18:58> History of Present Illness HPI Narrative: 80-year-old female Very limited historian Apparently fell at some point yesterday Circumstances of how why where are unknown to her and there is no explanatory paperwork with her She does complain of a headache, and does have a small bruise on her forehead, and does take Eliquis She has no other particular complaints <Elmer Pimentel MD - Last Filed: 08/07/20 18:58> Onset (ago): day(s) <Elmer Pimentel MD - Last Filed: 08/07/20 18:58> Related Data Home Medications: Home Medications Medication Instructions Recorded Confirmed multivitamin 1 tablet PO DAILY 10/18/19 06/28/20 acetaminophen 650 mg PO Q4H PRN 02/11/20 06/28/20 Eliquis 5 mg PO BID 05/11/20 06/28/20 buspirone 5 mg PO BID 05/11/20 06/28/20 sertraline 50 mg PO DAILY 05/11/20 06/28/20 insulin aspart U-100 [Novolog 4 - 8 sliding scale dose SUBCUT 06/28/20 06/28/20 U-100 Insulin aspart] TIDWMEAL losartan 25 mg PO DAILY 06/28/20 06/28/20 insulin glargine U-300 conc 45 unit SUB-Q DAILY 08/03/20 [Toujeo SoloStar U-300 Insulin] <Elmer Pimentel MD - Last Filed: 08/07/20 18:58> Allergies/Adverse Reactions: Allergies Allergy/AdvReac Type Severity Reaction Status Date / Time codeine Allergy Unknown Unknown Verified 08/07/20 16:29 NSAIDS (Non-Steroidal Allergy Unknown Unknown Verified 08/07/20 16:29 Anti-Inflamma <Elmer Pimentel MD - Last Filed: 08/07/20 18:58> Review of Systems Review of Systems: All systems reviewed & are unremarkable except as noted in HPI and below <Elmer Pimentel MD - Last Filed: 08/07/20 18:58> ROS unobtainable: Yes unobtainable due to mental status and other (Quite a poor historian, oriented only to self and year not to locale) <Elmer Pimentel MD - Last Filed: 08/07/20 18:58> Constitutional: Constitutional: Denies chills, Reports fatigue, Denies fever(s), Denies headache(s) and Denies night sweats <Elmer Pimentel MD - Last Filed: 08/07/20 18:58> Eyes: Eyes: Denies loss of vision and Denies other visual disturbances <Elmer Pimentel MD - Last Filed: 08/07/20 18:58> ENT: Denies headache(s), Denies hoarseness and Denies epistaxis <Elmer Pimentel MD - Last Filed: 08/07/20 18:58> Cardiovascular: Cardiovascular: Denies leg edema, Denies palpitations and Denies dyspnea <Elmer Pimentel MD - Last Filed: 08/07/20 18:58> Gastrointestinal: Gastrointestinal: Denies vomiting <Elmer Pimentel MD - Last Filed: 08/07/20 18:58> Genitourinary: Genitourinary: Denies hematuria, Denies urinary frequency and Denies dysuria <Elmer Pimentel MD - Last Filed: 08/07/20 18:58> Musculoskeletal: Musculoskeletal: Denies abnormal gait, Reports myalgias, Denies deformity, Denies joint swelling, Denies muscle weakness and Denies numbness <Elmer Pimentel MD - Last Filed: 08/07/20 18:58> Integumentary/Breasts: Skin/Breast: Denies rash, Denies unusual bruising and Denies wounds <Elmer Pimentel MD - Last Filed: 08/07/20 18:58> Neurologic: Denies abnormal gait, Reports headache(s) and Denies loss of vision <Elmer Pimentel MD - Last Filed: 08/07/20 18:58> Psychiatric: Psychiatric: Reports no additional psychiatric complaints <Elmer Pimentel MD - Last Filed: 08/07/20 18:58> Endocrine: Endocrine: Denies palpitations <Elmer Pimentel MD - Last Filed: 08/07/20 18:58> Hematologic/Lymphatic: Hematologic/Lymphatic: Denies easy bleeding and Denies easy bruising <Elmer Pimentel MD - Last Filed: 08/07/20 18:58> Allergic/Immunologic
[2020-08-07] MEDS: LACTATED RINGERS 1,000 ML 999 ML IV CONT (20:16)
[2020-08-07 20:17] VITALS: BP 146/93; PULSE 82; RESP 18; O2SAT 98
[2020-08-07 21:49] LABS: Add Urine Microscopic? YES; Appearance Urine Clear (Clear); Bilirubin Urine Negative (Negative); Blood Urine Negative (Negative); Color Urine Yellow (Yellow); Glucose Urine UA 1+ mg/dL (Negative); Ketones Urine Negative (Negative); Leukocyte Esterase Ur Negative LEU/UL (Negative); Mucus Urine Rare /lpf; Nitrate Urine Negative (Negative); Protein Urine 2+ mg/dL (Negative); RBC Urine 0-2 /hpf (0-2); Specific Grav Ur 1.012 (1.001-1.035); Urobilinogen Urine Negative mg/dL (<2.0); WBC Urine 0-3 /hpf
--- NOTE | 2020-08-07 22:40 | PC.NURSE ---
rn attempted to contact chhaya [phone] to come pick the pt up. Chhaya states im in bed i can come get her tomorrow. RN explained that we have a waiting room full of 20+ people and that i was not able to keep her over night as she was not being admitted.
--- NOTE | 2020-08-07 22:42 | PC.NURSE ---
RN contacted pt adrian [phone] . states i havent drove in years, let me see if one of the daughters can come get her.
--- NOTE | 2020-08-07 22:43 | PC.NURSE ---
daughter from [facility] will come pick her mother up . eta 1 hour [phone]
[2020-08-08] VITALS (8 sets, daily range): BP systolic 134–174; BP diastolic 64–76; PULSE 67–86; RESP 18–20; TEMP 36.4–37; O2SAT 95–100; BMI 18.0; BMI 24.7
--- NOTE | 2020-08-08 | PC.NURSE ---
report taken from hannah donis at this time.
--- NOTE | 2020-08-08 05:07 | ADMGEN ---
This patient, Nathalia Jaimes, was admitted to [facility] Surg Room 322-02 at 0300. Patient/family oriented to hospital policies and general routines including ID bracelet, bed and alarms, visiting hours, pain management, procedures, bathroom and other care routines, personal items, smoking policy, room service/diet, and visiting hours. Valuables list has been completed. Information on how to activate the Rapid Response Team has been discussed. Patient/Family are encouraged to report perceived risks to care and to ask questions if they do not understand what they are told or what they should do.
[2020-08-08 10:44] LABS: Glucose Point of Care 98 (65-105)
[2020-08-08 11:28] LABS: Glucose Point of Care 66 (65-105)
[2020-08-08] MEDS: GABAPENTIN 300 MG CAPSULE PO ×2 (12:24→17:42)
[2020-08-08] MEDS: LOSARTAN POTASSIUM 25 MG TABLET PO (12:25)
[2020-08-08] MEDS: polyethylene glycoL 3350 17 GM POWD.PACK PO (12:26)
[2020-08-08] MEDS: SERTRALINE HCL 50 MG TABLET PO (12:26)
[2020-08-08] MEDS: MULTIVITAMINS THERAPEUTIC TAB (*BKC) 1 TABLET PO (12:26)
[2020-08-08 12:40] LABS: Glucose Point of Care 197 (65-105)
[2020-08-08 17:23] LABS: Glucose Point of Care 424 (65-105)
--- NOTE | 2020-08-08 17:35 | PM.IMHP ---
H&P: HPI History of Present Illness Date/Time: 08/08/20 17:35 Chief complaint: fall/dizzy Narrative: Nathalia Jaimes is a 80 year old female fell as she was being transferred from wheelchair to car. Pt has a history of DM, chronic kidney disease, hypertension, ICD Bi pacer. Pt has been increasingly confused at home as per family. CT head is negative. Daughter was concerned and brought her here for evaluation. Pt right hand is bruised and r elbow, both knees also have grazes. some graze on her forehead. denies headaches today but is still pleasantly confused. no other specific complaints mentioned Review of Systems Review of Systems: All systems reviewed & are unremarkable except as noted in HPI and below ROS unobtainable: Yes other (fall, confusion ) [facility] Past Medical History Medical History Acute dehydration Anemia of chronic disease Benign essential tremor Mainly affecting the head. Chronic kidney disease, stage III (moderate) Baseline creatinine between 0.9 and 1.20. Current use of salvage determiner anticoagulation Deep venous thrombosis Depression Diabetic peripheral neuropathy In legs and feet. Diverticulitis Hypertension Insulin dependent type 2 diabetes mellitus With diabetic peripheral neuropathy. Hemoglobin A1c was 11.6% on 05/11/2020. Kidney stone Left bundle branch block Mixed hyperlipidemia Nonischemic dilated cardiomyopathy Ejection fraction was as low as 20% in February 2015. EF improved to 65% on echocardiogram in June 2018. Osteoarthritis of multiple joints Pituitary adenoma Supraventricular tachycardia Surgical History Surgical History History of appendectomy History of bilateral cataract extraction History of breast biopsy With benign pathology. History of cholecystectomy History of hysterectomy History of temporal artery biopsy (~12/2014) No evidence of temporal arteritis. S/P implantation of automatic cardioverter/defibrillator (AICD) Medtronic Status cardiac pacemaker Family History Family History Mother Family history of tuberculosis Father Patient's father is Daughter Cancer Social History Social History Social History: The patient is and lives with her in [place]. She has a son and daughter, both who live out of state. 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 She is originally from [place]. She has a 15 pack year smoking history and quit in 1963. No alcohol or drug abuse. She designates her son as her surrogate decision maker and she wishes to be a full code. Years smoked: 1 Smoking status: Former smoker Tobacco type: cigarettes Additional smoking assessment comments: Alcohol intake: never Substance use: never Gender identity (if verbalized by the patient): Female Spiritual care concerns: No Agree to blood products: Yes Meds Home Medications and Allergies Home Medications Medication Instructions Recorded Confirmed Type multivitamin 1 tablet PO DAILY 10/18/19 08/08/20 History gabapentin 300 mg capsule 300 mg PO TID #270 cap 12/27/19 08/08/20 Rx lovastatin 40 mg tablet 40 mg PO QPM #90 tablet 01/05/20 08/08/20 Rx acetaminophen 650 mg PO Q4H PRN 02/11/20 08/08/20 History docusate sodium 100 mg PO Q12HR 30 Days #60 cap 04/19/20 08/08/20 Rx polyethylene glycol 3350 [Miralax] 17 g PO QAM 30 Days #30 each 04/19/20 08/08/20 Rx Eliquis 5 mg PO BID 05/11/20 06/28/20 History buspirone 5 mg PO BID 05/11/20 08/08/20 History sertraline 50 mg PO DAILY 05/11/20 08/08/20 History insulin aspart U-100 [Novolog 4 - 8 sliding scale dose SUBCUT 06/28/20 08/08/20 History U-100 Insulin aspart] TIDWMEAL losartan 25 mg PO DAILY 06/28/20 08/08/20 History insulin glargine U-300 conc 45 unit SUB-Q HS 08/03/2007/19
[2020-08-08] MEDS: busPIRone HCL 5 MG TABLET PO (17:42)
[2020-08-08] MEDS: INSULIN ASPART (*BKC) 100 UNITS/ML SUB-Q (17:43)
[2020-08-08] MEDS: LOVASTATIN 20 MG TABLET 40 MG PO (17:43)
[2020-08-08] MEDS: DOCUSATE SODIUM 100 MG CAPSULE PO (20:37)
[2020-08-08] MEDS: INSULIN GLARGINE (*BKC) 100 UNITS/ML 30 UNITS SUB-Q (22:12)
[2020-08-09 00:39] LABS: Glucose Point of Care 251 (65-105)
[2020-08-09 00:39] LABS: Glucose Point of Care 413 (65-105)
[2020-08-09 06:00] VITALS: BP 136/63; PULSE 74; RESP 18; TEMP 36.8; O2SAT 97
[2020-08-09 07:44] LABS: Hemoglobin A1C 9.8 % (<5.7)
[2020-08-09 07:46] LABS: Anion Gap 5 mmol/L (8-16); Blood Urea Nitrogen 17 mg/dL (7-17); Calcium 9.2 mg/dL (8.4-10.2); Carbon Dioxide 26 mmol/L (22-30); Chloride 101 mmol/L (98-107); Estimated CRCL calculation 29 ml/min; Estimated Glomerular Filt Rate 53; Glucose 154 mg/dL (65-105); Potassium 3.5 mmol/L (3.4-5.0); Sodium 132 mmol/L (137-145)
[2020-08-09 08:48] LABS: Glucose Point of Care 131 (65-105)
[2020-08-09] MEDS: GABAPENTIN 300 MG CAPSULE PO ×3 (09:05→17:07)
[2020-08-09] MEDS: busPIRone HCL 5 MG TABLET PO ×2 (09:05→17:07)
[2020-08-09] MEDS: DOCUSATE SODIUM 100 MG CAPSULE PO ×2 (09:05→20:37)
[2020-08-09] MEDS: LOSARTAN POTASSIUM 25 MG TABLET PO (09:54)
[2020-08-09] MEDS: polyethylene glycoL 3350 17 GM POWD.PACK PO (09:54)
[2020-08-09] MEDS: MULTIVITAMINS THERAPEUTIC TAB (*BKC) 1 TABLET PO (09:54)
[2020-08-09] MEDS: SERTRALINE HCL 50 MG TABLET PO (09:54)
[2020-08-09 12:42] LABS: Glucose Point of Care 408 (65-105)
[2020-08-09] MEDS: INSULIN ASPART (*BKC) 100 UNITS/ML SUB-Q (13:02)
[2020-08-09 14:00] VITALS: BP 113/38; PULSE 81; RESP 18; TEMP 36.1; O2SAT 100
--- NOTE | 2020-08-09 14:50 | PM.IMPN ---
Progress Note: A&P Assessment and Plan (1) Contusion of head: Qualifiers: Contusion of head detail: scalp Encounter type: initial encounter Qualified Code(s): S00.03XA - Contusion of scalp, initial encounter Code(s): S00.93XA - Contusion of unspecified part of head, initial encounter Status: Acute Assessment and Plan: CT head negative, continue to watch pts confused state. ? is confusion a chronic problem. order b12 and tsh, early dementia or depression, will consult neurology Pt will benefit from placement. (2) Frequent falls: Code(s): R29.6 - Repeated falls Status: Acute Assessment and Plan: PT/ OT evaluation for falls and rehab placement (3) Insulin dependent type 2 diabetes mellitus: Code(s): E11.9 - Type 2 diabetes mellitus without complications; Z79.4 - penitentiary (current) use of insulin Status: Acute Assessment and Plan: History of poorly controlled DM continue to watch carefully in hospital, order hbaic, accuchecks, SSI (4) Hypertension: Qualifiers: Hypertension type: essential hypertension Qualified Code(s): I10 - Essential (primary) hypertension Code(s): I10 - Essential (primary) hypertension Status: Chronic Assessment and Plan: Chronic continue Bp medications sodium is 132, creat is 1.0, pt can eat and drink encourage fluids. Subjective Date/time seen: 08/09/20 14:50 Interval history: Theodore is a 80 year old female fell as she was being transferred from wheelchair to car. Pt has a history of DM, chronic kidney disease, hypertension, ICD Bi pacer. Pt has been increasingly confused at home as per family. CT head is negative. Daughter was concerned and brought her here for evaluation. ? depression ? early dementia will consult neurology Review of Systems Review of Systems: All systems reviewed & are unremarkable except as noted in HPI and below Constitutional: Comments: pleasantly confused Exam Const: General: other (chronically ill and frail ) HENMT: Head: normocephalic Eyes: General: appearance normal, both eyes and all related structures Pupils: Equal, round and reactive pupils present Neck: Neck: supple Chest: Chest palpation & inspection: normal inspection of the chest Resp: Effort & Inspection: normal respiratory effort Auscultation: clear to auscultation bilaterally Cardio: Jugular venous distension: no JVD Rhythm: regular rhythm Heart sounds: S1 normal heart sound present and S2 normal heart sound present GI: Inspection: normal to inspection Auscultation: normal bowel sounds Skin: General skin exam: normal color and dry skin Neuro: Cranial nerves: Yes CN's II-XII intact bilaterally and Yes Equal, round and reactive pupils present Cognition (Neuro): normal cognition Speech: normal speech Motor exam (neuro): 5/5 motor strength present throughout Extrem: Other: grazes on right elbow and both knees. bruises on her right hand and small bruise on forhead Psych: Appearance: grossly normal Mental Status: mental status grossly normal Objective Data Vital Signs Vital Signs: Vital Signs - 24 hr 08/08/20 22:00 08/09/20 06:00 08/09/20 14:00 Temperature 36.9 C 36.8 C 36.1 C L Pulse Rate 84 74 81 Respiratory Rate 18 18 18 Blood Pressure 134/64 136/63 113/38 L Pulse Oximetry 95 97 100 Intake/Output Intake/Output: Intake & Output 08/06/20 08/07/20 08/08/20 08/09/20 23:59 23:59 23:59 23:59 Intake Total 1000 1460 730 Output Total 450 800 Balance 1000 1010 -70 Meds/Results Medications: Active Medications Generic Name Dose Route Start Last Admin Trade Name Freq PRN Reason Stop Dose Admin Acetaminophen 650 mg 08/08/20 11:49 Tylenol Tablet PO Q4H PRN Pain (Scale Score 1-3) Buspirone HCl 5 mg 08/08/20 17:00 08/09/20 09:05 Buspar PO 5 mg BID PRANAV Administration Dextrose 12.5 gm 08/08/20 11:50 Dextrose 50% Syringe IV PUSH PRN
[2020-08-09] MEDS: LOVASTATIN 20 MG TABLET 40 MG PO (17:07)
[2020-08-09 17:48] LABS: Glucose Point of Care 424 (65-105)
[2020-08-09] MEDS: INSULIN ASPART (*BKC) 100 UNITS/ML 8 UNITS SUB-Q (18:04)
[2020-08-09 18:39] LABS: SARS-CoV-2 RNA PCR Negative
[2020-08-09 20:42] LABS: Glucose Point of Care > 500 (65-105)
[2020-08-09] MEDS: INSULIN GLARGINE (*BKC) 100 UNITS/ML 38 UNITS SUB-Q (21:51)
[2020-08-09] MEDS: INSULIN ASPART (*BKC) 100 UNITS/ML 10 UNITS SUB-Q (21:52)
[2020-08-09 22:00] VITALS: BP 132/50; PULSE 77; RESP 18; TEMP 36.6; O2SAT 98
[2020-08-10 01:25] LABS: Glucose Point of Care 399 (65-105)
[2020-08-10] MEDS: INSULIN ASPART (*BKC) 100 UNITS/ML 8 UNITS SUB-Q (02:33)
[2020-08-10 05:32] LABS: Glucose Point of Care 187 (65-105)
[2020-08-10 06:00] VITALS: BP 138/60; PULSE 91; RESP 18; TEMP 36.4; O2SAT 96
[2020-08-10 06:07] LABS: Basophils Percent Auto 0.3 % (0.2-1.2); Eosinophils Absolute Auto 0.2 K/mm3 (0-0.3); Eosinophils Percent Auto 1.9 % (0-4.4); Hematocrit 35.3 % (37.0-47.0); Hemoglobin 11.9 g/dL (12.0-15.0); Immature Granulocyte Absolute 0.03 K/mm3 (0.00-0.031); Immature Granulocyte Percent A 0.3 % (0-0.5); Lymphocytes Percent Auto 29.5 % (18.3-44.2); Mean Corpuscular HGB Conc 33.7 g/dl (32-36); Mean Corpuscular Hemoglobin 27.3 pg (26-34); Mean Platelet Volume 11.2 fl (7.4-10.4); Monocytes Absolute Auto 0.9 K/mm3 (0.1-0.6); Monocytes Percent Auto 9.6 % (2.6-8.5); Neutrophils Absolute Auto 5.1 K/mm3 (1.3-6.7); Neutrophils Percent Auto 58.4 % (45.5-73.1); Platelet Count Result 218 k/mm3 (150-375); Red Blood Count 4.36 M/mm3 (4.2-5.4); Red Cell Distribution Width 13.3 % (11.5-14.5); White Blood Count 8.8 K/mm3 (4.5-10.0)
[2020-08-10 06:15] LABS: Anion Gap 7 mmol/L (8-16); Blood Urea Nitrogen 26 mg/dL (7-17); Calcium 9.2 mg/dL (8.4-10.2); Carbon Dioxide 27 mmol/L (22-30); Chloride 99 mmol/L (98-107); Estimated CRCL calculation 29 ml/min; Estimated Glomerular Filt Rate 53; Glucose 197 mg/dL (65-105); Potassium 3.6 mmol/L (3.4-5.0); Sodium 133 mmol/L (137-145)
[2020-08-10 08:00] VITALS: PULSE 88; RESP 18; O2SAT 96
[2020-08-10 08:25] LABS: Glucose Point of Care 143 (65-105)
[2020-08-10] MEDS: busPIRone HCL 5 MG TABLET PO ×2 (10:00→15:39)
[2020-08-10] MEDS: DOCUSATE SODIUM 100 MG CAPSULE PO ×2 (10:00→21:24)
[2020-08-10] MEDS: SERTRALINE HCL 50 MG TABLET PO (10:00)
[2020-08-10] MEDS: MULTIVITAMINS THERAPEUTIC TAB (*BKC) 1 TABLET PO (10:00)
[2020-08-10] MEDS: GABAPENTIN 300 MG CAPSULE PO ×3 (10:00→15:38)
[2020-08-10] MEDS: LOSARTAN POTASSIUM 25 MG TABLET PO (10:00)
[2020-08-10] MEDS: polyethylene glycoL 3350 17 GM POWD.PACK PO (10:01)
--- NOTE | 2020-08-10 10:52 | WPDNEURCNPN ---
Assessment and Plan Assessment and plan (1) Contusion of head: Qualifiers: Contusion of head detail: scalp Encounter type: initial encounter Qualified Code(s): S00.03XA - Contusion of scalp, initial encounter Code(s): S00.93XA - Contusion of unspecified part of head, initial encounter Status: Acute (2) Frequent falls: Code(s): R29.6 - Repeated falls Status: Acute (3) Dizziness: Code(s): R42 - Dizziness and giddiness Status: Acute Additional Plan considering that her CT scan of the head was negative and radiological investigation revealed multiple arthritic changes on plain x-rays she will be treated only symptomatically. Her symptomatology could very well be related to diabetic neuropathy with autonomic nerve dysfunctions making her intermittently dizzy Consult date: 08/10/20 Time Seen: 10:30 HPI: Nathalia Jaimes is a 80 year old femaleAdmitted to the hospital with the history of fall while she was being transferred from the wheelchair to the car in addition to the history of 1. Diabetes mellitus 2. Chronic kidney disease 3. Hypertension 4. Status post ICD by basis. Patient was becoming increasingly confused . She does have ongoing history of benign essential tremor on chronic long-term anticoagulation therapy because of the DVT and her diabetes has been complicated by the peripheral neuropathy Review of Systems Review of Systems: All systems reviewed & are unremarkable except as noted in HPI and below PMFSH Past Medical History Medical History Acute dehydration Anemia of chronic disease Benign essential tremor Mainly affecting the head. Chronic kidney disease, stage III (moderate) Baseline creatinine between 0.9 and 1.20. Current use of prison anticoagulation Deep venous thrombosis Depression Diabetic peripheral neuropathy In legs and feet. Diverticulitis Hypertension Insulin dependent type 2 diabetes mellitus With diabetic peripheral neuropathy. Hemoglobin A1c was 11.6% on 05/11/2020. Kidney stone Left bundle branch block Mixed hyperlipidemia Nonischemic dilated cardiomyopathy Ejection fraction was as low as 20% in February 2015. EF improved to 65% on echocardiogram in June 2018. Osteoarthritis of multiple joints Pituitary adenoma Supraventricular tachycardia Surgical History Surgical History History of appendectomy History of bilateral cataract extraction History of breast biopsy With benign pathology. History of cholecystectomy History of hysterectomy History of temporal artery biopsy (~12/2014) No evidence of temporal arteritis. S/P implantation of automatic cardioverter/defibrillator (AICD) Medtronic Status cardiac pacemaker Family History Family History Mother Family history of tuberculosis Father Patient's father is Daughter Cancer Social History Social History Social History: The patient is and lives with her in [place]. She has a son and daughter, both who live out of state. 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 She is originally from [place]. She has a 15 pack year smoking history and quit in 1963. No alcohol or drug abuse. She designates her son as her surrogate decision maker and she wishes to be a full code. Years smoked: 1 Smoking status: Former smoker Tobacco type: cigarettes Additional smoking assessment comments: Alcohol intake: never Substance use: never Gender identity (if verbalized by the patient): Female Spiritual care concerns: No Agree to blood products: Yes Meds Home Medications and Allergies Home Medications Medication Instructions Recorded Confirmed Type multivitamin 1 tablet PO DAILY 10/18/19 08/08/20 History
[2020-08-10 12:11] LABS: Glucose Point of Care 333 (65-105)
[2020-08-10] MEDS: INSULIN ASPART (*BKC) 100 UNITS/ML SUB-Q ×2 (12:14→16:40)
--- NOTE | 2020-08-10 13:16 | PM.DS ---
DS: Admitting Diagnosis Admitting Diagnosis Admitting Diagnosis: fall/dizzy DS: Discharge Diagnosis Discharge Diagnosis (1) Contusion of head: Qualifiers: Contusion of head detail: scalp Encounter type: initial encounter Qualified Code(s): S00.03XA - Contusion of scalp, initial encounter Code(s): S00.93XA - Contusion of unspecified part of head, initial encounter Status: Acute Assessment and Plan: CT head negative, continue to watch pts confused state. ? is confusion a chronic problem. order b12 and tsh are normal, depressed appearancept already on zoloft. If pt appears forgetful may need formal testing for dementia in Neurology office- DR Sequeira or Aryan Pt will benefit from placement. Pt is being discharged to [facility]. (2) Frequent falls: Code(s): R29.6 - Repeated falls Status: Acute Assessment and Plan: PT/ OT evaluation for falls and rehab placement ? Peripheral neuropathy (3) Insulin dependent type 2 diabetes mellitus: Code(s): E11.9 - Type 2 diabetes mellitus without complications; Z79.4 - halfway (current) use of insulin Status: Acute Assessment and Plan: History of poorly controlled DM. HBaic is 9, check or morning hypoglycemia attacks (4) Hypertension: Qualifiers: Hypertension type: essential hypertension Qualified Code(s): I10 - Essential (primary) hypertension Code(s): I10 - Essential (primary) hypertension Status: Chronic Assessment and Plan: Chronic continue Bp medications sodium is 133, creat is 1.0, pt can eat and drink encourage fluids. DS: Summary Time Spent with Patient Time attestation: Total time spent providing and/or coordinating discharge services:40 minutes on day of discharge Exam Const: General: other (chronically ill and frail ) HENMT: Head: normocephalic Eyes: General: appearance normal, both eyes and all related structures Pupils: Equal, round and reactive pupils present Neck: Neck: supple Chest: Chest palpation & inspection: normal inspection of the chest Resp: Effort & Inspection: normal respiratory effort Auscultation: clear to auscultation bilaterally Cardio: Jugular venous distension: no JVD Rhythm: regular rhythm Heart sounds: S1 normal heart sound present and S2 normal heart sound present GI: Inspection: normal to inspection Auscultation: normal bowel sounds Skin: General skin exam: normal color and dry skin Neuro: Cranial nerves: Yes CN's II-XII intact bilaterally and Yes Equal, round and reactive pupils present Cognition (Neuro): normal cognition Speech: normal speech Motor exam (neuro): 5/5 motor strength present throughout Extrem: Other: grazes on right elbow and both knees. bruises on her right hand and small bruise on forhead Psych: Appearance: grossly normal Mental Status: mental status grossly normal DS: Data Data Completed and Pending Labs on day of discharge: Labs from last 24 hours 08/10/20 08/10/20 08/10/20 12:08 08:18 05:52 WBC RBC Hgb Hct MCV MCH MCHC RDW Plt Count MPV Immature Gran % (Auto) Neut % (Auto) Lymph % (Auto) [place] % (Auto) Eos % (Auto) Baso % (Auto) Lymph # (Auto) [place] # (Auto) Eos # (Auto) Baso # (Auto) Abs Immat Gran (auto) Absolute Neuts (auto) Absolute Nucleated RBC Nucleated RBC % Sodium 133 L Potassium 3.6 Chloride 99 Carbon Dioxide 27 Anion Gap 7 L BUN 26 H Creatinine 1.00 Estim Creat Clear Calc 29 Estimated GFR 53 L Glucose 197 H POC Capillary Glucose 333 H 143 H Calcium 9.2 SARS-CoV-2 RNA (RT-PCR) 08/10/20 08/10/20 08/10/20 05:52 05:29 01:21 WBC 8.8 RBC 4.36 Hgb 11.9 L Hct 35.3 L MCV 81.0 MCH 27.3 MCHC 33.7 RDW 13.3 Plt Count 218 MPV 11.2 H Immature Gran % (Auto) 0.3 Neut % (Auto) 58.4 Lymph % (Auto) 29.5 [place] % (Auto) 9.6
--- NOTE | 2020-08-10 13:38 | PCDIET ---
Nutrition Follow-Up Complete: Inadequate oral intake r/t reduced appetite as evidence by 4lb wt loss over the last two weeks PO intake of 75% of meals to maintain wt Goal: Goal met. Continue Goal. Pt current nutrition is heart healthy + ensure compact Nutrition recommendation: agree Last recorded weight is 59.3 kg (recommend new wt) Bowel Motility: Constipation (miralax, colace provided) Labs Reviewed: Na 133, BUN 25, Cr 1.30, Glucose 145 Meds Noted:Insulin Additional Notes: Pt with improved appetite eating 75-100% of meals. Plans for d/c to [facility] today. She is liking meals and supplement and current diet is appropriate, however I would recommend adding [facility] diet restrictions due to elevated glucose. We will continue to montior PO intake, diet, wt every five days.
[2020-08-10 14:00] VITALS: BP 123/67; PULSE 100; RESP 16; TEMP 36.7; O2SAT 97
[2020-08-10] MEDS: LOVASTATIN 20 MG TABLET 40 MG PO (15:39)
[2020-08-10 16:02] LABS: Glucose Point of Care 455 (65-105)
[2020-08-10 22:00] VITALS: BP 127/48; PULSE 79; RESP 18; TEMP 36.6; O2SAT 95
[2020-08-10] MEDS: INSULIN GLARGINE (*BKC) 100 UNITS/ML 42 UNITS SUB-Q (22:50)
[2020-08-10] MEDS: INSULIN ASPART (*BKC) 100 UNITS/ML 10 UNITS SUB-Q (22:51)
[2020-08-10 23:48] LABS: Glucose Point of Care > 500 (65-105)
== END 2020-08-10 23:30 ==
LOC: ANHED 22:26 → ANH3MEDSUR 08-08 06:07
PROVIDERS: Emergency Medicine; Admitting Provider Internal Medicine; Emergency Provider Emergency Medicine; PCP Family Medicine; Visit Provider Family Medicine
DX: S00.03XA Contusion of scalp, initial encounter (principal); R41.82 Altered mental status, unspecified; W18.30XA Fall on same level, unspecified, initial encounter; Z91.81 History of falling; R29.6 Repeated falls; R42 Dizziness and giddiness; I42.0 Dilated cardiomyopathy; I47.1 Supraventricular tachycardia; I44.7 Left bundle-branch block, unspecified; Z95.810 Presence of automatic (implantable) cardiac defibrillator; E11.22 Type 2 diabetes mellitus with diabetic chronic kidney disease; I12.9 Hypertensive chronic kidney disease with stage 1 through stage 4 chronic kidney disease, or unspecified chronic kidney disease; N18.3 Chronic kidney disease, stage 3 (moderate); E11.65 Type 2 diabetes mellitus with hyperglycemia; E11.42 Type 2 diabetes mellitus with diabetic polyneuropathy; Z79.4 Long term (current) use of insulin; G25.0 Essential tremor; D63.1 Anemia in chronic kidney disease; Z87.891 Personal history of nicotine dependence; Z79.01 Long term (current) use of anticoagulants; E78.2 Mixed hyperlipidemia; M15.9 Polyosteoarthritis, unspecified; F32.9 Major depressive disorder, single episode, unspecified; D35.2 Benign neoplasm of pituitary gland; Z87.442 Personal history of urinary calculi
CPT/HCPCS: 36415; 70450; 71045; 80048; 81001; 82607; 82948; 83036; 84443; 84484; 85025; 85610; 85730; 87635; 93005; 96360; 96361; 97110; 97116; 97161; 97165; 97530; 97535; 99285; A9270; C9803; G0378; J1815; J7120; U0003

== ENCOUNTER 2020-09-20 10:15 | Inpatient (IN) | payer OTHER, SELFPAY ==
[2020-09-20] VITALS (39 sets, daily range): BP systolic 110–150; BP diastolic 42–104; PULSE 87–152; RESP 14–23; TEMP 36.7; O2SAT 96–100; BMI 22.9
--- NOTE | ~2020-09-20 | XR_ITS ---
EXAMINATION: XR chest 1V INDICATION: Pain after fall TECHNIQUE: AP view of the chest is obtained. COMPARISON: 08/07/2020 FINDINGS: The lungs are free of acute opacities. There is no pleural effusion or pneumothorax. Mild c hronic elevation of the right hemidiaphragm is noted. A triple lead cardiac pacemaker of the left nathalie st wall ends with leads in expected locations. IMPRESSION: 1. No acute cardiopulmonary abnormality. Reviewed, dictated and finalized at location A. INAL INVESTIGATOR
--- NOTE | ~2020-09-20 | CT_ITS ---
EXAMINATION: CT brain wo con, CT cervical spine wo con EXAM DATE: 09/20/2020 11:10 INDICATION: Fall, head injury. Neck pain. Low back pain. TECHNIQUE: Spiral CT of the head was performed without contrast. Axial, coronal and sagittal images were reviewed. Spiral CT of the cervical spine was performed without contrast. Axial images were rev iewed. Coronal and sagittal reformatted images were also reviewed. The dose-length product (DLP) fo r this examination was 605.33 (accession [id number]), 179.27 (accession [id number]) mGy-cm. The exposure was tailored according to patient size, and iterative reconstruction (ASIR) was used as additional dose reduction technique. Comparison is made to prior examination from 08/07/2020. FINDINGS: HEAD CT: There is no acute intraparenchymal hemorrhage. No evidence of intraparenchymal brain mass l esion. No evidence of acute infarction. There is mild periventricular and subcortical hypodensity, n onspecific but probably related to small vessel ischemic disease. There is moderate prominence of t he sulci and ventricles related to cerebral atrophy. There is intracranial carotid arteriosclerosis . There is no mass effect or midline shift. There is no obstructive hydrocephalus suspected. There are no extra-axial collections. There are no acute calvarial fractures. Patient has had bilateral ocular lens surgery. Soft tissue is unremarkable. The visualized sinuses and mastoid air cells are well aerated. CERVICAL CT: Pacemaker. There is no evidence of acute cervical fracture. The odontoid process is int act. Pre-dens space is normal. Prevertebral soft tissue is normal. There are no soft tissue abnorm alities identified. There is no disc space widening or traumatic vertebral body subluxation suspecte d. There is moderate lower cervical disc disease, and advanced cervical arthropathy. A detailed lev el by level evaluation of spondylosis can be added as addendum if requested. IMPRESSION: 1. No acute intracranial findings or cervical fracture. 2. Chronic findings. Reviewed, dictated and finalized at location B. IAL DAY CLASS TEACHER IMPRESSION: 1. No acute intracranial findings or cervical fracture. 2. Chronic findings.
--- NOTE | ~2020-09-20 | XR_ITS ---
EXAMINATION: XR pelvis 1-2V DATE: 09/20/2020 11:24 INDICATION: Generalized pelvic pain post fall TECHNIQUE: An anteroposterior view of the pelvis was obtained. COMPARISON: 02/04/2020 FINDINGS: Partially visualized mild lumbar levocurvature. Unchanged mild step-off at the pubic symphysis which could be developmental or sequela of old trauma. No fracture. Bilateral hip and sacroiliac joint spac es are relatively preserved. Soft tissues are unremarkable. IMPRESSION: 1. No acute osseous abnormality. Reviewed, dictated and finalized at location A. Y FARM SUPERVISOR
--- NOTE | ~2020-09-20 | CT_ITS ---
EXAMINATION: CT lumbar spine herminio griffin EXAM DATE: 09/20/2020 11:10 INDICATION: Fall, low back pain. TECHNIQUE: Spiral CT lumbar spine was performed without contrast. Axial, coronal and sagittal images of the lumbar spine were reviewed. The dose-length product (DLP) for this examination was 469.95 mGy- cm. The exposure was tailored according to patient size (auto mA exposure control), and iterative re construction (ASIR) was used as additional dose reduction technique. There is no prior study for roula lerma. FINDINGS: There is mild lumbar levoscoliosis. Moderate to severe disc disease at L3-4, moderate at L5-S1 and mi ld to moderate at L2-3 and L4-5. No spondylolysis. Moderate mid and lower lumbar facet arthropathy. T here is no evidence of acute lumbar fracture. Sacroiliac joints are unremarkable. There is no disc sp nereida widening or traumatic vertebral body subluxation suspected. Paraspinal soft tissue is unremarkab le. Punctate left nephrolithiasis. A detailed level by level evaluation of spondylosis can be added a s addendum if requested. IMPRESSION: 1. No acute lumbar findings. 2. Overall moderate spondylosis. 3. Mild levoscoliosis. Reviewed, dictated and finalized at location B. DRY AGENT
--- NOTE | 2020-09-20 10:20 | ECG_ITS ---
Measurements Intervals [place] Rate: 86 P: 40 NV: 135 QRS: -29 QRSD: 142 T: 140 QT: 447 QTc: 536 Interpretive Statements ATRIAL SENSE- ELECTRONIC VENTRICULAR PACEMAKER BASELINE WANDER- I, II, AVR, AVL, AVF, V3-V6 NO FURTHER INTERPRETATION IS POSSIBLE ATYPICAL ECG Electronically Signed On 09-20-2020 10:47:21 ELECTRICAL INSTRUMENTATION TECHNICIAN by Glenn Parker D.O.
[2020-09-20 10:22] LABS: Glucose Point of Care > 500 (65-105)
--- NOTE | 2020-09-20 10:28 | ED.GENADULT ---
HPI - General Adult General Chief complaint: Fall Stated complaint: FALL Source: RN notes reviewed History of Present Illness HPI narrative: Patient presents to emergency department from home via EMS for a fall. Patient was found by home health nurse this morning on the ground. Is unsure how long patient has been on the ground she states she normally walks with a cane or walker but does not know the specifics of her fall. The patient is normally cared for by her who is currently admitted to the hospital does not been home with her for the past several days. Patient is currently complaining of some lower back pain as well as head and neck pain. She denies any fevers or chills chest pain shortness of breath abdominal pain or any other symptoms. Related Data Home Medications Medication Instructions Recorded Confirmed multivitamin 1 tablet PO DAILY 10/18/19 08/08/20 acetaminophen 650 mg PO Q4H PRN 02/11/20 08/08/20 Eliquis 5 mg PO BID 05/11/20 08/09/20 buspirone 5 mg PO BID 05/11/20 08/08/20 sertraline 50 mg PO DAILY 05/11/20 08/08/20 insulin aspart U-100 [Novolog 4 - 8 sliding scale dose SUBCUT 06/28/20 08/08/20 U-100 Insulin aspart] TIDWMEAL losartan 25 mg PO DAILY 06/28/20 08/08/20 Allergies Allergy/AdvReac Type Severity Reaction Status Date / Time codeine Allergy Unknown Unknown Verified 08/07/20 16:29 NSAIDS (Non-Steroidal Allergy Unknown Unknown Verified 08/07/20 16:29 Anti-Inflamma Review of Systems Review of Systems: Narrative: Gen.: Denies fevers or chills ENT: Denies congestion Respiratory: Denies shortness of breath or cough CV: Denies chest pain or palpitations GI: Denies abdominal pain nausea, emesis or diarrhea denies burning, urgency, frequency or hematuria Musculoskeletal: See HPI Neuro: Denies numbness, tingling, weakness or focal weakness Skin: Denies rash Except as documented, all other systems reviewed and negative [facility] Past Medical History Medical History (Updated 09/20/20 @ 15:25 by Perico Egan DO) Acute dehydration Anemia of chronic disease Benign essential tremor Mainly affecting the head. Chronic kidney disease, stage III (moderate) Baseline creatinine between 0.9 and 1.20. Current use of chcf anticoagulation Deep venous thrombosis Depression Diabetic peripheral neuropathy In legs and feet. Diverticulitis Hypertension Insulin dependent type 2 diabetes mellitus With diabetic peripheral neuropathy. Hemoglobin A1c was 11.6% on 05/11/2020. Kidney stone Left bundle branch block Mixed hyperlipidemia Nonischemic dilated cardiomyopathy Ejection fraction was as low as 20% in February 2015. EF improved to 65% on echocardiogram in June 2018. Osteoarthritis of multiple joints Pituitary adenoma Supraventricular tachycardia Surgical History Surgical History History of appendectomy History of bilateral cataract extraction History of breast biopsy With benign pathology. History of cholecystectomy History of hysterectomy History of temporal artery biopsy (~12/2014) No evidence of temporal arteritis. S/P implantation of automatic cardioverter/defibrillator (AICD) Medtronic Status cardiac pacemaker Family History Family History Mother Family history of tuberculosis Father Patient's father is Daughter Cancer Social History Social History Social History: The patient is and lives with her in [place]. She has a son and daughter, both who live out of state. 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 She is originally from [facility] [place]. She has a 15 pack year smoking history and quit in 1963. No alcohol or drug abuse. She designates her son as her surrogate decision maker and she wishes to be a full code. Years smoked: 1 Smoking status: Former smoker Tobacco type
[2020-09-20] MEDS: SODIUM CHLORIDE 0.9% IV 1,000 ML 999 ML IV CONT (10:37)
[2020-09-20 11:00] LABS: Add Urine Microscopic? YES; Appearance Urine Clear (Clear); Bacteria Urine Trace /hpf; Bilirubin Urine Negative (Negative); Blood Urine 2+ (Negative); Color Urine Straw (Yellow); Glucose Urine UA 3+ mg/dL (Negative); Ketones Urine 2+ mg/dL (Negative); Leukocyte Esterase Ur Trace LEU/UL (Negative); Nitrate Urine Negative (Negative); Protein Urine 1+ mg/dL (Negative); Specific Grav Ur 1.023 (1.001-1.035); Urobilinogen Urine Negative mg/dL (<2.0); WBC Urine 16-20 /hpf
[2020-09-20 12:41] LABS: Basophils Percent Auto 0.3 % (0.2-1.2); Hematocrit 43.7 % (37.0-47.0); Hemoglobin 14.5 g/dL (12.0-15.0); Immature Granulocyte Absolute 0.05 K/mm3 (0.00-0.031); Immature Granulocyte Percent A 0.7 % (0-0.5); Lymphocytes Absolute Auto 0.81 K/mm3 (0.9-3.2); Lymphocytes Percent Auto 11.6 % (18.3-44.2); Mean Corpuscular HGB Conc 33.2 g/dl (32-36); Mean Corpuscular Hemoglobin 26.9 pg (26-34); Mean Corpuscular Volume 80.9 fl (80-100); Mean Platelet Volume 11.5 fl (7.4-10.4); Monocytes Absolute Auto 0.7 K/mm3 (0.1-0.6); Monocytes Percent Auto 9.8 % (2.6-8.5); Neutrophils Absolute Auto 5.4 K/mm3 (1.3-6.7); Neutrophils Percent Auto 77.6 % (45.5-73.1); Platelet Count Result 247 k/mm3 (150-375); Red Cell Distribution Width 14.4 % (11.5-14.5)
[2020-09-20 12:52] LABS: INR 1.1; Partial Thromboplastin Time 24.4 SECONDS (22.3-36.8); Prothrombin Time 14.7 Seconds (11.1-14.7)
[2020-09-20 12:58] LABS: Alanine Aminotransferase 34 U/L (4-35); Albumin Level 4.4 g/dL (3.5-5.1); Alkaline Phosphatase 162 U/L (38-126); Anion Gap 28 mmol/L (8-16); Aspartate Amino Transferase 42 U/L (14-36); Bilirubin,Total 0.5 mg/dL (0.2-1.3); Blood Urea Nitrogen 28 mg/dL (7-17); Calcium 9.4 mg/dL (8.4-10.2); Carbon Dioxide 10 mmol/L (22-30); Chloride 96 mmol/L (98-107); Creatine Kinase 222 U/L (30-135); Estimated CRCL calculation 25 ml/min; Estimated Glomerular Filt Rate 39; Glucose 538 mg/dL (65-105); Potassium 5.1 mmol/L (3.4-5.0); Sodium 134 mmol/L (137-145)
[2020-09-20 13:03] LABS: Troponin I < 0.012 ng/mL (0.000-0.034)
[2020-09-20 13:23] LABS: Base Excess ABG -17.5 mEq/l (+/-2.0); Fractional Inspired Oxygen 21 %; Oxygen Saturation ABG 95.9 % (95.0-100.0); Oxyhemoglobin 94.9 % THb (90.0-100.0); PO2 FiO2 Ratio Arterial Blood 4.43 %; Total Hemoglobin 14.2 g/dL (12.0-18.0)
[2020-09-20 13:25] LABS: Device ROOM AIR; Modified Allen's Test Pass; PCO2 ABG 19.8 mmHg (35.0-45.0); Site Drawn RIGHT RADIAL; pH ABG 7.222 (7.350-7.450)
[2020-09-20 13:54] LABS: Magnesium 2.1 mg/dL (1.6-2.3); Phosphorus 5.6 mg/dL (2.5-4.5)
[2020-09-20 13:58] LABS: Hemoglobin A1C 12.3 % (<5.7)
--- NOTE | 2020-09-20 13:59 | WPDCNINT ---
Assessment and Plan Assessment and plan (1) DKA, type 2: Code(s): E11.10 - Type 2 diabetes mellitus with ketoacidosis without coma Status: Acute Assessment and Plan: patient was started on IVF bolus and drip, Insulin drip, Serial Labs anion gap closed now will transition to subcutaneous insulin I will start Lantus at 30 units, with meals 3 unit of insulin and sliding scale start diabetic diet change IV fluids to half-normal saline (2) Chronic systolic CHF (congestive heart failure): Code(s): I50.22 - Chronic systolic (congestive) heart failure Status: Acute Assessment and Plan: history of congestive heart failure but appeared hypovolemic and dehydrated on presentation continue fluids as of now at a lower rate until patient's diet is normalized (3) UTI (urinary tract infection): Code(s): N39.0 - Urinary tract infection, site not specified Status: Acute Assessment and Plan: IV Rocephin, Cx, IVF (4) Acute kidney injury superimposed on CKD: Code(s): N17.9 - Acute kidney failure, unspecified; N18.9 - Chronic kidney disease, unspecified Status: Acute Assessment and Plan: likely prerenal as it has improved with IV fluids Monitor UO and Electrolytes (5) Hyperkalemia: Code(s): E87.5 - Hyperkalemia Status: Acute Assessment and Plan: resolved after she received IVF and Insulin in ED Additional Plan SCDs resume Eliquis. she had a DVT less than 6 months ago PT OT eval Plan to transfer out of ICU today News Technical Director Consult Note Consult date: 09/21/20 Time Seen: 07:20 HPI: DOS 09/21/2020 Nathalia Jaimes is a 80 year old female brought to emergency department from home via EMS after a fall. Patient was found by home health nurse this morning on the ground. Is unsure how long patient has been on the ground she states she normally walks with a cane or walker but was unable to provide the specifics of her fall. The patient is normally cared for by her who is currently admitted to the hospital does not been home with her for the past several days. In ED, patient complained of some lower back pain as well as head and neck pain. She denied any fevers or chills chest pain shortness of breath abdominal pain In ED, pt was found to be in DKA, UTI and BABS. She was started on IVF, abx and Insulin infusion. imaging done did not showed any osseous fracture. Overnight patient anion gap closed. This morning patient feels better but states that she feels tired. She told me that she was having difficulty with the needles she is not sure if she was taking her insulin regularly. Patient denies fever, chest pain, shortness of breath, nausea, vomiting, abdominal pain, headache or constipation. she does complain of cough which is dry and also diarrhea and she had 3 lose bowel movements overnight. All other systems were reviewed and were negative Review of Systems Review of Systems: All systems reviewed & are unremarkable except as noted in HPI and below (HPI) [facility] Past Medical History Medical History (Updated 09/20/20 @ 20:34 by Lucy Barnes PA-C) Anemia of chronic disease Benign essential tremor Mainly affecting the head. Chronic kidney disease, stage III (moderate) Baseline creatinine between 0.9 and 1.20. 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 Diverticulitis Hypertension Insulin dependent type 2 diabetes mellitus With diabetic peripheral neuropathy. Hemoglobin A1c was 12.3% on 09/20/2020. Kidney stone Left bundle branch block Mixed hyperlipidemia Nonischemic dilated cardiomyopathy Ejection fraction was as low as 20% in February 2015. EF improved to 65% on echocardiogram in June 2018. Osteoarthritis of multiple joints Pituitary adenoma Supraventricular tachycardia Surgical History Surgical History (Reviewed
[2020-09-20] MEDS: INSULIN HUMAN REGULAR (*BKC) 100 UNITS in SODIUM CHLORIDE 0.9% IV 99 ML 8.96 UNITS IV CONT ×2 (14:20→17:15)
[2020-09-20 14:24] LABS: Glucose Point of Care > 500 (65-105)
[2020-09-20 15:23] LABS: Glucose Point of Care 446 (65-105)
--- NOTE | 2020-09-20 17:00 | PM.IMHP ---
H&P: HPI History of Present Illness Date/Time: 09/20/20 17:00 Chief complaint: Found down. Narrative: Nathalia Jaimes is an 79-year-old female with history of poorly controlled type 2 diabetes mellitus, chronic kidney disease, hypertension, nonischemic cardiomyopathy status post ICD Bi V pacer, and several other comorbidities who presented to the emergency department earlier today via EMS from home for evaluation after she was found on the floor this morning by a home health nurse that came for a visit. The patient does not recall how she got on the floor nor does she remember falling, thus it is impossible to say if she had been there all night or if the fall occurred this morning. The patient lives at home with her , who is her primary therapeutic sales specialist, however he is currently hospitalized and she has been home alone for the last several days. The main complaint she had on arrival to the emergency department were that of low back pain as well as posterior head and neck discomfort. She was found to be dehydrated and in diabetic ketoacidosis with several electrolyte abnormalities, and is being admitted in this setting. At the time my evaluation she is confused and can not provide me with no meaningful history. She has no current complaints. Review of Systems Review of Systems: Narrative: A review of systems is unable to be obtained accurately given her confusion. She does deny headache, focal weakness, paresthesias, chest pain, shortness of breath, nausea, and vomiting. She did admit to having some mild dysuria recently. [facility] Past Medical History Medical History (Updated 09/20/20 @ 20:34 by Lucy Barnes PA-C) Anemia of chronic disease Benign essential tremor Mainly affecting the head. Chronic kidney disease, stage III (moderate) Baseline creatinine between 0.9 and 1.20. 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 Diverticulitis Hypertension Insulin dependent type 2 diabetes mellitus With diabetic peripheral neuropathy. Hemoglobin A1c was 12.3% on 09/20/2020. Kidney stone Left bundle branch block Mixed hyperlipidemia Nonischemic dilated cardiomyopathy Ejection fraction was as low as 20% in February 2015. EF improved to 65% on echocardiogram in June 2018. Osteoarthritis of multiple joints Pituitary adenoma Supraventricular tachycardia Surgical History Surgical History History of appendectomy History of bilateral cataract extraction History of breast biopsy With benign pathology. History of cholecystectomy History of hysterectomy History of temporal artery biopsy (~12/2014) No evidence of temporal arteritis. S/P implantation of automatic cardioverter/defibrillator (AICD) Medtronic Status cardiac pacemaker Family History Family History Mother Family history of tuberculosis Father Patient's father is Daughter Cancer Social History Social History (Updated 09/20/20 @ 20:29 by Lucy Barnes PA-C) Social History: The patient is and lives with her in [place]. She has a son and daughter, both who live out of state. 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 She is originally from [facility]. She has a 15 pack year smoking history and quit in 1963. No alcohol or drug abuse. She designates her son as her surrogate decision maker and she wishes to be a full code. Additional smoking assessment comments: Spiritual care concerns: No Agree to blood products: Yes Meds Home Medications and Allergies Home Medications Medication Instructions Recorded Confirmed Type multivitamin 1 tablet PO DAILY 10/18/19 09/20/20 History gabapentin 300 mg capsule 300 mg PO TID #270 cap 12/27/19 09/20/20 Rx lovastatin 40 mg tablet 40 mg PO QPM #90 tablet 01/05/20 09/20/20 Rx acet
[2020-09-20 17:22] LABS: Glucose Point of Care 300 (65-105)
[2020-09-20 17:22] LABS: Glucose Point of Care 403 (65-105)
[2020-09-20] MEDS: KCL 20 MEQ/D5/0.45% SOD CHL 1,000 ML 150 ML IV CONT (18:00)
[2020-09-20 18:24] LABS: Anion Gap 23 mmol/L (8-16); Blood Urea Nitrogen 28 mg/dL (7-17); Calcium 9.1 mg/dL (8.4-10.2); Carbon Dioxide 13 mmol/L (22-30); Chloride 106 mmol/L (98-107); Estimated CRCL calculation 25 ml/min; Estimated Glomerular Filt Rate 39; Glucose 215 mg/dL (65-105); Potassium 3.3 mmol/L (3.4-5.0); Sodium 142 mmol/L (137-145)
[2020-09-20 18:26] LABS: Glucose Point of Care 239 (65-105)
[2020-09-20] MEDS: SODIUM CHLORIDE 0.9% IV 1,000 ML 150 ML IV CONT (18:48)
--- NOTE | 2020-09-20 19:07 | ADMGEN ---
This patient, Nathalia Jaimes, was admitted to Intensive Care Unit-11 @ 1600. Patient/family oriented to hospital policies and general routines including ID bracelet, bed and alarms, visiting hours, pain management, procedures, bathroom and other care routines, personal items, smoking policy, room service/diet, and visiting hours. Information on how to activate the Rapid Response Team has been discussed. Patient/Family are encouraged to report perceived risks to care and to ask questions if they do not understand what they are told or what they should do.
[2020-09-20 19:25] LABS: Glucose Point of Care 152 (65-105)
--- NOTE | 2020-09-20 20:01 | PM.IMHP ---
H&P: HPI History of Present Illness Date/Time: 09/20/20 17:00 Chief complaint: dka,uti Narrative: Nathalia Jaimes is a 80 year old female [facility] Past Medical History Medical History (Updated 09/20/20 @ 15:25 by Perico Egan DO) Acute dehydration Anemia of chronic disease Benign essential tremor Mainly affecting the head. Chronic kidney disease, stage III (moderate) Baseline creatinine between 0.9 and 1.20. Current use of mcfp anticoagulation Deep venous thrombosis Depression Diabetic peripheral neuropathy In legs and feet. Diverticulitis Hypertension Insulin dependent type 2 diabetes mellitus With diabetic peripheral neuropathy. Hemoglobin A1c was 11.6% on 05/11/2020. Kidney stone Left bundle branch block Mixed hyperlipidemia Nonischemic dilated cardiomyopathy Ejection fraction was as low as 20% in February 2015. EF improved to 65% on echocardiogram in June 2018. Osteoarthritis of multiple joints Pituitary adenoma Supraventricular tachycardia Surgical History Surgical History History of appendectomy History of bilateral cataract extraction History of breast biopsy With benign pathology. History of cholecystectomy History of hysterectomy History of temporal artery biopsy (~12/2014) No evidence of temporal arteritis. S/P implantation of automatic cardioverter/defibrillator (AICD) Medtronic Status cardiac pacemaker Family History Family History Mother Family history of tuberculosis Father Patient's father is Daughter Cancer Social History Social History Social History: The patient is and lives with her in [place]. She has a son and daughter, both who live out of state. 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 She is originally from [facility]. She has a 15 pack year smoking history and quit in 1963. No alcohol or drug abuse. She designates her son as her surrogate decision maker and she wishes to be a full code. Years smoked: 1 Smoking status: Never smoker Tobacco type: cigarettes Additional smoking assessment comments: Alcohol intake: never Substance use: never Gender identity (if verbalized by the patient): Female Spiritual care concerns: No Agree to blood products: Yes Meds Home Medications and Allergies Home Medications Medication Instructions Recorded Confirmed Type multivitamin 1 tablet PO DAILY 10/18/19 09/20/20 History gabapentin 300 mg capsule 300 mg PO TID #270 cap 12/27/19 09/20/20 Rx lovastatin 40 mg tablet 40 mg PO QPM #90 tablet 01/05/20 09/20/20 Rx acetaminophen 650 mg PO Q6H PRN 02/11/20 09/20/20 History docusate sodium 100 mg PO Q12HR 30 Days #60 cap 04/19/20 09/20/20 Rx polyethylene glycol 3350 [Miralax] 17 g PO QAM 30 Days #30 each 04/19/20 09/20/20 Rx Eliquis 5 mg PO BID 05/11/20 09/20/20 History buspirone 5 mg PO DAILY 05/11/20 09/20/20 History sertraline 50 mg PO DAILY 05/11/20 09/20/20 History insulin aspart U-100 [Novolog 4 - 8 sliding scale dose SUBCUT 06/28/20 09/20/20 History U-100 Insulin aspart] TIDWMEAL losartan 25 mg PO DAILY 06/28/20 09/20/20 History Toujeo SoloStar U-300 Insulin 40 unit SUB-Q HS 09/20/20 09/20/20 History meclizine 25 mg PO TID PRN 09/20/20 09/20/20 History Allergies Allergy/AdvReac Type Severity Reaction Status Date / Time codeine Allergy Unknown Unknown Verified 08/07/20 16:29 NSAIDS (Non-Steroidal Allergy Unknown Unknown Verified 08/07/20 16:29 Anti-Inflamma Vital Signs Vital Signs - 24 hr 09/20/20 10:17 09/20/20 10:23 09/20/20 10:30 Temperature 98.0 F Pulse Rate 93 90 141 H Respiratory Rate 14 18 20 Blood Pressure 110/42 L Pulse Oximetry 98 09/20/20 10:31 09/20/20 10:45 09/20/20 10:46 Temperature Pulse Rate 131 H 91 87 Respiratory Rate 20 14 20 Blood Pressure 150/66 H 149/54
[2020-09-20 20:33] LABS: Glucose Point of Care 143 (65-105)
[2020-09-20 22:08] LABS: Glucose Point of Care 102 (65-105)
[2020-09-20 22:08] LABS: Glucose Point of Care 130 (65-105)
[2020-09-20 23:35] LABS: Glucose Point of Care 116 (65-105)
[2020-09-21] VITALS (10 sets, daily range): BP systolic 94–156; BP diastolic 52–76; PULSE 78–97; RESP 16–21; TEMP 36.3–37.1; O2SAT 94–100
[2020-09-21 00:38] LABS: Glucose Point of Care 124 (65-105)
[2020-09-21 01:29] LABS: Glucose Point of Care 127 (65-105)
[2020-09-21 01:38] LABS: Anion Gap 10 mmol/L (8-16); Blood Urea Nitrogen 32 mg/dL (7-17); Calcium 8.5 mg/dL (8.4-10.2); Carbon Dioxide 20 mmol/L (22-30); Chloride 109 mmol/L (98-107); Creatine Kinase 308 U/L (30-135); Estimated CRCL calculation 32 ml/min; Estimated Glomerular Filt Rate 53; Glucose 115 mg/dL (65-105); Sodium 139 mmol/L (137-145)
[2020-09-21] MEDS: KCL 20 MEQ/D5/0.45% SOD CHL 1,000 ML 150 ML IV CONT (01:48)
[2020-09-21 03:25] LABS: Glucose Point of Care 101 (65-105)
[2020-09-21 03:25] LABS: Glucose Point of Care 107 (65-105)
[2020-09-21 04:35] LABS: Glucose Point of Care 116 (65-105)
[2020-09-21 06:54] LABS: Basophils Percent Auto 0.3 % (0.2-1.2); Eosinophils Percent Auto 0.1 % (0-4.4); Hematocrit 36.9 % (37.0-47.0); Hemoglobin 12.9 g/dL (12.0-15.0); Immature Granulocyte Absolute 0.04 K/mm3 (0.00-0.031); Immature Granulocyte Percent A 0.5 % (0-0.5); Lymphocytes Absolute Auto 1.73 K/mm3 (0.9-3.2); Lymphocytes Percent Auto 22.2 % (18.3-44.2); Mean Corpuscular Hemoglobin 27.7 pg (26-34); Mean Corpuscular Volume 79.4 fl (80-100); Mean Platelet Volume 11.7 fl (7.4-10.4); Monocytes Absolute Auto 1.5 K/mm3 (0.1-0.6); Monocytes Percent Auto 18.7 % (2.6-8.5); Neutrophils Absolute Auto 4.5 K/mm3 (1.3-6.7); Neutrophils Percent Auto 58.2 % (45.5-73.1); Platelet Count Result 201 k/mm3 (150-375); Red Blood Count 4.65 M/mm3 (4.2-5.4); Red Cell Distribution Width 14.6 % (11.5-14.5); White Blood Count 7.8 K/mm3 (4.5-10.0)
[2020-09-21 07:26] LABS: Glucose Point of Care 129 (65-105)
[2020-09-21 07:26] LABS: Glucose Point of Care 122 (65-105)
[2020-09-21 07:32] LABS: Alanine Aminotransferase 29 U/L (4-35); Albumin Level 3.3 g/dL (3.5-5.1); Alkaline Phosphatase 105 U/L (38-126); Anion Gap 9 mmol/L (8-16); Aspartate Amino Transferase 57 U/L (14-36); Bilirubin,Total 0.3 mg/dL (0.2-1.3); Blood Urea Nitrogen 29 mg/dL (7-17); Calcium 8.2 mg/dL (8.4-10.2); Carbon Dioxide 20 mmol/L (22-30); Chloride 108 mmol/L (98-107); Estimated CRCL calculation 32 ml/min; Estimated Glomerular Filt Rate 53; Glucose 114 mg/dL (65-105); Magnesium 1.8 mg/dL (1.6-2.3); Potassium 3.7 mmol/L (3.4-5.0); Sodium 137 mmol/L (137-145)
[2020-09-21] MEDS: SODIUM CHLORIDE 0.45% 1,000 ML 50 ML IV CONT (08:09)
[2020-09-21] MEDS: INSULIN GLARGINE (*BKC) 100 UNITS/ML 30 UNITS SUB-Q (08:10)
[2020-09-21] MEDS: busPIRone HCL 5 MG TABLET PO (09:03)
[2020-09-21] MEDS: INSULIN ASPART (*BKC) 100 UNITS/ML SUB-Q ×5 (09:03→17:31)
[2020-09-21] MEDS: GABAPENTIN 300 MG CAPSULE PO ×3 (09:04→17:29)
[2020-09-21] MEDS: SERTRALINE HCL 50 MG TABLET PO (09:04)
[2020-09-21 09:08] LABS: Glucose Point of Care 111 (65-105)
--- NOTE | 2020-09-21 12:43 | PCDIET ---
Nutrition consult received. Patient not appropriate for education at this time. Answered questions appropriately but answered slowly and had difficulty finding words. c/o not feeling well enough for education and does not have eyeglasses to review handout. Left handout Type 2 Diabetes Nutrition Therapy from Nutrition Care Manual with RD contact information.
[2020-09-21 13:04] LABS: Anion Gap 13 mmol/L (8-16); Blood Urea Nitrogen 26 mg/dL (7-17); Calcium 8.3 mg/dL (8.4-10.2); Carbon Dioxide 14 mmol/L (22-30); Chloride 105 mmol/L (98-107); Estimated CRCL calculation 36 ml/min; Estimated Glomerular Filt Rate 60; Glucose 292 mg/dL (65-105); Potassium 5.7 mmol/L (3.4-5.0); Sodium 132 mmol/L (137-145)
[2020-09-21] MEDS: FUROSEMIDE INJ 40 MG/4 ML VIAL 20 MG IV PUSH (15:08)
[2020-09-21] MEDS: SODIUM POLYSTYRENE SULFONONATE 15 GM/60 ML BTL 30 GM PO (15:09)
--- NOTE | 2020-09-21 16:34 | PM.IMPN ---
Progress Note: A&P Assessment and Plan (1) Diabetic ketoacidosis associated with type 2 diabetes mellitus: Code(s): E11.10 - Type 2 diabetes mellitus with ketoacidosis without coma Status: Acute Assessment and Plan: Resolved now, her anion gap is closed and the drip has been stopped. Continue long acting insulin and short acting insulin, her DKA was likely triggered by the UTI and non complaince. Her diabetes is poorly controlled with a Hb A1C around 12%. (2) Acute UTI: Code(s): N39.0 - Urinary tract infection, site not specified Status: Acute Assessment and Plan: On ceftriaxone Cultures growing gram negative bacilli (3) Hyperkalemia: Code(s): E87.5 - Hyperkalemia Status: Acute Assessment and Plan: Probably due to insulinopenia. Received one dose of Kayexalate and Lasix. Recheck K later today. (4) DVT (deep venous thrombosis): Qualifiers: DVT location: lower extremity Affected thrombotic vein of extremity: peroneal Chronicity: acute Laterality: left Qualified Code(s): I82.452 - Acute embolism and thrombosis of left peroneal vein Code(s): I82.409 - Acute embolism and thrombosis of unspecified deep veins of unspecified lower extremity Status: Acute Assessment and Plan: On Eliquis, she was diagnosed with DVT less than 6 months ago. Subjective Date/time seen: No major complains, she feels better, does not remember the events that resulted in her hospitalization, denies chest pain, cough, no diarrhea, reports urinary symptoms but no nausea or vomiting. 09/21/20 16:34 Review of Systems Review of Systems: All systems reviewed & are unremarkable except as noted in HPI and below Exam Const: General: alert and awake Other: Poor historian, slow to respond. Neck: Neck: supple Resp: Effort & Inspection: normal respiratory effort and able to speak in complete sentences Auscultation: clear to auscultation bilaterally Cardio: Jugular venous distension: no JVD Rate: regular rate Rhythm: regular rhythm Heart sounds: S1 normal heart sound present and S2 normal heart sound present Other: No bradycardia or tachycardia GI: Inspection: normal to inspection GI Palp: Yes Soft to palpation Auscultation: normal bowel sounds Urinary Catheter: Urinary Catheter: patent and draining Skin: General skin exam: no rashes or lesions noted Neuro: General: moves all extremities and no focal motor deficits Cognition (Neuro): abnormal cognition Objective Data Vital Signs Vital Signs: Vital Signs - 24 hr 09/20/20 16:37 09/20/20 20:00 09/20/20 22:00 Temperature 98.1 F Pulse Rate 96 89 88 Respiratory Rate 17 17 21 H Blood Pressure 123/57 L 112/63 Pulse Oximetry 100 99 97 09/21/20 00:00 09/21/20 02:00 09/21/20 04:00 Temperature 98.1 F 97.4 F L Pulse Rate 84 83 82 Respiratory Rate 18 19 19 Blood Pressure 129/59 L 118/52 L 127/56 L Pulse Oximetry 98 95 96 09/21/20 06:00 09/21/20 08:00 09/21/20 10:00 Temperature 98.7 F Pulse Rate 78 82 97 Respiratory Rate 18 21 H 16 Blood Pressure 129/65 131/61 94/66 L Pulse Oximetry 97 99 98 Intake/Output Intake/Output: Intake & Output 09/18/20 09/19/20 09/20/20 09/21/20 23:59 23:59 23:59 23:59 Intake Total 1058 2400 Output Total 300 Balance 1058 2100 Meds/Results Medications: Active Medications Generic Name Dose Route Start Last Admin Trade Name Freq PRN Reason Stop Dose Admin Apixaban 5 mg 09/21/20 21:00 Apixaban 5 Mg Tablet PO Q12HR [facility] Buspirone HCl 5 mg 09/21/20 09:00 09/21/20 09:03 Buspirone Hcl 5 Mg Tablet PO 5 mg DAILY [facility] Administration Dextrose 12.5 gm 09/21/20 07:42 Dextrose 50% 25 Gm/50 Ml Syringe IV PUSH PRN PRN Hypoglycemia Protocol Docusate Sodium 100 mg 09/20/20 21:00 09/21/20 09:04 Docusate Sodium 100 Mg Capsule PO Not Given Q12HR [facility] Gabapentin 300 mg
--- NOTE | 2020-09-21 17:03 | PC.NURSE ---
This patient, Nathalia Jaimes, was transferred to [facility] on 09/21/20 at 1703 via bed. Personal belongings sent with patient. Report given to FIDEL He. Appropriate documentation sent with patient.
[2020-09-21] MEDS: LOVASTATIN 20 MG TABLET 40 MG PO (17:33)
[2020-09-21 18:05] LABS: Glucose Point of Care 248 (65-105)
--- NOTE | 2020-09-21 18:40 | PC.NURSE ---
This patient, Nathalia Jaimes, was received from ICU on 09/21/20 at 1705, report received from Ken at 1600. Patient/family oriented to unit policies and routines
[2020-09-21 20:24] LABS: Anion Gap 10 mmol/L (8-16); Blood Urea Nitrogen 25 mg/dL (7-17); Carbon Dioxide 20 mmol/L (22-30); Chloride 102 mmol/L (98-107); Estimated CRCL calculation 32 ml/min; Estimated Glomerular Filt Rate 53; Glucose 256 mg/dL (65-105); Potassium 3.3 mmol/L (3.4-5.0); Sodium 132 mmol/L (137-145)
[2020-09-21] MEDS: DOCUSATE SODIUM 100 MG CAPSULE PO (20:43)
[2020-09-21] MEDS: APIXABAN 5 MG TABLET PO (20:43)
[2020-09-21 21:17] LABS: Glucose Point of Care 220 (65-105)
[2020-09-22] VITALS (9 sets, daily range): BP systolic 117–137; BP diastolic 48–63; PULSE 79–102; RESP 16–20; TEMP 36.4–37.2; O2SAT 96
[2020-09-22 01:04] LABS: Glucose Point of Care 297 (65-105)
[2020-09-22] MEDS: ACETAMINOPHEN 325 MG TABLET 650 MG PO (04:25)
[2020-09-22 07:07] LABS: Alanine Aminotransferase 42 U/L (4-35); Alkaline Phosphatase 111 U/L (38-126); Anion Gap 10 mmol/L (8-16); Aspartate Amino Transferase 79 U/L (14-36); Bilirubin,Total 0.3 mg/dL (0.2-1.3); Blood Urea Nitrogen 21 mg/dL (7-17); Calcium 7.7 mg/dL (8.4-10.2); Carbon Dioxide 21 mmol/L (22-30); Chloride 100 mmol/L (98-107); Estimated CRCL calculation 29 ml/min; Estimated Glomerular Filt Rate 48; Glucose 303 mg/dL (65-105); Magnesium 1.5 mg/dL (1.6-2.3); Potassium 2.8 mmol/L (3.4-5.0); Sodium 131 mmol/L (137-145)
[2020-09-22] MEDS: INSULIN ASPART (*BKC) 100 UNITS/ML SUB-Q ×7 (08:44→20:29)
[2020-09-22] MEDS: INSULIN GLARGINE (*BKC) 100 UNITS/ML 30 UNITS SUB-Q (08:46)
[2020-09-22] MEDS: GABAPENTIN 300 MG CAPSULE PO ×3 (08:48→17:21)
[2020-09-22] MEDS: DOCUSATE SODIUM 100 MG CAPSULE PO ×2 (08:48→20:22)
[2020-09-22] MEDS: busPIRone HCL 5 MG TABLET PO (08:48)
[2020-09-22] MEDS: APIXABAN 5 MG TABLET PO ×2 (08:48→20:20)
[2020-09-22 08:49] LABS: Glucose Point of Care 287 (65-105)
[2020-09-22] MEDS: SERTRALINE HCL 50 MG TABLET PO (08:49)
[2020-09-22] MEDS: POTASSIUM CHLORIDE 20 MEQ TABLET 40 MEQ PO ×2 (08:49→17:21)
--- NOTE | 2020-09-22 12:10 | PM.IMPN ---
Progress Note: A&P Assessment and Plan (1) Diabetic ketoacidosis associated with type 2 diabetes mellitus: Code(s): E11.10 - Type 2 diabetes mellitus with ketoacidosis without coma Status: Acute Assessment and Plan: Resolved now, her anion gap is closed and the drip has been stopped. We will modify her regimen to 0.5 Units per KG and divide that to 50% long acting daily 50% short acting TID, her DKA was likely triggered by the UTI and non compliance. Her diabetes is poorly controlled with a Hb A1C around 12%. (2) Acute UTI: Code(s): N39.0 - Urinary tract infection, site not specified Status: Acute Assessment and Plan: On ceftriaxone day # 3 Cultures growing Klebsiella susceptible to ceftriaxone.i (3) Hyperkalemia: Code(s): E87.5 - Hyperkalemia Status: Acute Assessment and Plan: Probably due to insulinopenia, now resolved. Received one dose of Kayexalate and Lasix and now her K is low. (4) DVT (deep venous thrombosis): Qualifiers: DVT location: lower extremity Affected thrombotic vein of extremity: peroneal Chronicity: acute Laterality: left Qualified Code(s): I82.452 - Acute embolism and thrombosis of left peroneal vein Code(s): I82.409 - Acute embolism and thrombosis of unspecified deep veins of unspecified lower extremity Status: Acute Assessment and Plan: On Eliquis, she was diagnosed with DVT less than 6 months ago. (5) Physical deconditioning: Code(s): R53.81 - Other malaise Status: Acute Assessment and Plan: Working with PT, will probably need to go to rehab at discharge. Subjective Date/time seen: No major complains, she is forgetful but not in distress most likely at baseline. 09/22/20 12:10 Review of Systems Review of Systems: All systems reviewed & are unremarkable except as noted in HPI and below Exam Const: General: alert and awake Other: Poor historian, slow to respond. Neck: Neck: supple Resp: Effort & Inspection: normal respiratory effort and able to speak in complete sentences Auscultation: clear to auscultation bilaterally Cardio: Jugular venous distension: no JVD Rate: regular rate Rhythm: regular rhythm Heart sounds: S1 normal heart sound present and S2 normal heart sound present Other: No bradycardia or tachycardia GI: Inspection: normal to inspection Auscultation: normal bowel sounds Urinary Catheter: Urinary Catheter: patent and draining Skin: General skin exam: no rashes or lesions noted Neuro: General: moves all extremities and no focal motor deficits Cognition (Neuro): abnormal cognition Objective Data Vital Signs Vital Signs: Vital Signs - 24 hr 09/21/20 17:30 09/21/20 19:30 09/21/20 20:00 Temperature 97.3 F L Pulse Rate 92 92 Respiratory Rate 16 18 Blood Pressure 125/58 L Pulse Oximetry 100 94 09/21/20 22:00 09/22/20 00:00 09/22/20 04:00 Temperature 98.0 F Pulse Rate 90 87 83 Respiratory Rate 18 Blood Pressure 156/76 H Pulse Oximetry 94 09/22/20 06:00 09/22/20 08:00 Temperature 98.9 F Pulse Rate 80 79 Respiratory Rate 20 Blood Pressure 137/63 Pulse Oximetry 96 Intake/Output Intake/Output: Intake & Output 09/19/20 09/20/20 09/21/20 09/22/20 23:59 23:59 23:59 23:59 Intake Total 1058 2400 1220 Output Total 1050 550 Balance 1058 1350 670 Meds/Results Medications: Active Medications Generic Name Dose Route Start Last Admin Trade Name Freq PRN Reason Stop Dose Admin Acetaminophen 650 mg 09/22/20 03:53 09/22/20 04:25 Acetaminophen 325 Mg Tablet PO 650 mg Q4H PRN Administration Mild Pain (1-3) or Fever Apixaban 5 mg 09/21/20 21:00 09/22/20 08:48 Apixaban 5 Mg Tablet PO 5 mg Q12HR [facility] Administration Buspirone HCl 5 mg 09/21/20 09:00 09/22/20 08:48 Buspirone Hcl 5 Mg Tablet PO 5 mg DAILY [facility] Administration Dextrose 12.5 gm 09/21
--- NOTE | 2020-09-22 12:11 | PCCDE ---
Consult received 09/20 but not appropriate as pt is confused and care coordination is setting up SNF placement. Please re-consult if plan changes.
[2020-09-22 12:22] LABS: Glucose Point of Care 247 (65-105)
[2020-09-22] MEDS: LOVASTATIN 20 MG TABLET 40 MG PO (17:21)
[2020-09-22 17:27] LABS: Glucose Point of Care 311 (65-105)
[2020-09-22] MEDS: MAGNESIUM SULF 2 GM/WATER 50ML 2 GM/50 ML BAG IVPB (17:35)
[2020-09-22 22:23] LABS: Glucose Point of Care 246 (65-105)
[2020-09-23] VITALS (8 sets, daily range): BP systolic 110–139; BP diastolic 42–67; PULSE 73–82; RESP 16–18; TEMP 36.2–37.9; O2SAT 96–98
[2020-09-23 07:32] LABS: Alanine Aminotransferase 37 U/L (4-35); Alkaline Phosphatase 107 U/L (38-126); Anion Gap 5 mmol/L (8-16); Aspartate Amino Transferase 60 U/L (14-36); Bilirubin,Total 0.2 mg/dL (0.2-1.3); Blood Urea Nitrogen 20 mg/dL (7-17); Carbon Dioxide 23 mmol/L (22-30); Chloride 104 mmol/L (98-107); Estimated CRCL calculation 36 ml/min; Estimated Glomerular Filt Rate 60; Glucose 188 mg/dL (65-105); Potassium 3.4 mmol/L (3.4-5.0); Sodium 132 mmol/L (137-145)
[2020-09-23 08:32] LABS: Glucose Point of Care 218 (65-105)
[2020-09-23] MEDS: GABAPENTIN 300 MG CAPSULE PO ×3 (10:20→19:42)
[2020-09-23] MEDS: POTASSIUM CHLORIDE 20 MEQ TABLET 40 MEQ PO ×2 (10:20→17:33)
[2020-09-23] MEDS: SERTRALINE HCL 50 MG TABLET PO (10:20)
[2020-09-23] MEDS: ACETAMINOPHEN 325 MG TABLET 650 MG PO ×2 (10:20→21:52)
[2020-09-23] MEDS: APIXABAN 5 MG TABLET PO ×2 (10:20→21:08)
[2020-09-23] MEDS: busPIRone HCL 5 MG TABLET PO (10:20)
[2020-09-23] MEDS: INSULIN ASPART (*BKC) 100 UNITS/ML SUB-Q ×6 (10:21→17:36)
[2020-09-23] MEDS: INSULIN GLARGINE (*BKC) 100 UNITS/ML 15 UNITS SUB-Q (10:30)
[2020-09-23] MEDS: LIDOCAINE 5% PATCH 1 PATCH TRANSDERM (12:27)
[2020-09-23 12:37] LABS: Glucose Point of Care 285 (65-105)
--- NOTE | 2020-09-23 15:58 | PM.IMPN ---
Progress Note: A&P Assessment and Plan (1) Diabetic ketoacidosis associated with type 2 diabetes mellitus: Code(s): E11.10 - Type 2 diabetes mellitus with ketoacidosis without coma Status: Acute Assessment and Plan: Resolved now, her anion gap is closed and the drip has been stopped. We will modify her regimen to 0.5 Units per KG and divide that to 50% long acting daily 50% short acting TID, her DKA was likely triggered by the UTI and non compliance. Her diabetes is poorly controlled with a Hb A1C around 12%. 09/23/20 15:58Patient 80-year-old female with dementia, hypertension, cardiomyopathy with bi ventricular pacemaker history of uncontrolled diabetes with hemoglobin A1c of 12, patient had been living by herself as her is hospitalized who is her caregiver, presented emergency department after she was found on the floor by home health nurse at home, upon arrival patient was in DKA patient was transfer to ICU and was treated with a IV infusion of insulin as well as IVF, her symptoms have improved an ion gap was closed and patient is now on long-acting insulin as well as mealtime insulin and will continue to monitor with sliding scale, and also found to have a UTI this may have triggered her DKA, urine culture is growing Klebsiella pneumonia sensitive to Rocephin will continue, emergency department patient had a x-ray of the pelvic, lumbar spine, C-spine, CT of the head, essentially normal no acute injury, patient does complaint of pain in her hips and lower extremities will have a PT OT evaluate the patient patient will benefit from acute rehab (2) Acute UTI: Code(s): N39.0 - Urinary tract infection, site not specified Status: Acute Assessment and Plan: On ceftriaxone day # 3 Cultures growing Klebsiella susceptible to ceftriaxone.i (3) Hyperkalemia: Code(s): E87.5 - Hyperkalemia Status: Acute Assessment and Plan: Probably due to insulinopenia, now resolved. Received one dose of Kayexalate and Lasix and now her K is low. (4) DVT (deep venous thrombosis): Qualifiers: DVT location: lower extremity Affected thrombotic vein of extremity: peroneal Chronicity: acute Laterality: left Qualified Code(s): I82.452 - Acute embolism and thrombosis of left peroneal vein Code(s): I82.409 - Acute embolism and thrombosis of unspecified deep veins of unspecified lower extremity Status: Acute Assessment and Plan: On Eliquis, she was diagnosed with DVT less than 6 months ago. (5) Physical deconditioning: Code(s): R53.81 - Other malaise Status: Acute Assessment and Plan: Working with PT, will probably need to go to rehab at discharge. Additional Plan The patient has been admitted to the ICU under the hospitalist service with Dr. Thomson (critical care) consulting. She has been started on insulin drip which will be titrated per DKA protocol. Her diabetes is historically poorly controlled, and with her in the hospital recently she has obviously not been able to care for herself. It has been suggested to her many times that they look at assisted living however has not yet come to fruition. I suspect she has some underlying dementia she typically some level of confusion while hospitalized but she seems much more confused currently, likely due to toxic metabolic encephalopathy and dehydration. She looks very dry and is receiving cautious IV fluid rehydration with close monitoring of her volume status. Her electrolyte abnormalities should correct with insulin drip. Monitor closely for anion gap closure. She has been started on antibiotics, pending urine culture given reports of dysuria with an abnormal urinalysis. Apixaban is on hold as she was found down today after a fall. Subjective Date/time seen: 09/23/20 15:58Patient 80-year-old female with dementia, hypertension, cardiomyopathy with bi ventricular pacemake
[2020-09-23 17:55] LABS: Glucose Point of Care 238 (65-105)
[2020-09-23] MEDS: LOVASTATIN 20 MG TABLET 40 MG PO (19:42)
[2020-09-23 21:09] LABS: Glucose Point of Care 257 (65-105)
[2020-09-23] MEDS: DOCUSATE SODIUM 100 MG CAPSULE PO (21:09)
[2020-09-24] VITALS (7 sets, daily range): BP systolic 108–131; BP diastolic 41–53; PULSE 56–82; RESP 16–20; TEMP 36.6–37.7; O2SAT 92–99
[2020-09-24] MEDS: INSULIN GLARGINE (*BKC) 100 UNITS/ML 15 UNITS SUB-Q (09:25)
[2020-09-24] MEDS: INSULIN ASPART (*BKC) 100 UNITS/ML SUB-Q ×6 (09:26→17:30)
[2020-09-24] MEDS: APIXABAN 5 MG TABLET PO ×2 (09:28→21:09)
[2020-09-24] MEDS: POTASSIUM CHLORIDE 20 MEQ TABLET 40 MEQ PO ×2 (09:28→17:34)
[2020-09-24] MEDS: GABAPENTIN 300 MG CAPSULE PO ×3 (09:28→17:30)
[2020-09-24] MEDS: SERTRALINE HCL 50 MG TABLET PO (09:28)
[2020-09-24] MEDS: busPIRone HCL 5 MG TABLET PO (09:28)
[2020-09-24] MEDS: LIDOCAINE 5% PATCH 1 PATCH TRANSDERM (09:28)
[2020-09-24] MEDS: DOCUSATE SODIUM 100 MG CAPSULE PO (09:31)
[2020-09-24 09:51] LABS: Alanine Aminotransferase 34 U/L (4-35); Alkaline Phosphatase 104 U/L (38-126); Anion Gap 5 mmol/L (8-16); Aspartate Amino Transferase 51 U/L (14-36); Bilirubin,Total 0.2 mg/dL (0.2-1.3); Blood Urea Nitrogen 16 mg/dL (7-17); Calcium 8.1 mg/dL (8.4-10.2); Carbon Dioxide 25 mmol/L (22-30); Chloride 103 mmol/L (98-107); Estimated CRCL calculation 36 ml/min; Estimated Glomerular Filt Rate 60; Glucose 311 mg/dL (65-105); Magnesium 1.6 mg/dL (1.6-2.3); Potassium 4.5 mmol/L (3.4-5.0); Sodium 133 mmol/L (137-145)
[2020-09-24 10:24] LABS: Glucose Point of Care 348 (65-105)
[2020-09-24 11:15] LABS: Hematocrit 35.9 % (37.0-47.0); Hemoglobin 12.2 g/dL (12.0-15.0); Mean Corpuscular Hemoglobin 27.7 pg (26-34); Mean Corpuscular Volume 81.4 fl (80-100); Mean Platelet Volume 11.4 fl (7.4-10.4); Platelet Count Result 125 k/mm3 (150-375); Red Blood Count 4.41 M/mm3 (4.2-5.4); Red Cell Distribution Width 14.6 % (11.5-14.5); White Blood Count 3.1 K/mm3 (4.5-10.0)
[2020-09-24] MEDS: ACETAMINOPHEN 325 MG TABLET 650 MG PO (11:24)
[2020-09-24 11:29] LABS: CRP 2.4 mg/dL (<1.0)
[2020-09-24 13:41] LABS: Glucose Point of Care 260 (65-105)
--- NOTE | 2020-09-24 16:08 | PM.IMPN ---
Progress Note: A&P Assessment and Plan (1) Diabetic ketoacidosis associated with type 2 diabetes mellitus: Code(s): E11.10 - Type 2 diabetes mellitus with ketoacidosis without coma Status: Acute Assessment and Plan: Resolved now, her anion gap is closed and the drip has been stopped. We will modify her regimen to 0.5 Units per KG and divide that to 50% long acting daily 50% short acting TID, her DKA was likely triggered by the UTI and non compliance. Her diabetes is poorly controlled with a Hb A1C around 12%. 09/24/20 16:08 Patient 80-year-old female with dementia, hypertension, cardiomyopathy with bi ventricular pacemaker history of uncontrolled diabetes with hemoglobin A1c of 12, patient had been living by herself as her is hospitalized who is her caregiver, presented emergency department after she was found on the floor by home health nurse at home, upon arrival patient was in DKA patient was transfer to ICU and was treated with a IV infusion of insulin as well as IVF, her symptoms have improved an ion gap was closed and patient is now on long-acting insulin as well as mealtime insulin and will continue to monitor with sliding scale, and also found to have a UTI this may have triggered her DKA, urine culture is growing Klebsiella pneumonia sensitive to Rocephin will continue, emergency department patient had a x-ray of the pelvic, lumbar spine, C-spine, CT of the head, essentially normal no acute injury, Patient is found to positive for covid-19 and suspect patient may be positive, patient is being tested and pending and paitient is placed on isolation, Patient did have fever and requiring oxygen, if patient is positive, will start dexamethasone and remdesivir, patient does complaint of pain in her hips and lower extremities will have a PT OT evaluate the patient patient will benefit from acute rehab (2) Acute UTI: Code(s): N39.0 - Urinary tract infection, site not specified Status: Acute Assessment and Plan: On ceftriaxone day # 3 Cultures growing Klebsiella susceptible to ceftriaxone.i (3) Hyperkalemia: Code(s): E87.5 - Hyperkalemia Status: Acute Assessment and Plan: Probably due to insulinopenia, now resolved. Received one dose of Kayexalate and Lasix and now her K is low. (4) DVT (deep venous thrombosis): Qualifiers: DVT location: lower extremity Affected thrombotic vein of extremity: peroneal Chronicity: acute Laterality: left Qualified Code(s): I82.452 - Acute embolism and thrombosis of left peroneal vein Code(s): I82.409 - Acute embolism and thrombosis of unspecified deep veins of unspecified lower extremity Status: Acute Assessment and Plan: On Eliquis, she was diagnosed with DVT less than 6 months ago. (5) Physical deconditioning: Code(s): R53.81 - Other malaise Status: Acute Assessment and Plan: Working with PT, will probably need to go to rehab at discharge. Subjective Date/time seen: 09/24/20 16:08 Patient 80-year-old female with dementia, hypertension, cardiomyopathy with bi ventricular pacemaker history of uncontrolled diabetes with hemoglobin A1c of 12, patient had been living by herself as her is hospitalized who is her caregiver, presented emergency department after she was found on the floor by home health nurse at home, upon arrival patient was in DKA patient was transfer to ICU and was treated with a IV infusion of insulin as well as IVF, her symptoms have improved an ion gap was closed and patient is now on long-acting insulin as well as mealtime insulin and will continue to monitor with sliding scale, and also found to have a UTI this may have triggered her DKA, urine culture is growing Klebsiella pneumonia sensitive to Rocephin will continue, emergency department patient had a x-ray of the pelvic, lumbar spine, C-spine, CT of the head, essentially normal no ac
[2020-09-24] MEDS: LOVASTATIN 20 MG TABLET 40 MG PO (17:31)
[2020-09-24 17:35] LABS: D Dimer 0.57 ug/mL (<0.48)
[2020-09-24 17:59] LABS: Glucose Point of Care 235 (65-105)
[2020-09-24 21:18] LABS: SARS-CoV-2 RNA PCR Positive
[2020-09-24 22:10] LABS: Glucose Point of Care 270 (65-105)
[2020-09-25] VITALS: BP 125/62; PULSE 83; RESP 20; TEMP 37.8; O2SAT 92
[2020-09-25 04:00] VITALS: BP 137/67; PULSE 85; RESP 20; TEMP 37.5; O2SAT 91
[2020-09-25 06:42] LABS: Basophils Percent Auto 0.3 % (0.2-1.2); Eosinophils Percent Auto 0.8 % (0-4.4); Hematocrit 34.6 % (37.0-47.0); Hemoglobin 11.8 g/dL (12.0-15.0); Immature Granulocyte Absolute 0.02 K/mm3 (0.00-0.031); Immature Granulocyte Percent A 0.5 % (0-0.5); Immature Platelet Fraction Pct 6.3 % (0.9-11.2); Lymphocytes Absolute Auto 1.09 K/mm3 (0.9-3.2); Lymphocytes Percent Auto 29.7 % (18.3-44.2); Mean Corpuscular HGB Conc 34.1 g/dl (32-36); Mean Corpuscular Hemoglobin 26.9 pg (26-34); Mean Corpuscular Volume 78.8 fl (80-100); Mean Platelet Volume 11.4 fl (7.4-10.4); Monocytes Absolute Auto 0.4 K/mm3 (0.1-0.6); Monocytes Percent Auto 11.4 % (2.6-8.5); Neutrophils Absolute Auto 2.1 K/mm3 (1.3-6.7); Neutrophils Percent Auto 57.3 % (45.5-73.1); Platelet Count Result 119 k/mm3 (150-375); Red Blood Count 4.39 M/mm3 (4.2-5.4); Red Cell Distribution Width 14.2 % (11.5-14.5); White Blood Count 3.7 K/mm3 (4.5-10.0)
[2020-09-25 07:01] LABS: Alanine Aminotransferase 35 U/L (4-35); Alkaline Phosphatase 104 U/L (38-126); Anion Gap 4 mmol/L (8-16); Aspartate Amino Transferase 52 U/L (14-36); Bilirubin,Total 0.3 mg/dL (0.2-1.3); Blood Urea Nitrogen 14 mg/dL (7-17); CRP 2.5 mg/dL (<1.0); Calcium 8.3 mg/dL (8.4-10.2); Carbon Dioxide 26 mmol/L (22-30); Chloride 99 mmol/L (98-107); Estimated CRCL calculation 40 ml/min; Estimated Glomerular Filt Rate > 60; Glucose 298 mg/dL (65-105); Magnesium 1.4 mg/dL (1.6-2.3); Potassium 4.4 mmol/L (3.4-5.0); Sodium 129 mmol/L (137-145)
[2020-09-25] MEDS: busPIRone HCL 5 MG TABLET PO (09:41)
[2020-09-25] MEDS: SERTRALINE HCL 50 MG TABLET PO (09:41)
[2020-09-25] MEDS: GABAPENTIN 300 MG CAPSULE PO ×3 (09:41→17:17)
[2020-09-25] MEDS: APIXABAN 5 MG TABLET PO ×2 (09:42→22:10)
[2020-09-25] MEDS: POTASSIUM CHLORIDE 20 MEQ TABLET 40 MEQ PO ×2 (09:44→17:21)
[2020-09-25] MEDS: INSULIN ASPART (*BKC) 100 UNITS/ML SUB-Q ×5 (09:45→17:17)
[2020-09-25] MEDS: LIDOCAINE 5% PATCH 1 PATCH TRANSDERM (09:45)
[2020-09-25 10:19] VITALS: BP 136/51; PULSE 78; RESP 20; TEMP 36.7; O2SAT 96
[2020-09-25] MEDS: INSULIN GLARGINE (*BKC) 100 UNITS/ML 15 UNITS SUB-Q (11:44)
[2020-09-25] MEDS: ACETAMINOPHEN 325 MG TABLET 650 MG PO (11:45)
[2020-09-25 12:00] VITALS: BP 115/54; PULSE 80; RESP 20; TEMP 36.9; O2SAT 95
[2020-09-25 12:40] LABS: Glucose Point of Care 311 (65-105)
[2020-09-25 13:32] LABS: Glucose Point of Care 398 (65-105)
[2020-09-25 16:00] VITALS: BP 103/50; PULSE 87; RESP 20; TEMP 36.4; O2SAT 96
[2020-09-25] MEDS: LOVASTATIN 20 MG TABLET 40 MG PO (17:16)
[2020-09-25 17:21] LABS: Glucose Point of Care 154 (65-105)
--- NOTE | 2020-09-25 17:47 | PM.IMPN ---
Progress Note: A&P Assessment and Plan (1) Diabetic ketoacidosis associated with type 2 diabetes mellitus: Code(s): E11.10 - Type 2 diabetes mellitus with ketoacidosis without coma Status: Acute Assessment and Plan: Resolved now, her anion gap is closed and the drip has been stopped. We will modify her regimen to 0.5 Units per KG and divide that to 50% long acting daily 50% short acting TID, her DKA was likely triggered by the UTI and non compliance. Her diabetes is poorly controlled with a Hb A1C around 12%. 09/25/20 17:47 Patient 80-year-old female with dementia, hypertension, cardiomyopathy with bi ventricular pacemaker history of uncontrolled diabetes with hemoglobin A1c of 12, patient had been living by herself as her is hospitalized who is her caregiver, presented emergency department after she was found on the floor by home health nurse at home, upon arrival patient was in DKA patient was transfer to ICU and was treated with a IV infusion of insulin as well as IVF, her symptoms have improved an ion gap was closed and patient is now on long-acting insulin as well as mealtime insulin and will continue to monitor with sliding scale, and also found to have a UTI this may have triggered her DKA, urine culture is growing Klebsiella pneumonia sensitive to Rocephin will continue, emergency department patient had a x-ray of the pelvic, lumbar spine, C-spine, CT of the head, essentially normal no acute injury, Patient is found to positive for covid-19 and suspect patient may be positive, patient is positive and placed under isolation, Patient did have mild fever and is not requiring oxygen, will start dexamethasone and remdesivir, if patient has a persistent fever and requiring oxygen, will place the patient azithromycin to cover for atypical pneumonia, patient does complaint of pain in her hips and lower extremities will have a PT OT evaluate the patient patient will benefit from acute rehab, patient denies any chest pain shortness of breath fever or chills (2) Acute UTI: Code(s): N39.0 - Urinary tract infection, site not specified Status: Acute Assessment and Plan: On ceftriaxone day # 3 Cultures growing Klebsiella susceptible to ceftriaxone.i (3) Hyperkalemia: Code(s): E87.5 - Hyperkalemia Status: Acute Assessment and Plan: Probably due to insulinopenia, now resolved. Received one dose of Kayexalate and Lasix and now her K is low. (4) DVT (deep venous thrombosis): Qualifiers: DVT location: lower extremity Affected thrombotic vein of extremity: peroneal Chronicity: acute Laterality: left Qualified Code(s): I82.452 - Acute embolism and thrombosis of left peroneal vein Code(s): I82.409 - Acute embolism and thrombosis of unspecified deep veins of unspecified lower extremity Status: Acute Assessment and Plan: On Eliquis, she was diagnosed with DVT less than 6 months ago. (5) Physical deconditioning: Code(s): R53.81 - Other malaise Status: Acute Assessment and Plan: Working with PT, will probably need to go to rehab at discharge. Subjective Date/time seen: 09/25/20 17:47 Patient 80-year-old female with dementia, hypertension, cardiomyopathy with bi ventricular pacemaker history of uncontrolled diabetes with hemoglobin A1c of 12, patient had been living by herself as her is hospitalized who is her caregiver, presented emergency department after she was found on the floor by home health nurse at home, upon arrival patient was in DKA patient was transfer to ICU and was treated with a IV infusion of insulin as well as IVF, her symptoms have improved an ion gap was closed and patient is now on long-acting insulin as well as mealtime insulin and will continue to monitor with sliding scale, and also found to have a UTI this may have triggered her DKA, urine culture is growing Klebsiella pneumonia
[2020-09-25 20:00] VITALS: BP 120/42; PULSE 83; RESP 22; TEMP 37.2; O2SAT 95
[2020-09-25 22:20] LABS: Glucose Point of Care 176 (65-105)
[2020-09-26] VITALS (7 sets, daily range): BP systolic 99–119; BP diastolic 43–91; PULSE 79–95; RESP 16–20; TEMP 36.3–37.7; O2SAT 90–98
[2020-09-26 06:35] LABS: Eosinophils Percent Auto 0.3 % (0-4.4); Hematocrit 34.2 % (37.0-47.0); Hemoglobin 11.6 g/dL (12.0-15.0); Immature Granulocyte Absolute 0.03 K/mm3 (0.00-0.031); Immature Granulocyte Percent A 0.9 % (0-0.5); Lymphocytes Absolute Auto 1.19 K/mm3 (0.9-3.2); Mean Corpuscular HGB Conc 33.9 g/dl (32-36); Mean Corpuscular Hemoglobin 26.7 pg (26-34); Mean Corpuscular Volume 78.6 fl (80-100); Mean Platelet Volume 11.2 fl (7.4-10.4); Monocytes Absolute Auto 0.5 K/mm3 (0.1-0.6); Monocytes Percent Auto 14.5 % (2.6-8.5); Neutrophils Absolute Auto 1.6 K/mm3 (1.3-6.7); Neutrophils Percent Auto 48.3 % (45.5-73.1); Platelet Count Result 133 k/mm3 (150-375); Red Blood Count 4.35 M/mm3 (4.2-5.4); Red Cell Distribution Width 14.2 % (11.5-14.5); White Blood Count 3.3 K/mm3 (4.5-10.0)
[2020-09-26 06:55] LABS: Alanine Aminotransferase 34 U/L (4-35); Albumin Level 3.1 g/dL (3.5-5.1); Alkaline Phosphatase 93 U/L (38-126); Anion Gap 5 mmol/L (8-16); Aspartate Amino Transferase 56 U/L (14-36); Bilirubin,Total 0.4 mg/dL (0.2-1.3); Blood Urea Nitrogen 13 mg/dL (7-17); CRP 3.4 mg/dL (<1.0); Calcium 8.2 mg/dL (8.4-10.2); Carbon Dioxide 27 mmol/L (22-30); Chloride 97 mmol/L (98-107); Estimated CRCL calculation 40 ml/min; Estimated Glomerular Filt Rate > 60; Glucose 225 mg/dL (65-105); Magnesium 1.4 mg/dL (1.6-2.3); Potassium 4.6 mmol/L (3.4-5.0); Sodium 129 mmol/L (137-145)
[2020-09-26] MEDS: POTASSIUM CHLORIDE 20 MEQ TABLET 40 MEQ PO ×2 (09:25→16:43)
[2020-09-26] MEDS: GABAPENTIN 300 MG CAPSULE PO ×3 (09:25→16:43)
[2020-09-26] MEDS: ACETAMINOPHEN 325 MG TABLET 650 MG PO ×2 (09:26→16:43)
[2020-09-26] MEDS: SERTRALINE HCL 50 MG TABLET PO (09:26)
[2020-09-26] MEDS: busPIRone HCL 5 MG TABLET PO (09:27)
[2020-09-26] MEDS: LIDOCAINE 5% PATCH 1 PATCH TRANSDERM (09:27)
[2020-09-26] MEDS: APIXABAN 5 MG TABLET PO ×2 (09:27→20:44)
[2020-09-26] MEDS: INSULIN GLARGINE (*BKC) 100 UNITS/ML 15 UNITS SUB-Q (09:28)
[2020-09-26] MEDS: INSULIN ASPART (*BKC) 100 UNITS/ML SUB-Q ×6 (09:29→16:44)
[2020-09-26] MEDS: SODIUM CHLORIDE 500 MG TABLET PO ×2 (11:53→16:43)
[2020-09-26 12:02] LABS: Glucose Point of Care 406 (65-105)
[2020-09-26 12:32] LABS: Glucose Point of Care 261 (65-105)
[2020-09-26 16:13] LABS: Glucose Point of Care 253 (65-105)
--- NOTE | 2020-09-26 16:29 | PM.IMPN ---
Progress Note: A&P Assessment and Plan (1) Diabetic ketoacidosis associated with type 2 diabetes mellitus: Code(s): E11.10 - Type 2 diabetes mellitus with ketoacidosis without coma Status: Acute Assessment and Plan: Resolved now, her anion gap is closed and the drip has been stopped. We will modify her regimen to 0.5 Units per KG and divide that to 50% long acting daily 50% short acting TID, her DKA was likely triggered by the UTI and non compliance. Her diabetes is poorly controlled with a Hb A1C around 12%. 09/26/20 16:29 Patient 80-year-old female with dementia, hypertension, cardiomyopathy with bi ventricular pacemaker history of uncontrolled diabetes with hemoglobin A1c of 12, patient had been living by herself as her is hospitalized who is her caregiver, presented emergency department after she was found on the floor by home health nurse at home, upon arrival patient was in DKA patient was transfer to ICU and was treated with a IV infusion of insulin as well as IVF, her symptoms have improved an ion gap was closed and patient is now on long-acting insulin as well as mealtime insulin and will continue to monitor with sliding scale, and also found to have a UTI this may have triggered her DKA, urine culture is growing Klebsiella pneumonia sensitive to Rocephin will continue, emergency department patient had a x-ray of the pelvic, lumbar spine, C-spine, CT of the head, essentially normal no acute injury, Patient is found to positive for covid-19 and suspect patient may be positive, patient is positive and placed under isolation, Patient did have mild fever and is not requiring oxygen, will start dexamethasone and remdesivir, if patient has a persistent fever and requiring oxygen, will place the patient azithromycin to cover for atypical pneumonia, patient does complaint of pain in her hips and lower extremities will have a PT OT evaluate the patient patient will benefit from acute rehab, patient denies any chest pain shortness of breath fever or chills today 09/26 patient c/o being tired and fatigue, she does not have any fever and not requiring oxygenWill continue to monitor patient continue PT OT if remains clinically stable will discharge patient to rehab tomorrow (2) Acute UTI: Code(s): N39.0 - Urinary tract infection, site not specified Status: Acute Assessment and Plan: On ceftriaxone day # 5 Cultures growing Klebsiella susceptible to ceftriaxone.i (3) Hyperkalemia: Code(s): E87.5 - Hyperkalemia Status: Acute Assessment and Plan: Probably due to insulinopenia, now resolved. Received one dose of Kayexalate and Lasix and now her K is low. (4) DVT (deep venous thrombosis): Qualifiers: Affected thrombotic vein of extremity: peroneal Chronicity: acute DVT location: lower extremity Laterality: left Qualified Code(s): I82.452 - Acute embolism and thrombosis of left peroneal vein Code(s): I82.409 - Acute embolism and thrombosis of unspecified deep veins of unspecified lower extremity Status: Acute Assessment and Plan: On Eliquis, she was diagnosed with DVT less than 6 months ago. (5) Physical deconditioning: Code(s): R53.81 - Other malaise Status: Acute Assessment and Plan: Working with PT, will probably need to go to rehab at discharge. Subjective Date/time seen: 09/26/20 16:29 Patient 80-year-old female with dementia, hypertension, cardiomyopathy with bi ventricular pacemaker history of uncontrolled diabetes with hemoglobin A1c of 12, patient had been living by herself as her is hospitalized who is her caregiver, presented emergency department after she was found on the floor by home health nurse at home, upon arrival patient was in DKA patient was transfer to ICU and was treated with a IV infusion of insulin as well as IVF, her symptoms have improved an ion gap was closed and p
[2020-09-26] MEDS: LOVASTATIN 20 MG TABLET 40 MG PO (16:43)
[2020-09-26] MEDS: MICONAZOLE NITRATE 2% CREAM 30 GM TUBE 1 APPLIC TOPICAL (20:44)
[2020-09-26 20:56] LABS: Glucose Point of Care 131 (65-105)
[2020-09-27] VITALS: O2SAT 96
[2020-09-27 04:00] VITALS: BP 142/64; PULSE 70; RESP 16; TEMP 37.1; O2SAT 95; O2SAT 97
[2020-09-27 06:32] LABS: Basophils Percent Auto 0.3 % (0.2-1.2); Eosinophils Percent Auto 0.7 % (0-4.4); Hematocrit 35.3 % (37.0-47.0); Immature Granulocyte Absolute 0.04 K/mm3 (0.00-0.031); Immature Granulocyte Percent A 1.4 % (0-0.5); Lymphocytes Absolute Auto 0.98 K/mm3 (0.9-3.2); Lymphocytes Percent Auto 33.8 % (18.3-44.2); Mean Corpuscular Hemoglobin 26.8 pg (26-34); Mean Corpuscular Volume 78.8 fl (80-100); Mean Platelet Volume 10.8 fl (7.4-10.4); Monocytes Absolute Auto 0.6 K/mm3 (0.1-0.6); Monocytes Percent Auto 19.3 % (2.6-8.5); Neutrophils Absolute Auto 1.3 K/mm3 (1.3-6.7); Neutrophils Percent Auto 44.5 % (45.5-73.1); Platelet Count Result 165 k/mm3 (150-375); Red Blood Count 4.48 M/mm3 (4.2-5.4); Red Cell Distribution Width 14.5 % (11.5-14.5); White Blood Count 2.9 K/mm3 (4.5-10.0)
[2020-09-27 07:49] LABS: Alanine Aminotransferase 42 U/L (4-35); Albumin Level 3.2 g/dL (3.5-5.1); Alkaline Phosphatase 98 U/L (38-126); Anion Gap 7 mmol/L (8-16); Aspartate Amino Transferase 70 U/L (14-36); Bilirubin,Total 0.4 mg/dL (0.2-1.3); Blood Urea Nitrogen 17 mg/dL (7-17); CRP 3.7 mg/dL (<1.0); Calcium 8.6 mg/dL (8.4-10.2); Carbon Dioxide 24 mmol/L (22-30); Chloride 101 mmol/L (98-107); Estimated CRCL calculation 40 ml/min; Estimated Glomerular Filt Rate > 60; Glucose 249 mg/dL (65-105); Magnesium 1.6 mg/dL (1.6-2.3); Potassium 4.8 mmol/L (3.4-5.0); Sodium 132 mmol/L (137-145)
[2020-09-27 08:00] VITALS: BP 130/60; PULSE 89; RESP 20; TEMP 36.5; O2SAT 97
[2020-09-27] MEDS: SERTRALINE HCL 50 MG TABLET PO (08:58)
[2020-09-27] MEDS: busPIRone HCL 5 MG TABLET PO (08:58)
[2020-09-27] MEDS: SODIUM CHLORIDE 500 MG TABLET PO ×2 (08:58→17:59)
[2020-09-27] MEDS: GABAPENTIN 300 MG CAPSULE PO ×2 (08:58→17:59)
[2020-09-27] MEDS: POTASSIUM CHLORIDE 20 MEQ TABLET 40 MEQ PO ×2 (08:58→17:59)
[2020-09-27] MEDS: APIXABAN 5 MG TABLET PO ×2 (08:58→17:59)
[2020-09-27] MEDS: INSULIN GLARGINE (*BKC) 100 UNITS/ML 15 UNITS SUB-Q (08:59)
[2020-09-27] MEDS: INSULIN ASPART (*BKC) 100 UNITS/ML SUB-Q ×5 (08:59→18:05)
[2020-09-27] MEDS: MICONAZOLE NITRATE 2% CREAM 30 GM TUBE 1 APPLIC TOPICAL ×2 (09:06→21:12)
[2020-09-27] MEDS: LIDOCAINE 5% PATCH 1 PATCH TRANSDERM (09:06)
[2020-09-27 12:00] VITALS: BP 130/71; PULSE 104; RESP 22; TEMP 36.8; O2SAT 99
--- NOTE | 2020-09-27 12:31 | PC.NURSE ---
Pt started throwing up. called Dr. Del Valle for prn antiemetic . new orders received for Zofran 4mg Q4H prn. While entering these orders i saw a interaction between Azithromycin and Zofran. called Dr. Del Valle back with this information. He said its ok to DC Azithromycin.
[2020-09-27 12:41] LABS: Glucose Point of Care 293 (65-105)
[2020-09-27 12:41] LABS: Glucose Point of Care 236 (65-105)
[2020-09-27] MEDS: ONDANSETRON INJ 4 MG/2 ML VIAL IV PUSH (13:27)
--- NOTE | 2020-09-27 15:36 | PM.IMPN ---
Progress Note: A&P Assessment and Plan (1) Diabetic ketoacidosis associated with type 2 diabetes mellitus: Code(s): E11.10 - Type 2 diabetes mellitus with ketoacidosis without coma Status: Acute Assessment and Plan: Resolved now, her anion gap is closed and the drip has been stopped. We will modify her regimen to 0.5 Units per KG and divide that to 50% long acting daily 50% short acting TID, her DKA was likely triggered by the UTI and non compliance. Her diabetes is poorly controlled with a Hb A1C around 12%. 09/27/20 15:36 Patient 80-year-old female with dementia, hypertension, cardiomyopathy with bi ventricular pacemaker history of uncontrolled diabetes with hemoglobin A1c of 12, patient had been living by herself as her is hospitalized who is her caregiver, presented emergency department after she was found on the floor by home health nurse at home, upon arrival patient was in DKA patient was transfer to ICU and was treated with a IV infusion of insulin as well as IVF, her symptoms have improved an ion gap was closed and patient is now on long-acting insulin as well as mealtime insulin and will continue to monitor with sliding scale, and also found to have a UTI this may have triggered her DKA, urine culture is growing Klebsiella pneumonia sensitive to Rocephin will continue, emergency department patient had a x-ray of the pelvic, lumbar spine, C-spine, CT of the head, essentially normal no acute injury, Patient is found to positive for covid-19 and suspect patient may be positive, patient is positive and placed under isolation, Patient did have mild fever and is not requiring oxygen, will start dexamethasone and remdesivir, if patient has a persistent fever and requiring oxygen, will place the patient azithromycin to cover for atypical pneumonia, patient does complaint of pain in her hips and lower extremities will have a PT OT evaluate the patient patient will benefit from acute rehab, patient denies any chest pain shortness of breath fever or chills today 09/27 patient c/o being tired and fatigue, she does not have any fever and not requiring oxygen Plan was to discharge the patient to rehab however patient developed nausea and had 1 episode vomiting, patient was given Zofran felt better was able to drink her soup nose clinically stable however it is too late to transfer the patient today will discharge the patient tomorrow. (2) Acute UTI: Code(s): N39.0 - Urinary tract infection, site not specified Status: Acute Assessment and Plan: On ceftriaxone day # 6 Cultures growing Klebsiella susceptible to ceftriaxone.i (3) Hyperkalemia: Code(s): E87.5 - Hyperkalemia Status: Acute Assessment and Plan: Probably due to insulinopenia, now resolved. Received one dose of Kayexalate and Lasix and now her K is low. (4) DVT (deep venous thrombosis): Qualifiers: DVT location: lower extremity Affected thrombotic vein of extremity: peroneal Chronicity: acute Laterality: left Qualified Code(s): I82.452 - Acute embolism and thrombosis of left peroneal vein Code(s): I82.409 - Acute embolism and thrombosis of unspecified deep veins of unspecified lower extremity Status: Acute Assessment and Plan: On Eliquis, she was diagnosed with DVT less than 6 months ago. (5) Physical deconditioning: Code(s): R53.81 - Other malaise Status: Acute Assessment and Plan: Working with PT, will probably need to go to rehab at discharge. Subjective Date/time seen: 09/27/20 15:36 Patient 80-year-old female with dementia, hypertension, cardiomyopathy with bi ventricular pacemaker history of uncontrolled diabetes with hemoglobin A1c of 12, patient had been living by herself as her is hospitalized who is her caregiver, presented emergency department after she was found on the floor by home health nurse at home, upon arrival
[2020-09-27 16:00] VITALS: BP 108/57; PULSE 88; RESP 16; TEMP 36.8; O2SAT 98
[2020-09-27] MEDS: LOVASTATIN 20 MG TABLET 40 MG PO (17:59)
[2020-09-27 18:28] LABS: Glucose Point of Care 176 (65-105)
[2020-09-27 20:00] VITALS: BP 122/64; PULSE 77; RESP 20; TEMP 36.8; O2SAT 97; O2SAT 98
[2020-09-27 20:53] LABS: Glucose Point of Care 101 (65-105)
[2020-09-28] VITALS: BP 128/58; PULSE 79; RESP 20; TEMP 36.7; O2SAT 97
[2020-09-28 04:00] VITALS: BP 136/72; PULSE 84; RESP 20; TEMP 36.6; O2SAT 95; O2SAT 96
[2020-09-28 06:19] LABS: Basophils Percent Auto 0.4 % (0.2-1.2); Eosinophils Percent Auto 0.4 % (0-4.4); Hematocrit 33.4 % (37.0-47.0); Hemoglobin 11.4 g/dL (12.0-15.0); Immature Granulocyte Absolute 0.02 K/mm3 (0.00-0.031); Immature Granulocyte Percent A 0.7 % (0-0.5); Lymphocytes Absolute Auto 0.96 K/mm3 (0.9-3.2); Lymphocytes Percent Auto 34.5 % (18.3-44.2); Mean Corpuscular HGB Conc 34.1 g/dl (32-36); Mean Corpuscular Volume 79.1 fl (80-100); Mean Platelet Volume 10.8 fl (7.4-10.4); Monocytes Absolute Auto 0.6 K/mm3 (0.1-0.6); Monocytes Percent Auto 19.8 % (2.6-8.5); Neutrophils Absolute Auto 1.2 K/mm3 (1.3-6.7); Neutrophils Percent Auto 44.2 % (45.5-73.1); Platelet Count Result 189 k/mm3 (150-375); Red Blood Count 4.22 M/mm3 (4.2-5.4); Red Cell Distribution Width 14.6 % (11.5-14.5); White Blood Count 2.8 K/mm3 (4.5-10.0)
[2020-09-28 06:32] LABS: Alanine Aminotransferase 41 U/L (4-35); Alkaline Phosphatase 91 U/L (38-126); Anion Gap 3 mmol/L (8-16); Aspartate Amino Transferase 75 U/L (14-36); Bilirubin,Total 0.4 mg/dL (0.2-1.3); Blood Urea Nitrogen 17 mg/dL (7-17); CRP 3.5 mg/dL (<1.0); Calcium 8.2 mg/dL (8.4-10.2); Carbon Dioxide 28 mmol/L (22-30); Chloride 98 mmol/L (98-107); Estimated CRCL calculation 36 ml/min; Estimated Glomerular Filt Rate 60; Glucose 201 mg/dL (65-105); Magnesium 1.5 mg/dL (1.6-2.3); Potassium 4.4 mmol/L (3.4-5.0); Sodium 129 mmol/L (137-145)
[2020-09-28 08:00] VITALS: BP 115/54; PULSE 77; PULSE 85; RESP 14; RESP 20; TEMP 36.6; O2SAT 96
[2020-09-28] MEDS: INSULIN ASPART (*BKC) 100 UNITS/ML SUB-Q ×2 (09:39→09:40)
[2020-09-28] MEDS: busPIRone HCL 5 MG TABLET PO (09:40)
[2020-09-28] MEDS: MAGNESIUM SULF 2 GM/WATER 50ML 2 GM/50 ML BAG IVPB (09:40)
[2020-09-28] MEDS: APIXABAN 5 MG TABLET PO (09:40)
[2020-09-28] MEDS: GABAPENTIN 300 MG CAPSULE PO (09:40)
[2020-09-28] MEDS: SERTRALINE HCL 50 MG TABLET PO (09:41)
[2020-09-28] MEDS: LIDOCAINE 5% PATCH 1 PATCH TRANSDERM (09:41)
[2020-09-28] MEDS: MAGNESIUM OXIDE 400 MG TABLET PO (09:41)
[2020-09-28] MEDS: INSULIN GLARGINE (*BKC) 100 UNITS/ML 15 UNITS SUB-Q (09:41)
[2020-09-28] MEDS: SODIUM CHLORIDE 500 MG TABLET PO (09:41)
[2020-09-28] MEDS: POTASSIUM CHLORIDE 20 MEQ TABLET 40 MEQ PO (09:41)
[2020-09-28] MEDS: MICONAZOLE NITRATE 2% CREAM 30 GM TUBE 1 APPLIC TOPICAL (09:41)
[2020-09-28] MEDS: ONDANSETRON INJ 4 MG/2 ML VIAL IV PUSH (11:43)
[2020-09-28 12:00] VITALS: BP 116/59; PULSE 87; RESP 14; TEMP 37.2; O2SAT 93
--- NOTE | 2020-09-28 12:29 | PM.DS ---
DS: Admitting Diagnosis Admitting Diagnosis Admitting Diagnosis: DKA, UTI DS: Discharge Diagnosis Discharge Diagnosis (1) Diabetic ketoacidosis associated with type 2 diabetes mellitus: Code(s): E11.10 - Type 2 diabetes mellitus with ketoacidosis without coma Status: Acute Assessment and Plan: Resolved now, her anion gap is closed and the drip has been stopped. We will modify her regimen to 0.5 Units per KG and divide that to 50% long acting daily 50% short acting TID, her DKA was likely triggered by the UTI and non compliance. Her diabetes is poorly controlled with a Hb A1C around 12%. 09/27/20 15:36 Patient 80-year-old female with dementia, hypertension, cardiomyopathy with bi ventricular pacemaker history of uncontrolled diabetes with hemoglobin A1c of 12, patient had been living by herself as her is hospitalized who is her caregiver, presented emergency department after she was found on the floor by home health nurse at home, upon arrival patient was in DKA patient was transfer to ICU and was treated with a IV infusion of insulin as well as IVF, her symptoms have improved an ion gap was closed and patient is now on long-acting insulin as well as mealtime insulin and will continue to monitor with sliding scale, and also found to have a UTI this may have triggered her DKA, urine culture is growing Klebsiella pneumonia sensitive to Rocephin will continue, emergency department patient had a x-ray of the pelvic, lumbar spine, C-spine, CT of the head, essentially normal no acute injury, Patient is found to positive for covid-19 and suspect patient may be positive, patient is positive and placed under isolation, Patient did have mild fever and is not requiring oxygen, will start dexamethasone and remdesivir, if patient has a persistent fever and requiring oxygen, will place the patient azithromycin to cover for atypical pneumonia, patient does complaint of pain in her hips and lower extremities will have a PT OT evaluate the patient patient will benefit from acute rehab, patient denies any chest pain shortness of breath fever or chills today 09/27 patient c/o being tired and fatigue, she does not have any fever and not requiring oxygen Plan was to discharge the patient to rehab however patient developed nausea and had 1 episode vomiting, patient was given Zofran felt better was able to drink her soup nose clinically stable however it is too late to transfer the patient today will discharge the patient tomorrow. (2) Acute UTI: Code(s): N39.0 - Urinary tract infection, site not specified Status: Acute Assessment and Plan: On ceftriaxone day # 6 Cultures growing Klebsiella susceptible to ceftriaxone.i (3) Hyperkalemia: Code(s): E87.5 - Hyperkalemia Status: Acute Assessment and Plan: Probably due to insulinopenia, now resolved. Received one dose of Kayexalate and Lasix and now her K is low. (4) DVT (deep venous thrombosis): Qualifiers: Affected thrombotic vein of extremity: peroneal Chronicity: acute DVT location: lower extremity Laterality: left Qualified Code(s): I82.452 - Acute embolism and thrombosis of left peroneal vein Code(s): I82.409 - Acute embolism and thrombosis of unspecified deep veins of unspecified lower extremity Status: Acute Assessment and Plan: On Eliquis, she was diagnosed with DVT less than 6 months ago. (5) Physical deconditioning: Code(s): R53.81 - Other malaise Status: Acute Assessment and Plan: Working with PT, will probably need to go to rehab at discharge. DS: Summary Hospital Course Reason for hospitalization: Chief complaint: Found down. Narrative: Nathalia Jaimes is an 79-year-old female with history of poorly controlled type 2 diabetes mellitus, chronic kidney disease, hypertension, nonischemic cardiomyopathy status post ICD Bi V pacer, and several other comorbid
--- NOTE | 2020-09-28 12:33 | PCOTNOTE ---
Attempted to see patient this PM, patient not feeling well and unable to participate in any OT. Will continue plan of care tomorrow if appropriate.
[2020-09-28 12:54] LABS: Glucose Point of Care 247 (65-105)
[2020-09-28 16:00] VITALS: BP 129/62; PULSE 85; RESP 14; TEMP 37.9; O2SAT 95
--- NOTE | 2020-09-28 16:54 | PC.NURSE ---
Called and asked Dr Del Valle if he wanted pt Sousa removed, he said it was ok to leave in on discharge.
--- NOTE | 2020-09-28 17:02 | PC.NURSE ---
patient refused flu shot upon discharge. She said she didnt want any more needle sticks.
[2020-09-29 04:20] LABS: Glucose Point of Care 333 (65-105)
== END 2020-09-28 16:30 | DRG 637 ==
LOC: ANHED 10:47 → ANHICU 15:25 → ANH3MEDSUR 09-22 02:02 → ANHICU 09-29 12:09
PROVIDERS: Hospitalist; Internal Medicine; Physician Assistant; Admitting Provider Internal Medicine; Emergency Provider Emergency Medicine; PCP Family Medicine; Visit Provider Family Medicine
DX: E11.10 Type 2 diabetes mellitus with ketoacidosis without coma (principal); U07.1 COVID-19; G93.41 Metabolic encephalopathy; N39.0 Urinary tract infection, site not specified; I13.0 Hypertensive heart and chronic kidney disease with heart failure and stage 1 through stage 4 chronic kidney disease, or unspecified chronic kidney disease; I50.22 Chronic systolic (congestive) heart failure; N17.9 Acute kidney failure, unspecified; I42.0 Dilated cardiomyopathy; B96.1 Klebsiella pneumoniae [K. pneumoniae] as the cause of diseases classified elsewhere; N18.30 Chronic kidney disease, stage 3 unspecified; E11.22 Type 2 diabetes mellitus with diabetic chronic kidney disease; E87.5 Hyperkalemia; D63.1 Anemia in chronic kidney disease; E11.42 Type 2 diabetes mellitus with diabetic polyneuropathy; E78.2 Mixed hyperlipidemia; M19.09 Primary osteoarthritis, other specified site; E86.0 Dehydration; I44.7 Left bundle-branch block, unspecified; F03.90 Unspecified dementia, unspecified severity, without behavioral disturbance, psychotic disturbance, mood disturbance, and anxiety; Z79.01 Long term (current) use of anticoagulants; Z98.42 Cataract extraction status, left eye; Z98.41 Cataract extraction status, right eye; Z90.49 Acquired absence of other specified parts of digestive tract; Z95.810 Presence of automatic (implantable) cardiac defibrillator; Z90.710 Acquired absence of both cervix and uterus; Z87.891 Personal history of nicotine dependence; Z91.19 Patient's noncompliance with other medical treatment and regimen; Z86.718 Personal history of other venous thrombosis and embolism
CPT/HCPCS: 36415; 36600; 51701; 70450; 71045; 72125; 72131; 72170; 80048; 80053; 81001; 82010; 82550; 82805; 82948; 83036; 83735; 84100; 84484; 85025; 85027; 85055; 85380; 85610; 85730; 86140; 87077; 87086; 87088; 87186; 87635; 93005; 96360; 96361; 97110; 97116; 97162; 97166; 97530; 97535; 99291; A9270; C9803; J0456; J0696; J1815; J1940; J2405; J3475; J3480; J7030; J7060; U0003